=== PATIENT | female | born 1930 | race Caucasian/White ===

== ENCOUNTER 2017-08-15 12:25 | Inpatient (IN) | payer OTHER, MEDICARE ==
[2017-08-15] VITALS (8 sets, daily range): BP systolic 138–178; BP diastolic 65–79; PULSE 48–76; RESP 17–20; TEMP 98.7; O2SAT 93–100
[~2017-08-15] VITALS: Ht 144.8 cm; Wt 40.7 kg
[2017-08-15] MEDS ORDERED: IOHEXOL 350 MG/ML 10 ML VIAL (for RAD DIAG) IVCONTRAST ONE (12:26)
[2017-08-15] MEDS ORDERED: DIPHTH/TETANUS/ACEL PERTUSSIS (BOOSTER) 0.5 ML VIAL/PFS IM ONE (12:35)
[2017-08-15 12:49] LABS: I-STAT POTASSIUM 4.1 MMOL/L (3.5-4.9)
[2017-08-15 12:51] LABS: AUTOMATED NEUTROPHIL # 5.8 TH/MM3 (1.8-7.7); BASOPHIL % 0.5 % (0.0-2.0); EOSINOPHIL # 0.1 TH/MM3 (0-0.4); EOSINOPHIL % 0.8 % (0.0-4.0); HEMATOCRIT 31.9 % (35.0-46.0); HEMO FLAGS DIFF FINAL; LYMPH % 32.2 % (9.0-44.0); LYMPHOCYTE # 3.4 TH/MM3 (1.0-4.8); MEAN CORPUSCULAR HEMOGLOBIN 31.9 PG (27.0-34.0); MEAN CORPUSCULAR HGB CONC 33.2 % (32.0-36.0); MONO % 11.4 % (0.0-8.0); NEUT % 55.1 % (16.0-70.0); PLATELET COUNT 295 TH/MM3 (150-450); RED BLOOD COUNT 3.32 MIL/MM3 (4.00-5.30); RED CELL DISTRIBUTION WIDTH 12.3 % (11.6-17.2); WHITE BLOOD COUNT 10.5 TH/MM3 (4.0-11.0)
[2017-08-15 12:58] LABS: APTT (PATIENT) 25.9 SEC (24.3-30.1); PROTHROMBIN TIME - PATIENT 11.5 SEC (9.8-11.6)
--- NOTE | 2017-08-15 12:58 | RADRPT ---
EXAM DATE/TIME: 08/15/2017 12:26 [facility] COMPARISON: No previous studies available for comparison. INDICATIONS : Trauma stat. MEDICAL HISTORY : unobtainable SURGICAL HISTORY : unobtainable ENCOUNTER: Initial ACUITY: 1 day PAIN SCORE: 10/10 LOCATION: all over FINDINGS: A single view of the chest demonstrates the lungs to be symmetrically aerated without evidence of mas s, infiltrate or effusion. The cardiomediastinal contours are unremarkable. Osseous structures are intact. CONCLUSION: Negative for pneumothorax. Negative for fracture Mathew Collins MD FACR on August 15, 2017 at 12:44 Board Certified Radiologist. This report was verified electronically.
--- NOTE | 2017-08-15 13:04 | RADRPT ---
EXAM DATE/TIME: 08/15/2017 12:33 [facility] COMPARISON: No previous studies available for comparison. INDICATIONS : Trauma alert, fall today. RADIATION DOSE: 56.35 CTDIvol (mGy) MEDICAL HISTORY : Non-responsive. SURGICAL HISTORY : Non-responsive. ENCOUNTER: Initial ACUITY: 1 day PAIN SCALE: Non-responsive LOCATION: Bilateral head TECHNIQUE: Multiple contiguous axial images were obtained of the head. Using automated exposure control and adj ustment of the mA and/or kV according to patient size, radiation dose was kept as low as reasonably a chievable to obtain optimal diagnostic quality images. DICOM format image data is available electro nically for review and comparison. FINDINGS: There is minimal parenchymal and extra-axial blood noted in the left frontal and temporal regions. Th ere is slight asymmetric hygromatous prominence of the subarachnoid spaces on the left compared to th e right. No significant mass effect or brain shift. A curvilinear focus of spontaneously increased de nsity in the subependymal right lateral ventricle anterior body may be a small focus of hemorrhage or a small subependymal mass. The ventricles are nondilated. There is no drainable hemorrhagic collecti on identified. Patchy diminished attenuation and deep white matter structures is likely chronic micro vascular ischemic in etiology. There is layering fluid in the maxillary sinuses and sphenoid sinus and fluid or mucosal thickening i n the ethmoid sinuses. The calvarium is grossly intact. CONCLUSION: Patchy areas of minimal intracranial hemorrhage, mainly left hemisphere with a focus of abnormal dens ity in the right lateral ventricle which may be minimal hemorrhage or small mass. Oni Hickey MD on August 15, 2017 at 12:57 Board Certified Radiologist. This report was verified electronically.
--- NOTE | 2017-08-15 13:10 | RADRPT ---
EXAM DATE/TIME: 08/15/2017 12:26 [facility] COMPARISON: No previous studies available for comparison. INDICATIONS : Trauma stat. MEDICAL HISTORY : unobtainable SURGICAL HISTORY : unobtainable ENCOUNTER: Initial ACUITY: 1 day PAIN SCORE: 10/10 LOCATION: all over FINDINGS: A single frontal view of the pelvis demonstrates no evidence of fracture. The bony pelvic ring is in tact. Osteoarthritis involving the hip joints. Bony mineralization is normal. The soft tissues are i ntact. Injection granulomas overlie both hips. CONCLUSION: No acute disease. Chinedu Black Jr., MD on August 15, 2017 at 13:06 Board Certified Radiologist. This report was verified electronically.
--- NOTE | 2017-08-15 13:14 | RADRPT ---
EXAM DATE/TIME: 08/15/2017 12:33 [facility] COMPARISON: No previous studies available for comparison. INDICATIONS : Trauma alert, fall today. IV CONTRAST: 71 cc Omnipaque 350 (iohexol) IV ; Cumulative dose for multiple exams. RADIATION DOSE: 5.34 CTDIvol (mGy) MEDICAL HISTORY : Non-responsive. SURGICAL HISTORY : Non-responsive. ENCOUNTER: Initial ACUITY: 1 day PAIN SCALE: Non-responsive LOCATION: Bilateral chest TECHNIQUE: Volumetric scanning of the chest was performed. Using automated exposure control and adjustment of t he mA and/or kV according to patient size, radiation dose was kept as low as reasonably achievable to obtain optimal diagnostic quality images. DICOM format image data is available electronically for review and comparison. Follow-up recommendations for detected pulmonary nodules are based at a minimum on nodule size and pa tient risk factors according to Fleischner Society Guidelines. FINDINGS: Breathing motion artifact degrades the exam somewhat. LUNGS: There is no consolidation or pneumothorax. No concerning pulmonary nodule is visualized. PLEURA: There is no pleural thickening or pleural effusion. MEDIASTINUM: The heart is at the upper limits of normal in terms of size. No pericardial effusion. Coronary artery atherosclerotic calcifications. Aorta and pulmonary arteries are normal in caliber. No mediastinal h ematoma or fluid. No adenopathy. AXILLAE: Within normal limits. No lymphadenopathy. SKELETAL: Within normal limits for patient age. MISCELLANEOUS: The visualized upper abdominal organs demonstrate no acute abnormality. CONCLUSION: No acute disease. Chinedu Black Jr., MD on August 15, 2017 at 13:09 Board Certified Radiologist. This report was verified electronically.
--- NOTE | 2017-08-15 13:19 | RADRPT ---
EXAM DATE/TIME: 08/15/2017 12:38 [facility] COMPARISON: No previous studies available for comparison. INDICATIONS : Trauma alert, fall today. RADIATION DOSE: 37.22 CTDIvol (mGy) MEDICAL HISTORY : Non-responsive. SURGICAL HISTORY : Non-responsive. ENCOUNTER: Initial ACUITY: 1 day PAIN SCALE: Non-responsive LOCATION: Bilateral neck TECHNIQUE: Volumetric scanning of the cervical spine was performed. Multiplanar reconstructions in the sagittal, coronal and oblique axial planes were performed. Using automated exposure control and adjustment o f the mA and/or kV according to patient size, radiation dose was kept as low as reasonably achievable to obtain optimal diagnostic quality images. DICOM format image data is available electronically f or review and comparison. FINDINGS: VERTEBRAE: Normal vertebral body height. ALIGNMENT: No evidence of subluxation. C2-C3: The bony spinal canal is normal in size. No evidence of disc bulge or herniation. The neural forami na are bilaterally patent. C3-C4: The bony spinal canal is normal in size. No evidence of disc bulge or herniation. The neural forami na are bilaterally patent. C4-C5: The bony spinal canal is normal in size. No evidence of disc bulge or herniation. The neural forami na are bilaterally patent. C5-C6: There is disc space narrowing with a mild broad-based disc osteophyte complex. No central canal steno sis. Bony uncovertebral hypertrophy causes moderate narrowing of the right neural foramen. The left r emains patent. C6-C7: There is disc space narrowing without disc bulge or protrusion. Central canal and lateral recesses ar e patent. Bony uncovertebral hypertrophy generates moderate narrowing of the right neural foramen. Th e left remains patent. C7-T1: The bony spinal canal is normal in size. No evidence of disc bulge or herniation. The neural forami na are bilaterally patent. CONCLUSION: 1. No fracture or dislocation. 2. Degenerative changes. 3. Calcified plaque involving the carotid arteries bilaterally. Chinedu Black Jr., MD on August 15, 2017 at 13:14 Board Certified Radiologist. This report was verified electronically.
--- NOTE | 2017-08-15 13:27 | RADRPT ---
EXAM DATE/TIME: 08/15/2017 12:44 [facility] COMPARISON: No previous studies available for comparison. INDICATIONS : Trauma alert, fall today. IV CONTRAST: 71 cc Omnipaque 350 (iohexol) IV ; Cumulative dose for multiple exams. ORAL CONTRAST: No oral contrast ingested. RADIATION DOSE: 5.34 CTDIvol (mGy) ; Combined studies MEDICAL HISTORY : Non-responsive. SURGICAL HISTORY : Non-responsive. ENCOUNTER: Initial ACUITY: 1 day PAIN SCALE: Non-responsive LOCATION: Bilateral abdomen TECHNIQUE: Volumetric scanning of the abdomen and pelvis was performed. Using automated exposure control and ad justment of the mA and/or kV according to patient size, radiation dose was kept as low as reasonably achievable to obtain optimal diagnostic quality images. DICOM format image data is available electro nically for review and comparison. FINDINGS: LOWER LUNGS: See the CT of the thorax dictated separately. LIVER: Homogeneous density without lesion. There is no dilation of the biliary tree. No calcified gallston es. SPLEEN: Normal size without lesion. PANCREAS: Within normal limits. KIDNEYS: Normal in size and shape. There is no mass, stone or hydronephrosis. ADRENAL GLANDS: There is a mass involving the left adrenal gland. This measures 2.3 cm in diameter with Hounsfield un its 89. Right adrenal gland is unremarkable. VASCULAR: Diffuse calcified atherosclerotic plaque of the aorta and its major branches. No aneurysmal change. BOWEL/MESENTERY: The stomach, small bowel, and colon demonstrate no acute abnormality. There is no free intraperitone al air or fluid. Scattered colonic diverticuli without acute inflammation. ABDOMINAL WALL: Within normal limits. RETROPERITONEUM: There are scattered retroperitoneal lymph nodes observed. The majority are partially 1 cm in greatest dimension. There is an isolated dominant lymph node projecting between the inferior vena cava and ab dominal aorta just below the left renal vein. This measures 2.3 x 1.8 cm. BLADDER: No wall thickening or mass. REPRODUCTIVE: The uterus is felt to be surgically absent. There is a heterogeneous mass seen associated with the po sterior portion of the trigone of urinary bladder. This measures 1.4 x 3.9 and a 3.7 cm and appears c entrally necrotic. INGUINAL: There is no lymphadenopathy or hernia. MUSCULOSKELETAL: Within normal limits for patient age. CONCLUSION: 1. No signs of acute trauma. 2. Retroperitoneal adenopathy as well as a left adrenal gland mass. This is concerning for metastatic disease. There is a heterogeneous mass associated with the trigone of urinary bladder. This is worri some for a primary lesion. MRI of the pelvis can be utilized to further evaluate this. Chinedu Black Jr., MD on August 15, 2017 at 13:17 Board Certified Radiologist. This report was verified electronically.
--- NOTE | 2017-08-15 14:45 | PD ---
Physical Exam Date Seen by Provider: Aug 15, 2017 Time Seen by Provider: 14:44 Narrative For full history and physical examination please see previous provider's note. I was asked to repair laceration the patient's forehead. Data Data Last Documented VS Vital Signs Date Time Temp Pulse Resp B/P (MAP) Pulse Ox O2 Delivery O2 Flow Rate FiO2 08/15/17 13:05 100 Nasal Cannula 2.00 08/15/17 13:05 65 17 138/65 (89) Orders Orders I-Stat Profile (08/15/17 12:30) Complete Blood Count With Diff (08/15/17 12:30) Prothrombin Time / Inr (Pt) (08/15/17 12:30) Act Partial Throm Time (Ptt) (08/15/17 12:30) Type And Screen (08/15/17 12:30) Chest, Single Ap (08/15/17 12:30) Pelvis, Ap Only (Routine) (08/15/17 12:30) Ct Brain W/O Iv Contrast(Rout) (08/15/17 12:30) Ct Cerv Spine W/O Contrast (08/15/17 12:30) Ct Thorax/ Chest W Iv Contrast (08/15/17 12:30) Iv Access Insert/Monitor (08/15/17 12:30) Ecg Monitoring (08/15/17 12:30) Oximetry (08/15/17 12:30) Oxygen Administration (08/15/17 12:30) Ompp-Sfo-Jacnwh (Booster) Inj (Boostrix (08/15/17 12:35) Ct Abd/Pel W Iv Contrast(Rout) (08/15/17 ) Iohexol 350 Inj (Omnipaque 350 Inj) (08/15/17 12:26) Labs Laboratory Tests Test 08/15/17 12:32 White Blood Count 10.5 TH/MM3 Red Blood Count 3.32 MIL/MM3 Hemoglobin 10.6 GM/DL Bedside Hemoglobin 10.9 G/DL Hematocrit 31.9 % Bedside Hematocrit 32.0 % Mean Corpuscular Volume 96.0 FL Mean Corpuscular Hemoglobin 31.9 PG Mean Corpuscular Hemoglobin Concent 33.2 % Red Cell Distribution Width 12.3 % Platelet Count 295 TH/MM3 Mean Platelet Volume 8.1 FL Neutrophils (%) (Auto) 55.1 % Lymphocytes (%) (Auto) 32.2 % Monocytes (%) (Auto) 11.4 % Eosinophils (%) (Auto) 0.8 % Basophils (%) (Auto) 0.5 % Neutrophils # (Auto) 5.8 TH/MM3 Lymphocytes # (Auto) 3.4 TH/MM3 Monocytes # (Auto) 1.2 TH/MM3 Eosinophils # (Auto) 0.1 TH/MM3 Basophils # (Auto) 0.0 TH/MM3 CBC Comment DIFF FINAL Differential Comment Prothrombin Time 11.5 SEC Prothromb Time International Ratio 1.0 RATIO Activated Partial Thromboplast Time 25.9 SEC Bedside Sodium 138 MMOL/L Bedside Potassium 4.1 MMOL/L Bedside Chloride 101 MMOL/L Bedside Blood Urea Nitrogen 30 MG/DL Bedside Creatinine 1.0 MG/DL Bedside Glucose 129 MG/DL [facility] Medical Record Reviewed: Yes Supervised Visit with URSULA: Yes Procedures Procedure Narrative LACERATION LOCATION: Right temporal area LENGTH: 4 cm NUMBER OF STITCHES/MATHIEU: 6 stitches REPAIR: The area of the laceration was prepped with Betadine and sterilely draped. The laceration was infiltrated with 1% lidocaine. The wound was copiously irrigated and explored without evidence of foreign body, tendon injury or neurovascular injury. The wound was closed using 5-0 Prolene. This was a 1 layer repair. A sterile dressing was applied. The patient was advised to keep the dressing clean and dry. Patient tolerated the procedure well. Scripts Unable to Obtain Active Prescriptions or Reported Meds Nidia Parks Aug 15, 2017 14:45
[2017-08-15] MEDS ORDERED: ACETAMINOPHEN 325 MG TAB PO PRN (15:00)
[2017-08-15] MEDS ORDERED: RESP: ALBUTEROL 2.5 MG/3 ML NEB (PRN) INH (15:00)
[2017-08-15] MEDS ORDERED: LACTULOSE SYRUP 20 GM/30 ML CUP PO PRN (15:00)
[2017-08-15] MEDS ORDERED: MISCELLANEOUS NURSING INFORMATION XX SCH ×2 (15:00→18:30)
[2017-08-15] MEDS ORDERED: BISACODYL 10 MG SUPP RECTAL PRN (15:00)
[2017-08-15] MEDS ORDERED: SENNOSIDES 8.6 MG TAB PO PRN (15:00)
[2017-08-15] MEDS ORDERED: ONDANSETRON HCL 4 MG/2 ML VIAL IV PUSH PRN (15:00)
[2017-08-15] MEDS ORDERED: SODIUM CHLORIDE 0.9% FLUSH 10 ML FLUSH IV FLUSH PRN ×2 (15:00→18:30)
[2017-08-15] MEDS ORDERED: CHLORHEXIDINE GLUCONATE 2 % 1 PACK (2 CLOTHS) TOP PRN (15:00)
[2017-08-15] MEDS ORDERED: MAGNESIUM HYDROXIDE SUSP 30 ML CUP PO PRN (15:00)
--- NOTE | 2017-08-15 15:07 | PD.CONS ---
[facility] Service Critical Care Medicine Consult Requested By Dr. Higginbotham Reason for Consult Medical care medicine management Primary Care Physician Unknown History of Present Illness Patient states she is an 87-year-old female. She states her actual name is Eleanor Sanchez. Date of admission 08/15/2017. Date of consultation 2016. Past medical history includes hypertension and recent diagnosis of bladder mass. She was scheduled for an outpatient cystoscopy with Dr. Mustafa. She presents to [facility] status post fall. Patient received #5 of 5. 0 Prolene sutures over her right supraorbital/forehead. Patient received DPT 0.5 mg IM 1 in ED Pertinent imaging CT brain - minimal parenchymal and extraction of blood in the left frontal and temporal regions. Right greater than left hygromas. Right lateral ventricle hemorrhage versus subependymal mass. Non-dilatated ventricles. CT abdomen/pelvis - retroperitoneal lymph node enlargement around 1 cm diffuse. Left renal vein lymph node 2.2 x 1.8 c m. There is a 1.8 x 3.9 x 3.7 necrotic mass at the trigone of the bladder CT C-spine - right neural foraminal narrowing at C5/6 and C6/7. Patient is currently complaining of urinary frequency. Question UTI according to family. Also complaining of nausea with emesis noted Review of Systems ROS Limitations: Clinical Condition, Altered Mental Status Past Family Social History Allergies: Coded Allergies: Sulfa (Sulfonamide Antibiotics) (Verified Allergy, Unknown, 08/15/17) Past Medical History Hypertension Known bladder mass Past Surgical History Patient currently denies Reported Medications Blood pressure medications. Unknown per patient Active Ordered Medications Reviewed in EMR Family History Patient denies any family history of brain hemorrhages/mass/diabetes, hypertension Social History Denies any alcohol, tobacco or illicit drug use Physical Exam Vital Signs Vital Signs Date Time Temp Pulse Resp B/P (MAP) Pulse Ox O2 Delivery O2 Flow Rate FiO2 08/15/17 14:56 76 17 164/71 (102) 100 Nasal Cannula 3.00 08/15/17 13:05 100 Nasal Cannula 2.00 08/15/17 13:05 65 17 138/65 (89) 100 Nasal Cannula 3.00 08/15/17 12:30 100 4.00 08/15/17 12:30 100 Nasal Cannula 4.00 Physical Exam GENERAL: Patient states she is an 87-year-old female, currently resting in bed in c-collar in no acute distress SKIN: Warm and dry. Noted laceration right forehead #5 sutures HEAD: Contusion to right for his above. Also a 3 cm contusion above the right eyebrow without sutures EYES: Pupils equal and round about 3 mm bilaterally and reactive. No scleral icterus. No injection or drainage. ENT: No nasal bleeding or discharge. Mucous membranes pink and moist. NECK: Trachea midline. No JVD. CARDIOVASCULAR: Regular rate and rhythm. S1, S2. No S4. Without murmur RESPIRATORY: Clear to auscultation. Breath sounds equal bilaterally. GASTROINTESTINAL: Abdomen soft, non-tender, nondistended. Hepatic and splenic margins not palpable. MUSCULOSKELETAL: Extremities without significant peripheral edema. No obvious deformities. NEUROLOGICAL: Awake and alert. No obvious cranial nerve deficits. Motor grossly within normal limits. Five out of 5 muscle strength in the arms and legs. Normal speech. Laboratory Laboratory Tests Test 08/15/17 12:32 White Blood Count 10.5 Red Blood Count 3.32 Hemoglobin 10.6 Bedside Hemoglobin 10.9 Hematocrit 31.9 Bedside Hematocrit 32.0 Mean Corpuscular Volume 96.0 Mean Corpuscular Hemoglobin 31.9 Mean Corpuscular Hemoglobin Concent 33.2 Red Cell Distribution Width 12.3 Platelet Count 295 Mean Platelet Volume 8.1 Neutrophils (%) (Auto) 55.1 Lymphocytes (%) (Auto) 32.2 Monocytes (%) (Auto) 11.4 Eosinophils (%) (Auto) 0.8 Basophils (%) (Auto) 0.5 Neutrophils # (Auto) 5.8 Lymphocytes # (Auto) 3.4 Monocytes # (Auto) 1.2 Eosinophils # (Auto) 0.1 Basophils # (Auto) 0.0 CBC Comment DIFF FINAL Differential Comment Prothrombin Time 11.5 Prothromb Time International Ratio 1.0 Activated Partial Thromboplast Time 25.9 Bedside Sodium 138 Bedside Potassium 4.1 Bedside Chloride 101 Bedside Blood Urea Nitrogen 30 Bedside Creatinine 1.0 Bedside Glucose 129 Result Diagram: 08/15/[address] abdomen/pelvis - retroperitoneal lymphadenopathy. Trigone mass bladder. CT brain - minimal parenchymal extra-axial blood left frontal/temporal. Left lateral ventricle mass versus hemorrhage CT C-spine - C5/6 and C6/7 right neural foraminal narrowing Assessment and Plan Assessment and Plan Neuro/Psych: Right frontal/temporal parenchymal, extra-axial hemorrhage Possible right lateral ventricle mass versus hemorrhage MRI brain currently pending Dr. Palacios/neurosurgery consultation Keep systolic blood pressure less than 140 Neurochecks per [facility] protocol Repeat CT brain in a.m. CV: Hypertension Currently on an as needed labetalol, hydralazine and nicardipine drip to keep systolic blood pressure less than 140, diastolic blood pressure less than 90 Normal saline at 84 cc an hour while nothing by mouth Resp: Nasal cannula to maintain saturations greater than 92% Incentive spirometry while awake GI: Patient is currently nothing by mouth Famotidine for GI prophylaxis Docusate sodium/senna 1 tablet twice a day for bowel regimen : Written for straight catheterization if greater than [address] Amin otherwise Endo: Sliding-scale insulin if indicated to maintain euglycemia Renal: Creatinine currently 1.0 Monitor urine output Accurate I's and O's Heme: Bladder mass - trigone - 1.8 x 3.9 x 3.7 cm Retroperitoneal lymphadenopathy MRI abdomen/pelvis ordered Patient was planned Dr. Mustafa for cystoscopy CBC and coags currently within normal limits. No indication for transfusion of blood proximal at this time. Patient denies being on aspirin, ibuprofen or any thinners including warfarin or NOACS ID: UA pending MSK: Right forehead laceration DPT 0.5 mg IM 1 artery provided Sutured in ED with number 5. 0 Prolene x 5 stitches FEN: Replace electrolytes as clinically indicated Access - Utilize peripheral IV. Central line if indicated Prophylaxis - GI - famotidine - DVT - SCD/holding pharmacological prophylaxis light of acute hemorrhage Level II consult Code Status Full code Discussed Condition With Dr. Xavier/ED physician. Patient. Care plan discussed and all questions answered. Lucho Kolb MD Aug 15, 2017 15:07
[2017-08-15] MEDS ORDERED: LABETALOL HCL 100 MG/20 ML VIAL IV PUSH PRN (15:15)
[2017-08-15] MEDS ORDERED: niCARdipine INJ 25 MG in SODIUM CHLOR 0.9% 250 ML INJ 240 ML IV PRN (15:30)
--- NOTE | 2017-08-15 15:48 | PD ---
HPI Chief Complaint: Trauma (Alert) Time Seen by Provider: 13:11 Travel History International Travel<30 days: No Contact w/Intl Traveler<30days: No Traveled to known affect area: No History of Present Illness HPI This is an 87-year-old female brought in as a trauma alert. The patient apparently had an episode of dizziness and felt [place] striking her head. When paramedics arrived, she had a [place]ok[place] Coma Scale of 12. They called a trauma alert based on her age and altered level consciousness or decreased [place] Coma Scale. He shouldn't denies pain however has repetitive comments. She is unable to give clear history and therefore her review of systems do not appear to be valid because I'm not sure she comprehends the questions asked of her. Allergies-Medications (Allergen,Severity, Reaction): Coded Allergies: Sulfa (Sulfonamide Antibiotics) (Verified Allergy, Unknown, 08/15/17) Reported Meds & Prescriptions Reported Meds & Active Scripts Active Active Prescriptions or Reported Medications Unobtainable Review of Systems ROS Limitations: Clinical Condition (altered mental status. Unable to get accurate review of systems.) Except as stated in HPI: all other systems reviewed are Neg Physical Exam Narrative GENERAL: Well-developed well-nourished female with obvious laceration to the right lateral temporal area. She was in C-spine backboard immobilization. She was awake and answering no to every question asked. SKIN: Focused skin assessment warm/dry. HEAD: Atraumatic. Normocephalic. EYES: No scleral icterus. No injection or drainage. ENT: No nasal bleeding or discharge. Mucous membranes pink and moist. NECK: Trachea midline. C-collar immobilization.. CARDIOVASCULAR: Rate in the 70s.. Sinus rhythm. No murmur appreciated. RESPIRATORY: No accessory muscle use. Clear to auscultation. Breath sounds equal bilaterally. Decreased respiratory effort. GASTROINTESTINAL: Abdomen soft, non-tender, nondistended. Hepatic and splenic margins not palpable. MUSCULOSKELETAL: No obvious deformities. No clubbing. No cyanosis. No edema. NEUROLOGICAL: Awake and confused with repetitive questions. No obvious cranial nerve deficits. Motor grossly within normal limits. Normal speech. Data Data Last Documented VS Vital Signs Date Time Temp Pulse Resp B/P (MAP) Pulse Ox O2 Delivery O2 Flow Rate FiO2 08/15/17 14:56 76 17 164/71 (102) 100 Nasal Cannula 3.00 Orders Orders I-Stat Profile (08/15/17 12:30) Complete Blood Count With Diff (08/15/17 12:30) Prothrombin Time / Inr (Pt) (08/15/17 12:30) Act Partial Throm Time (Ptt) (08/15/17 12:30) Type And Screen (08/15/17 12:30) Chest, Single Ap (08/15/17 12:30) Pelvis, Ap Only (Routine) (08/15/17 12:30) Ct Brain W/O Iv Contrast(Rout) (08/15/17 12:30) Ct Cerv Spine W/O Contrast (08/15/17 12:30) Ct Thorax/ Chest W Iv Contrast (08/15/17 12:30) Iv Access Insert/Monitor (08/15/17 12:30) Ecg Monitoring (08/15/17 12:30) Oximetry (08/15/17 12:30) Oxygen Administration (08/15/17 12:30) Mnku-Anw-Ivkqcb (Booster) Inj (Boostrix (08/15/17 12:35) Ct Abd/Pel W Iv Contrast(Rout) (08/15/17 ) Iohexol 350 Inj (Omnipaque 350 Inj) (08/15/17 12:26) Mri Brain W/O Contrast (08/15/17 ) Mri Abdomen W/O Contrast (08/15/17 ) Admit To Inpatient (08/15/17 ) Code Status (08/15/17 14:56) Vital Signs (Adult) KATHY.Q1H (08/15/17 14:56) Activity Bed Rest (08/15/17 14:56) Elevate Head Of Bed (08/15/17 14:56) Neuro Checks . ORDERED (08/15/17 14:56) Intake + Output Q1H (08/15/17 14:56) Bedside Glucose KATHY.BGM (08/15/17 14:56) ^ Straight Catheter PRN (08/15/17 14:56) Diet Npo (08/15/17 Dinner) Sodium Chlor 0.9% 1000 Ml Inj (Ns 1000 M (08/15/17 14:56) Sodium Chloride 0.9% Flush (Ns Flush) (08/15/17 15:00) Sodium Chloride 0.9% Flush (Ns Flush) (08/15/17 21:00) Acetaminophen (Tylenol) (08/15/17 15:00) Acetamin-Hydrocod 325-5 Mg ([place] 5-325 (08/15/17 15:00) Morphine Inj (Morphine Inj) (08/15/17 15:00) Famotidine Inj (Pepcid Inj) (08/15/17 21:00) Ondansetron Inj (Zofran Inj) (08/15/17 15:00) Albuterol Neb (Albuterol Neb) (08/15/17 15:00) Complete Blood Count With Diff (08/16/17 04:00) Comprehensive Metabolic Panel (08/16/17 04:00) Creatine Kinase (Cpk) (08/15/17 14:56) Act Partial Throm Time (Ptt) (08/16/17 04:00) Prothrombin Time / Inr (Pt) (08/16/17 04:00) Magnesium (Mg) (08/16/17 04:00) Phosphorus (Po4) (08/16/17 04:00) Lactic Acid (08/16/17 04:00) Urine Culture (08/15/17 14:56) Resp Incentive Spirometry (08/15/17 ) Resp Oxygen Levi C Titrat 1-4 L (08/15/17 ) Pt Request For Service (08/15/17 14:56) Laundry Tech / Telemetry KATHY.Q8H (08/15/17 14:56) Scd Bilateral/Knee High KATHY.BID (08/15/17 14:56) ^ Initiate Protocol (08/15/17 14:56) Instruction (08/15/17 14:56) Counts Include [facility] (08/15/17 15:00) Chlorhexidine 2% Cloth (Chlorhexidine 2% (08/16/17 04:00) Chlorhexidine 2% Cloth (Chlorhexidine 2% (08/15/17 15:00) Mrsa Pcr Surveillance (08/15/17 14:56) Docusate Sodium-Senna (Eliane-Colace) (08/15/17 21:00) Magnesium Hydroxide Liq (Milk Of Magnesi (08/15/17 15:00) Sennosides (Senokot) (08/15/17 15:00) Bisacodyl Supp (Dulcolax Supp) (08/15/17 15:00) Lactulose Liq (Lactulose Liq) (08/15/17 15:00) Ct Brain W/O Iv Contrast(Rout) (08/16/17 06:00) Labetalol Inj (Trandate Inj) (08/15/17 15:15) Hydralazine Inj (Apresoline Inj) (08/15/17 15:15) Nicardipine Inj (Cardene Inj) (08/15/17 15:30) Mri Pelvis W/O Contrast (08/15/17 ) Ua Includes Microscopic (08/15/17 15:13) Labs Laboratory Tests Test 08/15/17 12:32 White Blood Count 10.5 TH/MM3 Red Blood Count 3.32 MIL/MM3 Hemoglobin 10.6 GM/DL Bedside Hemoglobin 10.9 G/DL Hematocrit 31.9 % Bedside Hematocrit 32.0 % Mean Corpuscular Volume 96.0 FL Mean Corpuscular Hemoglobin 31.9 PG Mean Corpuscular Hemoglobin Concent 33.2 % Red Cell Distribution Width 12.3 % Platelet Count 295 TH/MM3 Mean Platelet Volume 8.1 FL Neutrophils (%) (Auto) 55.1 % Lymphocytes (%) (Auto) 32.2 % Monocytes (%) (Auto) 11.4 % Eosinophils (%) (Auto) 0.8 % Basophils (%) (Auto) 0.5 % Neutrophils # (Auto) 5.8 TH/MM3 Lymphocytes # (Auto) 3.4 TH/MM3 Monocytes # (Auto) 1.2 TH/MM3 Eosinophils # (Auto) 0.1 TH/MM3 Basophils # (Auto) 0.0 TH/MM3 CBC Comment DIFF FINAL Differential Comment Prothrombin Time 11.5 SEC Prothromb Time International Ratio 1.0 RATIO Activated Partial Thromboplast Time 25.9 SEC Bedside Sodium 138 MMOL/L Bedside Potassium 4.1 MMOL/L Bedside Chloride 101 MMOL/L Bedside Blood Urea Nitrogen 30 MG/DL Bedside Creatinine 1.0 MG/DL Bedside Glucose 129 MG/DL [facility] Medical Screen Exam Complete: Yes Emergency Medical Condition: Yes Differential Diagnosis Intracranial injury versus cervical spine injury versus metabolic derangement Narrative Course 87-year-old female presents as a trauma alert. The patient reportedly had dizzy and fell for hitting her head. There is reported decreased level of consciousness on scene. The patient has a [place] Coma Scale of 13 on my examination. Patient has intraparenchymal hemorrhages. There is also question of a mass noted intracranially. The patient's abdomen pelvis CT scan shows a bladder mass and a left adrenal mass. This is possibly metastatic cancer. The patient is been discussed with Dr. Palacios, on-call neurosurgeon, Dr. Kolb, cabin service agent and Dr. Turcios, trauma surgeon. The patient be admitted to the ICU. The laceration has been repaired by YURI Villanueva. Critical Care Narrative Aggregate critical care time was 45 minutes. Time to perform other separately billable procedures was not included in the critical care time. My time did not include minutes spent treating any other patients simultaneously or on activities that did not directly contribute to the patient's treatment. The services I provided to this patient were to treat and/or prevent clinically significant deterioration that could result in: I provided critical care services requiring my management, as noted below: Chart data review, documentation time, medication orders and management, vital sign assessments/reviewing monitor data, ordering and reviewing lab tests, ordering and interpreting/reviewing x-rays and diagnostic studies, care of the patient and discussion of the patient with the admitting physicians. Diagnosis Diagnosis: Primary Impression: Traumatic intracranial hemorrhage Additional Impressions: possible intracranial mass Bladder mass Adrenal mass Admitting Physician Requests: Admit Scripts Unable to Obtain Active Prescriptions or Reported Meds Joselito Xavier MD Aug 15, 2017 15:48
[2017-08-15] MEDS: SODIUM CHLOR 0.9% 1000 ML INJ 1,000 ML IV SCH (16:46)
[2017-08-15] MEDS ORDERED: GADODIAMIDE PF 287 MG/ML 10 ML VIAL (for RAD MRI) IV PUSH ONE (17:36)
--- NOTE | 2017-08-15 18:42 | RADRPT ---
EXAM DATE/TIME: 08/15/2017 17:14 [facility] COMPARISON: CT BRAIN W/O CONTRAST, August 15, 2017, 12:33. INDICATIONS : Mass. Head pain due to fall and confusion. CONTRAST: 10 cc Omniscan (gadodiamide) IV MEDICAL HISTORY : Hypertension. SURGICAL HISTORY : Hysterectomy. ENCOUNTER: Initial ACUITY: 1 day PAIN SCORE: 7/10 LOCATION: Bilateral cranial TECHNIQUE: Multiplanar, multisequence MRI of the brain was performed both prior to and following the administrat ion of paramagnetic contrast. FINDINGS: CEREBRUM: Ventricles are somewhat prominent and out of proportion to degree of cortical atrophy. On the suscept ibility weighted images, there did appear to be multiple areas of parenchymal susceptibility artifact , particularly periventricular distribution on the right and subcortical distribution on the left. So me of these correspond to the parenchymal densities identified on CT and may represent small parenchy mal hemorrhages. In addition, there appear to be small fluid levels in the dependent portion of the v entricles with diminished signal on the susceptibility weighted images concerning for small intravent ricular hemorrhages. 9 mm subdural hygroma on the left WHITE MATTER: Moderately severe periventricular small vessel ischemic demyelination. POSTERIOR FOSSA: The cerebellum and brainstem are intact. The 4th ventricle is midline. The cerebellopontine angle is unremarkable. The cerebellar tonsils are normal in position. DIFFUSION IMAGING: No focal areas of restricted diffusion are seen. No evidence of acute infarction. EXTRACRANIAL: The visualized portions of the orbits are unremarkable. Small air-fluid levels in the maxillary antra bilaterally. POST-CONTRAST: No abnormal areas of parenchymal or dural enhancement. No evidence of blood-brain barrier breakdown. CONCLUSION: 1. MR findings concerning for scattered parenchymal hemorrhages or, possibly, diffuse axonal injury d epending on the patient's clinical condition. These are most prominent in the subcortical distributio n of the left cerebral hemisphere. 2. 9 mm subdural hygroma on the left. There may be small intraventricular hemorrhages as well. 3. Chronic changes with moderately severe periventricular small vessel ischemic demyelination. Mild v entricular prominence could represent central atrophy versus NPH in the appropriate clinical setting. Finn Aguillon MD on August 15, 2017 at 18:29 Board Certified Radiologist. This report was verified electronically.
--- NOTE | 2017-08-15 18:48 | MH ---
cc: SILVANA CHRISTIE M.D. DATE OF ADMISSION 08/15/2017 HISTORY The patient was brought in a trauma alert after a fall. By report the patient got dizzy and fell hitting her head. Her initial GCS was 3 and she was brought in as a trauma alert. On my evaluation the patient is on backboard and C-collar, awake, moaning of pain and unable to give a history. As a result all histories and review of systems unobtainable. PHYSICAL EXAMINATION HEENT: On exam she has a laceration to her right forehead approximately 2 cm. Pupils are equal and reactive. NECK: Neck is in C-collar. LUNG: Respirations clear. CARDIOVASCULAR: Regular. GASTROINTESTINAL: Soft, nondistended. MUSCULOSKELETAL: No deformities. NEUROLOGICAL: Grossly intact. BACK: No step-offs below LABORATORY DATA The patient's hemoglobin is 19, hematocrit 32. RADIOLOGIC IMAGES CT of the head revealed intracranial hemorrhage, questionable small mass. CT of the cervical spine no fractures. CT of the chest no acute disease. CT of the abdomen and pelvis no acute traumatic disease. Positive enlarged lymph node in the retroperitoneum with adrenal mass as well as mass associated with the bladder. ASSESSMENT/PLAN This is a patient status post fall with closed head injury. Of note, she does have a mass in the bladder with questionable metastatic disease to the retroperitoneum. The patient is being admitted. Will have neurosurgery and card runner see the patient. Once the patient is stable from her acute trauma can have further workup into her bladder disease. MD JUJU Cadet/DHARA /6:25 PM /6:36 PM
--- NOTE | 2017-08-15 19:36 | RADRPT ---
EXAM DATE/TIME: 08/15/2017 17:14 This report includes an Addendum and supersedes previous reports for this exam. [facility] COMPARISON: CT ABDOMEN & PELVIS W CONTRAST, August 15, 2017, 12:44. INDICATIONS : Mass. CONTRAST: 10 cc Omniscan (gadodiamide) IV MEDICAL HISTORY : Hypertension. SURGICAL HISTORY : Hysterectomy. ENCOUNTER: Initial ACUITY: 1 day PAIN SCORE: 7/10 LOCATION: abdomen. TECHNIQUE: Multiplanar, multisequence magnetic resonance imaging of the abdomen was performed without and with i ntravenous contrast. FINDINGS: LIVER: Normal size with normal signal intensity. No lesion is identified. Portal vein is within normal limi ts. BILIARY: There is no intra- or extra-hepatic biliary ductal dilatation. Gallbladder contains no stones. SPLEEN: Within normal limits. PANCREAS: Within normal limits. ADRENALS: 2.3 cm Mass lesion associated with the left adrenal gland. There is no signal drop off on the opposed phase images and therefore, findings are not characteristic of a benign adenoma. As such, imaging ch aracteristics including intense enhancement are concerning for a neoplastic process. KIDNEYS: Normal size and signal intensity. There is no hydronephrosis or mass. OTHER: Aorta is nonaneurysmal. There is no lymphadenopathy. CONCLUSION: Imaging characteristics of the 2.3 cm left adrenal mass lesion are concerning for a neoplastic p rocess. Finn Aguillon MD on August 15, 2017 at 19:30 Board Certified Radiologist. This report was verified electronically. ADDENDUM: Also noted is a 2.1 cm isolated but prominent retroperitoneal periaortic lymph node at the level of t he renal veins which was identified on prior CT. This is concerning for a metastatic foci. Finn Aguillon MD on August 16, 2017 at 16:47 Board Certified Radiologist. This report was verified electronically.
[2017-08-15] MEDS: DOCUSATE SODIUM 50 MG/SENNA 8.6 MG TAB PO SCH (20:59)
[2017-08-15] MEDS: FAMOTIDINE 20 MG/2 ML VIAL IV PUSH SCH (21:29)
[2017-08-15] MEDS: MORPHINE SULFATE 4 MG/ML INJ IV PUSH PRN (21:30)
[2017-08-15] MEDS: SODIUM CHLORIDE 0.9% FLUSH 10 ML FLUSH IV FLUSH SCH (21:30)
--- NOTE | 2017-08-15 23:36 | PD.CONS ---
History of Present Illness Service Neurosurgery Consult Requested By Gen. surgery trauma service Reason for Consult Traumatic brain injury Primary Care Physician Diagnoses: History of Present Illness The patient is a pleasant elderly lady who according to her family passed out and fell today, striking her head with positive loss of consciousness. She was initially Gokul Coma Score of 3 at the scene and brought in as a trauma alert. No seizure activity reported. No nausea or vomiting reported. She complains of headache. No complaint of neck or low back pain. No complaint of blurred vision or diplopia. Review of Systems Constitutional: DENIES: Fever Eyes: DENIES: Blurred vision, Diplopia Ears, nose, mouth, throat: DENIES: Vertigo Respiratory: DENIES: Shortness of breath Cardiovascular: DENIES: Chest pain, Palpitations Gastrointestinal: DENIES: Abdominal pain, Nausea Musculoskeletal: COMPLAINS OF: Muscle aches, DENIES: Joint pain Hematologic/lymphatic: DENIES: Bruising Neurologic: COMPLAINS OF: Headache Psychiatric: COMPLAINS OF: Confusion Past Family Social History Allergies: Coded Allergies: Sulfa (Sulfonamide Antibiotics) (Verified Allergy, Unknown, 08/15/17) Past Medical History Hypertension Her family states that she was recently hospitalized at [facility]. She has recently been diagnosed with a bladder mass and was supposed to have a cystoscopy tomorrow per Dr. Mustafa Past Surgical History No major surgeries reported Reported Medications Reported Meds & Active Scripts Active Active Prescriptions or Reported Medications Unobtainable Family History Negative for cancer, diabetes, cardiac disease Social History This with her . No alcohol or tobacco use Physical Exam Vital Signs Vital Signs Date Time Temp Pulse Resp B/P (MAP) Pulse Ox O2 Delivery O2 Flow Rate FiO2 08/15/17 22:00 53 08/15/17 20:00 98.7 48 20 178/79 (112) 100 08/15/17 20:00 54 08/15/17 19:00 98 Nasal Cannula 4.00 08/15/17 18:20 08/15/17 18:00 70 17 170/77 (108) 100 Nasal Cannula 3.00 08/15/17 17:00 72 17 165/72 (103) 100 Nasal Cannula 3.00 08/15/17 14:56 76 17 164/71 (102) 100 Nasal Cannula 3.00 08/15/17 13:05 100 Nasal Cannula 2.00 08/15/17 13:05 65 17 138/65 (89) 100 Nasal Cannula 3.00 08/15/17 12:30 100 4.00 08/15/17 12:30 100 Nasal Cannula 4.00 Physical Exam GENERAL: This is a well-nourished, well-developed patient, no apparent distress. SKIN: No abrasions, contusion, rash noted. Skin warm and dry. HEAD: Right supraorbital and lateral forehead lacerations EYES: Sclerae are clear and nonicteric ENT: No facial edema or ecchymosis. No periorbital edema. No CSF otorrhea or rhinorrhea. No palpable facial fracture or deformity. NECK: Trachea midline. No cervical spine tenderness. CARDIOVASCULAR: Regular rate and rhythm without murmurs, gallops, or rubs. RESPIRATORY: Clear to auscultation. Breath sounds equal bilaterally. No wheezes , rales, or rhonchi. GASTROINTESTINAL: Abdomen soft, non-tender, nondistended. No hepato-splenomegaly , or palpable masses. No guarding. MUSCULOSKELETAL: Extremities without cyanosis, or edema. No joint tenderness, or edema noted. No calf tenderness. Dorsalis pedis pulses 2+ bilateral NEUROLOGICAL: Mild to moderate lethargy She cannot tell me the date, month, or where she is Speech is moderately slow but clear She will say a few words and responds to questions Follow a few simple commands Diminished judgment and insight Recent and remote memory are markedly diminished No evidence of anxiety or depression Pupils are equal and reactive to accommodation. Extra-ocular movements, visual hernandez to confrontation, facial sensorimotor, tongue, palate, sternocleidomastoid testing, hearing to finger rub testing, and bilateral shoulder shrug are all intact. Sensation is intact to light touch in all extremities Strength normal major flexion and extension groups all extremities Salena's absent bilaterally No ankle clonus Plantar responses absent bilateral Fine motor movements intact upper extremities Laboratory Laboratory Tests Test 08/15/17 12:32 08/15/17 18:00 White Blood Count 10.5 Red Blood Count 3.32 Hemoglobin 10.6 Bedside Hemoglobin 10.9 Hematocrit 31.9 Bedside Hematocrit 32.0 Mean Corpuscular Volume 96.0 Mean Corpuscular Hemoglobin 31.9 Mean Corpuscular Hemoglobin Concent 33.2 Red Cell Distribution Width 12.3 Platelet Count 295 Mean Platelet Volume 8.1 Neutrophils (%) (Auto) 55.1 Lymphocytes (%) (Auto) 32.2 Monocytes (%) (Auto) 11.4 Eosinophils (%) (Auto) 0.8 Basophils (%) (Auto) 0.5 Neutrophils # (Auto) 5.8 Lymphocytes # (Auto) 3.4 Monocytes # (Auto) 1.2 Eosinophils # (Auto) 0.1 Basophils # (Auto) 0.0 CBC Comment DIFF FINAL Differential Comment Prothrombin Time 11.5 Prothromb Time International Ratio 1.0 Activated Partial Thromboplast Time 25.9 Bedside Sodium 138 Bedside Potassium 4.1 Bedside Chloride 101 Bedside Blood Urea Nitrogen 30 Bedside Creatinine 1.0 Bedside Glucose 129 Total Creatine Kinase 41 Nasal Screen MRSA (PCR) MRSA NOT DETECTED Result Diagram: 08/15/17 1232 Imaging 08/15/2017 CT scan of the head and cervical spine images are reviewed by the undersigned. I agree with findings as noted below: Pelvis X-Ray 08/15/170 Signed Impressions: Service Date/Time: Tuesday, August 15, 2017 12:26 - CONCLUSION: No acute disease. Chinedu Black Jr., MD Head CT 08/15/17 1230 Signed Impressions: Service Date/Time: Tuesday, August 15, 2017 12:33 - CONCLUSION: Patchy areas of minimal intracranial hemorrhage, mainly left hemisphere with a focus of abnormal density in the right lateral ventricle which may be minimal hemorrhage or small mass. Oni Hickey MD Chest X-Ray 08/15/17 1230 Signed Impressions: Service Date/Time: Tuesday, August 15, 2017 12:26 - CONCLUSION: Negative for pneumothorax. Negative for fracture Mathew Collins MD FACR Chest CT 08/15/17 1230 Signed Impressions: Service Date/Time: Tuesday, August 15, 2017 12:33 - CONCLUSION: No acute disease. Chinedu Black Jr., MD Cervical Spine CT 08/15/17 1230 Signed Impressions: Service Date/Time: Tuesday, August 15, 2017 12:38 - CONCLUSION: 1. No fracture or dislocation. 2. Degenerative changes. 3. Calcified plaque involving the carotid arteries bilaterally. Chinedu Black Jr., MD Abdomen/Pelvis CT 08/15/17 0000 Signed Impressions: Service Date/Time: Tuesday, August 15, 2017 12:44 - CONCLUSION: 1. No signs of acute trauma. 2. Retroperitoneal adenopathy as well as a left adrenal gland mass. This is concerning for metastatic disease. There is a heterogeneous mass associated with the trigone of urinary bladder. This is worrisome for a primary lesion. MRI of the pelvis can be utilized to further evaluate this. Chinedu Black Jr., MD Assessment and Plan Assessment and Plan Impression: 1. Traumatic brain injury. She is maintaining Glascow coma score greater than 8. No significant mass effect on CT scan 2. Forehead lacerations 3. Question of right lateral ventricular mass versus hemorrhage on CT scan. Patient has other finding suspicious for neoplasm. Plan: Findings were discussed with the patient's family in the surgical intensive care unit. A CT scan of the brain will be repeated on 08/16/2017. An MRI of the pelvis has been requested to evaluate for possible neoplasm. Mark Palacios MD Aug 15, 2017 23:36
[2017-08-16] VITALS (13 sets, daily range): BP systolic 117–142; BP diastolic 55–80; PULSE 44–80; RESP 11–32; TEMP 96.6–98.4; O2SAT 81–100
[2017-08-16] MEDS: CHLORHEXIDINE GLUCONATE 2 % 1 PACK (2 CLOTHS) TOP SCH (04:00)
[2017-08-16] MEDS: MORPHINE SULFATE 4 MG/ML INJ IV PUSH PRN (04:40)
--- NOTE | 2017-08-16 05:55 | RADRPT ---
EXAM DATE/TIME: 08/16/2017 05:41 [facility] COMPARISON: CT BRAIN W/O CONTRAST, August 15, 2017, 12:33. INDICATIONS : Trauma, fall. Follow up hemorrhage. RADIATION DOSE: 27.27 CTDIvol (mGy) MEDICAL HISTORY : Non-responsive. SURGICAL HISTORY : Non-responsive. ENCOUNTER: Initial ACUITY: 2 days PAIN SCALE: Non-responsive LOCATION: cranial TECHNIQUE: Multiple contiguous axial images were obtained of the head. Using automated exposure control and adj ustment of the mA and/or kV according to patient size, radiation dose was kept as low as reasonably a chievable to obtain optimal diagnostic quality images. DICOM format image data is available electro nically for review and comparison. FINDINGS: CEREBRUM: The ventricles aren't dilated. There is mild dependent interventricular hemorrhage seen in the adjusto writer operator ior aspect of the lateral ventricles bilaterally. Also some focal hemorrhage seen at the lateral body of the right lateral ventricle. There is a persistent left subdural collection seen over the left fr ontal, temporal and parietal lobes measuring up to 0.9 cm. Minimal midline shift in the order of 2 mm is seen. The basal cisterns are open. There is a small residual area proximal hemorrhage at the left inferior lateral parietal region. There is residual hemorrhage or tiny calcification seen in the med ial aspect of the left basal ganglia. New areas of hemorrhage are seen. There is no evidence of acute infarction. POSTERIOR FOSSA: The cerebellum and brainstem are intact. The 4th ventricle is midline. The cerebellopontine angle i s unremarkable. EXTRACRANIAL: The visualized portion of the orbits is intact. There is fluid/mucosal disease throughout the sinuses . SKULL: The calvaria is intact. No evidence of skull fracture. CONCLUSION: Persistent intraventricular, left subdural, and left parenchymal areas of hemorrhage. New areas of he morrhage are not seen. Oni Higginbotham MD on August 16, 2017 at 5:49 Board Certified Radiologist. This report was verified electronically.
[2017-08-16] MEDS: SODIUM CHLOR 0.9% 1000 ML INJ 1,000 ML IV SCH ×3 (06:42→19:25)
--- NOTE | 2017-08-16 08:39 | HHI.CCPN ---
Subjective Remarks/Hospital Course Patient states she is an 87-year-old female. She states her actual name is Eleanor Sanchez. Date of admission 08/15/2017. Date of consultation 2016. Past medical history includes hypertension and recent diagnosis of bladder mass. She was scheduled for an outpatient cystoscopy with Dr. Mustafa. She presents to [facility] status post fall. Patient received #5 of 5. 0 Prolene sutures over her right supraorbital/forehead. Patient received DPT 0.5 mg IM 1 in ED Pertinent imaging CT brain - minimal parenchymal and extraction of blood in the left frontal and temporal regions. Right greater than left hygromas. Right lateral ventricle hemorrhage versus subependymal mass. Non-dilatated ventricles. CT abdomen/pelvis - retroperitoneal lymph node enlargement around 1 cm diffuse. Left renal vein lymph node 2.2 x 1.8 c m. There is a 1.8 x 3.9 x 3.7 necrotic mass at the trigone of the bladder CT C-spine - right neural foraminal narrowing at C5/6 and C6/7. Patient is currently complaining of urinary frequency. Question UTI according to family. Also complaining of nausea with emesis noted Subjective 08/16: Patient's actual name is Moriah Sanchez. Overnight, no acute plain. Complains of having the urinate frequency. UA is pending. Head CT stable showing left subdural, parenchymal and interventricular hemorrhage with no new areas of bleeding. Neurological exam unchanged. Objective Vital Signs Date Time Temp Pulse Resp B/P (MAP) Pulse Ox O2 Delivery O2 Flow Rate FiO2 08/16/17 06:00 48 08/16/17 04:00 98.4 18 127/80 (96) 100 08/15/17 23:46 Nasal Cannula 4.00 Intake and Output 08/16/17 08/16/17 08/17/17 08:00 16:00 00:00 Intake Total 1000 ml Balance 1000 ml Result Diagram: 08/15/17 1232 Imaging Last Impressions Pelvis X-Ray 08/15/17 1230 Signed Impressions: Service Date/Time: Tuesday, August 15, 2017 12:26 - CONCLUSION: No acute disease. Chinedu Black Jr., MD Head CT 08/15/17 1230 Signed Impressions: Service Date/Time: Tuesday, August 15, 2017 12:33 - CONCLUSION: Patchy areas of minimal intracranial hemorrhage, mainly left hemisphere with a focus of abnormal density in the right lateral ventricle which may be minimal hemorrhage or small mass. Oni Hickey MD Chest X-Ray 08/15/17 1230 Signed Impressions: Service Date/Time: Tuesday, August 15, 2017 12:26 - CONCLUSION: Negative for pneumothorax. Negative for fracture Mathew Collins MD FACR Chest CT 08/15/17 1230 Signed Impressions: Service Date/Time: Tuesday, August 15, 2017 12:33 - CONCLUSION: No acute disease. Chinedu Black Jr., MD Cervical Spine CT 08/15/17 1230 Signed Impressions: Service Date/Time: Tuesday, August 15, 2017 12:38 - CONCLUSION: 1. No fracture or dislocation. 2. Degenerative changes. 3. Calcified plaque involving the carotid arteries bilaterally. Chinedu Black Jr., MD Brain MRI 08/15/17 0000 Signed Impressions: Service Date/Time: Tuesday, August 15, 2017 17:14 - CONCLUSION: 1. MR findings concerning for scattered parenchymal hemorrhages or, possibly, diffuse axonal injury depending on the patient's clinical condition. These are most prominent in the subcortical distribution of the left cerebral hemisphere. 2. 9 mm subdural hygroma on the left. There may be small intraventricular hemorrhages as well. 3. Chronic changes with moderately severe periventricular small vessel ischemic demyelination. Mild ventricular prominence could represent central atrophy versus NPH in the appropriate clinical setting. Finn Aguillon MD Abdomen/Pelvis CT 08/15/17 0000 Signed Impressions: Service Date/Time: Tuesday, August 15, 2017 12:44 - CONCLUSION: 1. No signs of acute trauma. 2. Retroperitoneal adenopathy as well as a left adrenal gland mass. This is concerning for metastatic disease. There is a heterogeneous mass associated with the trigone of urinary bladder. This is worrisome for a primary lesion. MRI of the pelvis can be utilized to further evaluate this. Chinedu Black Jr., MD Abdomen MRI 08/15/17 0000 Signed Impressions: Service Date/Time: Tuesday, August 15, 2017 17:14 - CONCLUSION: Imaging characteristics of the 2.3 cm left adrenal mass lesion are concerning for a neoplastic process. Finn Aguillon MD Objective Remarks GENERAL: Patient states she is an 87-year-old female, resting in bed in no acute distress SKIN: Warm and dry. Noted laceration right forehead #5 prolenesutures HEAD: Contusion to right for his above. Also a 3 cm contusion above the right eyebrow without sutures EYES: Pupils equal and round about 3 mm bilaterally and reactive. No scleral icterus. No injection or drainage. ENT: No nasal bleeding or discharge. Mucous membranes pink and moist. NECK: Trachea midline. No JVD. CARDIOVASCULAR: Regular rate and rhythm. S1, S2. No S4. Without murmur RESPIRATORY: Clear to auscultation. Breath sounds equal bilaterally. GASTROINTESTINAL: Abdomen soft, non-tender, nondistended. Hepatic and splenic margins not palpable. MUSCULOSKELETAL: Extremities without significant peripheral edema. No obvious deformities. NEUROLOGICAL: Awake and alert. No obvious cranial nerve deficits. Motor grossly within normal limits. Five out of 5 muscle strength in the arms and legs. Normal speech. A/P Assessment and Plan Neuro/Psych: Right frontal/temporal parenchymal, extra-axial hemorrhage Possible right lateral ventricle mass versus hemorrhage MRI brain revealed prominent ventricles, right periventricular and left subcortical small bilateral infiltrates members, 9 cm left subdural hygroma and ischemic demyelination CT brain today revealed stable bilateral infiltrates, left frontal temporoparietal subdural hematoma and left frontal hemorrhage Dr. Palacios/neurosurgery consultation Keep systolic blood pressure less than 140 Neurochecks per ISC protocol CV: Hypertension Currently on an as needed labetalol, hydralazine and nicardipine drip to keep systolic blood pressure less than 140, diastolic blood pressure less than 90 Normal saline at 84 cc an hour while nothing by mouth Resp: Nasal cannula to maintain saturations greater than 92% Incentive spirometry while awake GI: Left adrenal mass MRI abdomen revealed a 2.3 similar left adrenal mass likely metastatic cancer. Noted plans for cystoscopy for trigone mass bladder with Dr. Mustafa/urology Patient is currently nothing by mouth. Advance per primary team Famotidine for GI prophylaxis Docusate sodium/senna 1 tablet twice a day for bowel regimen : Written for straight catheterization if greater than [address] Amin otherwise Endo: Sliding-scale insulin if indicated to maintain euglycemia Renal: Creatinine currently 1.0. A.m. laboratories pending Monitor urine output Accurate I's and O's Heme: Bladder mass - trigone - 1.8 x 3.9 x 3.7 cm Retroperitoneal lymphadenopathy MRI pelvis pending today Patient was planned Dr. Mustafa for cystoscopy CBC and coags currently within normal limits. No indication for transfusion of blood proximal at this time. Patient denies being on aspirin, ibuprofen or any thinners including warfarin or NOACS ID: UA pending MSK: Right forehead laceration DPT 0.5 mg IM 1 artery provided Sutured in ED with number 5. 0 Prolene x 5 stitches FEN: Replace electrolytes as clinically indicated Access - Utilize peripheral IV. Central line if indicated Prophylaxis - GI - famotidine - DVT - SCD/holding pharmacological prophylaxis light of acute hemorrhage Level II follow-up Lucho Kolb MD Aug 16, 2017 08:39
[2017-08-16] MEDS: SODIUM CHLORIDE 0.9% FLUSH 10 ML FLUSH IV FLUSH SCH ×2 (09:00→20:45)
[2017-08-16 09:44] LABS: APTT (PATIENT) 29.2 SEC (24.3-30.1); PROTHROMBIN TIME - PATIENT 11.4 SEC (9.8-11.6)
[2017-08-16 09:58] LABS: AUTOMATED NEUTROPHIL # 11.3 TH/MM3 (1.8-7.7); BASOPHIL % 0.2 % (0.0-2.0); EOSINOPHIL % 0.1 % (0.0-4.0); HEMATOCRIT 34.8 % (35.0-46.0); LYMPH % 20.1 % (9.0-44.0); LYMPHOCYTE # 3.1 TH/MM3 (1.0-4.8); MEAN CELL VOLUME 97.8 FL (80.0-100.0); MEAN CORPUSCULAR HEMOGLOBIN 31.6 PG (27.0-34.0); MEAN CORPUSCULAR HGB CONC 32.3 % (32.0-36.0); MONO % 6.9 % (0.0-8.0); NEUT % 72.7 % (16.0-70.0); PLATELET COUNT 299 TH/MM3 (150-450); RED BLOOD COUNT 3.56 MIL/MM3 (4.00-5.30); RED CELL DISTRIBUTION WIDTH 12.6 % (11.6-17.2); WHITE BLOOD COUNT 15.6 TH/MM3 (4.0-11.0)
[2017-08-16 10:06] LABS: ALT (GPT) 11 U/L (10-53)
[2017-08-16 10:07] LABS: ALKALINE PHOSPHATASE 89 U/L (45-117); HEMO FLAGS AUTO DIFF; TOTAL BILIRUBIN ADULT 0.3 MG/DL (0.2-1.0)
[2017-08-16 10:14] LABS: ANION GAP 7 MEQ/L (5-15); AST (GOT) 25 U/L (15-37); BICARBONATE 23.9 MEQ/L (21.0-32.0); BLOOD UREA NITROGEN 22 MG/DL (7-18); CHLORIDE 105 MEQ/L (98-107); GLOMERULAR FILTRATION RATE 59 ML/MIN (>89); POTASSIUM 4.2 MEQ/L (3.5-5.1); SODIUM (NA) 136 MEQ/L (136-145)
[2017-08-16] MEDS: levETIRAcetam 500 MG TAB PO SCH ×2 (10:26→20:50)
[2017-08-16] MEDS: DOCUSATE SODIUM 50 MG/SENNA 8.6 MG TAB PO SCH ×2 (10:26→20:50)
[2017-08-16] MEDS: FAMOTIDINE 20 MG/2 ML VIAL IV PUSH SCH (10:26)
[2017-08-16 10:33] LABS: PLATELET ESTIMATE SMEAR NORMAL (NORMAL); PLATELET MORPHOLOGY NORMAL (NORMAL)
[2017-08-16 10:34] LABS: SCAN/DIFF AUTO DIFF CONFIRMED
--- NOTE | 2017-08-16 11:05 | PD.HHIRBSE ---
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 Reportedly, the patient became dizzy and fell, hitting her head. Her GCS was 3 on admission. She is referred for baseline neurobehavioral status examination per trauma protocol to assess cognitive, behavioral and emotional aspects of the injury and to provide treatment recommendations. Neuropsych Precautions: To be determined. Past Surgical/Medical History Past Surgery: Yes Major surgery in last 100 days: Unknown Hx Anesthesia Reactions: No Hx Cardiac Surgery: No Hx Chest Surgery: No Hx Abdominal Surgery: No Hx Genitourinary Surgery: No Hx Gynecologic Surgery: Yes (Hysterectomy) Hx Endocrine Surgery: No Hx Eye Surgery: No Hx Ear Surgery: No Hx Oral Surgery: No Hx of Neuro Prob: No Hx of Musculoskeletal Pro: No Hx of Cardiovascular Prob: Yes Hypertension (High Blood Press: Yes Hx of Respiratory Problem: No Hx of GI Problems: No Hx of Problems: Yes (Frequency urination, recently diagnosed with UTI ) Hx Infection: Yes (UTI ) Hx of Immuno Disor: No Hx of Endocrine Problems: No Hx of Eye Probl: No Hx of Hearing or Ear Problems: No Hx Dental Problems: No Hx Psychiatric Problems: No Hx Blood Dyscrasias: No Hx of MDRO: No Hx of Body/Medical Devices: No Blood Transfusion History Will receive Blood /Blood prod: Yes Medication Active Medications Acetaminophen (Tylenol) 650 mg Q6H PRN PO; Start 08/15/17 at 15:00 Acetaminophen/ Hydrocodone Bitart ([place] 5-325 Mg) 1 tab Q4H PRN PO; Start at 15:00 Albuterol Sulfate (Albuterol Neb) 2.5 mg Q2HR NEB PRN INH; Start 08/15/17 at 15:00 Bisacodyl (Dulcolax Supp) 10 mg DAILY PRN RECTAL; Start 08/15/17 at 15:00 Chlorhexidine Gluconate (Chlorhexidine 2% Cloth) 3 pack UNSCH PRN TOP; Start 08/15/17 at 15:00 Chlorhexidine Gluconate (Chlorhexidine 2% Cloth) 3 pack Taper DAILY@04 TOP; Start 08/16/17 at 04:00; Stop 08/12/18 at 03:59 Diphtheria/ Tetanus/Acell Pertussis (Boostrix Inj) 0.5 ml STK-MED ONCE IM; Start 08/15/17 at 12:35; Stop 08/15/17 at 12:36; Status DC Famotidine (Pepcid Inj) 20 mg Q12HR IV PUSH Last administered on 08/16/17 10: 26; Admin Dose 20 MG; Start 08/15/17 at 21:00 Gadodiamide (Omniscan Pf Inj) 10 ml STK-MED ONCE IV PUSH Last administered on 17:36; Admin Dose 10 ML; Start 08/15/17 at 17:36; Stop 08/15/17 at 17 :37; Status DC Hydralazine HCl (Apresoline Inj) 10 mg Q1HR PRN IV PUSH; Start 08/15/17 at 15: 15 Iohexol (Omnipaque 350 Inj) 71 ml STK-MED ONCE IVCONTRAST Last administered on 08/15/17 12:26; Admin Dose 71 ML; Start 08/15/17 at 12:26; Stop 08/15/17 at 12:56; Status DC Labetalol HCl (Trandate Inj) 10 mg Q1HR PRN IV PUSH; Start 08/15/17 at 15:15 Lactulose (Lactulose Liq) 30 ml DAILY PRN PO; Start 08/15/17 at 15:00 Levetriacetam (Keppra) 500 mg Q12HR PO Last administered on 08/16/17 10:26; Admin Dose 500 MG; Start 08/16/17 at 10:00 Magnesium Hydroxide (Milk Of Magnesia Liq) 30 ml Q12H PRN PO; Start 08/15/17 at 15:00 Miscellaneous Information 1 Q361D XX; Start 08/15/17 at 15:00 Miscellaneous Information 1 Q361D XX; Start 08/15/17 at 18:30; Stop 08/15/17 at 18:37; Status DC Morphine Sulfate (Morphine Inj) 2 mg Q2H PRN IV PUSH Last administered on 08/16 04:40; Admin Dose 2 MG; Start 08/15/17 at 15:00; Stop 08/16/17 at 08:27 ; Status DC Morphine Sulfate (Morphine Inj) 2 mg Q4H PRN IV PUSH; Start 08/16/17 at 09:00 Nicardipine HCl 25 mg/Sodium Chloride 250 ml @ 50 mls/hr TITRATE PRN IV; Start 08/15/17 at 15:30 Ondansetron HCl (Zofran Inj) 4 mg Q6H PRN IV PUSH Last administered on 16:46; Admin Dose 4 MG; Start 08/15/17 at 15:00 Senna/Docusate Sodium (Eliane-Colace) 1 tab BID PO Last administered on 10:26; Admin Dose 1 TAB; Start 08/15/17 at 21:00 Sennosides (Senokot) 17.2 mg Q12H PRN PO; Start 08/15/17 at 15:00 Sodium Chloride 1,000 ml @ 84 mls/hr [id number] IV Last administered on 06:42; Admin Dose 84 MLS/HR; Start 08/15/17 at 14:56 Sodium Chloride (NS Flush) 2 ml BID IV FLUSH Last administered on 08/15/17 21: 30; Admin Dose 2 ML; Start 08/15/17 at 21:00 Sodium Chloride (NS Flush) 2 ml UNSCH PRN IV FLUSH; Start 08/15/17 at 15:00 Sodium Chloride (NS Flush) 2 ml UNSCH PRN IV FLUSH; Start 08/15/17 at 18:30; Stop 08/15/17 at 18:38; Status DC Mental Status Assessment Orientation: oriented to Self, disoriented to Place, disoriented to Time, disoriented to Situation Mental Status: Impaired: Thought processing, Language/Interactions, Attention, Learning/Memory, Problem-Solving, Visuospatial/Construction, Self-regulation, Other Observation The patient is alert but oriented only to person; not oriented to place, time and circumstances surrounding the reason for hospitalization. In terms of attention skills, the patient was unable to consistently remain on task and remember basic and complex instructions. In terms of memory functioning, the patient was not able to remember any of three words after a brief period of time. The patient was unable to initiate spontaneous conversation. Speech was characterized by adequate prosody, grammar, articulation, volume and rate. Basic naming skills were not intact. Language repetition skills were not assessed. The patients comprehensions for basic one- and two-stage commands were not intact. Basic verbal abstraction and problem-solving skills were not assessed. The patient appears to posses diminished insight and awareness into their situation and within the limits of this brief evaluation, diminished judgment. Impression Compromised neurocognitive functioning. Adjustment/Coping Assessment Adjustment/Coping: Not Assessed: Depression, Anxiety, Pain, Apathy, Awareness, Insight Observation The patients thought content was free from suicidal, homicidal or paranoid ideation, and the patients thought processes were bradyphrenic. The patients mood was apathetic, and the affect was flat. LTG Status: Deferred STG Status: Deferred Team Members: Neuropsychologist Behavior Assessment Agitation: None Treatment Engagement: Minimal Observation Behaviorally, the patient demonstrated no signs of agitation, impulsivity or disinhibition. There was no remarkable evidence of a formal thought disorder or psychosis. LTG - Status: Deferred STG Status: Deferred Team Members: Neuropsychologist Diagnosis/Discharge Plan Impression This is an elderly woman s/p TBI 2T fall on 08/15/2017. On exam, she appears confused, and there may be an underlying neuropsychological process. Diagnosis: (1) Major neurocognitive disorder as late effect of traumatic brain injury without behavioral disturbance [facility] Level: V:Confused-non agitated Maximizing acute care outcome It is recommended that the patient be monitored for emergent behavioral impulsivity as the medical condition evolves. This patients neuropathological challenges may limit her rehabilitation potential going forward, and these challenges will require specialized therapeutic skills to maximize outcome. Additionally, the patients family is experiencing ongoing issues of adjustment given the traumatic nature of the injury, and they may benefit from ongoing psychological assistance. At this point in the recovery process, the patient does not have cognitive capacity as the patient is unable to understand a situation and its likely consequences, nor is she able to manipulate information rationally. Cognitive capacity will be assessed throughout the recovery process. Discharge Planning Anticipated Problems Ongoing areas of concern will include behavioral impulsivity, lack of insight and judgment, which is expected to improve with time and treatment. Presently , the patient is following some commands. Treatment Plan This clinician will continue to follow with you throughout the course of this patients acute care treatment, and I will be available to meet with the patient s family/support system to facilitate their understanding and the ongoing care of their family member. The goals of neuropsychological intervention shall be both educational and supportive to the family/support system as is deemed clinically appropriate. Discharge Needs To be determined. Thank you Thank you for the opportunity to assist in this patients care. Dallas Vogt, Ph.D., ABPP Board Certified in Clinical Neuropsychology [place] [employer] [place] Licensed Psychologist #[id number] Dallas Vogt PhD Aug 16, 2017 11:05 am
--- NOTE | 2017-08-16 11:58 | HHI.NSPN ---
(Ponce Quintana) History Chief Complaint: None (Ponce Quintana) Interval History 08/15: The patient is a pleasant elderly lady who according to her family passed out and fell today, striking her head with positive loss of consciousness. She was initially [place] Coma Score of 3 at the scene and brought in as a trauma alert. No seizure activity reported. No nausea or vomiting reported. She complains of headache. No complaint of neck or low back pain. No complaint of blurred vision or diplopia. 08/16: This morning the patient is awake and alert. She says she has no pain when asked how she is doing. She denies any other complaints. She spontaneously moves the extremities. Nursing reports that this morning she only knew her name. Nursing did say that when the patient's family came in she became brighter in her demeanor. When they left she returned to the same demeanor she had before their arrival. (Ponce Quintana) System Review Comments The ROS is negative. (Ponce Quintana) Exam Results 08/14/17 08/14/17 08/15/17 08/15/17 08/16/17 08/16/17 06:00 18:00 06:00 18:00 06:00 18:00 Intake Total 0 ml 1000 ml Balance 0 ml 1000 ml Intake Oral 0 ml IV Total 1000 ml # Voids 4 # Bowel Movements 0 Vital Signs Date Time Temp Pulse Resp B/P (MAP) Pulse Ox O2 Delivery O2 Flow Rate FiO2 08/16/17 10:15 100 Nasal Cannula 4.00 08/16/17 06:00 48 08/16/17 04:00 45 08/16/17 04:00 98.4 45 18 127/80 (96) 100 08/16/17 02:00 48 08/16/17 00:00 50 08/16/17 00:00 98.2 52 16 129/60 (83) 100 08/15/17 23:46 93 Nasal Cannula 4.00 08/15/17 22:00 53 08/15/17 20:00 98.7 48 20 178/79 (112) 100 08/15/17 20:00 54 08/15/17 19:00 98 Nasal Cannula 4.00 08/15/17 18:20 08/15/17 18:00 70 17 170/77 (108) 100 Nasal Cannula 3.00 08/15/17 17:00 72 17 165/72 (103) 100 Nasal Cannula 3.00 08/15/17 14:56 76 17 164/71 (102) 100 Nasal Cannula 3.00 08/15/17 13:05 100 Nasal Cannula 2.00 08/15/17 13:05 65 17 138/65 (89) 100 Nasal Cannula 3.00 08/15/17 12:30 100 4.00 08/15/17 12:30 100 Nasal Cannula 4.00 (Ponce Quintana) Physical Examination GENERAL: Awake & alert, readily interacts, affect appears normal, no apparent distress. HEENT: Right forehead laceration well approximated w/sutures, no drainage, erythema or streaking. Right periorbital ecchymosis. PERRLA 3 mm brisk, EOMI. No otorrhea or rhinorrhea. MMM & pink, tongue midline to protrusion. MUSCULOSKELETAL: Moves all extremities w/o difficulty, NTTP, no evident deformity or clubbing. NEUROLOGICAL: Awake & alert, orient to self and being in hospital, knows month, doesn't know year or what happened to her. Speech clear but confused, with receptive aphasia and possibly expressive aphasia. Follows some simple commands w/o difficulty, does requiring coaxing and demonstration. CN II-XII appear grossly intact. Sensation intact to light touch to all extremities. Motor strength appears to be 5/5 to all major flexion & extension muscle groups. (Ponce Quintana) Lab, Micro, Other Results This practitioner independently reviewed the CT brain completed this morning and compared it with yesterdays. I concur with the findings by the Radiologist. Recent Impressions Head CT 08/16/17 0600 Signed Impressions: Service Date/Time: Wednesday, August 16, 2017 05:41 - CONCLUSION: Persistent intraventricular, left subdural, and left parenchymal areas of hemorrhage. New areas of hemorrhage are not seen. Oni Higginbotham MD Pelvis X-Ray 08/15/17 1230 Signed Impressions: Service Date/Time: Tuesday, August 15, 2017 12:26 - CONCLUSION: No acute disease. Chinedu Black Jr., MD Head CT 08/15/17 1230 Signed Impressions: Service Date/Time: Tuesday, August 15, 2017 12:33 - CONCLUSION: Patchy areas of minimal intracranial hemorrhage, mainly left hemisphere with a focus of abnormal density in the right lateral ventricle which may be minimal hemorrhage or small mass. Oni Hickey MD Chest X-Ray 08/15/17 1230 Signed Impressions: Service Date/Time: Tuesday, August 15, 2017 12:26 - CONCLUSION: Negative for pneumothorax. Negative for fracture Mathew Collins MD FACR Chest CT 08/15/17 1230 Signed Impressions: Service Date/Time: Tuesday, August 15, 2017 12:33 - CONCLUSION: No acute disease. Chinedu Black Jr., MD Cervical Spine CT 08/15/17 1230 Signed Impressions: Service Date/Time: Tuesday, August 15, 2017 12:38 - CONCLUSION: 1. No fracture or dislocation. 2. Degenerative changes. 3. Calcified plaque involving the carotid arteries bilaterally. Chinedu Black Jr., MD Brain MRI 08/15/17 0000 Signed Impressions: Service Date/Time: Tuesday, August 15, 2017 17:14 - CONCLUSION: 1. MR findings concerning for scattered parenchymal hemorrhages or, possibly, diffuse axonal injury depending on the patient's clinical condition. These are most prominent in the subcortical distribution of the left cerebral hemisphere. 2. 9 mm subdural hygroma on the left. There may be small intraventricular hemorrhages as well. 3. Chronic changes with moderately severe periventricular small vessel ischemic demyelination. Mild ventricular prominence could represent central atrophy versus NPH in the appropriate clinical setting. Finn Aguillon MD Abdomen/Pelvis CT 08/15/17 0000 Signed Impressions: Service Date/Time: Tuesday, August 15, 2017 12:44 - CONCLUSION: 1. No signs of acute trauma. 2. Retroperitoneal adenopathy as well as a left adrenal gland mass. This is concerning for metastatic disease. There is a heterogeneous mass associated with the trigone of urinary bladder. This is worrisome for a primary lesion. MRI of the pelvis can be utilized to further evaluate this. Chinedu Black Jr., MD Abdomen MRI 08/15/17 0000 Signed Impressions: Service Date/Time: Tuesday, August 15, 2017 17:14 - CONCLUSION: Imaging characteristics of the 2.3 cm left adrenal mass lesion are concerning for a neoplastic process. Finn Aguillon MD Laboratory Tests Test 08/15/17 12:32 08/15/17 18:00 08/16/17 09:06 08/16/17 09:24 White Blood Count 10.5 TH/MM3 15.6 TH/MM3 Red Blood Count 3.32 MIL/MM3 3.56 MIL/MM3 Hemoglobin 10.6 GM/DL 11.2 GM/DL Bedside Hemoglobin 10.9 G/DL Hematocrit 31.9 % 34.8 % Bedside Hematocrit 32.0 % Mean Corpuscular Volume 96.0 FL 97.8 FL Mean Corpuscular Hemoglobin 31.9 PG 31.6 PG Mean Corpuscular Hemoglobin Concent 33.2 % 32.3 % Red Cell Distribution Width 12.3 % 12.6 % Platelet Count 295 TH/MM3 299 TH/MM3 Mean Platelet Volume 8.1 FL 8.0 FL Neutrophils (%) (Auto) 55.1 % 72.7 % Lymphocytes (%) (Auto) 32.2 % 20.1 % Monocytes (%) (Auto) 11.4 % 6.9 % Eosinophils (%) (Auto) 0.8 % 0.1 % Basophils (%) (Auto) 0.5 % 0.2 % Neutrophils # (Auto) 5.8 TH/MM3 11.3 TH/MM3 Lymphocytes # (Auto) 3.4 TH/MM3 3.1 TH/MM3 Monocytes # (Auto) 1.2 TH/MM3 1.1 TH/MM3 Eosinophils # (Auto) 0.1 TH/MM3 0.0 TH/MM3 Basophils # (Auto) 0.0 TH/MM3 0.0 TH/MM3 CBC Comment DIFF FINAL AUTO DIFF Differential Comment AUTO DIFF CONFIRMED Prothrombin Time 11.5 SEC 11.4 SEC Prothromb Time International Ratio 1.0 RATIO 1.0 RATIO Activated Partial Thromboplast Time 25.9 SEC 29.2 SEC Bedside Sodium 138 MMOL/L Bedside Potassium 4.1 MMOL/L Bedside Chloride 101 MMOL/L Bedside Blood Urea Nitrogen 30 MG/DL Bedside Creatinine 1.0 MG/DL Bedside Glucose 129 MG/DL Total Creatine Kinase 41 U/L Nasal Screen MRSA (PCR) MRSA NOT DETECTED Lactic Acid Level 2.2 mmol/L Platelet Estimate NORMAL Platelet Morphology Comment NORMAL Blood Urea Nitrogen 22 MG/DL Creatinine 0.83 MG/DL Random Glucose 111 MG/DL Total Protein 8.3 GM/DL Albumin 2.3 GM/DL Calcium Level 8.9 MG/DL Phosphorus Level 3.4 MG/DL Magnesium Level 2.0 MG/DL Alkaline Phosphatase 89 U/L Aspartate Amino Transf (AST/SGOT) 25 U/L Alanine Aminotransferase (ALT/SGPT) 11 U/L Total Bilirubin 0.3 MG/DL Sodium Level 136 MEQ/L Potassium Level 4.2 MEQ/L Chloride Level 105 MEQ/L Carbon Dioxide Level 23.9 MEQ/L Anion Gap 7 MEQ/L Estimat Glomerular Filtration Rate 59 ML/MIN (Ponce Quintana) Medical Decision Making Impression and Plan Impression: 1. Traumatic brain injury. No significant mass effect on CT scan 2. Forehead lacerations Patient with confusion and receptive, and possibly expressive, aphasia, o/w doing well. Reviewed labs & imaging for today. Leukocytosis most likely reactionary to trauma. Stable ventricular & left-sided haemorrhages on CT brain . No identified mass on MRI brain . Plan: Discussed plan of care with patient & Nursing. Primary management per Trauma & Business Analysis Specialist. Neuro checks. Stat CT brain for any worsening of neuro status. Mobilise patient w/assistance. PT/OT eval & tx. (Ponce Quintana) Attending Statement The exam, history, and the medical decision-making described in the above note were completed with the assistance of the mid-level provider. I reviewed and agree with the findings presented. I attest that I had a [id number] encounter with the patient on the same day, and personally performed and documented my assessment and findings in the medical record. The patient was examined by the undersigned on 08/16/17 with exam findings as noted above. She continues to have significant expressive speech deficit. Moderate confusion. No focal sensory or motor deficit. 08/16/17 CT scan head stable. Continue PT/OT/ST. Stable for regular floor (Mark Palacios MD) Ponce Quintana Aug 16, 2017 11:58 Mark Palacios MD Aug 18, 2017 09:13
--- NOTE | 2017-08-16 15:19 | EKG ---
Date Performed: 08/15/2017 Time Performed: 19:05:14 PTAGE: 89 years EKG: Sinus rhythm . Septal T wave changes are nonspecific Borderline ECG NO PREVIOUS TRACING DOCTOR: Nicole Villatoro Interpretating Date/Time 08/16/2017 15:18:03
[2017-08-16] MEDS ORDERED: GADODIAMIDE PF 287 MG/ML 10 ML VIAL (for RAD MRI) IV PUSH ONE (15:24)
--- NOTE | 2017-08-16 16:48 | RADRPT ---
EXAM DATE/TIME: 08/16/2017 13:56 [facility] COMPARISON: MRI ABDOMEN W & W/O CONTRAST, August 15, 2017, 17:14. CT ABDOMEN & PELVIS W CONTRAST, August 15, 2017, 12:44. INDICATIONS : Bladder mass. CONTRAST: 10 cc Omniscan (gadodiamide) IV MEDICAL HISTORY : Hypertension. Adrenal mass. SURGICAL HISTORY : Hysterectomy. ENCOUNTER: Subsequent ACUITY: 2 day PAIN SCORE: 0/10 LOCATION: pelvis. TECHNIQUE: Multiplanar, multisequence magnetic resonance imaging of the pelvis was performed. FINDINGS: REPRODUCTIVE: Patient is status post hysterectomy. There is a mass lesion involving the trigone of the urinary blad demond extending down into the vaginal canal. BLADDER: Lobulated mass lesion in the region of the trigone of the bladder measures 3.8 x 5.3 x 2.9 cm. This e xtends down into the vagina but I believe the mass originates from the bladder, slightly left paracen tral. RETROPERITONEUM: There is no lymphadenopathy. Vascular structures are within normal limits. BOWEL/MESENTERY: Visualized small and large bowel demonstrates no acute abnormality. There is no free fluid. INGUINAL: No lymphadenopathy or hernia. MUSCULOSKELETAL: Bone marrow signal is within normal limits. CONCLUSION: 1. Mass lesion measuring 3.8 x 5.2 x 2.9 cm centered left para midline in the bladder trigone and ext ending down into the vagina. I believe the mass actually originates from the trigone of the bladder b ut I cannot completely exclude a vaginal mass eroding into the base of the bladder. This may be furth er clarified with direct pelvic visualization 2. No pelvic adenopathy identified. There is a prominent retroperitoneal lymph node in the aortic waldemar in slightly more cephalad as seen on the prior CT Finn Aguillon MD on August 16, 2017 at 16:28 Board Certified Radiologist. This report was verified electronically.
--- NOTE | 2017-08-16 18:32 | HHI.CCPN ---
Subjective Brief History 86-year-old lady fell while walking her dog and sustained intracranial hemorrhage with parenchymal contusions Patient was brought to our institution as priority to trauma alert awake but somnolent and somewhat disoriented moving all 4 extremities. 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 in diameter most likely metastatic with associated enlarged lymph node probably the same 24 Hour Review/Hospital Course 08/16/17 Patient has been stable overnight and neurologically she is improved She is still repetitive with a [place] Coma Scale about 12-13 Motoric intact with no lateralization or non-symmetric weakness Repeat CT scan of the brain does not reveal any new findings As far as the remainder of the finding is concerned the patient will need the cystoscopy with bladder biopsy to determine the nature of this lesion and then appropriate oncological workup and therapy I've discussed this with patient's [id number] who is a physician in [place] We will consult urology will patient is still in the hospital Objective Vital Signs Date Time Temp Pulse Resp B/P (MAP) Pulse Ox O2 Delivery O2 Flow Rate FiO2 08/16/17 10:15 100 Nasal Cannula 4.00 08/16/17 06:00 48 08/16/17 04:00 98.4 18 127/80 (96) Intake and Output 08/16/17 08/16/17 08/17/17 08:00 16:00 00:00 Intake Total 1000 ml Balance 1000 ml Result Diagram: 08/16/17 0924 08/16/17 0924 Imaging Last [address] 08/16/17 0600 Signed Impressions: Service Date/Time: Wednesday, August 16, 2017 05:41 - CONCLUSION: Persistent intraventricular, left subdural, and left parenchymal areas of hemorrhage. New areas of hemorrhage are not seen. Oni Higginbotham MD Pelvis MRI 08/16/17 0000 Signed Impressions: Service Date/Time: Wednesday, August 16, 2017 13:56 - CONCLUSION: 1. Mass lesion measuring 3.8 x 5.2 x 2.9 cm centered left para midline in the bladder trigone and extending down into the vagina. I believe the mass actually originates from the trigone of the bladder but I cannot completely exclude a vaginal mass eroding into the base of the bladder. This may be further clarified with direct pelvic visualization 2. No pelvic adenopathy identified. 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 ATTENDANT Patient has been stable overnight and neurologically she is improved She is still repetitive with a [place] Coma Scale about 12-13 Motoric intact with no lateralization or non-symmetric weakness Repeat CT scan of the brain does not reveal any new findings Hemodynamic/Cardiac Hemodynamically intact Pulmonary/Respiratory Bilateral good breath sounds Abdomen/GI Nutrition Abdomen soft active bowel sounds no masses on abdominal exam noted Above described left adrenal mass is small and probably metastatic deposit from a primary bladder tumor but of course it could be a secondary primary somewhere else Renal/I&O Good urine output Assessment and Plan Attestation Transferred to floor tomorrow Urology consult tomorrow Critical care time 38 minutes Claude Bell MD Aug 16, 2017 18:32
[2017-08-16] MEDS ORDERED: FAMOTIDINE 20 MG/2 ML VIAL IV PUSH SCH (21:00)
[2017-08-17] VITALS (14 sets, daily range): BP systolic 129–159; BP diastolic 57–90; PULSE 42–96; RESP 12–24; TEMP 97.7–99.5; O2SAT 96–100
[2017-08-17] MEDS: CHLORHEXIDINE GLUCONATE 2 % 1 PACK (2 CLOTHS) TOP SCH (04:00)
[2017-08-17] MEDS: ACETAMINOPHEN/HYDROcodone 325 MG/5 MG TAB PO PRN ×2 (05:29→21:45)
[2017-08-17] MEDS: hydrALAZINE HCL 20 MG/ML VIAL IV PUSH PRN ×2 (05:30→13:42)
[2017-08-17] MEDS: SODIUM CHLOR 0.9% 1000 ML INJ 1,000 ML IV SCH ×2 (06:32→14:28)
[2017-08-17] MEDS: MORPHINE SULFATE 4 MG/ML INJ IV PUSH PRN ×2 (07:40→16:25)
--- NOTE | 2017-08-17 07:45 | HHI.CCPN ---
Subjective Remarks/Hospital Course Patient states she is an 87-year-old female. She states her actual name is Eleanor Sanchez. Date of admission 08/15/2017. Date of consultation 2016. Past medical history includes hypertension and recent diagnosis of bladder mass. She was scheduled for an outpatient cystoscopy with Dr. Mustafa. She presents to [facility] status post fall. Patient received #5 of 5. 0 Prolene sutures over her right supraorbital/forehead. Patient received DPT 0.5 mg IM 1 in ED Pertinent imaging CT brain - minimal parenchymal and extraction of blood in the left frontal and temporal regions. Right greater than left hygromas. Right lateral ventricle hemorrhage versus subependymal mass. Non-dilatated ventricles. CT abdomen/pelvis - retroperitoneal lymph node enlargement around 1 cm diffuse. Left renal vein lymph node 2.2 x 1.8 c m. There is a 1.8 x 3.9 x 3.7 necrotic mass at the trigone of the bladder CT C-spine - right neural foraminal narrowing at C5/6 and C6/7. Patient is currently complaining of urinary frequency. Question UTI according to family. Also complaining of nausea with emesis noted 08/16: Patient's actual name is Moriah Sanchez. Overnight, no acute plain. Complains of having the urinate frequency. UA is pending. Head CT stable showing left subdural, parenchymal and interventricular hemorrhage with no new areas of bleeding. Neurological exam unchanged. Subjective 08/17: Afebrile. Intermittently bradycardiac overnight. Chief complaint is bladder spasms/burning with urination. UA still pending. We'll straight catheter day 1. Intermittently confused. Hemodynamically stable otherwise. No new changes in neurological status Objective Vital Signs Date Time Temp Pulse Resp B/P (MAP) Pulse Ox O2 Delivery O2 Flow Rate FiO2 08/17/17 06:00 94 08/17/17 04:00 98.4 13 138/90 (106) 100 08/16/17 19:00 Nasal Cannula 2.00 Intake and Output 08/17/17 08/17/17 08/18/17 08:00 16:00 00:00 Intake Total 2022 ml Balance 2022 ml Result Diagram: 08/16/1724 08/16/17 0924 Imaging Last Impressions Head CT 08/16/17 0600 Signed Impressions: Service Date/Time: Wednesday, August 16, 2017 05:41 - CONCLUSION: Persistent intraventricular, left subdural, and left parenchymal areas of hemorrhage. New areas of hemorrhage are not seen. Oni Higginbotham MD Pelvis MRI 08/16/17 0000 Signed Impressions: Service Date/Time: Wednesday, August 16, 2017 13:56 - CONCLUSION: 1. Mass lesion measuring 3.8 x 5.2 x 2.9 cm centered left para midline in the bladder trigone and extending down into the vagina. I believe the mass actually originates from the trigone of the bladder but I cannot completely exclude a vaginal mass eroding into the base of the bladder. This may be further clarified with direct pelvic visualization 2. No pelvic adenopathy identified. There is a prominent retroperitoneal lymph node in the aortic chain slightly more cephalad as seen on the prior CT Finn Aguillon MD Pelvis X-Ray 08/15/17 1230 Signed Impressions: Service Date/Time: Tuesday, August 15, 2017 12:26 - CONCLUSION: No acute disease. Chinedu Black Jr., MD Chest X-Ray 08/15/17 1230 Signed Impressions: Service Date/Time: Tuesday, August 15, 2017 12:26 - CONCLUSION: Negative for pneumothorax. Negative for fracture Mathew Collins MD FACR Chest CT 08/15/17 1230 Signed Impressions: Service Date/Time: Tuesday, August 15, 2017 12:33 - CONCLUSION: No acute disease. Chinedu Black Jr., MD Cervical Spine CT 08/15/17 1230 Signed Impressions: Service Date/Time: Tuesday, August 15, 2017 12:38 - CONCLUSION: 1. No fracture or dislocation. 2. Degenerative changes. 3. Calcified plaque involving the carotid arteries bilaterally. Chinedu Black Jr., MD Brain MRI 08/15/17 0000 Signed Impressions: Service Date/Time: Tuesday, August 15, 2017 17:14 - CONCLUSION: 1. MR findings concerning for scattered parenchymal hemorrhages or, possibly, diffuse axonal injury depending on the patient's clinical condition. These are most prominent in the subcortical distribution of the left cerebral hemisphere. 2. 9 mm subdural hygroma on the left. There may be small intraventricular hemorrhages as well. 3. Chronic changes with moderately severe periventricular small vessel ischemic demyelination. Mild ventricular prominence could represent central atrophy versus NPH in the appropriate clinical setting. Finn Aguillon MD Abdomen/Pelvis CT 08/15/17 0000 Signed Impressions: Service Date/Time: Tuesday, August 15, 2017 12:44 - CONCLUSION: 1. No signs of acute trauma. 2. Retroperitoneal adenopathy as well as a left adrenal gland mass. This is concerning for metastatic disease. There is a heterogeneous mass associated with the trigone of urinary bladder. This is worrisome for a primary lesion. MRI of the pelvis can be utilized to further evaluate this. Chinedu Black Jr., MD Abdomen MRI 08/15/17 0000 Signed Impressions: Service Date/Time: Tuesday, August 15, 2017 17:14 - CONCLUSION: Imaging characteristics of the 2.3 cm left adrenal mass lesion are concerning for a neoplastic process. Finn Aguillon MD ADDENDUM: Also noted is a 2.1 cm isolated but prominent retroperitoneal periaortic lymph node at the level of the renal veins which was identified on prior CT. This is concerning for a metastatic foci. Finn Aguillon MD Objective Remarks GENERAL: Patient states she is an 87-year-old female, resting in bed in no acute distress SKIN: Warm and dry. Noted laceration right forehead #5 Prolene sutures HEAD: Contusion to right for his above. 3 cm contusion above the right eyebrow without sutures EYES: Pupils equal and round about 3 mm bilaterally and reactive. No scleral icterus. No injection or drainage. ENT: No nasal bleeding or discharge. Mucous membranes pink and moist. NECK: Trachea midline. No JVD. CARDIOVASCULAR: Regular rate and rhythm. S1, S2. No S4. Without murmur RESPIRATORY: Clear to auscultation. Breath sounds equal bilaterally. GASTROINTESTINAL: Abdomen soft, non-tender, nondistended. Hepatic and splenic margins not palpable. MUSCULOSKELETAL: Extremities without significant peripheral edema. No obvious deformities. NEUROLOGICAL: Awake and alert. No obvious cranial nerve deficits. Motor grossly within normal limits. Five out of 5 muscle strength in the arms and legs. Normal speech. A/P Assessment and Plan Neuro/Psych: Right frontal/temporal parenchymal, extra-axial hemorrhage Possible right lateral ventricle mass versus hemorrhage MRI brain revealed prominent ventricles, right periventricular and left subcortical small bilateral infiltrates members, 9 cm left subdural hygroma and ischemic demyelination CT brain today revealed stable bilateral infiltrates, left frontal temporoparietal subdural hematoma and left frontal hemorrhage Dr. Palacios/neurosurgery consultation Keep systolic blood pressure less than 140 Neurochecks per ISC protocol CT brain stat if any neurological change CV: Hypertension Currently on an as needed labetalol, hydralazine and nicardipine drip to keep systolic blood pressure less than 140, diastolic blood pressure less than 90 Normal saline at 84 cc an hour Resp: Nasal cannula to maintain saturations greater than 92% Incentive spirometry while awake GI: Left adrenal mass MRI abdomen revealed a 2.3 similar left adrenal mass likely metastatic cancer. Noted plans for cystoscopy for trigone mass bladder with Dr. Mustafa/urology Patient is currently nothing by mouth. Advance per primary team Famotidine for GI prophylaxis Docusate sodium/senna 1 tablet twice a day for bowel regimen : Left Midline bladder mass 3.8 x 5.2 x 2.8 cm on MRI pelvis 08/16 Written for straight catheterization if greater than [address] Amin otherwise Will need cystoscopy with urology when appropriate Endo: Sliding-scale insulin if indicated to maintain euglycemia Renal: Creatinine currently 1.0. A.m. laboratories pending Monitor urine output Accurate I's and O's Heme: Bladder mass - trigone - 1.8 x 3.9 x 3.7 cm Retroperitoneal lymphadenopathy MRI pelvis pending today Patient was planned Dr. Mustafa for cystoscopy CBC and coags currently within normal limits. No indication for transfusion of blood proximal at this time. Patient denies being on aspirin, ibuprofen or any thinners including warfarin or NOAC ID: UA pending MSK: Right forehead laceration DPT 0.5 mg IM 1 artery provided Sutured in ED with number 5. 0 Prolene x 5 stitches FEN: Replace electrolytes as clinically indicated Access - Utilize peripheral IV. Central line if indicated Prophylaxis - GI - famotidine - DVT - SCD/holding pharmacological prophylaxis light of acute hemorrhage Level II follow-up Lucho Kolb MD Aug 17, 2017 07:45
[2017-08-17] MEDS ORDERED: PILL SPLITTER OTHER PRN (08:00)
[2017-08-17] MEDS: FAMOTIDINE 20 MG TAB PO SCH ×3 (08:42→23:57)
[2017-08-17] MEDS: levETIRAcetam 500 MG TAB PO SCH ×3 (08:42→23:57)
[2017-08-17] MEDS: DOCUSATE SODIUM 50 MG/SENNA 8.6 MG TAB PO SCH ×3 (08:42→23:57)
[2017-08-17] MEDS: SODIUM CHLORIDE 0.9% FLUSH 10 ML FLUSH IV FLUSH SCH ×2 (08:42→21:00)
[2017-08-17 12:18] LABS: AUTOMATED NEUTROPHIL # 9.5 TH/MM3 (1.8-7.7); BASOPHIL % 0.2 % (0.0-2.0); EOSINOPHIL % 0.3 % (0.0-4.0); HEMATOCRIT 34.4 % (35.0-46.0); HEMO FLAGS DIFF FINAL; LYMPH % 16.7 % (9.0-44.0); LYMPHOCYTE # 2.1 TH/MM3 (1.0-4.8); MEAN CORPUSCULAR HEMOGLOBIN 31.5 PG (27.0-34.0); MEAN CORPUSCULAR HGB CONC 32.5 % (32.0-36.0); NEUT % 74.8 % (16.0-70.0); PLATELET COUNT 272 TH/MM3 (150-450); RED BLOOD COUNT 3.55 MIL/MM3 (4.00-5.30); RED CELL DISTRIBUTION WIDTH 12.4 % (11.6-17.2); WHITE BLOOD COUNT 12.7 TH/MM3 (4.0-11.0)
[2017-08-17 12:30] LABS: BICARBONATE 21.7 MEQ/L (21.0-32.0); POTASSIUM 3.5 MEQ/L (3.5-5.1)
--- NOTE | 2017-08-17 13:03 | PD.CONS ---
HPI Service Urology Consult Requested By Nga Collins NP Reason for Consult Bladder mass Primary Care Physician Non-Staff Diagnosis: History of Present Illness 87-year-old female with history bladder mass who is in the process of being worked up by her established urologist Dr. Mustafa and now admitted for traumatic brain hemorrhage. During the course of her present hospitalization the patient has been experiencing ongoing pain with urination. She reports that this has been present for the past several months. She has already been scheduled to undergo cystoscopic evaluation by Dr. Mustafa prior to present hospitalization. Patient did have a recent CT scan of the abdomen and pelvis that demonstrated a 3.9 cm bladder mass involving the trigone region as well as a 2.3 cm left adrenal mass and retroperitoneal lymphadenopathy. She presently denies gross hematuria. She denies a history of any prior urologic malignancy. Review of Systems ROS Limitations: Altered Mental Status Cardiovascular: DENIES: Chest pain Gastrointestinal: DENIES: Abdominal pain Genitourinary: COMPLAINS OF: Urgency, Dysuria Musculoskeletal: DENIES: Back pain Except as stated in HPI: all other systems reviewed are Neg Past Family Social History Past Medical History Hypertension Bladder mass Past Surgical History Denies major surgery Reported Medications Refer to EMR Allergies: Coded Allergies: Sulfa (Sulfonamide Antibiotics) (Verified Allergy, Unknown, 08/15/17) Active Ordered Medications Refer to EMR Family History Reviewed and noncontributory Social History and lives with her Denies history tobacco, alcohol or intravenous drug abuse Physical Exam Vital Signs Date Time Temp Pulse Resp B/P (MAP) Pulse Ox O2 Delivery O2 Flow Rate FiO2 08/17/17 12:00 68 08/17/17 12:00 97.7 68 13 159/64 (95) 100 08/17/17 10:00 59 08/17/17 08:00 62 08/17/17 08:00 97.7 74 24 134/62 (86) 99 08/17/17 07:00 99 Nasal Cannula 2.00 08/17/17 06:00 94 08/17/17 04:00 98.4 48 13 138/90 (106) 100 08/17/17 04:00 48 08/17/17 02:00 58 08/17/17 00:00 42 12 129/57 (81) 100 08/16/17 22:00 51 08/16/17 20:00 97.5 52 11 135/63 (87) 100 08/16/17 20:00 52 08/16/17 19:00 100 Nasal Cannula 2.00 08/16/17 18:00 46 08/16/17 16:00 96.9 48 12 117/55 (75) 100 08/16/17 16:00 48 08/16/17 14:00 62 Physical Exam GENERAL: This is a well-nourished, well-developed patient, in no apparent distress. SKIN: No rashes, ecchymoses or lesions. Cool and dry. HEAD: Atraumatic. Normocephalic. No temporal or scalp tenderness. EYES: Pupils equal round and reactive. Extraocular motions intact. No scleral icterus. No injection or drainage. ENT: Nose without bleeding, purulent drainage or septal hematoma. Throat without erythema, tonsillar hypertrophy or exudate. Uvula midline. Airway patent. NECK: Trachea midline. No JVD or lymphadenopathy. Supple, nontender, no meningeal signs.. GASTROINTESTINAL: Abdomen soft, non-tender, nondistended. No hepato-splenomegaly , or palpable masses. No guarding. GENITOURINARY: Bladder not distended, no CVA tenderness MUSCULOSKELETAL: Extremities without clubbing, cyanosis, or edema. No joint tenderness, effusion, or edema noted. No calf tenderness. Negative Homans sign bilaterally. NEUROLOGICAL: Somnolent, responsive to questioning Lab results reviewed: Yes Laboratory Tests Test 08/17/17 11:10 White Blood Count 12.7 Red Blood Count 3.55 Hemoglobin 11.2 Hematocrit 34.4 Mean Corpuscular Volume 97.0 Mean Corpuscular Hemoglobin 31.5 Mean Corpuscular Hemoglobin Concent 32.5 Red Cell Distribution Width 12.4 Platelet Count 272 Mean Platelet Volume 7.9 Neutrophils (%) (Auto) 74.8 Lymphocytes (%) (Auto) 16.7 Monocytes (%) (Auto) 8.0 Eosinophils (%) (Auto) 0.3 Basophils (%) (Auto) 0.2 Neutrophils # (Auto) 9.5 Lymphocytes # (Auto) 2.1 Monocytes # (Auto) 1.0 Eosinophils # (Auto) 0.0 Basophils # (Auto) 0.0 CBC Comment DIFF FINAL Differential Comment Blood Urea Nitrogen 13 Creatinine 0.54 Random Glucose 91 Calcium Level 8.3 Sodium Level 138 Potassium Level 3.5 Chloride Level 110 Carbon Dioxide Level 21.7 Anion Gap 6 Estimat Glomerular Filtration Rate 107 Result Diagram: 08/17/17 1110 08/17/17 1110 Personally reviewed images: Yes Imaging Last Impressions Head CT 08/16/17 0600 Signed Impressions: Service Date/Time: Wednesday, August 16, 2017 05:41 - CONCLUSION: Persistent intraventricular, left subdural, and left parenchymal areas of hemorrhage. New areas of hemorrhage are not seen. Oni Higginbotham MD Pelvis MRI 08/16/17 0000 Signed Impressions: Service Date/Time: Wednesday, August 16, 2017 13:56 - CONCLUSION: 1. Mass lesion measuring 3.8 x 5.2 x 2.9 cm centered left para midline in the bladder trigone and extending down into the vagina. I believe the mass actually originates from the trigone of the bladder but I cannot completely exclude a vaginal mass eroding into the base of the bladder. This may be further clarified with direct pelvic visualization 2. No pelvic adenopathy identified. There is a prominent retroperitoneal lymph node in the aortic chain slightly more cephalad as seen on the prior CT Finn Aguillon MD Pelvis X-Ray 08/15/17 1230 Signed Impressions: Service Date/Time: Tuesday, August 15, 2017 12:26 - CONCLUSION: No acute disease. Chinedu Black Jr., MD Chest X-Ray 08/15/17 1230 Signed Impressions: Service Date/Time: Tuesday, August 15, 2017 12:26 - CONCLUSION: Negative for pneumothorax. Negative for fracture Mathew Collins MD FACR Chest CT 08/15/17 1230 Signed Impressions: Service Date/Time: Tuesday, August 15, 2017 12:33 - CONCLUSION: No acute disease. Chinedu Black Jr., MD Cervical Spine CT 08/15/17 1230 Signed Impressions: Service Date/Time: Tuesday, August 15, 2017 12:38 - CONCLUSION: 1. No fracture or dislocation. 2. Degenerative changes. 3. Calcified plaque involving the carotid arteries bilaterally. Chinedu Black Jr., MD Brain MRI 08/15/17 0000 Signed Impressions: Service Date/Time: Tuesday, August 15, 2017 17:14 - CONCLUSION: 1. MR findings concerning for scattered parenchymal hemorrhages or, possibly, diffuse axonal injury depending on the patient's clinical condition. These are most prominent in the subcortical distribution of the left cerebral hemisphere. 2. 9 mm subdural hygroma on the left. There may be small intraventricular hemorrhages as well. 3. Chronic changes with moderately severe periventricular small vessel ischemic demyelination. Mild ventricular prominence could represent central atrophy versus NPH in the appropriate clinical setting. Finn Aguillon MD Abdomen/Pelvis CT 08/15/17 0000 Signed Impressions: Service Date/Time: Tuesday, August 15, 2017 12:44 - CONCLUSION: 1. No signs of acute trauma. 2. Retroperitoneal adenopathy as well as a left adrenal gland mass. This is concerning for metastatic disease. There is a heterogeneous mass associated with the trigone of urinary bladder. This is worrisome for a primary lesion. MRI of the pelvis can be utilized to further evaluate this. Chinedu Black Jr., MD Abdomen MRI 08/15/17 0000 Signed Impressions: Service Date/Time: Tuesday, August 15, 2017 17:14 - CONCLUSION: Imaging characteristics of the 2.3 cm left adrenal mass lesion are concerning for a neoplastic process. Finn Aguillon MD ADDENDUM: Also noted is a 2.1 cm isolated but prominent retroperitoneal periaortic lymph node at the level of the renal veins which was identified on prior CT. This is concerning for a metastatic foci. Finn Aguillon MD Assessment and Plan Assessment and Plan Urologic impression: #1 painful urination over the past several months likely related to the bladder mass noted on CT scanning; rule out primary bladder cancer #2 left adrenal mass and ventral hernia lymphadenopathy likely related to metastatic disease Recommendations: #1 discussed potential benefit of an indwelling Amin catheter to ease her voiding symptoms until her urologic workup can be completed. Patient wishes to think about this option. #2 patient advised to follow up with her established urologist Dr. Mustafa after hospital discharge for ongoing urologic workup and management. #3 no acute urologic intervention indicated during present hospitalization #4 will be available as needed Dylan Allan MD Aug 17, 2017 13:03
[2017-08-17 15:22] LABS: BACTERIA, URINE FEW /hpf; BLOOD, URINE NEG (NEG); COMMENT (UR) CULTURE INDICATED; CULTURE IF INDICATED CULTURE INDICATED; GLUCOSE,URINE NEG (NEG); KETONE, URINE 10 mg/dL (NEG); MUCUS URINE FEW /lpf (OCC); NITRITE,URINE NEG (NEG); PH, URINE 5.5 (5.0-8.5); SQUAMOUS EPITHELIAL CELL URINE 1 /hpf (0-5); URINE COLOR LIGHT-YELLOW (YELLW/STRAW)
--- NOTE | 2017-08-17 23:46 | HHI.NSPN ---
History Chief Complaint: None Exam Results Vital Signs Date Time Temp Pulse Resp B/P (MAP) Pulse Ox O2 Delivery O2 Flow Rate FiO2 08/17/17 20:30 99.5 93 17 144/70 (94) 96 08/17/17 16:44 Nasal Cannula 2.00 Intake and Output 08/17/17 08/17/17 08/18/17 08:00 16:00 00:00 Intake Total 2022 ml 1000 ml Balance 2022 ml 1000 ml Physical Examination GENERAL: Awake & alert, readily interacts, affect appears normal, no apparent distress. HEENT: Right forehead laceration well approximated w/sutures, no drainage, erythema or streaking. Right periorbital ecchymosis. PERRLA 3 mm brisk, EOMI. No otorrhea or rhinorrhea. MMM & pink, tongue midline to protrusion. MUSCULOSKELETAL: Moves all extremities w/o difficulty, NTTP, no evident deformity or clubbing. NEUROLOGICAL: Awake & alert, orient to self only. Next holida " Thanksgiving" Speech clear but confused, with receptive aphasia and possibly expressive aphasia. Follows some simple commands w/o difficulty, does requiring coaxing and demonstration. CN II-XII appear grossly intact. Sensation intact to light touch to all extremities. Motor strength appears to be 5/5 to all major flexion & extension muscle groups. Lab, Micro, Other Results Last Impressions Head CT 08/16/17 0600 Signed Impressions: Service Date/Time: Wednesday, August 16, 2017 05:41 - CONCLUSION: Persistent intraventricular, left subdural, and left parenchymal areas of hemorrhage. New areas of hemorrhage are not seen. Oni Higginbotham MD Pelvis MRI 08/16/17 0000 Signed Impressions: Service Date/Time: Wednesday, August 16, 2017 13:56 - CONCLUSION: 1. Mass lesion measuring 3.8 x 5.2 x 2.9 cm centered left para midline in the bladder trigone and extending down into the vagina. I believe the mass actually originates from the trigone of the bladder but I cannot completely exclude a vaginal mass eroding into the base of the bladder. This may be further clarified with direct pelvic visualization 2. No pelvic adenopathy identified. There is a prominent retroperitoneal lymph node in the aortic chain slightly more cephalad as seen on the prior CT Finn Aguillon MD Pelvis X-Ray 08/15/170 Signed Impressions: Service Date/Time: Tuesday, August 15, 2017 12:26 - CONCLUSION: No acute disease. Chinedu Black Jr., MD Chest X-Ray 08/15/170 Signed Impressions: Service Date/Time: Tuesday, August 15, 2017 12:26 - CONCLUSION: Negative for pneumothorax. Negative for fracture Mathew Collins MD FACR Chest CT 08/15/17 1230 Signed Impressions: Service Date/Time: Tuesday, August 15, 2017 12:33 - CONCLUSION: No acute disease. Chinedu Black Jr., MD Cervical Spine CT 08/15/170 Signed Impressions: Service Date/Time: Tuesday, August 15, 2017 12:38 - CONCLUSION: 1. No fracture or dislocation. 2. Degenerative changes. 3. Calcified plaque involving the carotid arteries bilaterally. Chinedu Black Jr., MD Brain MRI 08/15/17 0000 Signed Impressions: Service Date/Time: Tuesday, August 15, 2017 17:14 - CONCLUSION: 1. MR findings concerning for scattered parenchymal hemorrhages or, possibly, diffuse axonal injury depending on the patient's clinical condition. These are most prominent in the subcortical distribution of the left cerebral hemisphere. 2. 9 mm subdural hygroma on the left. There may be small intraventricular hemorrhages as well. 3. Chronic changes with moderately severe periventricular small vessel ischemic demyelination. Mild ventricular prominence could represent central atrophy versus NPH in the appropriate clinical setting. Finn Aguillon MD Abdomen/Pelvis CT 08/15/17 0000 Signed Impressions: Service Date/Time: Tuesday, August 15, 2017 12:44 - CONCLUSION: 1. No signs of acute trauma. 2. Retroperitoneal adenopathy as well as a left adrenal gland mass. This is concerning for metastatic disease. There is a heterogeneous mass associated with the trigone of urinary bladder. This is worrisome for a primary lesion. MRI of the pelvis can be utilized to further evaluate this. Chinedu Black Jr., MD Abdomen MRI 08/15/17 0000 Signed Impressions: Service Date/Time: Tuesday, August 15, 2017 17:14 - CONCLUSION: Imaging characteristics of the 2.3 cm left adrenal mass lesion are concerning for a neoplastic process. Finn Aguillon MD ADDENDUM: Also noted is a 2.1 cm isolated but prominent retroperitoneal periaortic lymph node at the level of the renal veins which was identified on prior CT. This is concerning for a metastatic foci. Finn Aguillon MD Medical Decision Making Impression and Plan Imp TBI. Left SDH stable on 08/16 CT Plan PT OT [facility] for floor and rehab Mark Palacios MD Aug 17, 2017 23:46
[2017-08-18] VITALS (11 sets, daily range): BP systolic 143–202; BP diastolic 72–91; PULSE 90–113; RESP 17–20; TEMP 98.1–98.4; O2SAT 95–98
[2017-08-18] MEDS: CHLORHEXIDINE GLUCONATE 2 % 1 PACK (2 CLOTHS) TOP SCH (04:00)
[2017-08-18] MEDS: MORPHINE SULFATE 4 MG/ML INJ IV PUSH PRN (04:40)
[2017-08-18] MEDS: SODIUM CHLOR 0.9% 1000 ML INJ 1,000 ML IV SCH (04:43)
[2017-08-18] MEDS ORDERED: ENALAPRILAT 1.25 MG/ML VIAL IV PUSH PRN (07:15)
[2017-08-18 07:17] LABS: AUTOMATED NEUTROPHIL # 7.3 TH/MM3 (1.8-7.7); BASOPHIL % 0.2 % (0.0-2.0); EOSINOPHIL % 0.5 % (0.0-4.0); HEMO FLAGS DIFF FINAL; LYMPH % 16.3 % (9.0-44.0); LYMPHOCYTE # 1.6 TH/MM3 (1.0-4.8); MEAN CELL VOLUME 96.3 FL (80.0-100.0); MEAN CORPUSCULAR HEMOGLOBIN 32.5 PG (27.0-34.0); MEAN CORPUSCULAR HGB CONC 33.7 % (32.0-36.0); MONO % 8.4 % (0.0-8.0); NEUT % 74.6 % (16.0-70.0); PLATELET COUNT 265 TH/MM3 (150-450); RED BLOOD COUNT 3.22 MIL/MM3 (4.00-5.30); RED CELL DISTRIBUTION WIDTH 12.3 % (11.6-17.2); WHITE BLOOD COUNT 9.8 TH/MM3 (4.0-11.0)
[2017-08-18 07:41] LABS: BICARBONATE 21.8 MEQ/L (21.0-32.0); MAGNESIUM 1.8 MG/DL (1.5-2.5); POTASSIUM 3.1 MEQ/L (3.5-5.1)
--- NOTE | 2017-08-18 08:07 | HHI.PR ---
Neuropsych Emotional Emotional: Intact: Emotional, Anxious/Fearful, Depressed/Sad, Hostile/Resentful , Irritable/Angry/Frustrate, Labile, Constricted/Blunted Behavior Behavior: Intact: Coping/Acceptance, Cooperative w/ Treatment, Motivation, Frustration Tolerance/[place] Cognitive Cognitive: Moderate: Cognitive, Attention/Concentration, Confused/Orientation, Insight/Awareness, Judgement/Problem-Solving, Memory Psychosocial Psychosocial: Unable to Asses: Psychosocial, Family/Other Adjustment, Realistic Expectation, Self-Esteem/Confidence Progress Notes/Response to Tx Contents of Sessions: Adjustment, Level of Consciousness Time with Patient: 15 minutes Premorbid psychological status Premorbid Cognitive, Emotional and Behavioral Status: Stable. The patient has high school years of education and has been retired for some time. The patient has no prior psychiatric difficulties, as described above. Substance abuse history is unremarkable. Behavioral Reactions of Patient and Family/Support System: Stable. The patient s family is experiencing ongoing issues of adjustment given the nature of the injury in light of her other medical challenges, and this aspect of recovery will require ongoing monitoring. Emotional/Behavioral Status of Patient and Family/Support System: Stable. Pertinent issues, if appropriate to this patients clinical care, are described in detail above. Maximizing acute care outcome It is recommended that the patient be monitored for emergent behavioral impulsivity as the medical condition evolves. She likely has an underlying major neurocognitive disorder due to a dementing illness, particularly in light of her brain MRI results. This patients neuropathological challenges may limit her rehabilitation potential going forward, and these challenges will require specialized therapeutic skills to maximize outcome. Additionally, the patients family is experiencing ongoing issues of adjustment given the traumatic nature of the injury, and they may benefit from ongoing psychological assistance. At this point in the recovery process, the patient does not have cognitive capacity as the patient is unable to understand a situation and its likely consequences, nor is she able to manipulate information rationally. Cognitive capacity will be assessed throughout the recovery process. Anticipated Problems Ongoing areas of concern will include behavioral impulsivity, lack of insight and judgment, which is expected to improve with time and treatment. Presently , the patient is following some commands. Treatment Plan This clinician will continue to follow with you throughout the course of this patients acute care treatment, and I will be available to meet with the patient s family/support system to facilitate their understanding and the ongoing care of their family member. The goals of neuropsychological intervention shall be both educational and supportive to the family/support system as is deemed clinically appropriate. [facility] Level: V:Confused-non agitated Impression This is an elderly woman s/p TBI 2T fall on 08/15/2017. On exam, she appears confused, and there may be an underlying neuropsychological process. Diagnosis: (1) Major neurocognitive disorder as late effect of traumatic brain injury without behavioral disturbance Progress Note Narrative Ongoing follow-up of patient seen during daily trauma rounds. This is day 3 post injury. She is neurobehaviorally stable, noted to be confused, which is likely premorbid or exacerbated by her injury, as she is believed to have an underlying major neurocognitive disorder. She is being worked up for her bladder mass. She remains [place] The plan is for her to transfer to [facility]. I spoke with and niece this morning. I will continue to follow. Dallas Vogt PhD Aug 18, 2017 8:07 am
[2017-08-18] MEDS: SODIUM CHLORIDE 0.9% FLUSH 10 ML FLUSH IV FLUSH SCH ×2 (09:00→21:31)
[2017-08-18] MEDS: DOCUSATE SODIUM 50 MG/SENNA 8.6 MG TAB PO SCH ×2 (09:05→21:27)
[2017-08-18] MEDS: levETIRAcetam 500 MG TAB PO SCH ×2 (09:06→21:28)
[2017-08-18] MEDS: FAMOTIDINE 20 MG TAB PO SCH ×2 (09:06→21:28)
[2017-08-18] MEDS: MAGNESIUM HYDROXIDE SUSP 30 ML CUP PO SCH ×2 (09:17→20:00)
--- NOTE | 2017-08-18 09:18 | HHI.NSPN ---
History Chief Complaint: None Interval History The patient is a pleasant elderly lady who according to her family passed out and fell today, striking her head with positive loss of consciousness. She was initially [place] Coma Score of 3 at the scene and brought in as a trauma alert. No definite seizures. 08/18/2017: Patient stable on regular floor. Tolerating moderate by mouth diet. No complaint of headache. Persistent expressive speech deficit, word finding deficit. Exam Results Vital Signs Date Time Temp Pulse Resp B/P (MAP) Pulse Ox O2 Delivery O2 Flow Rate FiO2 08/18/17 05:00 98.4 95 17 143/73 (96) 98 08/17/17 20:42 Room Air 08/17/17 16:44 2.00 Intake and Output 08/18/17 08/18/17 08/19/17 08:00 16:00 00:00 Intake Total 60 ml Balance 60 ml Physical Examination GENERAL: Awake & alert, readily interacts, affect appears normal, no apparent distress. Respirations: Clear to auscultation Cardiac: Regular without murmur. Abdomen: Soft, nontender HEENT: Right forehead laceration well approximated w/sutures, no drainage, erythema or streaking. Right periorbital ecchymosis. PERRLA 3 mm brisk, EOMI. No otorrhea or rhinorrhea. MMM & pink, tongue midline to protrusion. MUSCULOSKELETAL: Moves all extremities w/o difficulty, NTTP, no evident deformity or clubbing. NEUROLOGICAL: Awake and alert Mostly garbled speech today. This is mixed with occasional clear words, unable to formulate a coherent sentence. When showing a pen she is unable to tell me the name of the object, but can tell me what is used for. She cannot tell me that she is in the hospital but when given multiple choice options is able to correctly choose. Follows some simple commands w/o difficulty, does requiring coaxing and demonstration. CN II-XII appear grossly intact. Sensation intact to light touch to all extremities. Motor strength appears to be 5/5 to all major flexion & extension muscle groups. Lab, Micro, Other Results Laboratory Tests Test 08/17/17 11:10 08/17/17 14:30 08/18/17 06:30 White Blood Count 12.7 TH/MM3 9.8 TH/MM3 Red Blood Count 3.55 MIL/MM3 3.22 MIL/MM3 Hemoglobin 11.2 GM/DL 10.5 GM/DL Hematocrit 34.4 % 31.0 % Mean Corpuscular Volume 97.0 FL 96.3 FL Mean Corpuscular Hemoglobin 31.5 PG 32.5 PG Mean Corpuscular Hemoglobin Concent 32.5 % 33.7 % Red Cell Distribution Width 12.4 % 12.3 % Platelet Count 272 TH/MM3 265 TH/MM3 Mean Platelet Volume 7.9 FL 7.9 FL Neutrophils (%) (Auto) 74.8 % 74.6 % Lymphocytes (%) (Auto) 16.7 % 16.3 % Monocytes (%) (Auto) 8.0 % 8.4 % Eosinophils (%) (Auto) 0.3 % 0.5 % Basophils (%) (Auto) 0.2 % 0.2 % Neutrophils # (Auto) 9.5 TH/MM3 7.3 TH/MM3 Lymphocytes # (Auto) 2.1 TH/MM3 1.6 TH/MM3 Monocytes # (Auto) 1.0 TH/MM3 0.8 TH/MM3 Eosinophils # (Auto) 0.0 TH/MM3 0.0 TH/MM3 Basophils # (Auto) 0.0 TH/MM3 0.0 TH/MM3 CBC Comment DIFF FINAL DIFF FINAL Differential Comment Blood Urea Nitrogen 13 MG/DL 13 MG/DL Creatinine 0.54 MG/DL 0.59 MG/DL Random Glucose 91 MG/DL 80 MG/DL Calcium Level 8.3 MG/DL 8.4 MG/DL Sodium Level 138 MEQ/L 143 MEQ/L Potassium Level 3.5 MEQ/L 3.1 MEQ/L Chloride Level 110 MEQ/L 112 MEQ/L Carbon Dioxide Level 21.7 MEQ/L 21.8 MEQ/L Anion Gap 6 MEQ/L 9 MEQ/L Estimat Glomerular Filtration Rate 107 ML/MIN 97 ML/MIN Urine Color LIGHT-YELLOW Urine Turbidity CLEAR Urine pH 5.5 Urine Specific [place] 1.011 Urine Protein TRACE mg/dL Urine Glucose (UA) NEG mg/dL Urine Ketones 10 mg/dL Urine Occult Blood NEG Urine Nitrite NEG Urine Bilirubin NEG Urine Urobilinogen LESS THAN 2.0 MG/DL Urine Leukocyte Esterase MOD Urine RBC 16 /hpf Urine WBC 31 /hpf Urine Squamous Epithelial Cells 1 /hpf Urine Amorphous Sediment RARE Urine Bacteria FEW /hpf Urine Mucus FEW /lpf Microscopic Urinalysis Comment CULTURE INDICATED Phosphorus Level 2.2 MG/DL Magnesium Level 1.8 MG/DL Medical Decision Making Impression and Plan Imp TBI. Left SDH stable on 08/16 CT Persistent significant speech deficit. Severe dysarthria mixed with relatively clear speech. Significant word finding deficit. [facility] No neurosurgical intervention planned at this time. A follow-up CT scan will be checked next week. This can be done as an outpatient if she is discharged. Mark Palacios MD Aug 18, 2017 09:18
[2017-08-18] MEDS: ENOXAPARIN SODIUM 40 MG/0.4 ML SYRINGE SQ SCH (10:50)
[2017-08-18] MEDS ORDERED: Lactulose Liq PO (11:22)
[2017-08-18] MEDS ORDERED: MAGN30S PO (11:22)
[2017-08-18] MEDS ORDERED: PERI PO (11:22)
[2017-08-18] MEDS ORDERED: ENOX40P SQ (11:22)
[2017-08-18] MEDS ORDERED: LEVE500 PO (11:22)
[2017-08-18] MEDS ORDERED: HYDR-3516 PO (11:22)
[2017-08-18] MEDS ORDERED: FAMO20TA2 PO (11:22)
--- NOTE | 2017-08-18 15:40 | HHI.PR ---
Subjective Subjective Notes PTD: 3 Patient lying in bed. No distress noted. Patient states, "I have to go to the bathroom." Assisted by nurse to the restroom. Objective Vitals/I&O Vital Signs Date Time Temp Pulse Resp B/P (MAP) Pulse Ox O2 Delivery O2 Flow Rate FiO2 08/18/17 12:00 98.1 109 20 155/76 (102) 97 08/17/17 20:42 Room Air 08/17/17 16:44 2.00 08/17/17 09:19 21 Labs Laboratory Tests Test 08/18/17 06:30 White Blood Count 9.8 Red Blood Count 3.22 Hemoglobin 10.5 Hematocrit 31.0 Mean Corpuscular Volume 96.3 Mean Corpuscular Hemoglobin 32.5 Mean Corpuscular Hemoglobin Concent 33.7 Red Cell Distribution Width 12.3 Platelet Count 265 Mean Platelet Volume 7.9 Neutrophils (%) (Auto) 74.6 Lymphocytes (%) (Auto) 16.3 Monocytes (%) (Auto) 8.4 Eosinophils (%) (Auto) 0.5 Basophils (%) (Auto) 0.2 Neutrophils # (Auto) 7.3 Lymphocytes # (Auto) 1.6 Monocytes # (Auto) 0.8 Eosinophils # (Auto) 0.0 Basophils # (Auto) 0.0 CBC Comment DIFF FINAL Differential Comment Blood Urea Nitrogen 13 Creatinine 0.59 Random Glucose 80 Calcium Level 8.4 Phosphorus Level 2.2 Magnesium Level 1.8 Sodium Level 143 Potassium Level 3.1 Chloride Level 112 Carbon Dioxide Level 21.8 Anion Gap 9 Estimat Glomerular Filtration Rate 97 Date/Time Source Procedure Growth Status 08/17/17 14:30 Urine Clean Catch Urine Culture - Preliminary 10-50,000 CFU/ML MIXED GRAM POSITIVE ... Resulted Narrative Exam GENERAL: This is a 87-year-old female lying in bed. No distress noted. SKIN: Warm and dry. HEAD: Normocephalic. RIGHT temporal laceration noted with sutures in place. 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 EYES: PERRLA ENT: No nasal bleeding or discharge. Mucous membranes pink and moist. NECK: Trachea midline. No JVD. CARDIOVASCULAR: Regular rate and rhythm. RESPIRATORY: No accessory muscle use. Lungs are clear to auscultation. Breath sounds equal bilaterally. No distress or dyspnea. GASTROINTESTINAL: BS + x 4 quads. Abdomen soft, non-tender, nondistended. MUSCULOSKELETAL: Extremities without cyanosis, or edema. + peripheral pulses x 4 extremities. Warm with good capillary refill and sensation. MAEW. NEUROLOGICAL: Awake and alert, yet slightly confused. Normal speech and pattern. A/P Problem List: (1) Traumatic intracranial hemorrhage ICD Codes: S06.309A - Unspecified focal traumatic brain injury with loss of consciousness of unspecified duration, initialencounter Status: Acute (2) Adrenal mass ICD Codes: E27.9 - Disorder of adrenal gland, unspecified Status: Acute (3) Bladder mass ICD Codes: N32.89 - Other specified disorders of bladder Status: Acute (4) Major neurocognitive disorder as late effect of traumatic brain injury without behavioral disturbance ICD Codes: S06.9X9S - Unspecified intracranial injury with loss of consciousness of unspecified duration, sequela; F02.80 - Dementia in other diseases classified elsewhere without behavioral disturbance Status: Acute Assessment and Plan AMBLER: This is a 87-year-old female that sustained a fall. She became dizzy and fell forward. GCS 12. Repetitive questioning. INJURIES: RIGHT temporal area laceration (6 sutures) IPH ? intracranial mass *Bladder mass *LEFT adrenal mass *enlarged lymph node in retroperitoneum PMHx: HTN. Bladder mass - was supposed to have cystoscopy outpatient Procedures: Consults: CCM. Neurosurgery. Urology. Rehabilitation medicine. Neuropsych. Case management. Diet: Heart healthy - mechanical soft diet. Tolerating po diet. Encourage good po intake with each meal. Pulmonary: Encourage good pulmonary toileting. IS at bedside and pt encouraged to use. Rationale for use explained to patient, and verbalized understanding. PAIN Management: [place] 5 mg q 4 h. Activity: OOB. PT and OT ordered GI prophylaxis: Pepcid 10 mg BID Bowel regimen: Eliane-colace. MOM. Senna PRN. Lactulose PRN. Bisacodyl FL PRN. LBM: 08/16 DVT prophylaxis: Mechanical VTE with SCDs. Chemical management with Lovenox 40 QD SQ. DC Planning: Case management consulted for assistance with final discharge disposition. Emotional support provided to patient and family at bedside and plan of care discussed. Discussed with RN at bedside. Discussed pt condition and plan of care with collaborating trauma surgeon. Patient is hemodynamically stable and being managed on the med/surg floor. The trauma team will round each day, and evaluate plan of care on a daily basis. RIGHT temporal area laceration (6 sutures) IPH ? intracranial mass Neurosurgery consulted and assisting in management and care No intervention at this time CT for any change in neurological status Pain management as needed PT and OT ordered Encourage out of bed Patient is cleared for transfer to rehabilitation from a neurosurgery standpoint *Bladder mass Patient was preparing to obtain a cystoscopy outpatient before injury Urology consulted and assisting in management and care Conservative care at this time Patient can obtain a cystoscopy outpatient Follow-up with urology outpatient for cystoscopy Problem Qualifiers (1) Traumatic intracranial hemorrhage: Qualified Codes: S06.309A - Unspecified focal traumatic brain injury with loss of consciousness of unspecified duration, initial encounter Nga Collins Aug 18, 2017 15:40
[2017-08-18] MEDS ORDERED: cloNIDine HCL 0.1 MG TAB PO PRN (19:00)
[2017-08-19] VITALS (8 sets, daily range): BP systolic 145–177; BP diastolic 76–77; PULSE 97–110; RESP 18–20; TEMP 96.8–98; O2SAT 94–99
[2017-08-19] MEDS ORDERED: POTASSIUM CHLORIDE 25 MEQ EFFERVESCENT TAB PO ONE (07:00)
[2017-08-19] MEDS: MAGNESIUM HYDROXIDE SUSP 30 ML CUP PO SCH ×2 (08:00→22:00)
--- NOTE | 2017-08-19 08:16 | HHI.PR ---
Neuropsych Cognitive Cognitive: Mild: Cognitive, Attention/Concentration, Confused/Orientation, Insight/Awareness, Judgement/Problem-Solving, Memory Psychosocial Psychosocial: Intact: Psychosocial, Family/Other Adjustment, Realistic Expectation, Unable to Asses: Self-Esteem/Confidence Progress Notes/Response to Tx Contents of Sessions: Adjustment Time with Patient: 15 minutes Premorbid psychological status Premorbid Cognitive, Emotional and Behavioral Status: Stable. The patient has high school years of education and has been retired for some time. The patient has no prior psychiatric difficulties, as described above. Substance abuse history is unremarkable. Behavioral Reactions of Patient and Family/Support System: Stable. The patient s family is experiencing ongoing issues of adjustment given the nature of the injury in light of her other medical challenges, and this aspect of recovery will require ongoing monitoring. Emotional/Behavioral Status of Patient and Family/Support System: Stable. Pertinent issues, if appropriate to this patients clinical care, are described in detail above. Maximizing acute care outcome It is recommended that the patient be monitored for emergent behavioral impulsivity as the medical condition evolves. She likely has an underlying major neurocognitive disorder due to a dementing illness, particularly in light of her brain MRI results. This patients neuropathological challenges may limit her rehabilitation potential going forward, and these challenges will require specialized therapeutic skills to maximize outcome. Additionally, the patients family is experiencing ongoing issues of adjustment given the traumatic nature of the injury, and they may benefit from ongoing psychological assistance. At this point in the recovery process, the patient does not have cognitive capacity as the patient is unable to understand a situation and its likely consequences, nor is she able to manipulate information rationally. Cognitive capacity will be assessed throughout the recovery process. Anticipated Problems Ongoing areas of concern will include behavioral impulsivity, lack of insight and judgment, which is expected to improve with time and treatment. Presently , the patient is following some commands. Treatment Plan This clinician will continue to follow with you throughout the course of this patients acute care treatment, and I will be available to meet with the patient s family/support system to facilitate their understanding and the ongoing care of their family member. The goals of neuropsychological intervention shall be both educational and supportive to the family/support system as is deemed clinically appropriate. [facility] Level: V:Confused-non agitated Impression This is an elderly woman s/p TBI 2T fall on 08/15/2017. On exam, she appears confused, and there may be an underlying neuropsychological process. Diagnosis: (1) Major neurocognitive disorder as late effect of traumatic brain injury without behavioral disturbance Status: Acute Progress Note Narrative Ongoing follow-up of patient seen during daily trauma rounds. This is day 4 post injury. The patient appears relatively stable except for her slight confusion, which is opined to be premorbid, given her brain MRI results, clinical presentation and discussion with family members. She remains [place]. Please note that I discussed the neurobehavioral situation in detail with the patient's and niece yesterday, explaining that in all likelihood, prior to her injury she had a subclinical neurocognitive disorder (formerly known as dementia) which was made manifest by the recent head injury, and as such her recovery back to baseline will be protracted, and she should not be expected to bounce back to where she was quickly, if at all. In other words, she may have persistent neurocognitive deficits going forward in spite of all best efforts. It is expected that she will be transferred to physical rehab shortly. I will continue to follow. Dallas Vogt PhD Aug 19, 2017 8:16 am
[2017-08-19] MEDS: levETIRAcetam 500 MG TAB PO SCH ×2 (08:26→22:01)
[2017-08-19] MEDS: FAMOTIDINE 20 MG TAB PO SCH ×2 (08:26→22:02)
[2017-08-19] MEDS: DOCUSATE SODIUM 50 MG/SENNA 8.6 MG TAB PO SCH ×2 (09:00→22:02)
[2017-08-19] MEDS: SODIUM CHLORIDE 0.9% FLUSH 10 ML FLUSH IV FLUSH SCH ×2 (09:00→22:00)
[2017-08-19] MEDS: ENOXAPARIN SODIUM 40 MG/0.4 ML SYRINGE SQ SCH (11:41)
--- NOTE | 2017-08-19 12:15 | HHI.NSPN ---
History Chief Complaint: None Interval History 08/15: The patient is a pleasant elderly lady who according to her family passed out and fell today, striking her head with positive loss of consciousness. She was initially Gokul Coma Score of 3 at the scene and brought in as a trauma alert. No seizure activity reported. No nausea or vomiting reported. She complains of headache. No complaint of neck or low back pain. No complaint of blurred vision or diplopia. 08/16: This morning the patient is awake and alert. She says she has no pain when asked how she is doing. She denies any other complaints. She spontaneously moves the extremities. Nursing reports that this morning she only knew her name. Nursing did say that when the patient's family came in she became brighter in her demeanor. When they left she returned to the same demeanor she had before their arrival. 08/18/2017: Patient stable on regular floor. Tolerating moderate by mouth diet. No complaint of headache. Persistent expressive speech deficit, word finding deficit. 08/19: The patient is seen ambulating with minimal contact by Nursing. Her gait appears steady. She had no complaints when seen. She is confused and does seem to have some difficulty finding words. System Review Comments The patient had no complaints during the Review of Systems which is therefore negative. Exam Results 08/17/17 08/17/17 08/18/17 08/18/17 08/19/17 08/19/17 06:00 18:00 06:00 18:00 06:00 18:00 Intake Total 100 ml 2922 ml 120 ml 240 ml Balance 100 ml 2922 ml 120 ml 240 ml Intake Oral 100 ml 120 ml 240 ml IV Total 2922 ml # Voids 3 4 2 4 # Bowel Movements 1 2 1 Vital Signs Date Time Temp Pulse Resp B/P (MAP) Pulse Ox O2 Delivery O2 Flow Rate FiO2 08/19/17 11:47 98.0 102 20 173/76 (108) 97 08/19/17 10:00 110 08/19/17 09:45 94 08/19/17 08:33 96.8 108 20 145/76 (99) 98 08/19/17 05:55 97.9 100 18 177/77 (110) 97 08/19/17 00:16 97.9 97 18 170/77 (108) 95 08/18/17 23:00 96 08/18/17 21:26 95 08/18/17 20:53 98.1 99 18 165/72 (103) 95 08/18/17 20:00 92 08/18/17 19:30 90 08/18/17 17:45 163/77 (105) 08/18/17 16:00 98.1 113 20 202/91 (128) 97 08/18/17 12:00 98.1 109 20 155/76 (102) 97 08/18/17 08:00 98.1 108 20 193/84 (120) 96 08/18/17 05:00 98.4 95 17 143/73 (96) 98 08/18/17 00:30 98.1 97 17 143/73 (96) 98 08/17/17 20:42 98 Room Air 08/17/17 20:42 96 08/17/17 20:30 99.5 93 17 144/70 (94) 96 08/17/17 16:44 100 Nasal Cannula 2.00 08/17/17 16:44 100 Nasal Cannula 2.00 08/17/17 16:00 90 08/17/17 14:00 87 08/17/17 12:00 68 08/17/17 12:00 97.7 68 13 159/64 (95) 100 08/17/17 10:00 59 08/17/17 09:19 98 21 08/17/17 08:00 62 08/17/17 08:00 97.7 74 24 134/62 (86) 99 08/17/17 07:00 99 Nasal Cannula 2.00 08/17/17 07:00 99 Nasal Cannula 2.00 08/17/17 06:00 94 08/17/17 04:00 98.4 48 13 138/90 (106) 100 08/17/17 04:00 48 08/17/17 02:00 58 08/17/17 00:00 42 12 129/57 (81) 100 08/16/17 22:00 51 08/16/17 20:00 97.5 52 11 135/63 (87) 100 08/16/17 20:00 52 08/16/17 19:00 100 Nasal Cannula 2.00 08/16/17 18:00 46 08/16/17 16:00 96.9 48 12 117/55 (75) 100 08/16/17 16:00 48 08/16/17 14:00 62 Physical Examination GENERAL: Awake & alert, readily interacts, affect appears normal, no apparent distress. HEENT: Right forehead laceration well approximated w/sutures, no drainage, erythema or streaking. Right periorbital ecchymosis. PERRLA 3 mm brisk, EOMI. MMM & pink, tongue midline to protrusion. RESPIRATORY: CTAB w/o W/R/R, equal excursion, nonlaboured, on RA. CARDIOVASCULAR: S1S2 w/RRR w/o M/G/R, no pedal edema. GASTORINTESTINAL: Abdomen soft, nontender, positive bowel sounds. MUSCULOSKELETAL: Moves all extremities w/o difficulty, NTTP, no evident deformity or clubbing. NEUROLOGICAL: Awake & alert, oriented to self & month but confused as to year and place. Speech clear but inappropriate at times. Follows some simple commands w/o difficulty. CN II-XII appear grossly intact. Sensation intact to light touch to all extremities. Motor strength appears to be 5/5 to all major flexion & extension muscle groups. Gait steady. Lab, Micro, Other Results Laboratory Tests Test 08/17/17 11:10 08/17/17 14:30 08/18/17 06:30 White Blood Count 12.7 TH/MM3 9.8 TH/MM3 Red Blood Count 3.55 MIL/MM3 3.22 MIL/MM3 Hemoglobin 11.2 GM/DL 10.5 GM/DL Hematocrit 34.4 % 31.0 % Mean Corpuscular Volume 97.0 FL 96.3 FL Mean Corpuscular Hemoglobin 31.5 PG 32.5 PG Mean Corpuscular Hemoglobin Concent 32.5 % 33.7 % Red Cell Distribution Width 12.4 % 12.3 % Platelet Count 272 TH/MM3 265 TH/MM3 Mean Platelet Volume 7.9 FL 7.9 FL Neutrophils (%) (Auto) 74.8 % 74.6 % Lymphocytes (%) (Auto) 16.7 % 16.3 % Monocytes (%) (Auto) 8.0 % 8.4 % Eosinophils (%) (Auto) 0.3 % 0.5 % Basophils (%) (Auto) 0.2 % 0.2 % Neutrophils # (Auto) 9.5 TH/MM3 7.3 TH/MM3 Lymphocytes # (Auto) 2.1 TH/MM3 1.6 TH/MM3 Monocytes # (Auto) 1.0 TH/MM3 0.8 TH/MM3 Eosinophils # (Auto) 0.0 TH/MM3 0.0 TH/MM3 Basophils # (Auto) 0.0 TH/MM3 0.0 TH/MM3 CBC Comment DIFF FINAL DIFF FINAL Differential Comment Blood Urea Nitrogen 13 MG/DL 13 MG/DL Creatinine 0.54 MG/DL 0.59 MG/DL Random Glucose 91 MG/DL 80 MG/DL Calcium Level 8.3 MG/DL 8.4 MG/DL Sodium Level 138 MEQ/L 143 MEQ/L Potassium Level 3.5 MEQ/L 3.1 MEQ/L Chloride Level 110 MEQ/L 112 MEQ/L Carbon Dioxide Level 21.7 MEQ/L 21.8 MEQ/L Anion Gap 6 MEQ/L 9 MEQ/L Estimat Glomerular Filtration Rate 107 ML/MIN 97 ML/MIN Urine Color LIGHT-YELLOW Urine Turbidity CLEAR Urine pH 5.5 Urine Specific [place] 1.011 Urine Protein TRACE mg/dL Urine Glucose (UA) NEG mg/dL Urine Ketones 10 mg/dL Urine Occult Blood NEG Urine Nitrite NEG Urine Bilirubin NEG Urine Urobilinogen LESS THAN 2.0 MG/DL Urine Leukocyte Esterase MOD Urine RBC 16 /hpf Urine WBC 31 /hpf Urine Squamous Epithelial Cells 1 /hpf Urine Amorphous Sediment RARE Urine Bacteria FEW /hpf Urine Mucus FEW /lpf Microscopic Urinalysis Comment CULTURE INDICATED Phosphorus Level 2.2 MG/DL Magnesium Level 1.8 MG/DL Medical Decision Making Impression and Plan Impression: 1. Traumatic brain injury. No significant mass effect on CT scan 2. Forehead lacerations Patient doing well but continues with confusion and receptive aphasia. She may have some expressive aphasia. Stable ventricular & left-sided haemorrhages on CT brain . No identified mass on MRI brain . Plan: Discussed plan of care with patient & Nursing. Primary management per Trauma. Neuro checks. Stat CT brain for any worsening of neuro status. Mobilise patient w/assistance. PT/OT eval & tx. CT brain on 08/22. Ponce Quintana Aug 19, 2017 12:14
--- NOTE | 2017-08-19 13:56 | HHI.PR ---
Subjective Subjective Notes PTD: 4 Patient lying in bed. No distress noted. Patient denies pain at this time. Patient states she is eating okay. * Patient remains confused. Patient does not want to go to rehabilitation. "I want to go home." Spoke with her and friend at bedside concerning recommendation for further care at [facility]. Objective Vitals/I&O Vital Signs Date Time Temp Pulse Resp B/P (MAP) Pulse Ox O2 Delivery O2 Flow Rate FiO2 08/19/17 11:47 98.0 102 20 173/76 (108) 97 08/17/17 20:42 Room Air 08/17/17 16:44 2.00 08/17/17 09:19 21 Labs Date/Time Source Procedure Growth Status 08/17/17 14:30 Urine Clean Catch Urine Culture - Final 10-50,000 CFU/ML MIXED GRAM POSITIVE ... Complete Narrative Exam GENERAL: This is a 87-year-old female lying in bed. No distress noted. SKIN: Warm and dry. HEAD: Normocephalic. RIGHT temporal laceration noted with sutures in place. 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 EYES: PERRLA ENT: No nasal bleeding or discharge. Mucous membranes pink and moist. NECK: Trachea midline. No JVD. CARDIOVASCULAR: Regular rate and rhythm. RESPIRATORY: No accessory muscle use. Lungs are clear to auscultation. Breath sounds equal bilaterally. No distress or dyspnea. GASTROINTESTINAL: BS + x 4 quads. Abdomen soft, non-tender, nondistended. MUSCULOSKELETAL: Extremities without cyanosis, or edema. + peripheral pulses x 4 extremities. Warm with good capillary refill and sensation. MAEW. NEUROLOGICAL: Awake and alert, yet slightly confused. Normal speech and pattern. Patient observed ambulating with assist. A/P Problem List: (1) Traumatic intracranial hemorrhage ICD Codes: S06.309A - Unspecified focal traumatic brain injury with loss of consciousness of unspecified duration, initialencounter Status: Acute (2) Adrenal mass ICD Codes: E27.9 - Disorder of adrenal gland, unspecified Status: Acute (3) Bladder mass ICD Codes: N32.89 - Other specified disorders of bladder Status: Acute (4) Major neurocognitive disorder as late effect of traumatic brain injury without behavioral disturbance ICD Codes: S06.9X9S - Unspecified intracranial injury with loss of consciousness of unspecified duration, sequela; F02.80 - Dementia in other diseases classified elsewhere without behavioral disturbance Status: Acute Assessment and Plan NELSON LAGOON: This is a 87-year-old female that sustained a fall. She became dizzy and fell forward. GCS 12. Repetitive questioning. INJURIES: RIGHT temporal area laceration (6 sutures) IPH ? intracranial mass *Bladder mass *LEFT adrenal mass *enlarged lymph node in retroperitoneum PMHx: HTN. Bladder mass - was supposed to have cystoscopy outpatient Procedures: Consults: CCM. Neurosurgery. Urology. Rehabilitation medicine. Neuropsych. Case management. Diet: Heart healthy - mechanical soft diet. Tolerating po diet. Encourage good po intake with each meal. Pulmonary: Encourage good pulmonary toileting. IS at bedside and pt encouraged to use. Rationale for use explained to patient, and verbalized understanding. K = 3.1. Potassium 50 mEq x 1 dose today for replacement. PAIN Management: [place] 5 mg q 4 h. Activity: OOB. PT and OT ordered GI prophylaxis: Pepcid 10 mg BID Bowel regimen: Eliane-colace. MOM. Senna PRN. Lactulose PRN. Bisacodyl FL PRN. LBM: 08/19. DVT prophylaxis: Mechanical VTE with SCDs. Chemical management with Lovenox 40 QD SQ. DC Planning: Case management consulted for assistance with final discharge disposition. Patient is clear to transfer to [facility] once authorization is obtained. Emotional support provided to patient and family at bedside and plan of care discussed. Spoke with and friend at bedside at length concerning need for rehabilitation. Verbalized understanding and agree with the plan of care. Discussed with RN at bedside. Discussed pt condition and plan of care with collaborating trauma surgeon. Patient is hemodynamically stable and being managed on the med/surg floor. The trauma team will round each day, and evaluate plan of care on a daily basis. RIGHT temporal area laceration (6 sutures) IPH ? intracranial mass Underlying neurocognitive disorder Neurosurgery consulted and assisting in management and care No intervention at this time CT for any change in neurological status Pain management as needed PT and OT ordered Encourage out of bed Patient is cleared for transfer to rehabilitation from a neurosurgery standpoint *Bladder mass Patient was preparing to obtain a cystoscopy outpatient before injury Urology consulted and assisting in management and care Conservative care at this time Patient can obtain a cystoscopy outpatient Follow-up with urology outpatient for cystoscopy Remarks Patient seen and examined with the nurse practitioner, patient his GCS is 15 she is likely confused however, after discussion with her healthcare proxy, patient in agreement to go to rehabilitation Problem Qualifiers (1) Traumatic intracranial hemorrhage: Qualified Codes: S06.309A - Unspecified focal traumatic brain injury with loss of consciousness of unspecified duration, initial encounter Nga Collins Aug 19, 2017 13:56 Teresa Islas MD Aug 19, 2017 17:27
[2017-08-20] VITALS (12 sets, daily range): BP systolic 114–184; BP diastolic 61–87; PULSE 67–112; RESP 18–20; TEMP 97.5–98.6; O2SAT 94–98
[2017-08-20] MEDS: MAGNESIUM HYDROXIDE SUSP 30 ML CUP PO SCH ×2 (08:00→20:00)
[2017-08-20] MEDS: SODIUM CHLORIDE 0.9% FLUSH 10 ML FLUSH IV FLUSH SCH ×2 (09:00→21:00)
[2017-08-20] MEDS: FAMOTIDINE 20 MG TAB PO SCH ×2 (10:51→21:22)
[2017-08-20] MEDS: DOCUSATE SODIUM 50 MG/SENNA 8.6 MG TAB PO SCH ×2 (10:51→21:22)
[2017-08-20] MEDS: levETIRAcetam 500 MG TAB PO SCH ×2 (10:56→21:22)
[2017-08-20] MEDS: ENOXAPARIN SODIUM 40 MG/0.4 ML SYRINGE SQ SCH (11:00)
--- NOTE | 2017-08-20 11:16 | HHI.PR ---
Subjective Subjective Notes PTD: 5 Patient sitting up in bed. No distress noted. Patient states, "I'm just fine. There is nothing wrong with me." Objective Vitals/I&O Vital Signs Date Time Temp Pulse Resp B/P (MAP) Pulse Ox O2 Delivery O2 Flow Rate FiO2 08/20/17 08:36 96 21 08/20/17 07:46 97.9 81 18 128/61 (83) 08/17/17 20:42 Room Air 08/17/17 16:44 2.00 Labs Date/Time Source Procedure Growth Status 08/17/17 14:30 Urine Clean Catch Urine Culture - Final 10-50,000 CFU/ML MIXED GRAM POSITIVE ... Complete Narrative Exam GENERAL: This is a 87-year-old female lying in bed. No distress noted. SKIN: Warm and dry. HEAD: Normocephalic. RIGHT temporal healing laceration. JORGE. EYES: PERRLA. Resolving ecchymosis noted to RIGHT eye. ENT: No nasal bleeding or discharge. Mucous membranes pink and moist. NECK: Trachea midline. No JVD. CARDIOVASCULAR: Regular rate and rhythm. RESPIRATORY: No accessory muscle use. Lungs are clear to auscultation. Breath sounds equal bilaterally. No distress or dyspnea. GASTROINTESTINAL: BS + x 4 quads. Abdomen soft, non-tender, nondistended. MUSCULOSKELETAL: Extremities without cyanosis, or edema. + peripheral pulses x 4 extremities. Warm with good capillary refill and sensation. MAEW. NEUROLOGICAL: Awake and alert, yet slightly confused. Normal speech and pattern. A/P Problem List: (1) Traumatic intracranial hemorrhage ICD Codes: S06.309A - Unspecified focal traumatic brain injury with loss of consciousness of unspecified duration, initialencounter Status: Acute (2) Adrenal mass ICD Codes: E27.9 - Disorder of adrenal gland, unspecified Status: Acute (3) Bladder mass ICD Codes: N32.89 - Other specified disorders of bladder Status: Acute (4) Major neurocognitive disorder as late effect of traumatic brain injury without behavioral disturbance ICD Codes: S06.9X9S - Unspecified intracranial injury with loss of consciousness of unspecified duration, sequela; F02.80 - Dementia in other diseases classified elsewhere without behavioral disturbance Status: Acute Assessment and Plan HOH: This is a 87-year-old female that sustained a fall. She became dizzy and fell forward. GCS 12. Repetitive questioning. INJURIES: RIGHT temporal area laceration (6 sutures) IPH ? intracranial mass *Bladder mass *LEFT adrenal mass *enlarged lymph node in retroperitoneum PMHx: HTN. Bladder mass - was supposed to have cystoscopy outpatient Procedures: Consults: CCM. Neurosurgery. Urology. Hospitalist. Rehabilitation medicine. Neuropsych. Case management. Consult Hospitalist. Dr. Hayes request transfer of care to medical service at this time. Diet: Heart healthy - mechanical soft diet. Tolerating po diet. Encourage good po intake with each meal. Pulmonary: Encourage good pulmonary toileting. IS at bedside and pt encouraged to use. Rationale for use explained to patient, and verbalized understanding. PAIN Management: Nazlini 5 mg q 4 h. Activity: OOB. PT and OT ordered. GI prophylaxis: Pepcid 10 mg BID Bowel regimen: Eliane-colace. MOM. Senna PRN. Lactulose PRN. Bisacodyl CO PRN. LBM: 08/19. DVT prophylaxis: Mechanical VTE with SCDs. Chemical management with Lovenox 40 QD SQ. DC Planning: Case management consulted for assistance with final discharge disposition. Patient is clear to transfer to [facility], however her insurance denied her. Attempting SNF placement. Emotional support provided to patient and family at bedside and plan of care discussed. Spoke with the at length yesterday regarding need for placement. He agrees. Discussed with RN at bedside. Discussed pt condition and plan of care with collaborating trauma surgeon. Patient is hemodynamically stable and being managed on the med/surg floor. The trauma team will round each day, and evaluate plan of care on a daily basis. RIGHT temporal area laceration (6 sutures) IPH ? intracranial mass Underlying neurocognitive disorder Neurosurgery consulted and assisting in management and care No intervention at this time CT for any change in neurological status Pain management as needed PT and OT ordered Encourage out of bed Patient is cleared for transfer to rehabilitation from a neurosurgery standpoint *Bladder mass ?UTI Patient was preparing to obtain a cystoscopy outpatient before injury Urology consulted and assisting in management and care Conservative care at this time Patient can obtain a cystoscopy outpatient Follow-up with urology outpatient for cystoscopy Urine culture - probable contaminate. Repeat. Problem Qualifiers (1) Traumatic intracranial hemorrhage: Qualified Codes: S06.309A - Unspecified focal traumatic brain injury with loss of consciousness of unspecified duration, initial encounter Nga Collins Aug 20, 2017 11:16
--- NOTE | 2017-08-20 12:28 | HHI.NSPN ---
(Suzan Garcia) Note Status Status: Progress Note (Suzan Garcia) Interval History Interval History 08/15: The patient is a pleasant elderly lady who according to her family passed out and fell today, striking her head with positive loss of consciousness. She was initially Gokul Coma Score of 3 at the scene and brought in as a trauma alert. No seizure activity reported. No nausea or vomiting reported. She complains of headache. No complaint of neck or low back pain. No complaint of blurred vision or diplopia. 08/16: This morning the patient is awake and alert. She says she has no pain when asked how she is doing. She denies any other complaints. She spontaneously moves the extremities. Nursing reports that this morning she only knew her name. Nursing did say that when the patient's family came in she became brighter in her demeanor. When they left she returned to the same demeanor she had before their arrival. 08/18/2017: Patient stable on regular floor. Tolerating moderate by mouth diet. No complaint of headache. Persistent expressive speech deficit, word finding deficit. 08/19: The patient is seen ambulating with minimal contact by Nursing. Her gait appears steady. She had no complaints when seen. She is confused and does seem to have some difficulty finding words. 08/20: remains alert, confused. no changes clinically overnight. (Suzan Garcia) Labs, Micro, & Vital Signs Results Date Time Temp Pulse Resp B/P (MAP) Pulse Ox O2 Delivery O2 Flow Rate FiO2 08/20/17 08:36 96 21 08/20/17 07:46 97.9 81 18 128/61 (83) 94 08/20/17 06:22 97.5 88 20 114/86 (95) 96 08/20/17 04:37 68 08/20/17 04:17 80 08/20/17 04:12 100 08/20/17 00:00 98.3 112 20 184/87 (119) 96 08/19/17 17:20 99 21 08/19/17 15:52 97.5 104 20 147/76 (99) 99 Constitutional Vital Signs Date Time Temp Pulse Resp B/P (MAP) Pulse Ox O2 Delivery O2 Flow Rate FiO2 08/20/17 08:36 96 21 08/20/17 07:46 97.9 81 18 128/61 (83) 94 08/20/17 06:22 97.5 88 20 114/86 (95) 96 08/20/17 04:37 68 08/20/17 04:17 80 08/20/17 04:12 100 08/20/17 00:00 98.3 112 20 184/87 (119) 96 08/19/17 17:20 99 21 08/19/17 15:52 97.5 104 20 147/76 (99) 99 (Suzan Garcia) Physical Exam Awake, resting comfortably. Confused Right forehead laceration well approximated w/sutures healing well Right periorbital ecchymosis CN: pupils equal, facial motor symmetric Motor: moves all four extremities well (Suzan Garcia) She is alert, confused, oriented to self. Periocularechymosis Cranial nerve examination demonstrates the pupils to be equal, round, and reactive to light. Extra-ocular movements are intact with normal convergence. Facial motor function appears normal and symmetrical. Face sensation, hearing, visual hernandez, and olfaction can not be assessed properly due to the patients condition. The patient has an intact corneal reflex and a gag reflex. Sternocleidomastoid and trapezius have normal and symmetrical strength. Other cranial nerves are intact. Neck is soft and supple. Cervical spine has a normal range of motion of the cervical spine without pain. There is no tenderness to palpation to the spinous processes or paraspinal muscles. Muscle testing reveals normal bulk and tone overall without rigidity, spasticity , fasciculations, or atrophy. Muscle strength is 5/5 in all muscle groups of both upper and lower extremities. Deep tendon reflexes are 1+ and symmetrical in the biceps, triceps, and brachioradialis, bilaterally, in the upper extremities. In the lower extremities , the patellar and Achilles are 1+, bilaterally. There is a bilateral plantar flexion response. Hoffmanns sign is negative. There is no clonus or other abnormal reflexes noted. Cerebellar examination is limited due to the patient condition, but no obvious deficits are noted. (Trevin Spring MD) Medications Current Medications Current Medications Diphtheria/ Tetanus/Acell Pertussis (Boostrix Inj) 0.5 ml STK-MED ONCE IM ; Start 08/15/17 at 12:35; Stop 08/15/17 at 12:36; Status DC Iohexol (Omnipaque 350 Inj) 71 ml STK-MED ONCE IVCONTRAST Last administered on 08/15/17 12:26; Start 08/15/17 at 12:26; Stop 08/15/17 at 12:56; Status DC Sodium Chloride 1,000 ml @ 84 mls/hr [id number] IV Last administered on 04:43; Start 08/15/17 at 14:56; Stop 08/18/17 at 07:14; Status DC Sodium Chloride (NS Flush) 2 ml UNSCH PRN IV FLUSH FLUSH AFTER USING IV ACCESS ; Start 08/15/17 at 15:00 Sodium Chloride (NS Flush) 2 ml BID IV FLUSH Last administered on 08/17/17 08 :42; Start 08/15/17 at 21:00 Acetaminophen (Tylenol) 650 mg Q6H PRN PO FEVER >100F Last administered on 20:50; Start 08/15/17 at 15:00 Acetaminophen/ Hydrocodone Bitart ([place] 5-325 Mg) 1 tab Q4H PRN PO pain 3-10 Last administered on 08/17/17 05:29; Start 08/15/17 at 15:00 Morphine Sulfate (Morphine Inj) 2 mg Q2H PRN IV PUSH PAIN SCALE 6 TO 10 Last administered on 08/16/17 04:40; Start 08/15/17 at 15:00; Stop 08/16/17 at 08 :27; Status DC Famotidine (Pepcid Inj) 20 mg Q12HR IV PUSH Last administered on 08/16/17 10: 26; Start 08/15/17 at 21:00; Stop 08/16/17 at 14:57; Status DC Ondansetron HCl (Zofran Inj) 4 mg Q6H PRN IV PUSH NAUSEA OR VOMITING Last administered on 08/15/17 16:46; Start 08/15/17 at 15:00 Albuterol Sulfate (Albuterol Neb) 2.5 mg Q2HR NEB PRN INH SOB/WHEEZING; Start 08/15/17 at 15:00 Miscellaneous Information 1 Q361D XX ; Start 08/15/17 at 15:00; Stop 08/18/17 at 07:14; Status DC Chlorhexidine Gluconate (Chlorhexidine 2% Cloth) 3 pack Taper DAILY@04 TOP ; Start 08/16/17 at 04:00; Stop 08/18/17 at 07:14; Status DC Chlorhexidine Gluconate (Chlorhexidine 2% Cloth) 3 pack UNSCH PRN TOP HYGIENIC CARE; Start 08/15/17 at 15:00; Stop 08/18/17 at 07:14; Status DC Senna/Docusate Sodium (Eliane-Colace) 1 tab BID PO Last administered on 09:00; Start 08/15/17 at 21:00 Magnesium Hydroxide (Milk Of Magnesia Liq) 30 ml Q12H PRN PO Mild constipation ; Start 08/15/17 at 15:00; Stop 08/18/17 at 07:14; Status DC Sennosides (Senokot) 17.2 mg Q12H PRN PO Moderate constipation; Start at 15:00 Bisacodyl (Dulcolax Supp) 10 mg DAILY PRN RECTAL SEVERE CONSITIPATION; Start 08/15/17 at 15:00 Lactulose (Lactulose Liq) 30 ml DAILY PRN PO SEVERE CONSITIPATION; Start 08/15 at 15:00 Labetalol HCl (Trandate Inj) 10 mg Q1HR PRN IV PUSH SBP>140, DBP>80, HR>65; Start 08/15/17 at 15:15; Stop 08/18/17 at 07:14; Status DC Hydralazine HCl (Apresoline Inj) 10 mg Q1HR PRN IV PUSH SBP>140, DBP>90 Last administered on 08/17/17t 13:42; Start 08/15/17 at 15:15; Stop 08/18/17 at 07 :14; Status DC Nicardipine HCl 25 mg/Sodium Chloride 250 ml @ 50 mls/hr TITRATE PRN IV Blood pressure management; Start 08/15/17 at 15:30; Stop 08/18/17 at 07:14; Status DC Gadodiamide (Omniscan Pf Inj) 10 ml STK-MED ONCE IV PUSH Last administered on 08/15/17 17:36; Start 08/15/17 at 17:36; Stop 08/15/17 at 17:37; Status DC Sodium Chloride (NS Flush) 2 ml UNSCH PRN IV FLUSH FLUSH AFTER USING IV ACCESS ; Start 08/15/17 at 18:30; Stop 08/15/17 at 18:38; Status DC Miscellaneous Information 1 Q361D XX ; Start 08/15/17 at 18:30; Stop 08/15/17 at 18:37; Status DC Morphine Sulfate (Morphine Inj) 2 mg Q4H PRN IV PUSH breakthrough pain Last administered on 08/18/17 04:40; Start 08/16/17 at 09:00; Stop 08/18/17 at 15 :05; Status DC Levetriacetam (Keppra) 500 mg Q12HR PO Last administered on 08/21/17 11:07; Start 08/16/17 at 10:00 Famotidine (Pepcid Inj) 10 mg Q12HR IV PUSH Last administered on 08/16/17 20: 50; Start 08/16/17 at 21:00; Stop 08/17/17 at 07:42; Status DC Gadodiamide (Omniscan Pf Inj) 10 ml STK-MED ONCE IV PUSH ; Start 08/16/17 at 15 :24; Stop 08/16/17 at 15:25; Status DC Famotidine (Pepcid) 10 mg BID PO Last administered on 08/21/17 11:08; Start 08/17/17 at 09:00 Miscellaneous (Pill Splitter) 1 ea UNSCH PRN OTHER SEE LABEL COMMENTS; Start 08/17/17 at 08:00 Magnesium Hydroxide (Milk Of Magnesia Liq) 30 ml Q12H PO Last administered on 08/19/17 22:00; Start 08/18/17 at 08:00 Enalaprilat (Vasotec Inj) 1.25 mg Q8H PRN IV PUSH HTN; Start 08/18/17 at 07:15 Enoxaparin Sodium (Lovenox Inj) 40 mg Q24H SQ Last administered on 08/21/17 11 :08; Start 08/18/17 at 11:00 Clonidine (Catapres) 0.1 mg Q6H PRN PO SYSTOLIC BP GREATER THAN 175 Last administered on 08/20/17 00:53; Start 08/18/17 at 19:00 Potassium Bicarb/ Potassium Chloride (K-Lyte Cl Eff) 50 meq ONCE ONCE PO Last administered on 08/19/17 08:26; Start 08/19/17 at 07:00; Stop 08/19/17 at 07:13; Status DC Potassium Chloride (KCl) 40 meq ONCE ONCE PO Last administered on 08/21/17 11 :07; Start 08/21/17 at 08:15; Stop 08/21/17 at 08:16; Status DC Potassium Chloride (KCl) 20 meq ONCE ONCE PO Last administered on 08/21/17 15 :00; Start 08/21/17 at 15:00; Stop 08/21/17 at 15:01; Status DC (Trevin Spring MD) Medical Decision Making MDM Remarks 87 y/o female 1. Traumatic brain injury. No significant mass effect on CT scan 2. Forehead lacerations Patient doing well but continues with confusion and receptive aphasia. She may have some expressive aphasia. Stable ventricular & left-sided hemorrhages on CT brain . No identified mass on MRI brain . (Suzan Garcia) Plan Plan Remarks cont current care Primary management per Trauma serial neuro checks cont therapy (Suzan Garcia) Attending Statement As above Continue neuro checks. Pulmonary.. Continue aggressive pulmonary toilette, nasotracheal suction, and breathing treatments with nebulizers. Nutrition. NPO Renal. monitor closely urine output, BUN and creatinine Endocrine. Monitor serial Acu checks and SSI as needed in detail ID monitor for signs of infection Protonix for stress ulcer prophylaxis Zackary hose and SCDls. Lovenox The exam, history, and the medical decision-making described in the above note were completed with the assistance of the mid-level provider. I reviewed and agree with the findings presented. I attest that I had a [id number] encounter with the patient on the same day, and personally performed and documented my assessment and findings in the medical record. (Trevin Spring MD) Suzan Garcia Aug 20, 2017 12:28 Trevin Spring MD Aug 21, 2017 17:14
[2017-08-21] VITALS (9 sets, daily range): BP systolic 137–167; BP diastolic 64–79; PULSE 85–92; RESP 18–20; TEMP 96.4–98.4; O2SAT 93–98
[2017-08-21 06:27] LABS: AUTOMATED NEUTROPHIL # 6.1 TH/MM3 (1.8-7.7); BASOPHIL % 0.4 % (0.0-2.0); EOSINOPHIL # 0.1 TH/MM3 (0-0.4); EOSINOPHIL % 1.2 % (0.0-4.0); HEMATOCRIT 29.1 % (35.0-46.0); HEMO FLAGS DIFF FINAL; LYMPH % 28.4 % (9.0-44.0); LYMPHOCYTE # 2.9 TH/MM3 (1.0-4.8); MEAN CELL VOLUME 94.3 FL (80.0-100.0); MEAN CORPUSCULAR HEMOGLOBIN 31.4 PG (27.0-34.0); MEAN CORPUSCULAR HGB CONC 33.3 % (32.0-36.0); MONO % 10.2 % (0.0-8.0); NEUT % 59.8 % (16.0-70.0); PLATELET COUNT 261 TH/MM3 (150-450); RED BLOOD COUNT 3.09 MIL/MM3 (4.00-5.30); RED CELL DISTRIBUTION WIDTH 12.4 % (11.6-17.2); WHITE BLOOD COUNT 10.1 TH/MM3 (4.0-11.0)
[2017-08-21 07:00] LABS: BICARBONATE 29.2 MEQ/L (21.0-32.0); POTASSIUM 3.4 MEQ/L (3.5-5.1)
[2017-08-21] MEDS: MAGNESIUM HYDROXIDE SUSP 30 ML CUP PO SCH ×2 (08:00→20:48)
[2017-08-21] MEDS ORDERED: POTASSIUM CHLORIDE 20 MEQ CONTROLLED RELEASE TAB PO ONE ×2 (08:15→15:00)
--- NOTE | 2017-08-21 08:57 | HHI.PR ---
Subjective Remarks This is a pleasant 87 y/o Female who was admitted on 08/15/17, she has Hypertension, bladder mass recently diagnosed, scheduled for Outpatient Cystoscopy she was brought in to ER status post fall, had Right supraorbital/forehead injury status post stitches. on imaging studies found Parenchymal Hemorrhage in the frontal and temporal regions, Right greater than left Hygromas, Right ventricle Hemorrhage versus subependymal mass, on CT abdomen and Pelvis retroperitoneal lymph node enlargement around 1 cm diffuse. Left renal vein lymph node 2.2 x 1.8 c m. There is a 1.8 x 3.9 x 3.7 necrotic mass at the trigone of the bladder CT C-spine - right neural foraminal narrowing at C5/6 and C6/7, as per Neurosurgery, continue confused and receptive aphasia, some expressive aphasia, no identified mass on MRI, Seen in her bedroom in the presence of her nurse Mr. Goode, appreciated input, as per Neurosurgery, recommended CT brain for tomorrow am. after may be recommended for discharge and transfer to Rehab facility, no nausea, vomit or diarrhea. Objective Vital Signs Date Time Temp Pulse Resp B/P (MAP) Pulse Ox O2 Delivery O2 Flow Rate FiO2 08/21/17 04:00 98.4 88 19 151/68 (95) 98 08/21/17 03:49 90 08/21/17 00:00 97.7 85 20 137/64 (88) 94 08/20/17 20:00 98.3 99 20 143/69 (93) 96 08/20/17 20:00 86 08/20/17 17:00 98.6 98 20 144/64 (90) 98 08/20/17 16:00 95 08/20/17 12:00 97.6 80 18 162/68 (99) 97 I/O 08/20/17 08/20/17 08/20/17 08/21/17 08/21/17 08/21/17 07:00 15:00 23:00 07:00 15:00 23:00 # Voids 2 4 5 # Bowel Movements 2 1 Result Diagram: 08/21/17 0611 08/21/17 0611 Imaging Last Impressions Head CT 08/16/17 0600 Signed Impressions: Service Date/Time: Wednesday, August 16, 2017 05:41 - CONCLUSION: Persistent intraventricular, left subdural, and left parenchymal areas of hemorrhage. New areas of hemorrhage are not seen. Oni Higginbotham MD Pelvis MRI 08/16/17 0000 Signed Impressions: Service Date/Time: Wednesday, August 16, 2017 13:56 - CONCLUSION: 1. Mass lesion measuring 3.8 x 5.2 x 2.9 cm centered left para midline in the bladder trigone and extending down into the vagina. I believe the mass actually originates from the trigone of the bladder but I cannot completely exclude a vaginal mass eroding into the base of the bladder. This may be further clarified with direct pelvic visualization 2. No pelvic adenopathy identified. There is a prominent retroperitoneal lymph node in the aortic chain slightly more cephalad as seen on the prior CT Finn Aguillon MD Pelvis X-Ray 08/15/17 1230 Signed Impressions: Service Date/Time: Tuesday, August 15, 2017 12:26 - CONCLUSION: No acute disease. Chinedu Black Jr., MD Chest X-Ray 08/15/17 1230 Signed Impressions: Service Date/Time: Tuesday, August 15, 2017 12:26 - CONCLUSION: Negative for pneumothorax. Negative for fracture Mathew Collins MD FACR Chest CT 08/15/17 1230 Signed Impressions: Service Date/Time: Tuesday, August 15, 2017 12:33 - CONCLUSION: No acute disease. Chinedu Black Jr., MD Cervical Spine CT 08/15/17 1230 Signed Impressions: Service Date/Time: Tuesday, August 15, 2017 12:38 - CONCLUSION: 1. No fracture or dislocation. 2. Degenerative changes. 3. Calcified plaque involving the carotid arteries bilaterally. Chinedu Black Jr., MD Brain MRI 08/15/17 0000 Signed Impressions: Service Date/Time: Tuesday, August 15, 2017 17:14 - CONCLUSION: 1. MR findings concerning for scattered parenchymal hemorrhages or, possibly, diffuse axonal injury depending on the patient's clinical condition. These are most prominent in the subcortical distribution of the left cerebral hemisphere. 2. 9 mm subdural hygroma on the left. There may be small intraventricular hemorrhages as well. 3. Chronic changes with moderately severe periventricular small vessel ischemic demyelination. Mild ventricular prominence could represent central atrophy versus NPH in the appropriate clinical setting. Finn Aguillon MD Abdomen/Pelvis CT 08/15/17 0000 Signed Impressions: Service Date/Time: Tuesday, August 15, 2017 12:44 - CONCLUSION: 1. No signs of acute trauma. 2. Retroperitoneal adenopathy as well as a left adrenal gland mass. This is concerning for metastatic disease. There is a heterogeneous mass associated with the trigone of urinary bladder. This is worrisome for a primary lesion. MRI of the pelvis can be utilized to further evaluate this. Chinedu Black Jr., MD Abdomen MRI 08/15/17 0000 Signed Impressions: Service Date/Time: Tuesday, August 15, 2017 17:14 - CONCLUSION: Imaging characteristics of the 2.3 cm left adrenal mass lesion are concerning for a neoplastic process. Finn Aguillon MD ADDENDUM: Also noted is a 2.1 cm isolated but prominent retroperitoneal periaortic lymph node at the level of the renal veins which was identified on prior CT. This is concerning for a metastatic foci. Finn Aguillon MD Other Results Laboratory Tests Test 08/15/17 12:32 08/15/17 18:00 08/16/17 09:06 08/16/17 09:24 Bedside Hemoglobin 10.9 G/DL Bedside Hematocrit 32.0 % Bedside Sodium 138 MMOL/L Bedside Potassium 4.1 MMOL/L Bedside Chloride 101 MMOL/L Bedside Blood Urea Nitrogen 30 MG/DL Bedside Creatinine 1.0 MG/DL Bedside Glucose 129 MG/DL Total Creatine Kinase 41 U/L Nasal Screen MRSA (PCR) MRSA NOT DETECTED Lactic Acid Level 2.2 mmol/L Platelet Estimate NORMAL Platelet Morphology Comment NORMAL Prothrombin Time 11.4 SEC Prothromb Time International Ratio 1.0 RATIO Activated Partial Thromboplast Time 29.2 SEC Blood Urea Nitrogen 22 MG/DL Creatinine 0.83 MG/DL Random Glucose 111 MG/DL Total Protein 8.3 GM/DL Albumin 2.3 GM/DL Calcium Level 8.9 MG/DL Phosphorus Level 3.4 MG/DL Magnesium Level 2.0 MG/DL Alkaline Phosphatase 89 U/L Aspartate Amino Transf (AST/SGOT) 25 U/L Alanine Aminotransferase (ALT/SGPT) 11 U/L Total Bilirubin 0.3 MG/DL Sodium Level 136 MEQ/L Potassium Level 4.2 MEQ/L Chloride Level 105 MEQ/L Carbon Dioxide Level 23.9 MEQ/L Test 08/17/17 14:30 08/18/17 06:30 08/21/17 06:11 Urine Color LIGHT-YELLOW Urine Turbidity CLEAR Urine pH 5.5 Urine Specific [place] 1.011 Urine Protein TRACE mg/dL Urine Glucose (UA) NEG mg/dL Urine Ketones 10 mg/dL Urine Occult Blood NEG Urine Nitrite NEG Urine Bilirubin NEG Urine Urobilinogen LESS THAN 2.0 MG/DL Urine Leukocyte Esterase MOD Urine RBC 16 /hpf Urine WBC 31 /hpf Urine Squamous Epithelial Cells 1 /hpf Urine Amorphous Sediment RARE Urine Bacteria FEW /hpf Urine Mucus FEW /lpf Microscopic Urinalysis Comment CULTURE INDICATED Blood Urea Nitrogen 13 MG/DL 18 MG/DL Creatinine 0.59 MG/DL 0.65 MG/DL Random Glucose 80 MG/DL 118 MG/DL Calcium Level 8.4 MG/DL 8.6 MG/DL Phosphorus Level 2.2 MG/DL Magnesium Level 1.8 MG/DL Sodium Level 143 MEQ/L 141 MEQ/L Potassium Level 3.1 MEQ/L 3.4 MEQ/L Chloride Level 112 MEQ/L 105 MEQ/L Carbon Dioxide Level 21.8 MEQ/L 29.2 MEQ/L White Blood Count 10.1 TH/MM3 Red Blood Count 3.09 MIL/MM3 Hemoglobin 9.7 GM/DL Hematocrit 29.1 % Mean Corpuscular Volume 94.3 FL Mean Corpuscular Hemoglobin 31.4 PG Mean Corpuscular Hemoglobin Concent 33.3 % Red Cell Distribution Width 12.4 % Platelet Count 261 TH/MM3 Mean Platelet Volume 7.4 FL Neutrophils (%) (Auto) 59.8 % Lymphocytes (%) (Auto) 28.4 % Monocytes (%) (Auto) 10.2 % Eosinophils (%) (Auto) 1.2 % Basophils (%) (Auto) 0.4 % Neutrophils # (Auto) 6.1 TH/MM3 Lymphocytes # (Auto) 2.9 TH/MM3 Monocytes # (Auto) 1.0 TH/MM3 Eosinophils # (Auto) 0.1 TH/MM3 Basophils # (Auto) 0.0 TH/MM3 CBC Comment DIFF FINAL Differential Comment Anion Gap 7 MEQ/L Estimat Glomerular Filtration Rate 87 ML/MIN Objective Remarks GENERAL: No acute distress. SKIN: Warm and dry. Noted laceration right forehead #5 Prolene sutures HEAD: Contusion to right for his above. 3 cm contusion above the right eyebrow without sutures EYES: Pupils equal and round about 3 mm bilaterally and reactive. No scleral icterus. No injection or drainage. ENT: No nasal bleeding or discharge. Mucous membranes pink and moist. NECK: Trachea midline. No JVD. CARDIOVASCULAR: Regular rate and rhythm. S1, S2. No S4. Without murmur RESPIRATORY: Clear to auscultation. Breath sounds equal bilaterally. GASTROINTESTINAL: Abdomen soft, non-tender, nondistended. Hepatic and splenic margins not palpable. MUSCULOSKELETAL: Extremities without significant peripheral edema. No obvious deformities. NEUROLOGICAL: Awake and alert. No obvious cranial nerve deficits.no focal deficits. Medications and IVs Current Medications Medications (Trade) Dose Ordered Sig/Reny Route Start Time Stop Time Status Last Admin (NS Flush) 2 ml UNSCH PRN IV FLUSH 08/15/17 15:00 (NS Flush) 2 ml BID IV FLUSH 08/15/17 21:00 08/17/17 08:42 (Tylenol) 650 mg Q6H PRN PO 08/15/17 15:00 08/16/17 20:50 ([place] 5-325 Mg) 1 tab Q4H PRN PO 08/15/17 15:00 08/17/17 05:29 (Zofran Inj) 4 mg Q6H PRN IV PUSH 08/15/17 15:00 08/15/17 16:46 (Albuterol Neb) 2.5 mg Q2HR NEB PRN INH 08/15/17 15:00 (Eliane-Colace) 1 tab BID PO 08/15/17 21:00 08/20/17 21:22 (Senokot) 17.2 mg Q12H PRN PO 08/15/17 15:00 (Dulcolax Supp) 10 mg DAILY PRN RECTAL 08/15/17 15:00 (Lactulose Liq) 30 ml DAILY PRN PO 08/15/17 15:00 (Keppra) 500 mg Q12HR PO 08/16/17 10:00 08/20/17 21:22 (Pepcid) 10 mg BID PO 08/17/17 09:00 08/20/17 21:22 (Pill Splitter) 1 ea UNSCH PRN OTHER 08/17/17 08:00 (Milk Of Magnesia Liq) 30 ml Q12H PO 08/18/17 08:00 08/19/17 22:00 (Vasotec Inj) 1.25 mg Q8H PRN IV PUSH 08/18/17 07:15 (Lovenox Inj) 40 mg Q24H SQ 08/18/17 11:00 08/19/17 11:41 (Catapres) 0.1 mg Q6H PRN PO 08/18/17 19:00 08/20/17 00:53 A/P Assessment and Plan 1. Status post fall with right temporal laceration status post six Sutures 2. Bladder mass/Left adrenal mass/Enlarged Lymph node in retroperitoneal area conservative management as per Urology follow outpatient for Cystoscopy 3. Traumatic Intracranial Hemorrhage. Questioned Intracranial mass/Underlying neurocognitive disorder, Neurosurgery following. No intervention at this time, clear to transfer to Rehab facility per Neurosurgery. tomorrow will have new CT Brain and if negative probably will be recommended for discharge to Rehabilitation. GI prophylaxis with Pepcid 10 mg BID DVT prophylaxis with SCDs. Lovenox 40 mg daily. DC Planning: Case management consulted for assistance with final discharge disposition. Patient is clear to transfer to [facility], however her insurance denied her. Attempting SNF placement discussed with Patient, Nurse Mr. Goode and her Mr. Jose Sanchez, all questions answered to the best of my abilities. Discharge Planning Expected by tomorrow to Rehab Jim Sen MD Aug 21, 2017 08:57
[2017-08-21] MEDS: DOCUSATE SODIUM 50 MG/SENNA 8.6 MG TAB PO SCH ×2 (09:00→20:48)
[2017-08-21] MEDS: SODIUM CHLORIDE 0.9% FLUSH 10 ML FLUSH IV FLUSH SCH ×2 (09:00→20:48)
--- NOTE | 2017-08-21 09:21 | HHI.PR ---
Subjective Subjective Notes PTD: 6 Objective Vitals/I&O Vital Signs Date Time Temp Pulse Resp B/P (MAP) Pulse Ox O2 Delivery O2 Flow Rate FiO2 08/21/17 09:06 93 08/21/17 08:00 98.2 90 18 152/72 (98) 08/20/17 08:36 21 08/17/17 20:42 Room Air 08/17/17 16:44 2.00 Labs Laboratory Tests Test 08/21/17 06:11 White Blood Count 10.1 Red Blood Count 3.09 Hemoglobin 9.7 Hematocrit 29.1 Mean Corpuscular Volume 94.3 Mean Corpuscular Hemoglobin 31.4 Mean Corpuscular Hemoglobin Concent 33.3 Red Cell Distribution Width 12.4 Platelet Count 261 Mean Platelet Volume 7.4 Neutrophils (%) (Auto) 59.8 Lymphocytes (%) (Auto) 28.4 Monocytes (%) (Auto) 10.2 Eosinophils (%) (Auto) 1.2 Basophils (%) (Auto) 0.4 Neutrophils # (Auto) 6.1 Lymphocytes # (Auto) 2.9 Monocytes # (Auto) 1.0 Eosinophils # (Auto) 0.1 Basophils # (Auto) 0.0 CBC Comment DIFF FINAL Differential Comment Blood Urea Nitrogen 18 Creatinine 0.65 Random Glucose 118 Calcium Level 8.6 Sodium Level 141 Potassium Level 3.4 Chloride Level 105 Carbon Dioxide Level 29.2 Anion Gap 7 Estimat Glomerular Filtration Rate 87 Date/Time Source Procedure Growth Status 08/20/17 21:52 Urine Clean Catch Urine Culture Pending Received A/P Problem List: (1) Traumatic intracranial hemorrhage ICD Codes: S06.309A - Unspecified focal traumatic brain injury with loss of consciousness of unspecified duration, initialencounter Status: Acute (2) Adrenal mass ICD Codes: E27.9 - Disorder of adrenal gland, unspecified Status: Acute (3) Bladder mass ICD Codes: N32.89 - Other specified disorders of bladder Status: Acute (4) Major neurocognitive disorder as late effect of traumatic brain injury without behavioral disturbance ICD Codes: S06.9X9S - Unspecified intracranial injury with loss of consciousness of unspecified duration, sequela; F02.80 - Dementia in other diseases classified elsewhere without behavioral disturbance Status: Acute Assessment and Plan ATQASUK: This is a 87-year-old female that sustained a fall. She became dizzy and fell forward. GCS 12. Repetitive questioning. INJURIES: RIGHT temporal area laceration (6 sutures) IPH ? intracranial mass *Bladder mass *LEFT adrenal mass *enlarged lymph node in retroperitoneum PMHx: HTN. Bladder mass - was supposed to have cystoscopy outpatient Procedures: Consults: CCM. Neurosurgery. Urology. Hospitalist. Rehabilitation medicine. Neuropsych. Case management. Consult Hospitalist. Dr. Boudreaux has accepted attending status for this patient. Therefore trauma surgery will sign off at this time. Please feel free to contact us if the need arises. DC Planning: Case management consulted for assistance with final discharge disposition. Patient is clear to transfer to [facility], however her insurance denied her. Awaiting SNF placement. Discussed pt condition and plan of care with collaborating trauma surgeon. Thank you for allowing us to praticipate in her care. We wish Eleanor the best in her recovery. Problem Qualifiers (1) Traumatic intracranial hemorrhage: Qualified Codes: S06.309A - Unspecified focal traumatic brain injury with loss of consciousness of unspecified duration, initial encounter Nga Collins Aug 21, 2017 09:21
--- NOTE | 2017-08-21 11:03 | HHI.NSPN ---
(Suzan Garcia) Note Status Status: Progress Note (Suzan Garcia) Interval History Interval History 08/15: The patient is a pleasant elderly lady who according to her family passed out and fell today, striking her head with positive loss of consciousness. She was initially Gokul Coma Score of 3 at the scene and brought in as a trauma alert. No seizure activity reported. No nausea or vomiting reported. She complains of headache. No complaint of neck or low back pain. No complaint of blurred vision or diplopia. 08/16: This morning the patient is awake and alert. She says she has no pain when asked how she is doing. She denies any other complaints. She spontaneously moves the extremities. Nursing reports that this morning she only knew her name. Nursing did say that when the patient's family came in she became brighter in her demeanor. When they left she returned to the same demeanor she had before their arrival. 08/18/2017: Patient stable on regular floor. Tolerating moderate by mouth diet. No complaint of headache. Persistent expressive speech deficit, word finding deficit. 08/19: The patient is seen ambulating with minimal contact by Nursing. Her gait appears steady. She had no complaints when seen. She is confused and does seem to have some difficulty finding words. 08/20: remains alert, confused. no changes clinically overnight. 08/21: doing well, alert, awake, follows commands. denies headaches, nausea, or vomiting. (Suzan Garcia) Labs, Micro, & Vital Signs Results Date Time Temp Pulse Resp B/P (MAP) Pulse Ox O2 Delivery O2 Flow Rate FiO2 08/21/17 09:06 93 08/21/17 08:00 98.2 90 18 152/72 (98) 93 08/21/17 04:00 98.4 88 19 151/68 (95) 98 08/21/17 03:49 90 08/21/17 00:00 97.7 85 20 137/64 (88) 94 08/20/17 20:00 98.3 99 20 143/69 (93) 96 08/20/17 20:00 86 08/20/17 17:00 98.6 98 20 144/64 (90) 98 08/20/17 16:00 95 08/20/17 12:00 97.6 80 18 162/68 (99) 97 Constitutional Vital Signs Date Time Temp Pulse Resp B/P (MAP) Pulse Ox O2 Delivery O2 Flow Rate FiO2 08/21/17 09:06 93 08/21/17 08:00 98.2 90 18 152/72 (98) 93 08/21/17 04:00 98.4 88 19 151/68 (95) 98 08/21/17 03:49 90 08/21/17 00:00 97.7 85 20 137/64 (88) 94 08/20/17 20:00 98.3 99 20 143/69 (93) 96 08/20/17 20:00 86 08/20/17 17:00 98.6 98 20 144/64 (90) 98 08/20/17 16:00 95 08/20/17 12:00 97.6 80 18 162/68 (99) 97 (Suzan Garcia) Physical Exam Awake, resting comfortably. Confused Right forehead laceration well approximated w/sutures healing well Right periorbital ecchymosis CN: pupils equal, facial motor symmetric Motor: moves all four extremities well (Suzan Garcia) She is alert, confused, oriented to self. Right forehead laceration well approximated w/sutures healing well Right periorbital ecchymosis unchanged Cranial nerve examination demonstrates the pupils to be equal, round, and reactive to light. Extra-ocular movements are intact with normal convergence. Facial motor function appears normal and symmetrical. Face sensation, hearing, visual hernandez, and olfaction can not be assessed properly due to the patients condition. The patient has an intact corneal reflex and a gag reflex. Sternocleidomastoid and trapezius have normal and symmetrical strength. Other cranial nerves are intact. Neck is soft and supple. Cervical spine has a normal range of motion of the cervical spine without pain. There is no tenderness to palpation to the spinous processes or paraspinal muscles. Muscle testing reveals normal bulk and tone overall without rigidity, spasticity , fasciculations, or atrophy. Muscle strength is 5/5 in all muscle groups of both upper and lower extremities. Deep tendon reflexes are 1+ and symmetrical in the biceps, triceps, and brachioradialis, bilaterally, in the upper extremities. In the lower extremities , the patellar and Achilles are 1+, bilaterally. There is a bilateral plantar flexion response. Hoffmanns sign is negative. There is no clonus or other abnormal reflexes noted. Cerebellar examination is limited due to the patient condition, but no obvious deficits are noted. (Trevin Spring MD) Medications Current Medications Current Medications Medications (Trade) Dose Ordered Sig/Reny Route PRN Reason Start Time Stop Time Status Last Admin Dose Admin Sodium Chloride (NS Flush) 2 ml UNSCH PRN IV FLUSH FLUSH AFTER USING IV ACCESS 08/15/17 15:00 Sodium Chloride (NS Flush) 2 ml BID IV FLUSH 08/15/17 21:00 08/17/17 08:42 Acetaminophen (Tylenol) 650 mg Q6H PRN PO FEVER >100F 08/15/17 15:00 08/16/17 20:50 Acetaminophen/ Hydrocodone Bitart ([place]oe 5-325 Mg) 1 tab Q4H PRN PO pain 3-10 08/15/17 15:00 08/17/17 05:29 Ondansetron HCl (Zofran Inj) 4 mg Q6H PRN IV PUSH NAUSEA OR VOMITING 08/15/17 15:00 08/15/17 16:46 Albuterol Sulfate (Albuterol Neb) 2.5 mg Q2HR NEB PRN INH SOB/WHEEZING 08/15/17 15:00 Senna/Docusate Sodium (Eliane-Colace) 1 tab BID PO 08/15/17 21:00 08/20/17 21:22 Sennosides (Senokot) 17.2 mg Q12H PRN PO Moderate constipation 08/15/17 15:00 Bisacodyl (Dulcolax Supp) 10 mg DAILY PRN RECTAL SEVERE CONSITIPATION 08/15/17 15:00 Lactulose (Lactulose Liq) 30 ml DAILY PRN PO SEVERE CONSITIPATION 08/15/17 15:00 Levetriacetam (Keppra) 500 mg Q12HR PO 08/16/17 10:00 08/20/17 21:22 Famotidine (Pepcid) 10 mg BID PO 08/17/17 09:00 08/20/17 21:22 Miscellaneous (Pill Splitter) 1 ea UNSCH PRN OTHER SEE LABEL COMMENTS 08/17/17 08:00 Magnesium Hydroxide (Milk Of Harry Liq) 30 ml Q12H PO 08/18/17 08:00 08/19/17 22:00 Enalaprilat (Vasotec Inj) 1.25 mg Q8H PRN IV PUSH HTN 08/18/17 07:15 Enoxaparin Sodium (Lovenox Inj) 40 mg Q24H SQ 08/18/17 11:00 08/19/17 11:41 Clonidine (Catapres) 0.1 mg Q6H PRN PO SYSTOLIC BP GREATER THAN 175 08/18/17 19:00 08/20/17 00:53 (Suzan Garcia) Current Medications Current Medications Diphtheria/ Tetanus/Acell Pertussis (Boostrix Inj) 0.5 ml STK-MED ONCE IM ; Start 08/15/17 at 12:35; Stop 08/15/17 at 12:36; Status DC Iohexol (Omnipaque 350 Inj) 71 ml STK-MED ONCE IVCONTRAST Last administered on 08/15/17 12:26; Start 08/15/17 at 12:26; Stop 08/15/17 at 12:56; Status DC Sodium Chloride 1,000 ml @ 84 mls/hr [id number] IV Last administered on 04:43; Start 08/15/17 at 14:56; Stop 08/18/17 at 07:14; Status DC Sodium Chloride (NS Flush) 2 ml UNSCH PRN IV FLUSH FLUSH AFTER USING IV ACCESS ; Start 08/15/17 at 15:00 Sodium Chloride (NS Flush) 2 ml BID IV FLUSH Last administered on 08/17/17 08 :42; Start 08/15/17 at 21:00 Acetaminophen (Tylenol) 650 mg Q6H PRN PO FEVER >100F Last administered on 20:50; Start 08/15/17 at 15:00 Acetaminophen/ Hydrocodone Bitart ([place] 5-325 Mg) 1 tab Q4H PRN PO pain 3-10 Last administered on 08/17/17 05:29; Start 08/15/17 at 15:00 Morphine Sulfate (Morphine Inj) 2 mg Q2H PRN IV PUSH PAIN SCALE 6 TO 10 Last administered on 08/16/17 04:40; Start 08/15/17 at 15:00; Stop 08/16/17 at 08 :27; Status DC Famotidine (Pepcid Inj) 20 mg Q12HR IV PUSH Last administered on 08/16/17 10: 26; Start 08/15/17 at 21:00; Stop 08/16/17 at 14:57; Status DC Ondansetron HCl (Zofran Inj) 4 mg Q6H PRN IV PUSH NAUSEA OR VOMITING Last administered on 08/15/17 16:46; Start 08/15/17 at 15:00 Albuterol Sulfate (Albuterol Neb) 2.5 mg Q2HR NEB PRN INH SOB/WHEEZING; Start 08/15/17 at 15:00 Miscellaneous Information 1 Q361D XX ; Start 08/15/17 at 15:00; Stop 08/18/17 at 07:14; Status DC Chlorhexidine Gluconate (Chlorhexidine 2% Cloth) 3 pack Taper DAILY@04 TOP ; Start 08/16/17 at 04:00; Stop 08/18/17 at 07:14; Status DC Chlorhexidine Gluconate (Chlorhexidine 2% Cloth) 3 pack UNSCH PRN TOP HYGIENIC CARE; Start 08/15/17 at 15:00; Stop 08/18/17 at 07:14; Status DC Senna/Docusate Sodium (Eliane-Colace) 1 tab BID PO Last administered on 09:00; Start 08/15/17 at 21:00 Magnesium Hydroxide (Milk Of Magnesia Liq) 30 ml Q12H PRN PO Mild constipation ; Start 08/15/17 at 15:00; Stop 08/18/17 at 07:14; Status DC Sennosides (Senokot) 17.2 mg Q12H PRN PO Moderate constipation; Start at 15:00 Bisacodyl (Dulcolax Supp) 10 mg DAILY PRN RECTAL SEVERE CONSITIPATION; Start 08/15/17 at 15:00 Lactulose (Lactulose Liq) 30 ml DAILY PRN PO SEVERE CONSITIPATION; Start 08/15 at 15:00 Labetalol HCl (Trandate Inj) 10 mg Q1HR PRN IV PUSH SBP>140, DBP>80, HR>65; Start 08/15/17 at 15:15; Stop 08/18/17 at 07:14; Status DC Hydralazine HCl (Apresoline Inj) 10 mg Q1HR PRN IV PUSH SBP>140, DBP>90 Last administered on 08/17/17 13:42; Start 08/15/17 at 15:15; Stop 08/18/17 at 07 :14; Status DC Nicardipine HCl 25 mg/Sodium Chloride 250 ml @ 50 mls/hr TITRATE PRN IV Blood pressure management; Start 08/15/17 at 15:30; Stop 08/18/17 at 07:14; Status DC Gadodiamide (Omniscan Pf Inj) 10 ml STK-MED ONCE IV PUSH Last administered on 08/15/17 17:36; Start 08/15/17 at 17:36; Stop 08/15/17 at 17:37; Status DC Sodium Chloride (NS Flush) 2 ml UNSCH PRN IV FLUSH FLUSH AFTER USING IV ACCESS ; Start 08/15/17 at 18:30; Stop 08/15/17 at 18:38; Status DC Miscellaneous Information 1 Q361D XX ; Start 08/15/17 at 18:30; Stop 08/15/17 at 18:37; Status DC Morphine Sulfate (Morphine Inj) 2 mg Q4H PRN IV PUSH breakthrough pain Last administered on 08/18/17 04:40; Start 08/16/17 at 09:00; Stop 08/18/17 at 15 :05; Status DC Levetriacetam (Keppra) 500 mg Q12HR PO Last administered on 08/21/17 11:07; Start 08/16/17 at 10:00 Famotidine (Pepcid Inj) 10 mg Q12HR IV PUSH Last administered on 08/16/17 20: 50; Start 08/16/17 at 21:00; Stop 08/17/17 at 07:42; Status DC Gadodiamide (Omniscan Pf Inj) 10 ml STK-MED ONCE IV PUSH ; Start 08/16/17 at 15 :24; Stop 08/16/17 at 15:25; Status DC Famotidine (Pepcid) 10 mg BID PO Last administered on 08/21/17 11:08; Start 08/17/17 at 09:00 Miscellaneous (Pill Splitter) 1 ea UNSCH PRN OTHER SEE LABEL COMMENTS; Start 08/17/17 at 08:00 Magnesium Hydroxide (Milk Of Harry Liq) 30 ml Q12H PO Last administered on 08/19/17 22:00; Start 08/18/17 at 08:00 Enalaprilat (Vasotec Inj) 1.25 mg Q8H PRN IV PUSH HTN; Start 08/18/17 at 07:15 Enoxaparin Sodium (Lovenox Inj) 40 mg Q24H SQ Last administered on 08/21/17 11 :08; Start 08/18/17 at 11:00 Clonidine (Catapres) 0.1 mg Q6H PRN PO SYSTOLIC BP GREATER THAN 175 Last administered on 08/20/17 00:53; Start 08/18/17 at 19:00 Potassium Bicarb/ Potassium Chloride (K-Lyte Cl Eff) 50 meq ONCE ONCE PO Last administered on 08/19/17 08:26; Start 08/19/17 at 07:00; Stop 08/19/17 at 07:13; Status DC Potassium Chloride (KCl) 40 meq ONCE ONCE PO Last administered on 08/21/17 11 :07; Start 08/21/17 at 08:15; Stop 08/21/17 at 08:16; Status DC Potassium Chloride (KCl) 20 meq ONCE ONCE PO Last administered on 08/21/17 15 :00; Start 08/21/17 at 15:00; Stop 08/21/17 at 15:01; Status DC (Trevin Spring MD) Medical Decision Making MDM Remarks 87 y/o female 1. Traumatic brain injury. No significant mass effect on CT scan 2. Forehead lacerations Patient doing well but continues with confusion and receptive aphasia. She may have some expressive aphasia. Stable ventricular & left-sided hemorrhages on CT brain . No identified mass on MRI brain . stable neurological exam (Suzan Garcia) Plan Plan Remarks cont current care Primary management per Trauma serial neuro checks cont therapy and rehab efforts f/u CT Brain tomorrow am (Hill,Suzan A. PA) Attending Statement As above Continue neuro checks. Pulmonary.. Continue aggressive pulmonary toilette, nasotracheal suction, and breathing treatments with nebulizers. Nutrition. NPO Renal. monitor closely urine output, BUN and creatinine Endocrine. Monitor serial Acu checks and SSI as needed in detail ID monitor for signs of infection Protonix for stress ulcer prophylaxis Zackary hose and SCDls. Lovenox The exam, history, and the medical decision-making described in the above note were completed with the assistance of the mid-level provider. I reviewed and agree with the findings presented. I attest that I had a [id number] encounter with the patient on the same day, and personally performed and documented my assessment and findings in the medical record. (Trevin Spring MD) Suzan Garcia Aug 21, 2017 11:03 Trevin Spring MD Aug 21, 2017 19:56
[2017-08-21] MEDS: levETIRAcetam 500 MG TAB PO SCH ×2 (11:07→20:48)
[2017-08-21] MEDS: FAMOTIDINE 20 MG TAB PO SCH ×2 (11:08→20:48)
[2017-08-21] MEDS: ENOXAPARIN SODIUM 40 MG/0.4 ML SYRINGE SQ SCH (11:08)
[2017-08-22] VITALS: BP 152/72; PULSE 81; PULSE 87; RESP 18; TEMP 98; O2SAT 96
[2017-08-22 04:00] VITALS: BP 168/80; PULSE 95; RESP 18; TEMP 97.2; O2SAT 94
[2017-08-22] MEDS: MAGNESIUM HYDROXIDE SUSP 30 ML CUP PO SCH ×2 (08:00→20:00)
--- NOTE | 2017-08-22 08:07 | PD.NP.DS ---
Discharge Summary Reason for Referral: The patient is an 87 year old right handed female status post traumatic brain injury secondary to a fall sustained on 08/15/2017. Reportedly, the patient became dizzy and fell, hitting her head. Her GCS was 3 on admission. She is referred for baseline neurobehavioral status examination per trauma protocol to assess cognitive, behavioral and emotional aspects of the injury and to provide treatment recommendations. Neuropsychology followed patient within the context of the trauma team throughout her stay, and was discharged from our care. Past Medical History: Please refer to the patient's history and physical for information concerning the patient's past medical, surgical, and psychiatric histories. Education/Learning Hx: The patient completed high school years of education. There is no report of learning difficulties, grade repetitions or behavioral difficulties. 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 The patient is . The patient lives in [place], [place]. Premorbid Cognitive, Emotional and Behavioral Status: Stable. The patient has high school years of education and has been retired for some time. The patient has no prior psychiatric difficulties, as described above. Substance abuse history is unremarkable. Behavioral Reactions of Patient and Family/Support System: Stable. The patient s family is experiencing ongoing issues of adjustment given the nature of the injury in light of her other medical challenges, and this aspect of recovery will require ongoing monitoring. Emotional/Behavioral Status of Patient and Family/Support System: Stable. Pertinent issues, if appropriate to this patients clinical care, are described in detail above. Treatment Interventions: During the course of their acute care stay, this patient and their family/ support system were provided information concerning the neuropsychological aspects of the injury, education regarding course of recovery, and psychological support in the form of counseling with the person served and the family/support system as documented in the neuropsychology service progress notes, as deemed clinically appropriate. Current, Cognitive, Emotional and Behavioral Status: Tenuous. This patient has experienced a severe injury given her age, and superimposed on an underlying neurocognitive disorder, and will be adjusting to significant cognitive, emotional and behavioral challenges going forward. Impression at Discharge: The cognitive and behavioral status of this patient meets criteria for Level IV : Confused/ Non Agitated - maximal assistance]. 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 Note that this patient appears to have an underlying major neurocognitive disorder presumably due to Alzheimer's disease with a superimposed neurocognitive disorder related to her recent TBI. Status of Family/Support System Adjustment: Stable. The patients family/ support system will experience ongoing issues of adjustment given the nature of the injury, and this aspect of the patients recovery will require ongoing monitoring. Post Acute Recommendations: It is recommended that the patient continue to be monitored for behavioral impulsivity as they continue to be early in their course of recovery. This patients neuropathological challenges may limit their reintegration into work and family life going forward, and these challenges may require specialized therapeutic skills to maximize outcome. Thank you for the opportunity to assist in this patients care. Dallas Vogt, Ph.D., ABPP Board Certified in Clinical Neuropsychology [place] [employer] [place] Licensed Psychologist #[id number] Dallas Vogt PhD Aug 22, 2017 08:07
[2017-08-22 08:08] LABS: MAGNESIUM 2.1 MG/DL (1.5-2.5); POTASSIUM 3.9 MEQ/L (3.5-5.1)
[2017-08-22 08:34] VITALS: BP 176/81; PULSE 90; RESP 18; TEMP 98; O2SAT 96
[2017-08-22] MEDS: FAMOTIDINE 20 MG TAB PO SCH ×2 (08:44→22:42)
[2017-08-22] MEDS: levETIRAcetam 500 MG TAB PO SCH ×2 (08:44→22:42)
[2017-08-22] MEDS: DOCUSATE SODIUM 50 MG/SENNA 8.6 MG TAB PO SCH ×2 (09:00→22:42)
[2017-08-22] MEDS: SODIUM CHLORIDE 0.9% FLUSH 10 ML FLUSH IV FLUSH SCH ×2 (09:00→21:00)
--- NOTE | 2017-08-22 09:44 | HHI.NSPN ---
History Chief Complaint: None Interval History 08/15: The patient is a pleasant elderly lady who according to her family passed out and fell today, striking her head with positive loss of consciousness. She was initially Gokul Coma Score of 3 at the scene and brought in as a trauma alert. No seizure activity reported. No nausea or vomiting reported. She complains of headache. No complaint of neck or low back pain. No complaint of blurred vision or diplopia. 08/16: This morning the patient is awake and alert. She says she has no pain when asked how she is doing. She denies any other complaints. She spontaneously moves the extremities. Nursing reports that this morning she only knew her name. Nursing did say that when the patient's family came in she became brighter in her demeanor. When they left she returned to the same demeanor she had before their arrival. 08/18/2017: Patient stable on regular floor. Tolerating moderate by mouth diet. No complaint of headache. Persistent expressive speech deficit, word finding deficit. 08/19: The patient is seen ambulating with minimal contact by Nursing. Her gait appears steady. She had no complaints when seen. She is confused and does seem to have some difficulty finding words. 08/20: remains alert, confused. no changes clinically overnight. 08/21: doing well, alert, awake, follows commands. denies headaches, nausea, or vomiting. 08/22: This morning the patient is awake and alert when seen. She was moving from the bedside commode to the bed with standby assist. She denied any headache , dizziness, nausea, numbness, tingling, weakness or any other complaint. She remains confused when seen. System Review Comments Patient had no complaints during a ROS. Exam Results 08/20/17 08/20/17 08/21/17 08/21/17 08/22/17 08/22/17 06:00 18:00 06:00 18:00 06:00 18:00 Output Total 1 ml Balance -1 ml Output Stool Total 1 ml # Voids 6 5 6 4 # Bowel Movements 2 1 Vital Signs Date Time Temp Pulse Resp B/P (MAP) Pulse Ox O2 Delivery O2 Flow Rate FiO2 08/22/17 08:34 98.0 90 18 176/81 (112) 96 08/22/17 04:00 97.2 95 18 168/80 (109) 94 08/22/17 00:00 98.0 87 18 152/72 (98) 96 08/22/17 00:00 81 08/21/17 20:00 85 08/21/17 20:00 98.3 92 18 149/70 (96) 95 08/21/17 16:00 98.1 90 18 167/79 (108) 97 08/21/17 11:00 96.4 88 18 160/69 (99) 96 08/21/17 09:06 93 08/21/17 08:00 98.2 90 18 152/72 (98) 93 08/21/17 07:00 90 08/21/17 04:00 98.4 88 19 151/68 (95) 98 08/21/17 03:49 90 08/21/17 00:00 97.7 85 20 137/64 (88) 94 08/20/17 20:00 98.3 99 20 143/69 (93) 96 08/20/17 20:00 86 08/20/17 17:00 98.6 98 20 144/64 (90) 98 08/20/17 16:00 95 08/20/17 12:00 97.6 80 18 162/68 (99) 97 08/20/17 08:36 96 21 08/20/17 07:46 97.9 81 18 128/61 (83) 94 08/20/17 07:00 67 08/20/17 06:22 97.5 88 20 114/86 (95) 96 08/20/17 04:37 68 08/20/17 04:17 80 08/20/17 04:12 100 08/20/17 00:00 98.3 112 20 184/87 (119) 96 08/19/17 17:20 99 21 08/19/17 15:52 97.5 104 20 147/76 (99) 99 08/19/17 11:47 98.0 102 20 173/76 (108) 97 08/19/17 10:00 110 08/19/17 09:45 94 Physical Examination GENERAL: Awake & alert, readily interacts, affect appears normal, no apparent distress. HEENT: Right forehead laceration well approximated w/sutures, no drainage, erythema or streaking. Right periorbital ecchymosis resolving. PERRLA 3 mm brisk , EOMI. MMM & pink, tongue midline to protrusion. MUSCULOSKELETAL: Moves all extremities w/o difficulty, NTTP, no evident deformity or clubbing. NEUROLOGICAL: Awake & alert, oriented to self, year & being in hospital. Confused as to month , stated July. When asked the next holiday it took several attempts but she finally said [place]. When asked what hospital she was in she kept going off on a tangent. Speech clear but inappropriate at times. Follows some simple commands w/o difficulty. CN II-XII appear grossly intact. Sensation intact to light touch to all extremities. Motor strength appears to be 5/5 to all major flexion & extension muscle groups. Gait steady. Lab, Micro, Other Results Laboratory Tests Test 08/21/17 06:11 08/22/17 06:54 White Blood Count 10.1 TH/MM3 Red Blood Count 3.09 MIL/MM3 Hemoglobin 9.7 GM/DL Hematocrit 29.1 % Mean Corpuscular Volume 94.3 FL Mean Corpuscular Hemoglobin 31.4 PG Mean Corpuscular Hemoglobin Concent 33.3 % Red Cell Distribution Width 12.4 % Platelet Count 261 TH/MM3 Mean Platelet Volume 7.4 FL Neutrophils (%) (Auto) 59.8 % Lymphocytes (%) (Auto) 28.4 % Monocytes (%) (Auto) 10.2 % Eosinophils (%) (Auto) 1.2 % Basophils (%) (Auto) 0.4 % Neutrophils # (Auto) 6.1 TH/MM3 Lymphocytes # (Auto) 2.9 TH/MM3 Monocytes # (Auto) 1.0 TH/MM3 Eosinophils # (Auto) 0.1 TH/MM3 Basophils # (Auto) 0.0 TH/MM3 CBC Comment DIFF FINAL Differential Comment Blood Urea Nitrogen 18 MG/DL Creatinine 0.65 MG/DL Random Glucose 118 MG/DL Calcium Level 8.6 MG/DL Sodium Level 141 MEQ/L Potassium Level 3.4 MEQ/L 3.9 MEQ/L Chloride Level 105 MEQ/L Carbon Dioxide Level 29.2 MEQ/L Anion Gap 7 MEQ/L Estimat Glomerular Filtration Rate 87 ML/MIN Phosphorus Level 3.0 MG/DL Magnesium Level 2.1 MG/DL Medical Decision Making Impression and Plan Impression: 1. Traumatic brain injury. No significant mass effect on CT scan 2. Forehead lacerations Patient doing well but continues to be confused and demonstrates receptive & expressive aphasia. Reviewed labs for today. Stable ventricular & left-sided haemorrhages on CT brain . No identified mass on MRI brain . Physical & Occupational Therapy recommend further inpatient rehab. Plan: Discussed plan of care with patient & Nursing. Primary management per Trauma. Neuro checks. Stat CT brain for any worsening of neuro status. Mobilise patient w/assistance. PT/OT eval & tx. CT brain today. Ponce Quintana Aug 22, 2017 09:44
--- NOTE | 2017-08-22 09:47 | HHI.PR ---
Subjective Remarks in no acute distress. denies pain. not eating as much. d/w the RN. Objective Vitals Vital Signs Date Time Temp Pulse Resp B/P (MAP) Pulse Ox O2 Delivery O2 Flow Rate FiO2 08/22/17 08:34 98.0 90 18 176/81 (112) 96 08/22/17 04:00 97.2 95 18 168/80 (109) 94 08/22/17 00:00 98.0 87 18 152/72 (98) 96 08/22/17 00:00 81 08/21/17 20:00 85 08/21/17 20:00 98.3 92 18 149/70 (96) 95 08/21/17 16:00 98.1 90 18 167/79 (108) 97 08/21/17 11:00 96.4 88 18 160/69 (99) 96 I/O 08/21/17 08/21/17 08/21/17 08/22/17 08/22/17 08/22/17 07:00 15:00 23:00 07:00 15:00 23:00 Output Total 1 ml Balance -1 ml Output Stool Total 1 ml # Voids 3 3 4 Result Diagram: 08/21/17 0611 08/22/17 0654 Imaging Last Impressions Head CT 08/16/17 0600 Signed Impressions: Service Date/Time: Wednesday, August 16, 2017 05:41 - CONCLUSION: Persistent intraventricular, left subdural, and left parenchymal areas of hemorrhage. New areas of hemorrhage are not seen. Oni Higginbotham MD Pelvis MRI 08/16/17 0000 Signed Impressions: Service Date/Time: Wednesday, August 16, 2017 13:56 - CONCLUSION: 1. Mass lesion measuring 3.8 x 5.2 x 2.9 cm centered left para midline in the bladder trigone and extending down into the vagina. I believe the mass actually originates from the trigone of the bladder but I cannot completely exclude a vaginal mass eroding into the base of the bladder. This may be further clarified with direct pelvic visualization 2. No pelvic adenopathy identified. There is a prominent retroperitoneal lymph node in the aortic chain slightly more cephalad as seen on the prior CT Finn Aguillon MD Pelvis X-Ray 08/15/17 1230 Signed Impressions: Service Date/Time: Tuesday, August 15, 2017 12:26 - CONCLUSION: No acute disease. Chinedu Black Jr., MD Chest X-Ray 08/15/17 1230 Signed Impressions: Service Date/Time: Tuesday, August 15, 2017 12:26 - CONCLUSION: Negative for pneumothorax. Negative for fracture Mathew Collins MD FACR Chest CT 08/15/17 1230 Signed Impressions: Service Date/Time: Tuesday, August 15, 2017 12:33 - CONCLUSION: No acute disease. Chinedu Black Jr., MD Cervical Spine CT 08/15/17 1230 Signed Impressions: Service Date/Time: Tuesday, August 15, 2017 12:38 - CONCLUSION: 1. No fracture or dislocation. 2. Degenerative changes. 3. Calcified plaque involving the carotid arteries bilaterally. Chinedu Black Jr., MD Brain MRI 08/15/17 0000 Signed Impressions: Service Date/Time: Tuesday, August 15, 2017 17:14 - CONCLUSION: 1. MR findings concerning for scattered parenchymal hemorrhages or, possibly, diffuse axonal injury depending on the patient's clinical condition. These are most prominent in the subcortical distribution of the left cerebral hemisphere. 2. 9 mm subdural hygroma on the left. There may be small intraventricular hemorrhages as well. 3. Chronic changes with moderately severe periventricular small vessel ischemic demyelination. Mild ventricular prominence could represent central atrophy versus NPH in the appropriate clinical setting. Finn Aguillon MD Abdomen/Pelvis CT 08/15/17 0000 Signed Impressions: Service Date/Time: Tuesday, August 15, 2017 12:44 - CONCLUSION: 1. No signs of acute trauma. 2. Retroperitoneal adenopathy as well as a left adrenal gland mass. This is concerning for metastatic disease. There is a heterogeneous mass associated with the trigone of urinary bladder. This is worrisome for a primary lesion. MRI of the pelvis can be utilized to further evaluate this. Chinedu Black Jr., MD Abdomen MRI 08/15/17 0000 Signed Impressions: Service Date/Time: Tuesday, August 15, 2017 17:14 - CONCLUSION: Imaging characteristics of the 2.3 cm left adrenal mass lesion are concerning for a neoplastic process. Finn Aguillon MD ADDENDUM: Also noted is a 2.1 cm isolated but prominent retroperitoneal periaortic lymph node at the level of the renal veins which was identified on prior CT. This is concerning for a metastatic foci. Finn Aguillon MD Objective Remarks GENERAL: This is a well-nourished, well-developed patient, in no apparent distress. CARDIOVASCULAR: Regular rate and regular rhythm without murmurs, gallops, or rubs. RESPIRATORY: Clear to auscultation. Breath sounds equal bilaterally. No wheezes , rales, or rhonchi. GASTROINTESTINAL: Abdomen soft, non-tender, nondistended. Normal, active bowel sounds MUSCULOSKELETAL: Extremities without clubbing, cyanosis, or edema. NEURO: awake and alert. Medications and IVs Current Medications Diphtheria/ Tetanus/Acell Pertussis (Boostrix Inj) 0.5 ml STK-MED ONCE IM ; Start 08/15/17 at 12:35; Stop 08/15/17 at 12:36; Status DC Iohexol (Omnipaque 350 Inj) 71 ml STK-MED ONCE IVCONTRAST Last administered on 08/15/17 12:26; Start 08/15/17 at 12:26; Stop 08/15/17 at 12:56; Status DC Sodium Chloride 1,000 ml @ 84 mls/hr [id number] IV Last administered on 04:43; Start 08/15/17 at 14:56; Stop 08/18/17 at 07:14; Status DC Sodium Chloride (NS Flush) 2 ml UNSCH PRN IV FLUSH FLUSH AFTER USING IV ACCESS ; Start 08/15/17 at 15:00 Sodium Chloride (NS Flush) 2 ml BID IV FLUSH Last administered on 08/17/17 08 :42; Start 08/15/17 at 21:00 Acetaminophen (Tylenol) 650 mg Q6H PRN PO FEVER >100F Last administered on 20:50; Start 08/15/17 at 15:00 Acetaminophen/ Hydrocodone Bitart ([place]annon 5-325 Mg) 1 tab Q4H PRN PO pain 3-10 Last administered on 08/17/17 05:29; Start 08/15/17 at 15:00 Morphine Sulfate (Morphine Inj) 2 mg Q2H PRN IV PUSH PAIN SCALE 6 TO 10 Last administered on 08/16/17 04:40; Start 08/15/17 at 15:00; Stop 08/16/17 at 08 :27; Status DC Famotidine (Pepcid Inj) 20 mg Q12HR IV PUSH Last administered on 08/16/17 10: 26; Start 08/15/17 at 21:00; Stop 08/16/17 at 14:57; Status DC Ondansetron HCl (Zofran Inj) 4 mg Q6H PRN IV PUSH NAUSEA OR VOMITING Last administered on 08/15/17 16:46; Start 08/15/17 at 15:00 Albuterol Sulfate (Albuterol Neb) 2.5 mg Q2HR NEB PRN INH SOB/WHEEZING; Start 08/15/17 at 15:00 Miscellaneous Information 1 Q361D XX ; Start 08/15/17 at 15:00; Stop 08/18/17 at 07:14; Status DC Chlorhexidine Gluconate (Chlorhexidine 2% Cloth) 3 pack Taper DAILY@04 TOP ; Start 08/16/17 at 04:00; Stop 08/18/17 at 07:14; Status DC Chlorhexidine Gluconate (Chlorhexidine 2% Cloth) 3 pack UNSCH PRN TOP HYGIENIC CARE; Start 08/15/17 at 15:00; Stop 08/18/17 at 07:14; Status DC Senna/Docusate Sodium (Eliane-Colace) 1 tab BID PO Last administered on 20:48; Start 08/15/17 at 21:00 Magnesium Hydroxide (Milk Of Magnesia Liq) 30 ml Q12H PRN PO Mild constipation ; Start 08/15/17 at 15:00; Stop 08/18/17 at 07:14; Status DC Sennosides (Senokot) 17.2 mg Q12H PRN PO Moderate constipation; Start at 15:00 Bisacodyl (Dulcolax Supp) 10 mg DAILY PRN RECTAL SEVERE CONSITIPATION; Start 08/15/17 at 15:00 Lactulose (Lactulose Liq) 30 ml DAILY PRN PO SEVERE CONSITIPATION; Start 08/15 at 15:00 Labetalol HCl (Trandate Inj) 10 mg Q1HR PRN IV PUSH SBP>140, DBP>80, HR>65; Start 08/15/17 at 15:15; Stop 08/18/17 at 07:14; Status DC Hydralazine HCl (Apresoline Inj) 10 mg Q1HR PRN IV PUSH SBP>140, DBP>90 Last administered on 08/17/17 13:42; Start 08/15/17 at 15:15; Stop 08/18/17 at 07 :14; Status DC Nicardipine HCl 25 mg/Sodium Chloride 250 ml @ 50 mls/hr TITRATE PRN IV Blood pressure management; Start 08/15/17 at 15:30; Stop 08/18/17 at 07:14; Status DC Gadodiamide (Omniscan Pf Inj) 10 ml STK-MED ONCE IV PUSH Last administered on 08/15/17 17:36; Start 08/15/17 at 17:36; Stop 08/15/17 at 17:37; Status DC Sodium Chloride (NS Flush) 2 ml UNSCH PRN IV FLUSH FLUSH AFTER USING IV ACCESS ; Start 08/15/17 at 18:30; Stop 08/15/17 at 18:38; Status DC Miscellaneous Information 1 Q361D XX ; Start 08/15/17 at 18:30; Stop 08/15/17 at 18:37; Status DC Morphine Sulfate (Morphine Inj) 2 mg Q4H PRN IV PUSH breakthrough pain Last administered on 08/18/17 04:40; Start 08/16/17 at 09:00; Stop 08/18/17 at 15 :05; Status DC Levetriacetam (Keppra) 500 mg Q12HR PO Last administered on 08/22/17 08:44; Start 08/16/17 at 10:00 Famotidine (Pepcid Inj) 10 mg Q12HR IV PUSH Last administered on 08/16/17 20: 50; Start 08/16/17 at 21:00; Stop 08/17/17 at 07:42; Status DC Gadodiamide (Omniscan Pf Inj) 10 ml STK-MED ONCE IV PUSH ; Start 08/16/17 at 15 :24; Stop 08/16/17 at 15:25; Status DC Famotidine (Pepcid) 10 mg BID PO Last administered on 08/22/17 08:44; Start 08/17/17 at 09:00 Miscellaneous (Pill Splitter) 1 ea UNSCH PRN OTHER SEE LABEL COMMENTS; Start 08/17/17 at 08:00 Magnesium Hydroxide (Milk Of Harry Liq) 30 ml Q12H PO Last administered on 08/21/17 20:48; Start 08/18/17 at 08:00 Enalaprilat (Vasotec Inj) 1.25 mg Q8H PRN IV PUSH HTN; Start 08/18/17 at 07:15 Enoxaparin Sodium (Lovenox Inj) 40 mg Q24H SQ Last administered on 08/21/17 11 :08; Start 08/18/17 at 11:00 Clonidine (Catapres) 0.1 mg Q6H PRN PO SYSTOLIC BP GREATER THAN 175 Last administered on 08/20/17 00:53; Start 08/18/17 at 19:00 Potassium Bicarb/ Potassium Chloride (K-Lyte Cl Eff) 50 meq ONCE ONCE PO Last administered on 08/19/17 08:26; Start 08/19/17 at 07:00; Stop 08/19/17 at 07:13; Status DC Potassium Chloride (KCl) 40 meq ONCE ONCE PO Last administered on 08/21/17 11 :07; Start 08/21/17 at 08:15; Stop 08/21/17 at 08:16; Status DC Potassium Chloride (KCl) 20 meq ONCE ONCE PO Last administered on 08/21/17 15 :00; Start 08/21/17 at 15:00; Stop 08/21/17 at 15:01; Status DC A/P Assessment and Plan 1. Status post fall with right temporal laceration status post six Sutures 2. Bladder mass/Left adrenal mass/Enlarged Lymph node in retroperitoneal area conservative management as per Urology follow outpatient for Cystoscopy 3. Traumatic Intracranial Hemorrhage. Questioned Intracranial mass/Underlying neurocognitive disorder, Neurosurgery following. No intervention at this time- will have new CT Brain today and if negative probably will be recommended for discharge to Rehabilitation. GI prophylaxis with Pepcid 10 mg BID DVT prophylaxis with SCDs. Lovenox 40 mg daily. Discharge Planning dc planning to SNF pending CT head today and neurosurgery clearance. Arlyn Zhu MD Aug 22, 2017 09:47
[2017-08-22] MEDS: ENOXAPARIN SODIUM 40 MG/0.4 ML SYRINGE SQ SCH (11:52)
[2017-08-22 12:32] VITALS: BP 147/73; PULSE 98; RESP 18; TEMP 98.4; O2SAT 95
[2017-08-22 16:44] VITALS: BP 128/63; PULSE 108; RESP 20; TEMP 98.2; O2SAT 97
[2017-08-22] MEDS: ACETAMINOPHEN/HYDROcodone 325 MG/5 MG TAB PO PRN (18:30)
[2017-08-22 20:30] VITALS: BP 96/51; PULSE 82; RESP 17; TEMP 97.6; O2SAT 95
--- NOTE | 2017-08-22 20:37 | RADRPT ---
EXAM DATE/TIME: 08/22/2017 20:04 [facility] COMPARISON: MRI BRAIN W & W/O CONTRAST, August 15, 2017, 17:14. CT BRAIN W/O CONTRAST, August 16, 2017, 5:4 1. INDICATIONS : Cephalgia. RADIATION DOSE: 28.34 CTDIvol (mGy) MEDICAL HISTORY : Hypertension. SURGICAL HISTORY : None. ENCOUNTER: Initial ACUITY: 1 day PAIN SCALE: 5/10 LOCATION: Bilateral cranial TECHNIQUE: Multiple contiguous axial images were obtained of the head. Using automated exposure control and adj ustment of the mA and/or kV according to patient size, radiation dose was kept as low as reasonably a chievable to obtain optimal diagnostic quality images. DICOM format image data is available electro nically for review and comparison. FINDINGS: The previously noted intraventricular hemorrhage has resolved. There is a left frontoparietal and tem poral subdural collection measuring 9 mm in greatest width. There is also a right frontoparietal subd ural collection which measures 4 mm in width. These are chronic in appearance. Approximately 1 mm of subfalcine herniation to the right is noted. The ventricles are prominent bilaterally but stable. No new hemorrhage is noted. There is a small fluid level within right maxillary sinus. CONCLUSION: 1. Resolution of the previously noted intraventricular hemorrhage. 2. Stable chronic subdural hygromas bilaterally measuring 9 mm in width on the left and 4 mm in width on the right. 3. Minimal subfalcine herniation to the right measuring 1 mm. 4. Stable mildly prominent ventricles. 5. Small fluid level within right maxillary sinus. Terry Basilio MD on August 22, 2017 at 20:28 Board Certified Radiologist. This report was verified electronically.
[2017-08-23] VITALS (7 sets, daily range): BP systolic 105–155; BP diastolic 58–69; PULSE 79–93; RESP 17–20; TEMP 97.4–98.4; O2SAT 93–96
[2017-08-23] MEDS: ACETAMINOPHEN/HYDROcodone 325 MG/5 MG TAB PO PRN ×4 (04:13→19:30)
[2017-08-23] MEDS: MAGNESIUM HYDROXIDE SUSP 30 ML CUP PO SCH ×2 (08:00→20:00)
[2017-08-23] MEDS: SODIUM CHLORIDE 0.9% FLUSH 10 ML FLUSH IV FLUSH SCH ×2 (08:01→21:00)
[2017-08-23] MEDS: levETIRAcetam 500 MG TAB PO SCH ×2 (08:01→21:52)
[2017-08-23] MEDS: FAMOTIDINE 20 MG TAB PO SCH ×2 (08:01→21:52)
[2017-08-23] MEDS: DOCUSATE SODIUM 50 MG/SENNA 8.6 MG TAB PO SCH ×2 (09:00→21:52)
--- NOTE | 2017-08-23 09:16 | HHI.PR ---
Subjective Remarks in no acute distress. denies pain. d/w the RN and acute issues over night. Objective Vitals Vital Signs Date Time Temp Pulse Resp B/P (MAP) Pulse Ox O2 Delivery O2 Flow Rate FiO2 08/23/17 08:55 97.6 79 18 146/67 (93) 95 08/23/17 04:30 97.4 86 17 155/69 (97) 93 08/23/17 00:09 97.6 85 17 112/58 (76) 95 08/22/17 20:30 97.6 82 17 96/51 (66) 95 08/22/17 16:44 98.2 108 20 128/63 (84) 97 08/22/17 12:32 98.4 98 18 147/73 (97) 95 I/O 08/22/17 08/22/17 08/22/17 08/23/17 08/23/17 08/23/17 07:00 15:00 23:00 07:00 15:00 23:00 Intake Total 360 ml 120 ml Balance 360 ml 120 ml Intake Oral 360 ml 120 ml # Voids 4 9 2 # Bowel Movements 2 Result Diagram: 08/21/17 0611 08/22/17 0654 Imaging Last Impressions Head CT 08/22/17 0800 Signed Impressions: Service Date/Time: Tuesday, August 22, 2017 20:04 - CONCLUSION: 1. Resolution of the previously noted intraventricular hemorrhage. 2. Stable chronic subdural hygromas bilaterally measuring 9 mm in width on the left and 4 mm in width on the right. 3. Minimal subfalcine herniation to the right measuring 1 mm. 4. Stable mildly prominent ventricles. 5. Small fluid level within right maxillary sinus. Terry Basilio MD Pelvis MRI 08/16/17 0000 Signed Impressions: Service Date/Time: Wednesday, August 16, 2017 13:56 - CONCLUSION: 1. Mass lesion measuring 3.8 x 5.2 x 2.9 cm centered left para midline in the bladder trigone and extending down into the vagina. I believe the mass actually originates from the trigone of the bladder but I cannot completely exclude a vaginal mass eroding into the base of the bladder. This may be further clarified with direct pelvic visualization 2. No pelvic adenopathy identified. There is a prominent retroperitoneal lymph node in the aortic chain slightly more cephalad as seen on the prior CT Finn Aguillon MD Pelvis X-Ray 08/15/17 1230 Signed Impressions: Service Date/Time: Tuesday, August 15, 2017 12:26 - CONCLUSION: No acute disease. Chinedu Black Jr., MD Chest X-Ray 08/15/17 1230 Signed Impressions: Service Date/Time: Tuesday, August 15, 2017 12:26 - CONCLUSION: Negative for pneumothorax. Negative for fracture Mathew Collins MD FACR Chest CT 08/15/17 1230 Signed Impressions: Service Date/Time: Tuesday, August 15, 2017 12:33 - CONCLUSION: No acute disease. Chinedu Black Jr., MD Cervical Spine CT 08/15/17 1230 Signed Impressions: Service Date/Time: Tuesday, August 15, 2017 12:38 - CONCLUSION: 1. No fracture or dislocation. 2. Degenerative changes. 3. Calcified plaque involving the carotid arteries bilaterally. Chinedu Black Jr., MD Brain MRI 08/15/17 0000 Signed Impressions: Service Date/Time: Tuesday, August 15, 2017 17:14 - CONCLUSION: 1. MR findings concerning for scattered parenchymal hemorrhages or, possibly, diffuse axonal injury depending on the patient's clinical condition. These are most prominent in the subcortical distribution of the left cerebral hemisphere. 2. 9 mm subdural hygroma on the left. There may be small intraventricular hemorrhages as well. 3. Chronic changes with moderately severe periventricular small vessel ischemic demyelination. Mild ventricular prominence could represent central atrophy versus NPH in the appropriate clinical setting. Finn Aguillon MD Abdomen/Pelvis CT 08/15/17 0000 Signed Impressions: Service Date/Time: Tuesday, August 15, 2017 12:44 - CONCLUSION: 1. No signs of acute trauma. 2. Retroperitoneal adenopathy as well as a left adrenal gland mass. This is concerning for metastatic disease. There is a heterogeneous mass associated with the trigone of urinary bladder. This is worrisome for a primary lesion. MRI of the pelvis can be utilized to further evaluate this. Chinedu Black Jr., MD Abdomen MRI 08/15/17 0000 Signed Impressions: Service Date/Time: Tuesday, August 15, 2017 17:14 - CONCLUSION: Imaging characteristics of the 2.3 cm left adrenal mass lesion are concerning for a neoplastic process. Finn Aguillon MD ADDENDUM: Also noted is a 2.1 cm isolated but prominent retroperitoneal periaortic lymph node at the level of the renal veins which was identified on prior CT. This is concerning for a metastatic foci. Finn Aguillon MD Objective Remarks GENERAL: This is a well-nourished, well-developed patient, in no apparent distress. CARDIOVASCULAR: Regular rate and regular rhythm without murmurs, gallops, or rubs. RESPIRATORY: Clear to auscultation. Breath sounds equal bilaterally. No wheezes , rales, or rhonchi. GASTROINTESTINAL: Abdomen soft, non-tender, nondistended. Normal, active bowel sounds MUSCULOSKELETAL: Extremities without clubbing, cyanosis, or edema. NEURO: awake and alert. Medications and IVs Current Medications Diphtheria/ Tetanus/Acell Pertussis (Boostrix Inj) 0.5 ml STK-MED ONCE IM ; Start 08/15/17 at 12:35; Stop 08/15/17 at 12:36; Status DC Iohexol (Omnipaque 350 Inj) 71 ml STK-MED ONCE IVCONTRAST Last administered on 08/15/17 12:26; Start 08/15/17 at 12:26; Stop 08/15/17 at 12:56; Status DC Sodium Chloride 1,000 ml @ 84 mls/hr [id number] IV Last administered on 04:43; Start 08/15/17 at 14:56; Stop 08/18/17 at 07:14; Status DC Sodium Chloride (NS Flush) 2 ml UNSCH PRN IV FLUSH FLUSH AFTER USING IV ACCESS ; Start 08/15/17 at 15:00 Sodium Chloride (NS Flush) 2 ml BID IV FLUSH Last administered on 08/17/17 08 :42; Start 08/15/17 at 21:00 Acetaminophen (Tylenol) 650 mg Q6H PRN PO FEVER >100F Last administered on 20:50; Start 08/15/17 at 15:00 Acetaminophen/ Hydrocodone Bitart ([place]agher 5-325 Mg) 1 tab Q4H PRN PO pain 3-10 Last administered on 08/23/17 08:02; Start 08/15/17 at 15:00 Morphine Sulfate (Morphine Inj) 2 mg Q2H PRN IV PUSH PAIN SCALE 6 TO 10 Last administered on 08/16/17 04:40; Start 08/15/17 at 15:00; Stop 08/16/17 at 08 :27; Status DC Famotidine (Pepcid Inj) 20 mg Q12HR IV PUSH Last administered on 08/16/17 10: 26; Start 08/15/17 at 21:00; Stop 08/16/17 at 14:57; Status DC Ondansetron HCl (Zofran Inj) 4 mg Q6H PRN IV PUSH NAUSEA OR VOMITING Last administered on 08/15/17 16:46; Start 08/15/17 at 15:00 Albuterol Sulfate (Albuterol Neb) 2.5 mg Q2HR NEB PRN INH SOB/WHEEZING; Start 08/15/17 at 15:00 Miscellaneous Information 1 Q361D XX ; Start 08/15/17 at 15:00; Stop 08/18/17 at 07:14; Status DC Chlorhexidine Gluconate (Chlorhexidine 2% Cloth) 3 pack Taper DAILY@04 TOP ; Start 08/16/17 at 04:00; Stop 08/18/17 at 07:14; Status DC Chlorhexidine Gluconate (Chlorhexidine 2% Cloth) 3 pack UNSCH PRN TOP HYGIENIC CARE; Start 08/15/17 at 15:00; Stop 08/18/17 at 07:14; Status DC Senna/Docusate Sodium (Eliane-Colace) 1 tab BID PO Last administered on 22:42; Start 08/15/17 at 21:00 Magnesium Hydroxide (Milk Of Magnesia Liq) 30 ml Q12H PRN PO Mild constipation ; Start 08/15/17 at 15:00; Stop 08/18/17 at 07:14; Status DC Sennosides (Senokot) 17.2 mg Q12H PRN PO Moderate constipation; Start at 15:00 Bisacodyl (Dulcolax Supp) 10 mg DAILY PRN RECTAL SEVERE CONSITIPATION; Start 08/15/17 at 15:00 Lactulose (Lactulose Liq) 30 ml DAILY PRN PO SEVERE CONSITIPATION; Start 08/15 at 15:00 Labetalol HCl (Trandate Inj) 10 mg Q1HR PRN IV PUSH SBP>140, DBP>80, HR>65; Start 08/15/17 at 15:15; Stop 08/18/17 at 07:14; Status DC Hydralazine HCl (Apresoline Inj) 10 mg Q1HR PRN IV PUSH SBP>140, DBP>90 Last administered on 08/17/17 13:42; Start 08/15/17 at 15:15; Stop 08/18/17 at 07 :14; Status DC Nicardipine HCl 25 mg/Sodium Chloride 250 ml @ 50 mls/hr TITRATE PRN IV Blood pressure management; Start 08/15/17 at 15:30; Stop 08/18/17 at 07:14; Status DC Gadodiamide (Omniscan Pf Inj) 10 ml STK-MED ONCE IV PUSH Last administered on 08/15/17 17:36; Start 08/15/17 at 17:36; Stop 08/15/17 at 17:37; Status DC Sodium Chloride (NS Flush) 2 ml UNSCH PRN IV FLUSH FLUSH AFTER USING IV ACCESS ; Start 08/15/17 at 18:30; Stop 08/15/17 at 18:38; Status DC Miscellaneous Information 1 Q361D XX ; Start 08/15/17 at 18:30; Stop 08/15/17 at 18:37; Status DC Morphine Sulfate (Morphine Inj) 2 mg Q4H PRN IV PUSH breakthrough pain Last administered on 08/18/17 04:40; Start 08/16/17 at 09:00; Stop 08/18/17 at 15 :05; Status DC Levetriacetam (Keppra) 500 mg Q12HR PO Last administered on 08/23/17 08:01; Start 08/16/17 at 10:00 Famotidine (Pepcid Inj) 10 mg Q12HR IV PUSH Last administered on 08/16/17 20: 50; Start 08/16/17 at 21:00; Stop 08/17/17 at 07:42; Status DC Gadodiamide (Omniscan Pf Inj) 10 ml STK-MED ONCE IV PUSH ; Start 08/16/17 at 15 :24; Stop 08/16/17 at 15:25; Status DC Famotidine (Pepcid) 10 mg BID PO Last administered on 08/23/17 08:01; Start 08/17/17 at 09:00 Miscellaneous (Pill Splitter) 1 ea UNSCH PRN OTHER SEE LABEL COMMENTS; Start 08/17/17 at 08:00 Magnesium Hydroxide (Milk Of Harry Liq) 30 ml Q12H PO Last administered on 08/21/17 20:48; Start 08/18/17 at 08:00 Enalaprilat (Vasotec Inj) 1.25 mg Q8H PRN IV PUSH HTN; Start 08/18/17 at 07:15 Enoxaparin Sodium (Lovenox Inj) 40 mg Q24H SQ Last administered on 08/22/17 11 :52; Start 08/18/17 at 11:00 Clonidine (Catapres) 0.1 mg Q6H PRN PO SYSTOLIC BP GREATER THAN 175 Last administered on 08/20/17 00:53; Start 08/18/17 at 19:00 Potassium Bicarb/ Potassium Chloride (K-Lyte Cl Eff) 50 meq ONCE ONCE PO Last administered on 08/19/17 08:26; Start 08/19/17 at 07:00; Stop 08/19/17 at 07:13; Status DC Potassium Chloride (KCl) 40 meq ONCE ONCE PO Last administered on 08/21/17 11 :07; Start 08/21/17 at 08:15; Stop 08/21/17 at 08:16; Status DC Potassium Chloride (KCl) 20 meq ONCE ONCE PO Last administered on 08/21/17 15 :00; Start 08/21/17 at 15:00; Stop 08/21/17 at 15:01; Status DC A/P Assessment and Plan 1. Status post fall with right temporal laceration status post six Sutures 2. Bladder mass/Left adrenal mass/Enlarged Lymph node in retroperitoneal area conservative management as per Urology follow outpatient for Cystoscopy 3. Traumatic Intracranial Hemorrhage. Questioned Intracranial mass/Underlying neurocognitive disorder, Neurosurgery following. No intervention at this time- awaiting neurosurgery recommendations- GI prophylaxis with Pepcid 10 mg BID DVT prophylaxis with SCDs. Lovenox 40 mg daily. Discharge Planning dc home vs SNF- pending neurosurgery recommendations and clearance. Arlyn Zhu MD Aug 23, 2017 09:16
[2017-08-23] MEDS: ENOXAPARIN SODIUM 40 MG/0.4 ML SYRINGE SQ SCH (11:29)
--- NOTE | 2017-08-23 12:18 | HHI.NSPN ---
([place],Ponce WELCH) History Chief Complaint: None (LilianPonce WELCH) Interval History 08/15: The patient is a pleasant elderly lady who according to her family passed out and fell today, striking her head with positive loss of consciousness. She was initially Gokul Coma Score of 3 at the scene and brought in as a trauma alert. No seizure activity reported. No nausea or vomiting reported. She complains of headache. No complaint of neck or low back pain. No complaint of blurred vision or diplopia. 08/16: This morning the patient is awake and alert. She says she has no pain when asked how she is doing. She denies any other complaints. She spontaneously moves the extremities. Nursing reports that this morning she only knew her name. Nursing did say that when the patient's family came in she became brighter in her demeanor. When they left she returned to the same demeanor she had before their arrival. 08/18/2017: Patient stable on regular floor. Tolerating moderate by mouth diet. No complaint of headache. Persistent expressive speech deficit, word finding deficit. 08/19: The patient is seen ambulating with minimal contact by Nursing. Her gait appears steady. She had no complaints when seen. She is confused and does seem to have some difficulty finding words. 08/20: remains alert, confused. no changes clinically overnight. 08/21: doing well, alert, awake, follows commands. denies headaches, nausea, or vomiting. 08/22: This morning the patient is awake and alert when seen. She was moving from the bedside commode to the bed with standby assist. She denied any headache , dizziness, nausea, numbness, tingling, weakness or any other complaint. She remains confused when seen. 08/23: When seen this afternoon the patient is awake and sitting on the edge of the bed. She had no complaints whatsoever and says she is ready to go home. (LilianPonce WELCH) Exam Results 12/3/17 12/3/17 12/4/17 12/4/17 12/5/17 12/5/17 06:00 18:00 06:00 18:00 06:00 18:00 Intake Total 240 ml 120 ml 120 ml Output Total 1 ml Balance -1 ml 240 ml 120 ml 120 ml Intake Oral 240 ml 120 ml 120 ml Output Stool Total 1 ml # Voids 5 6 11 2 2 # Bowel Movements 1 2 Vital Signs Date Time Temp Pulse Resp B/P (MAP) Pulse Ox O2 Delivery O2 Flow Rate FiO2 08/23/17 08:55 97.6 79 18 146/67 (93) 95 08/23/17 04:30 97.4 86 17 155/69 (97) 93 08/23/17 00:09 97.6 85 17 112/58 (76) 95 08/22/17 20:30 97.6 82 17 96/51 (66) 95 08/22/17 16:44 98.2 108 20 128/63 (84) 97 08/22/17 12:32 98.4 98 18 147/73 (97) 95 08/22/17 08:34 98.0 90 18 176/81 (112) 96 08/22/17 04:00 97.2 95 18 168/80 (109) 94 08/22/17 00:00 98.0 87 18 152/72 (98) 96 08/22/17 00:00 81 08/21/17 20:00 85 08/21/17 20:00 98.3 92 18 149/70 (96) 95 08/21/17 16:00 98.1 90 18 167/79 (108) 97 08/21/17 11:00 96.4 88 18 160/69 (99) 96 08/21/17 09:06 93 08/21/17 08:00 98.2 90 18 152/72 (98) 93 08/21/17 07:00 90 08/21/17 04:00 98.4 88 19 151/68 (95) 98 08/21/17 03:49 90 08/21/17 00:00 97.7 85 20 137/64 (88) 94 08/20/17 20:00 98.3 99 20 143/69 (93) 96 08/20/17 20:00 86 08/20/17 17:00 98.6 98 20 144/64 (90) 98 08/20/17 16:00 95 (Ponce Quintana) Physical Examination GENERAL: Awake & alert, readily interacts, affect appears normal, no apparent distress. HEENT: Right forehead laceration well approximated w/sutures, no drainage, erythema or streaking. Right periorbital ecchymosis resolving. PERRLA 3 mm brisk , EOMI. MMM & pink, tongue midline to protrusion. MUSCULOSKELETAL: Moves all extremities w/o difficulty, NTTP, no evident deformity or clubbing. NEUROLOGICAL: AAOx3. Speech clear & appropriate. Follows some simple commands w/o difficulty. CN II-XII appear grossly intact. Sensation intact to light touch to all extremities. Motor strength appears to be 5/5 to all major flexion & extension muscle groups. (Ponce Quintana) Physical Examination She is alert, confused, oriented to self. Right forehead laceration well approximated w/sutures healing well Right periorbital ecchymosis unchanged Cranial nerve examination demonstrates the pupils to be equal, round, and reactive to light. Extra-ocular movements are intact with normal convergence. Facial motor function appears normal and symmetrical. Face sensation, hearing, visual hernandez, and olfaction can not be assessed properly due to the patients condition. The patient has an intact corneal reflex and a gag reflex. Sternocleidomastoid and trapezius have normal and symmetrical strength. Other cranial nerves are intact. Neck is soft and supple. Cervical spine has a normal range of motion of the cervical spine without pain. There is no tenderness to palpation to the spinous processes or paraspinal muscles. Muscle testing reveals normal bulk and tone overall without rigidity, spasticity , fasciculations, or atrophy. Muscle strength is 5/5 in all muscle groups of both upper and lower extremities. Deep tendon reflexes are 1+ and symmetrical in the biceps, triceps, and brachioradialis, bilaterally, in the upper extremities. In the lower extremities , the patellar and Achilles are 1+, bilaterally. There is a bilateral plantar flexion response. Hoffmanns sign is negative. There is no clonus or other abnormal reflexes noted. Cerebellar examination is limited due to the patient condition, but no obvious deficits are noted. (Trevin Spring MD) Lab, Micro, Other Results Recent Impressions Head CT 08/22/17 0800 Signed Impressions: Service Date/Time: Tuesday, August 22, 2017 20:04 - CONCLUSION: 1. Resolution of the previously noted intraventricular hemorrhage. 2. Stable chronic subdural hygromas bilaterally measuring 9 mm in width on the left and 4 mm in width on the right. 3. Minimal subfalcine herniation to the right measuring 1 mm. 4. Stable mildly prominent ventricles. 5. Small fluid level within right maxillary sinus. Terry Basilio MD Laboratory Tests Test 08/21/17 06:11 08/22/17 06:54 White Blood Count 10.1 TH/MM3 Red Blood Count 3.09 MIL/MM3 Hemoglobin 9.7 GM/DL Hematocrit 29.1 % Mean Corpuscular Volume 94.3 FL Mean Corpuscular Hemoglobin 31.4 PG Mean Corpuscular Hemoglobin Concent 33.3 % Red Cell Distribution Width 12.4 % Platelet Count 261 TH/MM3 Mean Platelet Volume 7.4 FL Neutrophils (%) (Auto) 59.8 % Lymphocytes (%) (Auto) 28.4 % Monocytes (%) (Auto) 10.2 % Eosinophils (%) (Auto) 1.2 % Basophils (%) (Auto) 0.4 % Neutrophils # (Auto) 6.1 TH/MM3 Lymphocytes # (Auto) 2.9 TH/MM3 Monocytes # (Auto) 1.0 TH/MM3 Eosinophils # (Auto) 0.1 TH/MM3 Basophils # (Auto) 0.0 TH/MM3 CBC Comment DIFF FINAL Differential Comment Blood Urea Nitrogen 18 MG/DL Creatinine 0.65 MG/DL Random Glucose 118 MG/DL Calcium Level 8.6 MG/DL Sodium Level 141 MEQ/L Potassium Level 3.4 MEQ/L 3.9 MEQ/L Chloride Level 105 MEQ/L Carbon Dioxide Level 29.2 MEQ/L Anion Gap 7 MEQ/L Estimat Glomerular Filtration Rate 87 ML/MIN Phosphorus Level 3.0 MG/DL Magnesium Level 2.1 MG/DL (Ponce Quintana) Medical Decision Making Impression and Plan Impression: 1. Traumatic brain injury. No significant mass effect on CT scan 2. Forehead lacerations Patient is doing well and continues to improve neurologically. CT brain demonstrates resolution of the IVH w/stable chronic subdural hygromas bilaterally. There is 1 mm subfalcine herniation on the right. No identified mass on MRI brain . Physical & Occupational Therapy recommend further inpatient rehab. Plan: Discussed plan of care with patient & Nursing. Primary management per Trauma. Neuro checks. Stat CT brain for any worsening of neuro status. Mobilise patient w/assistance. PT/OT eval & tx. ADDENDUM at 1714: The patient is stable neurologically and able to be discharged from NSGY's perspective with follow up in 2 weeks as an outpatient. BET (Ponce Quintana) Attending Statement As above Continue neuro checks. Pulmonary.. Continue aggressive pulmonary toilette, nasotracheal suction, and breathing treatments with nebulizers. Nutrition. NPO Renal. monitor closely urine output, BUN and creatinine Endocrine. Monitor serial Acu checks and SSI as needed in detail ID monitor for signs of infection Protonix for stress ulcer prophylaxis Zackary hose and SCDls. Lovenox The exam, history, and the medical decision-making described in the above note were completed with the assistance of the mid-level provider. I reviewed and agree with the findings presented. I attest that I had a [id number] encounter with the patient on the same day, and personally performed and documented my assessment and findings in the medical record. (Trevin Spring MD) Ponce Quintana Aug 23, 2017 12:18 Trevin Spring MD Aug 24, 2017 20:13
[2017-08-24] VITALS (9 sets, daily range): BP systolic 119–167; BP diastolic 64–85; PULSE 78–96; RESP 16–20; TEMP 97.5–99.1; O2SAT 90–96
[2017-08-24] MEDS: ACETAMINOPHEN/HYDROcodone 325 MG/5 MG TAB PO PRN ×6 (01:01→23:11)
[2017-08-24] MEDS: MAGNESIUM HYDROXIDE SUSP 30 ML CUP PO SCH ×2 (09:50→20:00)
[2017-08-24] MEDS: levETIRAcetam 500 MG TAB PO SCH ×2 (09:50→23:05)
[2017-08-24] MEDS: DOCUSATE SODIUM 50 MG/SENNA 8.6 MG TAB PO SCH ×2 (09:50→23:11)
[2017-08-24] MEDS: FAMOTIDINE 20 MG TAB PO SCH ×2 (09:50→23:11)
--- NOTE | 2017-08-24 09:52 | HHI.PR ---
Subjective Remarks in no acute distress. denies pain. no new complaints. Objective Vitals Vital Signs Date Time Temp Pulse Resp B/P (MAP) Pulse Ox O2 Delivery O2 Flow Rate FiO2 08/24/17 08:52 98.6 96 20 167/80 (109) 96 08/24/17 04:00 97.9 84 20 134/64 (87) 93 08/24/17 00:19 92 08/24/17 00:00 97.9 88 20 166/85 (112) 95 08/23/17 20:00 98.1 93 20 127/64 (85) 94 08/23/17 17:53 87 08/23/17 16:50 98.4 85 20 135/61 (85) 96 08/23/17 12:26 97.9 81 18 105/61 (76) 96 I/O 08/23/17 08/23/17 08/23/17 08/24/17 08/24/17 08/24/17 07:00 15:00 23:00 07:00 15:00 23:00 Intake Total 120 ml Balance 120 ml Intake Oral 120 ml # Voids 2 Result Diagram: 08/21/17 0611 08/22/17 0654 Imaging Last Impressions Head CT 08/22/17 0800 Signed Impressions: Service Date/Time: Tuesday, August 22, 2017 20:04 - CONCLUSION: 1. Resolution of the previously noted intraventricular hemorrhage. 2. Stable chronic subdural hygromas bilaterally measuring 9 mm in width on the left and 4 mm in width on the right. 3. Minimal subfalcine herniation to the right measuring 1 mm. 4. Stable mildly prominent ventricles. 5. Small fluid level within right maxillary sinus. Terry Basilio MD Pelvis MRI 08/16/17 0000 Signed Impressions: Service Date/Time: Wednesday, August 16, 2017 13:56 - CONCLUSION: 1. Mass lesion measuring 3.8 x 5.2 x 2.9 cm centered left para midline in the bladder trigone and extending down into the vagina. I believe the mass actually originates from the trigone of the bladder but I cannot completely exclude a vaginal mass eroding into the base of the bladder. This may be further clarified with direct pelvic visualization 2. No pelvic adenopathy identified. There is a prominent retroperitoneal lymph node in the aortic chain slightly more cephalad as seen on the prior CT Finn Aguillon MD Pelvis X-Ray 08/15/17 1230 Signed Impressions: Service Date/Time: Tuesday, August 15, 2017 12:26 - CONCLUSION: No acute disease. Chinedu Black Jr., MD Chest X-Ray 08/15/17 1230 Signed Impressions: Service Date/Time: Tuesday, August 15, 2017 12:26 - CONCLUSION: Negative for pneumothorax. Negative for fracture Mathew Collins MD FACR Chest CT 08/15/17 1230 Signed Impressions: Service Date/Time: Tuesday, August 15, 2017 12:33 - CONCLUSION: No acute disease. Chinedu Black Jr., MD Cervical Spine CT 08/15/17 1230 Signed Impressions: Service Date/Time: Tuesday, August 15, 2017 12:38 - CONCLUSION: 1. No fracture or dislocation. 2. Degenerative changes. 3. Calcified plaque involving the carotid arteries bilaterally. Chinedu Black Jr., MD Brain MRI 08/15/17 0000 Signed Impressions: Service Date/Time: Tuesday, August 15, 2017 17:14 - CONCLUSION: 1. MR findings concerning for scattered parenchymal hemorrhages or, possibly, diffuse axonal injury depending on the patient's clinical condition. These are most prominent in the subcortical distribution of the left cerebral hemisphere. 2. 9 mm subdural hygroma on the left. There may be small intraventricular hemorrhages as well. 3. Chronic changes with moderately severe periventricular small vessel ischemic demyelination. Mild ventricular prominence could represent central atrophy versus NPH in the appropriate clinical setting. Finn Aguillon MD Abdomen/Pelvis CT 08/15/17 0000 Signed Impressions: Service Date/Time: Tuesday, August 15, 2017 12:44 - CONCLUSION: 1. No signs of acute trauma. 2. Retroperitoneal adenopathy as well as a left adrenal gland mass. This is concerning for metastatic disease. There is a heterogeneous mass associated with the trigone of urinary bladder. This is worrisome for a primary lesion. MRI of the pelvis can be utilized to further evaluate this. Chinedu Black Jr., MD Abdomen MRI 08/15/17 0000 Signed Impressions: Service Date/Time: Tuesday, August 15, 2017 17:14 - CONCLUSION: Imaging characteristics of the 2.3 cm left adrenal mass lesion are concerning for a neoplastic process. Finn Aguillon MD ADDENDUM: Also noted is a 2.1 cm isolated but prominent retroperitoneal periaortic lymph node at the level of the renal veins which was identified on prior CT. This is concerning for a metastatic foci. Finn Aguillon MD Objective Remarks GENERAL: This is a well-nourished, well-developed patient, in no apparent distress. CARDIOVASCULAR: Regular rate and regular rhythm without murmurs, gallops, or rubs. RESPIRATORY: Clear to auscultation. Breath sounds equal bilaterally. No wheezes , rales, or rhonchi. GASTROINTESTINAL: Abdomen soft, non-tender, nondistended. Normal, active bowel sounds MUSCULOSKELETAL: Extremities without clubbing, cyanosis, or edema. NEURO: awake and alert. Medications and IVs Current Medications Diphtheria/ Tetanus/Acell Pertussis (Boostrix Inj) 0.5 ml STK-MED ONCE IM ; Start 08/15/17 at 12:35; Stop 08/15/17 at 12:36; Status DC Iohexol (Omnipaque 350 Inj) 71 ml STK-MED ONCE IVCONTRAST Last administered on 08/15/17 12:26; Start 08/15/17 at 12:26; Stop 08/15/17 at 12:56; Status DC Sodium Chloride 1,000 ml @ 84 mls/hr [id number] IV Last administered on 04:43; Start 08/15/17 at 14:56; Stop 08/18/17 at 07:14; Status DC Sodium Chloride (NS Flush) 2 ml UNSCH PRN IV FLUSH FLUSH AFTER USING IV ACCESS ; Start 08/15/17 at 15:00 Sodium Chloride (NS Flush) 2 ml BID IV FLUSH Last administered on 08/23/17 21: 00; Start 08/15/17 at 21:00 Acetaminophen (Tylenol) 650 mg Q6H PRN PO FEVER >100F Last administered on 20:50; Start 08/15/17 at 15:00 Acetaminophen/ Hydrocodone Bitart ([place] 5-325 Mg) 1 tab Q4H PRN PO pain 3-10 Last administered on 08/24/17 05:18; Start 08/15/17 at 15:00 Morphine Sulfate (Morphine Inj) 2 mg Q2H PRN IV PUSH PAIN SCALE 6 TO 10 Last administered on 08/16/17 04:40; Start 08/15/17 at 15:00; Stop 08/16/17 at 08 :27; Status DC Famotidine (Pepcid Inj) 20 mg Q12HR IV PUSH Last administered on 08/16/17 10: 26; Start 08/15/17 at 21:00; Stop 08/16/17 at 14:57; Status DC Ondansetron HCl (Zofran Inj) 4 mg Q6H PRN IV PUSH NAUSEA OR VOMITING Last administered on 08/15/17 16:46; Start 08/15/17 at 15:00 Albuterol Sulfate (Albuterol Neb) 2.5 mg Q2HR NEB PRN INH SOB/WHEEZING; Start 08/15/17 at 15:00 Miscellaneous Information 1 Q361D XX ; Start 08/15/17 at 15:00; Stop 08/18/17 at 07:14; Status DC Chlorhexidine Gluconate (Chlorhexidine 2% Cloth) 3 pack Taper DAILY@04 TOP ; Start 08/16/17 at 04:00; Stop 08/18/17 at 07:14; Status DC Chlorhexidine Gluconate (Chlorhexidine 2% Cloth) 3 pack UNSCH PRN TOP HYGIENIC CARE; Start 08/15/17 at 15:00; Stop 08/18/17 at 07:14; Status DC Senna/Docusate Sodium (Eliane-Colace) 1 tab BID PO Last administered on 21:52; Start 08/15/17 at 21:00 Magnesium Hydroxide (Milk Of Magnesia Liq) 30 ml Q12H PRN PO Mild constipation ; Start 08/15/17 at 15:00; Stop 08/18/17 at 07:14; Status DC Sennosides (Senokot) 17.2 mg Q12H PRN PO Moderate constipation; Start at 15:00 Bisacodyl (Dulcolax Supp) 10 mg DAILY PRN RECTAL SEVERE CONSITIPATION; Start 08/15/17 at 15:00 Lactulose (Lactulose Liq) 30 ml DAILY PRN PO SEVERE CONSITIPATION; Start 08/15 at 15:00 Labetalol HCl (Trandate Inj) 10 mg Q1HR PRN IV PUSH SBP>140, DBP>80, HR>65; Start 08/15/17 at 15:15; Stop 08/18/17 at 07:14; Status DC Hydralazine HCl (Apresoline Inj) 10 mg Q1HR PRN IV PUSH SBP>140, DBP>90 Last administered on 08/17/17 13:42; Start 08/15/17 at 15:15; Stop 08/18/17 at 07 :14; Status DC Nicardipine HCl 25 mg/Sodium Chloride 250 ml @ 50 mls/hr TITRATE PRN IV Blood pressure management; Start 08/15/17 at 15:30; Stop 08/18/17 at 07:14; Status DC Gadodiamide (Omniscan Pf Inj) 10 ml STK-MED ONCE IV PUSH Last administered on 08/15/17 17:36; Start 08/15/17 at 17:36; Stop 08/15/17 at 17:37; Status DC Sodium Chloride (NS Flush) 2 ml UNSCH PRN IV FLUSH FLUSH AFTER USING IV ACCESS ; Start 08/15/17 at 18:30; Stop 08/15/17 at 18:38; Status DC Miscellaneous Information 1 Q361D XX ; Start 08/15/17 at 18:30; Stop 08/15/17 at 18:37; Status DC Morphine Sulfate (Morphine Inj) 2 mg Q4H PRN IV PUSH breakthrough pain Last administered on 08/18/17 04:40; Start 08/16/17 at 09:00; Stop 08/18/17 at 15 :05; Status DC Levetriacetam (Keppra) 500 mg Q12HR PO Last administered on 08/23/17 21:52; Start 08/16/17 at 10:00 Famotidine (Pepcid Inj) 10 mg Q12HR IV PUSH Last administered on 08/16/17 20: 50; Start 08/16/17 at 21:00; Stop 08/17/17 at 07:42; Status DC Gadodiamide (Omniscan Pf Inj) 10 ml STK-MED ONCE IV PUSH ; Start 08/16/17 at 15 :24; Stop 08/16/17 at 15:25; Status DC Famotidine (Pepcid) 10 mg BID PO Last administered on 08/23/17 21:52; Start 08/17/17 at 09:00 Miscellaneous (Pill Splitter) 1 ea UNSCH PRN OTHER SEE LABEL COMMENTS; Start 08/17/17 at 08:00 Magnesium Hydroxide (Milk Of Harry Herrera) 30 ml Q12H PO Last administered on 08/21/17 20:48; Start 08/18/17 at 08:00 Enalaprilat (Vasotec Inj) 1.25 mg Q8H PRN IV PUSH HTN; Start 08/18/17 at 07:15 Enoxaparin Sodium (Lovenox Inj) 40 mg Q24H SQ Last administered on 08/23/17 11 :29; Start 08/18/17 at 11:00 Clonidine (Catapres) 0.1 mg Q6H PRN PO SYSTOLIC BP GREATER THAN 175 Last administered on 08/20/17 00:53; Start 08/18/17 at 19:00 Potassium Bicarb/ Potassium Chloride (K-Lyte Cl Eff) 50 meq ONCE ONCE PO Last administered on 08/19/17 08:26; Start 08/19/17 at 07:00; Stop 08/19/17 at 07:13; Status DC Potassium Chloride (KCl) 40 meq ONCE ONCE PO Last administered on 08/21/17 11 :07; Start 08/21/17 at 08:15; Stop 08/21/17 at 08:16; Status DC Potassium Chloride (KCl) 20 meq ONCE ONCE PO Last administered on 08/21/17 15 :00; Start 08/21/17 at 15:00; Stop 08/21/17 at 15:01; Status DC A/P Assessment and Plan 1. Status post fall with right temporal laceration status post six Sutures 2. Bladder mass/Left adrenal mass/Enlarged Lymph node in retroperitoneal area conservative management as per Urology follow outpatient for Cystoscopy 3. Traumatic Intracranial Hemorrhage. Questioned Intracranial mass/Underlying neurocognitive disorder, Neurosurgery following. No intervention at this time- cleared by neurosurgery for discharge. GI prophylaxis with Pepcid 10 mg BID DVT prophylaxis with SCDs. Lovenox 40 mg daily. Discharge Planning dc home vs SNF- see med list. f/u; pcp and urology. d/w the patient and case management. time spent 35 min. Arlyn Zhu MD Aug 24, 2017 09:52
--- NOTE | 2017-08-24 09:56 | HHI.DS ---
Discharge Summary Admission Date Aug 15, 2017 at 15:57 Discharge Date: Aug 24, 2017 Admitting Diagnosis traumatic intracranial hemmorhage, bladder mass, adrenal mass (1) traumativc brain injury Diagnosis: Principal Procedures none Brief History - From Admission The patient was brought in a trauma alert after a fall. By report the patient got dizzy and fell hitting her head. Her initial GCS was 3 and she was brought in as a trauma alert. CBC/BMP: 08/21/17 0611 08/22/17 0654 Significant Findings Laboratory Tests Test 08/22/17 06:54 PE at Discharge GENERAL: This is a well-nourished, well-developed patient, in no apparent distress. CARDIOVASCULAR: Regular rate and regular rhythm without murmurs, gallops, or rubs. RESPIRATORY: Clear to auscultation. Breath sounds equal bilaterally. No wheezes , rales, or rhonchi. GASTROINTESTINAL: Abdomen soft, non-tender, nondistended. Normal, active bowel sounds MUSCULOSKELETAL: Extremities without clubbing, cyanosis, or edema. NEURO: awake and alert. Hospital Course patient was admitted with traumatic brain injury. imaging studies as noted above. she had forehead laceration which was sutured. evaluated by trauma surgery and neurosurgery was also consulted and continued on conservative treatment. she was found to have a bladder mass , concerning for malignancy along with adrenal mass. urology consulted and recommended outpatient follow-up with her urologist.cleared by neurosurgery for discharge. Pt Condition on Discharge: Fair Discharge Disposition: Discharge to SNF Discharge Time: > 30 minutes Discharge Instructions DIET: Follow Instructions for: Heart Healthy Diet Activities you can perform: Regular-No Restrictions Follow up Referrals: Neurosurgery - 2 Weeks with Mark Palacios MD RIGHT temporal area laceration ( 6 sutures) IPH ? intracranial mass PCP Follow-up - 1 Week F/u RIGHT temporal area laceration (6 sutures) IPH ? intracranial mass *Bladder mass (cystoscopy outpatient) *LEFT adrenal mass * enlarged lymph node in retroperitoneum Urology - 2 Weeks with Rio Mustafa M.d. RIGHT temporal area laceration ( 6 sutures) IPH ? intracranial mass *Bladder mass (cystoscopy outpatient) *LEFT adrenal mass *enlarged lymph node in retroperitoneum New Medications: Enoxaparin Inj (Lovenox Inj) 40 Mg/0.4 Ml Syr 40 MG SQ Q24H for Prevent Blood Clot for 5 Days, INJECTION Famotidine (Famotidine) 20 Mg Tab 10 MG PO BID for Prevent Stress Ulcers for 5 Days, #5 TAB Hydrocodone/Acetaminophen (Hydrocodone-Acetamin 5-325 mg) 5 Mg-325 Mg Tablet 1 TAB PO Q4H for Pain Management for 5 Days, #30 TAB Levetiracetam (Keppra) 500 Mg Tab 500 MG PO Q12HR for Seizure Control for 5 Days, TAB Magnesium Hydroxide (Qc Milk of Magnesia) 400 Mg/5 Ml Makenzie 30 ML PO Q12H for Constipation for 5 Days, #300 ML Sennosides-Docusate Sodium (Gnp Senna Plus 8.6-50 mg) 8.6 Mg-50 Mg Tab 1 TAB PO BID for Constipation for 5 Days, #10 TAB [Lactulose Liq] () 30 ML SYRP 30 ML PO DAILY PRN for SEVERE CONSITIPATION for 5 Days, #150 ML Arlyn Zhu MD Aug 24, 2017 09:56
[2017-08-24] MEDS: SODIUM CHLORIDE 0.9% FLUSH 10 ML FLUSH IV FLUSH SCH ×2 (09:58→21:00)
[2017-08-24] MEDS: ENOXAPARIN SODIUM 40 MG/0.4 ML SYRINGE SQ SCH (11:46)
[2017-08-25] VITALS (10 sets, daily range): BP systolic 119–183; BP diastolic 62–86; PULSE 71–114; RESP 18–20; TEMP 97.3–98.6; O2SAT 88–96
[2017-08-25] MEDS: ACETAMINOPHEN/HYDROcodone 325 MG/5 MG TAB PO PRN ×2 (04:15→08:45)
[2017-08-25 05:38] LABS: BACTERIA, URINE FEW /hpf; BLOOD, URINE MOD (NEG); COMMENT (UR) CATH-CULTURE IND; CULTURE IF INDICATED CATH CULTURE IND; GLUCOSE,URINE NEG (NEG); KETONE, URINE NEG (NEG); MUCUS URINE FEW /lpf (OCC); NITRITE,URINE NEG (NEG); SQUAMOUS EPITHELIAL CELL URINE <1 /hpf (0-5); URINE COLOR YELLOW (YELLW/STRAW)
[2017-08-25] MEDS: levETIRAcetam 500 MG TAB PO SCH ×2 (08:45→09:45)
[2017-08-25] MEDS: DOCUSATE SODIUM 50 MG/SENNA 8.6 MG TAB PO SCH ×3 (08:45→20:48)
[2017-08-25] MEDS: FAMOTIDINE 20 MG TAB PO SCH ×3 (08:45→21:00)
[2017-08-25] MEDS: MAGNESIUM HYDROXIDE SUSP 30 ML CUP PO SCH ×3 (08:46→21:25)
--- NOTE | 2017-08-25 10:32 | HHI.PR ---
Subjective Remarks in no acute distress. awake but not as oriented as yesterday. afebrile. denies pain. d/w the RN. Objective Vitals Vital Signs Date Time Temp Pulse Resp B/P (MAP) Pulse Ox O2 Delivery O2 Flow Rate FiO2 08/25/17 09:26 97.5 92 18 183/86 (118) 95 08/25/17 04:00 98.6 88 18 137/63 (87) 94 08/25/17 00:30 97.6 92 18 150/70 (96) 94 08/24/17 20:56 97.5 91 16 119/67 (84) 90 08/24/17 16:05 98.7 78 20 124/67 (86) 94 08/24/17 13:56 90 08/24/17 11:50 99.1 91 20 135/65 (88) 94 I/O 08/24/17 08/24/17 08/24/17 08/25/17 08/25/17 08/25/17 07:00 15:00 23:00 07:00 15:00 23:00 Intake Total 240 ml 180 ml Balance 240 ml 180 ml Intake Oral 240 ml 180 ml # Voids 3 1 3 # Bowel Movements 1 1 1 Result Diagram: 08/21/17 0611 08/22/17 0654 Imaging Last Impressions Head CT 08/22/17 0800 Signed Impressions: Service Date/Time: Tuesday, August 22, 2017 20:04 - CONCLUSION: 1. Resolution of the previously noted intraventricular hemorrhage. 2. Stable chronic subdural hygromas bilaterally measuring 9 mm in width on the left and 4 mm in width on the right. 3. Minimal subfalcine herniation to the right measuring 1 mm. 4. Stable mildly prominent ventricles. 5. Small fluid level within right maxillary sinus. Terry Basilio MD Pelvis MRI 08/16/17 0000 Signed Impressions: Service Date/Time: Wednesday, August 16, 2017 13:56 - CONCLUSION: 1. Mass lesion measuring 3.8 x 5.2 x 2.9 cm centered left para midline in the bladder trigone and extending down into the vagina. I believe the mass actually originates from the trigone of the bladder but I cannot completely exclude a vaginal mass eroding into the base of the bladder. This may be further clarified with direct pelvic visualization 2. No pelvic adenopathy identified. There is a prominent retroperitoneal lymph node in the aortic chain slightly more cephalad as seen on the prior CT Finn Aguillon MD Pelvis X-Ray [id number]/15/[id number] Signed Impressions: Service Date/Time: Tuesday, August 15, 2017 12:26 - CONCLUSION: No acute disease. Chinedu Black Jr., MD Chest X-Ray 08/15/170 Signed Impressions: Service Date/Time: Tuesday, August 15, 2017 12:26 - CONCLUSION: Negative for pneumothorax. Negative for fracture Mathew Collins MD FACR Chest CT [id number]/[id number] Signed Impressions: Service Date/Time: Tuesday, August 15, 2017 12:33 - CONCLUSION: No acute disease. Chinedu Black Jr., MD Cervical Spine CT [id number] Signed Impressions: Service Date/Time: Tuesday, August 15, 2017 12:38 - CONCLUSION: 1. No fracture or dislocation. 2. Degenerative changes. 3. Calcified plaque involving the carotid arteries bilaterally. Chinedu Black Jr., MD Brain MRI 08/15/17 0000 Signed Impressions: Service Date/Time: Tuesday, August 15, 2017 17:14 - CONCLUSION: 1. MR findings concerning for scattered parenchymal hemorrhages or, possibly, diffuse axonal injury depending on the patient's clinical condition. These are most prominent in the subcortical distribution of the left cerebral hemisphere. 2. 9 mm subdural hygroma on the left. There may be small intraventricular hemorrhages as well. 3. Chronic changes with moderately severe periventricular small vessel ischemic demyelination. Mild ventricular prominence could represent central atrophy versus NPH in the appropriate clinical setting. Finn Aguillon MD Abdomen/Pelvis CT 08/15/17 0000 Signed Impressions: Service Date/Time: Tuesday, August 15, 2017 12:44 - CONCLUSION: 1. No signs of acute trauma. 2. Retroperitoneal adenopathy as well as a left adrenal gland mass. This is concerning for metastatic disease. There is a heterogeneous mass associated with the trigone of urinary bladder. This is worrisome for a primary lesion. MRI of the pelvis can be utilized to further evaluate this. Chinedu Black Jr., MD Abdomen MRI 08/15/17 0000 Signed Impressions: Service Date/Time: Tuesday, August 15, 2017 17:14 - CONCLUSION: Imaging characteristics of the 2.3 cm left adrenal mass lesion are concerning for a neoplastic process. Finn Aguillon MD ADDENDUM: Also noted is a 2.1 cm isolated but prominent retroperitoneal periaortic lymph node at the level of the renal veins which was identified on prior CT. This is concerning for a metastatic foci. Finn Aguillon MD Objective Remarks GENERAL: This is a well-nourished, well-developed patient, in no apparent distress. CARDIOVASCULAR: Regular rate and regular rhythm without murmurs, gallops, or rubs. RESPIRATORY: Clear to auscultation. Breath sounds equal bilaterally. No wheezes , rales, or rhonchi. GASTROINTESTINAL: Abdomen soft, non-tender, nondistended. Normal, active bowel sounds MUSCULOSKELETAL: Extremities without clubbing, cyanosis, or edema. NEURO: awake and alert. Procedures none Medications and IVs Current Medications Diphtheria/ Tetanus/Acell Pertussis (Boostrix Inj) 0.5 ml STK-MED ONCE IM ; Start 08/15/17 at 12:35; Stop 08/15/17 at 12:36; Status DC Iohexol (Omnipaque 350 Inj) 71 ml STK-MED ONCE IVCONTRAST Last administered on 08/15/17 12:26; Start 08/15/17 at 12:26; Stop 08/15/17 at 12:56; Status DC Sodium Chloride 1,000 ml @ 84 mls/hr [id number] IV Last administered on 04:43; Start 08/15/17 at 14:56; Stop 08/18/17 at 07:14; Status DC Sodium Chloride (NS Flush) 2 ml UNSCH PRN IV FLUSH FLUSH AFTER USING IV ACCESS ; Start 08/15/17 at 15:00 Sodium Chloride (NS Flush) 2 ml BID IV FLUSH Last administered on 08/17/17 08 :42; Start 08/15/17 at 21:00 Acetaminophen (Tylenol) 650 mg Q6H PRN PO FEVER >100F Last administered on 20:50; Start 08/15/17 at 15:00 Acetaminophen/ Hydrocodone Bitart ([place] 5-325 Mg) 1 tab Q4H PRN PO pain 3-10 Last administered on 08/25/17 08:45; Start 08/15/17 at 15:00 Morphine Sulfate (Morphine Inj) 2 mg Q2H PRN IV PUSH PAIN SCALE 6 TO 10 Last administered on 08/16/17 04:40; Start 08/15/17 at 15:00; Stop 08/16/17 at 08 :27; Status DC Famotidine (Pepcid Inj) 20 mg Q12HR IV PUSH Last administered on 08/16/17 10: 26; Start 08/15/17 at 21:00; Stop 08/16/17 at 14:57; Status DC Ondansetron HCl (Zofran Inj) 4 mg Q6H PRN IV PUSH NAUSEA OR VOMITING Last administered on 08/15/17 16:46; Start 08/15/17 at 15:00 Albuterol Sulfate (Albuterol Neb) 2.5 mg Q2HR NEB PRN INH SOB/WHEEZING; Start 08/15/17 at 15:00 Miscellaneous Information 1 Q361D XX ; Start 08/15/17 at 15:00; Stop 08/18/17 at 07:14; Status DC Chlorhexidine Gluconate (Chlorhexidine 2% Cloth) 3 pack Taper DAILY@04 TOP ; Start 08/16/17 at 04:00; Stop 08/18/17 at 07:14; Status DC Chlorhexidine Gluconate (Chlorhexidine 2% Cloth) 3 pack UNSCH PRN TOP HYGIENIC CARE; Start 08/15/17 at 15:00; Stop 08/18/17 at 07:14; Status DC Senna/Docusate Sodium (Eliane-Colace) 1 tab BID PO Last administered on 08:45; Start 08/15/17 at 21:00 Magnesium Hydroxide (Milk Of Magnesia Liq) 30 ml Q12H PRN PO Mild constipation ; Start 08/15/17 at 15:00; Stop 08/18/17 at 07:14; Status DC Sennosides (Senokot) 17.2 mg Q12H PRN PO Moderate constipation; Start at 15:00 Bisacodyl (Dulcolax Supp) 10 mg DAILY PRN RECTAL SEVERE CONSITIPATION; Start 08/15/17 at 15:00 Lactulose (Lactulose Liq) 30 ml DAILY PRN PO SEVERE CONSITIPATION; Start 08/15 at 15:00 Labetalol HCl (Trandate Inj) 10 mg Q1HR PRN IV PUSH SBP>140, DBP>80, HR>65; Start 08/15/17 at 15:15; Stop 08/18/17 at 07:14; Status DC Hydralazine HCl (Apresoline Inj) 10 mg Q1HR PRN IV PUSH SBP>140, DBP>90 Last administered on 08/17/17 13:42; Start 08/15/17 at 15:15; Stop 08/18/17 at 07 :14; Status DC Nicardipine HCl 25 mg/Sodium Chloride 250 ml @ 50 mls/hr TITRATE PRN IV Blood pressure management; Start 08/15/17 at 15:30; Stop 08/18/17 at 07:14; Status DC Gadodiamide (Omniscan Pf Inj) 10 ml STK-MED ONCE IV PUSH Last administered on 08/15/17 17:36; Start 08/15/17 at 17:36; Stop 08/15/17 at 17:37; Status DC Sodium Chloride (NS Flush) 2 ml UNSCH PRN IV FLUSH FLUSH AFTER USING IV ACCESS ; Start 08/15/17 at 18:30; Stop 08/15/17 at 18:38; Status DC Miscellaneous Information 1 Q361D XX ; Start 08/15/17 at 18:30; Stop 08/15/17 at 18:37; Status DC Morphine Sulfate (Morphine Inj) 2 mg Q4H PRN IV PUSH breakthrough pain Last administered on 08/18/17 04:40; Start 08/16/17 at 09:00; Stop 08/18/17 at 15 :05; Status DC Levetriacetam (Keppra) 500 mg Q12HR PO Last administered on 08/25/17 08:45; Start 08/16/17 at 10:00 Famotidine (Pepcid Inj) 10 mg Q12HR IV PUSH Last administered on 08/16/17 20: 50; Start 08/16/17 at 21:00; Stop 08/17/17 at 07:42; Status DC Gadodiamide (Omniscan Pf Inj) 10 ml STK-MED ONCE IV PUSH ; Start 08/16/17 at 15 :24; Stop 08/16/17 at 15:25; Status DC Famotidine (Pepcid) 10 mg BID PO Last administered on 08/25/17 08:45; Start 08/17/17 at 09:00 Miscellaneous (Pill Splitter) 1 ea UNSCH PRN OTHER SEE LABEL COMMENTS; Start 08/17/17 at 08:00 Magnesium Hydroxide (Milk Of Harry Liq) 30 ml Q12H PO Last administered on 08/24/17 20:00; Start 08/18/17 at 08:00 Enalaprilat (Vasotec Inj) 1.25 mg Q8H PRN IV PUSH HTN; Start 08/18/17 at 07:15 Enoxaparin Sodium (Lovenox Inj) 40 mg Q24H SQ Last administered on 08/24/17 11 :46; Start 08/18/17 at 11:00 Clonidine (Catapres) 0.1 mg Q6H PRN PO SYSTOLIC BP GREATER THAN 175 Last administered on 08/20/17 00:53; Start 08/18/17 at 19:00 Potassium Bicarb/ Potassium Chloride (K-Lyte Cl Eff) 50 meq ONCE ONCE PO Last administered on 08/19/17 08:26; Start 08/19/17 at 07:00; Stop 08/19/17 at 07:13; Status DC Potassium Chloride (KCl) 40 meq ONCE ONCE PO Last administered on 08/21/17 11 :07; Start 08/21/17 at 08:15; Stop 08/21/17 at 08:16; Status DC Potassium Chloride (KCl) 20 meq ONCE ONCE PO Last administered on 08/21/17 15 :00; Start 08/21/17 at 15:00; Stop 08/21/17 at 15:01; Status DC A/P Problem List: (1) traumapsychiatric brain injury Assessment and Plan 1. Status post fall with right temporal laceration status post six Sutures 2. Bladder mass/Left adrenal mass/Enlarged Lymph node in retroperitoneal area conservative management as per Urology follow outpatient for Cystoscopy 3. Traumatic Intracranial Hemorrhage. Questioned Intracranial mass/Underlying neurocognitive disorder. No intervention at this time- cleared by neurosurgery for discharge. 4.UTI- start on antibiotic- follow the UC. GI prophylaxis with Pepcid 10 mg BID DVT prophylaxis with SCDs. Lovenox 40 mg daily. Discharge Planning not ready for discharge today. Arlyn Zhu MD Aug 25, 2017 10:32
--- NOTE | 2017-08-25 10:37 | HHI.PR ---
Subjective Remarks in no distress. awake but not as oriented as yesterday. no fever. d/w the RN. Objective Vitals Vital Signs Date Time Temp Pulse Resp B/P (MAP) Pulse Ox O2 Delivery O2 Flow Rate FiO2 08/25/17 09:26 97.5 92 18 183/86 (118) 95 08/25/17 04:00 98.6 88 18 137/63 (87) 94 08/25/17 00:30 97.6 92 18 150/70 (96) 94 08/24/17 20:56 97.5 91 16 119/67 (84) 90 08/24/17 16:05 98.7 78 20 124/67 (86) 94 08/24/17 13:56 90 08/24/17 11:50 99.1 91 20 135/65 (88) 94 I/O 08/24/17 08/24/17 08/24/17 08/25/17 08/25/17 08/25/17 07:00 15:00 23:00 07:00 15:00 23:00 Intake Total 240 ml 180 ml Balance 240 ml 180 ml Intake Oral 240 ml 180 ml # Voids 3 1 3 # Bowel Movements 1 1 1 Result Diagram: 08/21/17 0611 08/22/17 0654 Imaging Last Impressions Head CT 08/22/17 0800 Signed Impressions: Service Date/Time: Tuesday, August 22, 2017 20:04 - CONCLUSION: 1. Resolution of the previously noted intraventricular hemorrhage. 2. Stable chronic subdural hygromas bilaterally measuring 9 mm in width on the left and 4 mm in width on the right. 3. Minimal subfalcine herniation to the right measuring 1 mm. 4. Stable mildly prominent ventricles. 5. Small fluid level within right maxillary sinus. Terry Basilio MD Pelvis MRI 08/16/17 0000 Signed Impressions: Service Date/Time: Wednesday, August 16, 2017 13:56 - CONCLUSION: 1. Mass lesion measuring 3.8 x 5.2 x 2.9 cm centered left para midline in the bladder trigone and extending down into the vagina. I believe the mass actually originates from the trigone of the bladder but I cannot completely exclude a vaginal mass eroding into the base of the bladder. This may be further clarified with direct pelvic visualization 2. No pelvic adenopathy identified. There is a prominent retroperitoneal lymph node in the aortic chain slightly more cephalad as seen on the prior CT Finn Aguillon MD Pelvis X-Ray 08/15/17 1230 Signed Impressions: Service Date/Time: Tuesday, August 15, 2017 12:26 - CONCLUSION: No acute disease. Chinedu Black Jr., MD Chest X-Ray 08/15/17 1230 Signed Impressions: Service Date/Time: Tuesday, August 15, 2017 12:26 - CONCLUSION: Negative for pneumothorax. Negative for fracture Mathew Collins MD FACR Chest CT 08/15/17 1230 Signed Impressions: Service Date/Time: Tuesday, August 15, 2017 12:33 - CONCLUSION: No acute disease. Chinedu Black Jr., MD Cervical Spine CT 08/15/17 1230 Signed Impressions: Service Date/Time: Tuesday, August 15, 2017 12:38 - CONCLUSION: 1. No fracture or dislocation. 2. Degenerative changes. 3. Calcified plaque involving the carotid arteries bilaterally. Chinedu Black Jr., MD Brain MRI 08/15/17 0000 Signed Impressions: Service Date/Time: Tuesday, August 15, 2017 17:14 - CONCLUSION: 1. MR findings concerning for scattered parenchymal hemorrhages or, possibly, diffuse axonal injury depending on the patient's clinical condition. These are most prominent in the subcortical distribution of the left cerebral hemisphere. 2. 9 mm subdural hygroma on the left. There may be small intraventricular hemorrhages as well. 3. Chronic changes with moderately severe periventricular small vessel ischemic demyelination. Mild ventricular prominence could represent central atrophy versus NPH in the appropriate clinical setting. Finn Aguillon MD Abdomen/Pelvis CT 08/15/17 0000 Signed Impressions: Service Date/Time: Tuesday, August 15, 2017 12:44 - CONCLUSION: 1. No signs of acute trauma. 2. Retroperitoneal adenopathy as well as a left adrenal gland mass. This is concerning for metastatic disease. There is a heterogeneous mass associated with the trigone of urinary bladder. This is worrisome for a primary lesion. MRI of the pelvis can be utilized to further evaluate this. Chinedu Black Jr., MD Abdomen MRI 08/15/17 0000 Signed Impressions: Service Date/Time: Tuesday, August 15, 2017 17:14 - CONCLUSION: Imaging characteristics of the 2.3 cm left adrenal mass lesion are concerning for a neoplastic process. Finn Aguillon MD ADDENDUM: Also noted is a 2.1 cm isolated but prominent retroperitoneal periaortic lymph node at the level of the renal veins which was identified on prior CT. This is concerning for a metastatic foci. Finn Aguillon MD Objective Remarks GENERAL: This is a well-nourished, well-developed patient, in no apparent distress. CARDIOVASCULAR: Regular rate and regular rhythm without murmurs, gallops, or rubs. RESPIRATORY: Clear to auscultation. Breath sounds equal bilaterally. No wheezes , rales, or rhonchi. GASTROINTESTINAL: Abdomen soft, non-tender, nondistended. Normal, active bowel sounds MUSCULOSKELETAL: Extremities without clubbing, cyanosis, or edema. NEURO: awake and alert. Procedures none Medications and IVs Current Medications Diphtheria/ Tetanus/Acell Pertussis (Boostrix Inj) 0.5 ml STK-MED ONCE IM ; Start 08/15/17 at 12:35; Stop 08/15/17 at 12:36; Status DC Iohexol (Omnipaque 350 Inj) 71 ml STK-MED ONCE IVCONTRAST Last administered on 08/15/17 12:26; Start 08/15/17 at 12:26; Stop 08/15/17 at 12:56; Status DC Sodium Chloride 1,000 ml @ 84 mls/hr [id number] IV Last administered on 04:43; Start 08/15/17 at 14:56; Stop 08/18/17 at 07:14; Status DC Sodium Chloride (NS Flush) 2 ml UNSCH PRN IV FLUSH FLUSH AFTER USING IV ACCESS ; Start 08/15/17 at 15:00 Sodium Chloride (NS Flush) 2 ml BID IV FLUSH Last administered on 08/17/17 08 :42; Start 08/15/17 at 21:00 Acetaminophen (Tylenol) 650 mg Q6H PRN PO FEVER >100F Last administered on 20:50; Start 08/15/17 at 15:00 Acetaminophen/ Hydrocodone Bitart ([place] 5-325 Mg) 1 tab Q4H PRN PO pain 3-10 Last administered on 08/25/17 08:45; Start 08/15/17 at 15:00 Morphine Sulfate (Morphine Inj) 2 mg Q2H PRN IV PUSH PAIN SCALE 6 TO 10 Last administered on 08/16/17 04:40; Start 08/15/17 at 15:00; Stop 08/16/17 at 08 :27; Status DC Famotidine (Pepcid Inj) 20 mg Q12HR IV PUSH Last administered on 08/16/17 10: 26; Start 08/15/17 at 21:00; Stop 08/16/17 at 14:57; Status DC Ondansetron HCl (Zofran Inj) 4 mg Q6H PRN IV PUSH NAUSEA OR VOMITING Last administered on 08/15/17 16:46; Start 08/15/17 at 15:00 Albuterol Sulfate (Albuterol Neb) 2.5 mg Q2HR NEB PRN INH SOB/WHEEZING; Start 08/15/17 at 15:00 Miscellaneous Information 1 Q361D XX ; Start 08/15/17 at 15:00; Stop 08/18/17 at 07:14; Status DC Chlorhexidine Gluconate (Chlorhexidine 2% Cloth) 3 pack Taper DAILY@04 TOP ; Start 08/16/17 at 04:00; Stop 08/18/17 at 07:14; Status DC Chlorhexidine Gluconate (Chlorhexidine 2% Cloth) 3 pack UNSCH PRN TOP HYGIENIC CARE; Start 08/15/17 at 15:00; Stop 08/18/17 at 07:14; Status DC Senna/Docusate Sodium (Eliane-Colace) 1 tab BID PO Last administered on 08:45; Start 08/15/17 at 21:00 Magnesium Hydroxide (Milk Of Magnesia Liq) 30 ml Q12H PRN PO Mild constipation ; Start 08/15/17 at 15:00; Stop 08/18/17 at 07:14; Status DC Sennosides (Senokot) 17.2 mg Q12H PRN PO Moderate constipation; Start at 15:00 Bisacodyl (Dulcolax Supp) 10 mg DAILY PRN RECTAL SEVERE CONSITIPATION; Start 08/15/17 at 15:00 Lactulose (Lactulose Liq) 30 ml DAILY PRN PO SEVERE CONSITIPATION; Start 08/15 at 15:00 Labetalol HCl (Trandate Inj) 10 mg Q1HR PRN IV PUSH SBP>140, DBP>80, HR>65; Start 08/15/17 at 15:15; Stop 08/18/17 at 07:14; Status DC Hydralazine HCl (Apresoline Inj) 10 mg Q1HR PRN IV PUSH SBP>140, DBP>90 Last administered on 08/17/17 13:42; Start 08/15/17 at 15:15; Stop 08/18/17 at 07 :14; Status DC Nicardipine HCl 25 mg/Sodium Chloride 250 ml @ 50 mls/hr TITRATE PRN IV Blood pressure management; Start 08/15/17 at 15:30; Stop 08/18/17 at 07:14; Status DC Gadodiamide (Omniscan Pf Inj) 10 ml STK-MED ONCE IV PUSH Last administered on 08/15/17 17:36; Start 08/15/17 at 17:36; Stop 08/15/17 at 17:37; Status DC Sodium Chloride (NS Flush) 2 ml UNSCH PRN IV FLUSH FLUSH AFTER USING IV ACCESS ; Start 08/15/17 at 18:30; Stop 08/15/17 at 18:38; Status DC Miscellaneous Information 1 Q361D XX ; Start 08/15/17 at 18:30; Stop 08/15/17 at 18:37; Status DC Morphine Sulfate (Morphine Inj) 2 mg Q4H PRN IV PUSH breakthrough pain Last administered on 08/18/17 04:40; Start 08/16/17 at 09:00; Stop 08/18/17 at 15 :05; Status DC Levetriacetam (Keppra) 500 mg Q12HR PO Last administered on 08/25/17 08:45; Start 08/16/17 at 10:00 Famotidine (Pepcid Inj) 10 mg Q12HR IV PUSH Last administered on 08/16/17 20: 50; Start 08/16/17 at 21:00; Stop 08/17/17 at 07:42; Status DC Gadodiamide (Omniscan Pf Inj) 10 ml STK-MED ONCE IV PUSH ; Start 08/16/17 at 15 :24; Stop 08/16/17 at 15:25; Status DC Famotidine (Pepcid) 10 mg BID PO Last administered on 08/25/17 08:45; Start 08/17/17 at 09:00 Miscellaneous (Pill Splitter) 1 ea UNSCH PRN OTHER SEE LABEL COMMENTS; Start 08/17/17 at 08:00 Magnesium Hydroxide (Milk Of Harry Liq) 30 ml Q12H PO Last administered on 08/24/17 20:00; Start 08/18/17 at 08:00 Enalaprilat (Vasotec Inj) 1.25 mg Q8H PRN IV PUSH HTN; Start 08/18/17 at 07:15 Enoxaparin Sodium (Lovenox Inj) 40 mg Q24H SQ Last administered on 08/24/17 11 :46; Start 08/18/17 at 11:00 Clonidine (Catapres) 0.1 mg Q6H PRN PO SYSTOLIC BP GREATER THAN 175 Last administered on 08/20/17 00:53; Start 08/18/17 at 19:00 Potassium Bicarb/ Potassium Chloride (K-Lyte Cl Eff) 50 meq ONCE ONCE PO Last administered on 08/19/17 08:26; Start 08/19/17 at 07:00; Stop 08/19/17 at 07:13; Status DC Potassium Chloride (KCl) 40 meq ONCE ONCE PO Last administered on 08/21/17 11 :07; Start 08/21/17 at 08:15; Stop 08/21/17 at 08:16; Status DC Potassium Chloride (KCl) 20 meq ONCE ONCE PO Last administered on 08/21/17 15 :00; Start 08/21/17 at 15:00; Stop 08/21/17 at 15:01; Status DC A/P Problem List: (1[facility] and Plan 1. Status post fall with right temporal laceration status post six Sutures 2. Bladder mass/Left adrenal mass/Enlarged Lymph node in retroperitoneal area conservative management as per Urology follow outpatient for Cystoscopy 3. Traumatic Intracranial Hemorrhage. Questioned Intracranial mass/Underlying neurocognitive disorder. No intervention at this time- cleared by neurosurgery for discharge. 4.UTI- start on antibiotic- follow the UC. GI prophylaxis with Pepcid 10 mg BID DVT prophylaxis with SCDs. Lovenox 40 mg daily. Discharge Planning not ready for discharge today. Arlyn Zhu MD Aug 25, 2017 10:37
[2017-08-25] MEDS ORDERED: cefTRIAXone INJ 1,000 MG in SODIUM CHLORIDE 0.9% INJ 100 ML IV SCH (11:00)
--- NOTE | 2017-08-25 11:14 | HHI.NSPN ---
(Ponce QuintanaMonisha RAEP) History Chief Complaint: Unable to obtain due to patient's clinical condition. (Ponce Quintana) Interval History 08/15: The patient is a pleasant elderly lady who according to her family passed out and fell today, striking her head with positive loss of consciousness. She was initially Gokul Coma Score of 3 at the scene and brought in as a trauma alert. No seizure activity reported. No nausea or vomiting reported. She complains of headache. No complaint of neck or low back pain. No complaint of blurred vision or diplopia. 08/16: This morning the patient is awake and alert. She says she has no pain when asked how she is doing. She denies any other complaints. She spontaneously moves the extremities. Nursing reports that this morning she only knew her name. Nursing did say that when the patient's family came in she became brighter in her demeanor. When they left she returned to the same demeanor she had before their arrival. 08/18/2017: Patient stable on regular floor. Tolerating moderate by mouth diet. No complaint of headache. Persistent expressive speech deficit, word finding deficit. 08/19: The patient is seen ambulating with minimal contact by Nursing. Her gait appears steady. She had no complaints when seen. She is confused and does seem to have some difficulty finding words. 08/20: remains alert, confused. no changes clinically overnight. 08/21: doing well, alert, awake, follows commands. denies headaches, nausea, or vomiting. 08/22: This morning the patient is awake and alert when seen. She was moving from the bedside commode to the bed with standby assist. She denied any headache , dizziness, nausea, numbness, tingling, weakness or any other complaint. She remains confused when seen. 08/23: When seen this afternoon the patient is awake and sitting on the edge of the bed. She had no complaints whatsoever and says she is ready to go home. 08/25: The patient is awake in bed this morning when seen. She is noted to be moving all extremities spontaneously to a degree. Her only verbalisation is moaning except to state the day of her . She minimally responds to commands. (Ponce Quintana) System Review Comments Unable to obtain due to patient's clinical condition. (Ponce Quintana) Exam Results 08/23/17 08/23/17 08/24/17 08/24/17 08/25/17 08/25/17 05:59 17:59 05:59 17:59 05:59 17:59 Intake Total 120 ml 120 ml 240 ml 120 ml 60 ml Balance 120 ml 120 ml 240 ml 120 ml 60 ml Intake Oral 120 ml 120 ml 240 ml 120 ml 60 ml # Voids 2 2 3 2 2 # Bowel Movements 1 1 1 Vital Signs Date Time Temp Pulse Resp B/P (MAP) Pulse Ox O2 Delivery O2 Flow Rate FiO2 08/25/17 09:26 97.5 92 18 183/86 (118) 95 08/25/17 04:00 98.6 88 18 137/63 (87) 94 08/25/17 00:30 97.6 92 18 150/70 (96) 94 08/24/17 20:56 97.5 91 16 119/67 (84) 90 08/24/17 16:05 98.7 78 20 124/67 (86) 94 08/24/17 13:56 90 08/24/17 11:50 99.1 91 20 135/65 (88) 94 08/24/17 10:18 84 08/24/17 08:52 98.6 96 20 167/80 (109) 96 08/24/17 04:00 97.9 84 20 134/64 (87) 93 08/24/17 00:19 92 08/24/17 00:00 97.9 88 20 166/85 (112) 95 08/23/17 20:00 98.1 93 20 127/64 (85) 94 08/23/17 17:53 87 08/23/17 16:50 98.4 85 20 135/61 (85) 96 08/23/17 12:26 97.9 81 18 105/61 (76) 96 08/23/17 08:55 97.6 79 18 146/67 (93) 95 08/23/17 04:30 97.4 86 17 155/69 (97) 93 08/23/17 00:09 97.6 85 17 112/58 (76) 95 08/22/17 20:30 97.6 82 17 96/51 (66) 95 08/22/17 16:44 98.2 108 20 128/63 (84) 97 08/22/17 12:32 98.4 98 18 147/73 (97) 95 (Ponce Quintana) Physical Examination GENERAL: Awake and responds to commands but doesn't really interact, affect depressed, no evident distress. HEENT: Right forehead laceration well approximated w/sutures, no drainage, erythema or streaking. Right periorbital ecchymosis resolving. PERRLA 3 mm and slightly sluggish in reaction. MUSCULOSKELETAL: Moves all extremities spontaneously, NTTP, no evident deformity or clubbing. NEUROLOGICAL: Awake but with decreased interaction & response, GCS 12 (E4 V2 M6) Moans intermittently and did state date of only. Follows a couple simple commands w/coaxing. Unable to assess sensation. 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 (Ponce Quintana) Lab, Micro, Other Results Laboratory Tests Test 08/24/17 23:00 Urine Color YELLOW Urine Turbidity HAZY Urine pH 6.0 Urine Specific [place] 1.019 Urine Protein 30 mg/dL Urine Glucose (UA) NEG mg/dL Urine Ketones NEG mg/dL Urine Occult Blood MOD Urine Nitrite NEG Urine Bilirubin NEG Urine Urobilinogen LESS THAN 2.0 MG/DL Urine Leukocyte Esterase LARGE Urine RBC 136 /hpf Urine WBC 91 /hpf Urine WBC Clumps MANY Urine Squamous Epithelial Cells <1 /hpf Urine Bacteria FEW /hpf Urine Mucus FEW /lpf Microscopic Urinalysis Comment CATH-CULTURE IND (Ponce Quintana) Medical Decision Making Impression and Plan Impression: 1. Traumatic brain injury. No significant mass effect on CT scan 2. Forehead lacerations Patient w/decreased neurological response when seen. CT brain demonstrates resolution of the IVH w/stable chronic subdural hygromas bilaterally. There is 1 mm subfalcine herniation on the right. No identified mass on MRI brain . UA from indicative of a UTI which could depress neurological/mental status. Physical & Occupational Therapy recommend further inpatient rehab. Plan: Discussed plan of care with patient & Nursing. Primary management per Hospitalist. Neuro checks. Stat CT brain for any worsening of neuro status. Mobilise patient w/assistance. PT/OT eval & tx. At this time recommend holding discharge until patient's neurological status improves. Will do a stat CT brain to r/o any new bleed. ADDENDUM on at 1307: I have independently reviewed the CT brain images completed today and compared them with the CT brain from . The images demonstrated stable subdural hydromas w/o any new findings. BET (Ponce Quintana) Attending Statement The exam, history, and the medical decision-making described in the above note were completed with the assistance of the mid-level provider. I reviewed and agree with the findings presented. I attest that I had a [id number] encounter with the patient on the same day, and personally performed and documented my assessment and findings in the medical record. (Trevin Spring MD) Ponce Quintana Aug 25, 2017 11:14 Trevin Spirng MD Aug 28, 2017 20:20
--- NOTE | 2017-08-25 12:27 | RADRPT ---
EXAM DATE/TIME: 08/25/2017 12:15 [facility] COMPARISON: CT BRAIN W/O CONTRAST, August 22, 2017, 20:04. INDICATIONS : Altered mental status RADIATION DOSE: 26.01 CTDIvol (mGy) MEDICAL HISTORY : Cardiovascular disease. Hypertension. SURGICAL HISTORY : None. ENCOUNTER: Initial ACUITY: 1 day PAIN SCALE: 0/10 LOCATION: cranial TECHNIQUE: Multiple contiguous axial images were obtained of the head. Using automated exposure control and adj ustment of the mA and/or kV according to patient size, radiation dose was kept as low as reasonably a chievable to obtain optimal diagnostic quality images. DICOM format image data is available electro nically for review and comparison. FINDINGS: CEREBRUM: Bilateral subdural fluid collections again seen of decreased density. No active hemorrhage noted. The se are unchanged measuring approximately 9 mm on the left and 4 mm on the right. Mild cerebral atroph y. There is a low attenuation is seen throughout the white matter. The ventricles are normal for age. No evidence of midline shift, mass lesion, hemorrhage or acute infarction. No extra-axial fluid co llections are seen. POSTERIOR FOSSA: The cerebellum and brainstem are intact. The 4th ventricle is midline. The cerebellopontine angle i s unremarkable. EXTRACRANIAL: The visualized portion of the orbits is intact. SKULL: The calvaria is intact. No evidence of skull fracture. CONCLUSION: 1. Bilateral subdural fluid collections likely hygromas and unchanged. 2. Cerebral atrophy and chronic ischemic small vessel vasculopathy. Ariel Coronado MD on August 25, 2017 at 12:24 Board Certified Radiologist. This report was verified electronically.
[2017-08-25] MEDS: ENOXAPARIN SODIUM 40 MG/0.4 ML SYRINGE SQ SCH (13:40)
[2017-08-25] MEDS: cefTRIAXone INJ 1,000 MG in SODIUM CHLORIDE 0.9% INJ 100 ML IV SCH (15:30)
[2017-08-25] MEDS: SODIUM CHLORIDE 0.9% FLUSH 10 ML FLUSH IV FLUSH SCH ×2 (15:37→21:24)
[2017-08-25] MEDS: MORPHINE SULFATE 4 MG/ML INJ IV PUSH PRN (16:42)
[2017-08-25] MEDS: levETIRAcetam INJ 500 MG in SODIUM CHLORIDE 0.9% INJ 100 ML IV SCH (21:24)
[2017-08-26 01:00] VITALS: BP 136/63; PULSE 97; RESP 18; TEMP 97.6; O2SAT 90
[2017-08-26] MEDS: MORPHINE SULFATE 4 MG/ML INJ IV PUSH PRN (03:27)
[2017-08-26 04:00] VITALS: BP 157/71; PULSE 91; RESP 18; TEMP 97.5; O2SAT 98
[2017-08-26 08:14] VITALS: BP 156/89; PULSE 101; RESP 20; TEMP 97.6; O2SAT 97
[2017-08-26] MEDS: DOCUSATE SODIUM 50 MG/SENNA 8.6 MG TAB PO SCH ×2 (08:58→20:41)
[2017-08-26] MEDS: FAMOTIDINE 20 MG TAB PO SCH ×2 (08:59→20:41)
[2017-08-26] MEDS: SODIUM CHLORIDE 0.9% FLUSH 10 ML FLUSH IV FLUSH SCH ×2 (09:00→20:42)
[2017-08-26] MEDS: levETIRAcetam INJ 500 MG in SODIUM CHLORIDE 0.9% INJ 100 ML IV SCH ×2 (09:00→20:41)
--- NOTE | 2017-08-26 09:45 | HHI.PR ---
Subjective Remarks in no acute distress. more alert and responsive today. no fever. Objective Vitals Vital Signs Date Time Temp Pulse Resp B/P (MAP) Pulse Ox O2 Delivery O2 Flow Rate FiO2 08/26/17 08:14 97.6 101 20 156/89 (111) 97 08/26/17 04:00 97.5 91 18 157/71 (99) 98 08/26/17 01:00 97.6 97 18 136/63 (87) 90 08/25/17 23:00 106 08/25/17 20:00 98.1 106 18 119/67 (84) 88 08/25/17 16:00 114 08/25/17 15:20 97.3 109 20 151/62 (91) 94 08/25/17 13:39 98.2 100 20 165/68 (100) 96 08/25/17 12:00 100 I/O 08/25/17 08/25/17 08/25/17 08/26/17 08/26/17 08/26/17 07:00 15:00 23:00 07:00 15:00 23:00 Intake Total 180 ml 120 ml 0 ml Balance 180 ml 120 ml 0 ml Intake Oral 180 ml 120 ml 0 ml # Voids 3 4 6 # Bowel Movements 1 1 1 Result Diagram: 08/22/17 0654 Imaging Last Impressions Head CT 08/25/17 1114 Signed Impressions: Service Date/Time: August 12:15 - CONCLUSION: 1. Bilateral subdural fluid collections likely hygromas and unchanged. 2. Cerebral atrophy and chronic ischemic small vessel vasculopathy. Ariel Coronado MD Pelvis MRI 08/16/17 0000 Signed Impressions: Service Date/Time: Wednesday, August 16, 2017 13:56 - CONCLUSION: 1. Mass lesion measuring 3.8 x 5.2 x 2.9 cm centered left para midline in the bladder trigone and extending down into the vagina. I believe the mass actually originates from the trigone of the bladder but I cannot completely exclude a vaginal mass eroding into the base of the bladder. This may be further clarified with direct pelvic visualization 2. No pelvic adenopathy identified. There is a prominent retroperitoneal lymph node in the aortic chain slightly more cephalad as seen on the prior CT Finn Aguillon MD Pelvis X-Ray 08/15/17 1230 Signed Impressions: Service Date/Time: Tuesday, August 15, 2017 12:26 - CONCLUSION: No acute disease. Chinedu Black Jr., MD Chest X-Ray 08/15/171229 Signed Impressions: Service Date/Time: Tuesday, August 15, 2017 12:26 - CONCLUSION: Negative for pneumothorax. Negative for fracture Mathew Collins MD FACR Chest CT 08/15/170 Signed Impressions: Service Date/Time: Tuesday, August 15, 2017 12:33 - CONCLUSION: No acute disease. Chinedu Black Jr., MD Cervical Spine CT 08/15/170 Signed Impressions: Service Date/Time: Tuesday, August 15, 2017 12:38 - CONCLUSION: 1. No fracture or dislocation. 2. Degenerative changes. 3. Calcified plaque involving the carotid arteries bilaterally. Chinedu Black Jr., MD Brain MRI 08/15/17 0000 Signed Impressions: Service Date/Time: Tuesday, August 15, 2017 17:14 - CONCLUSION: 1. MR findings concerning for scattered parenchymal hemorrhages or, possibly, diffuse axonal injury depending on the patient's clinical condition. These are most prominent in the subcortical distribution of the left cerebral hemisphere. 2. 9 mm subdural hygroma on the left. There may be small intraventricular hemorrhages as well. 3. Chronic changes with moderately severe periventricular small vessel ischemic demyelination. Mild ventricular prominence could represent central atrophy versus NPH in the appropriate clinical setting. Finn Aguillon MD Abdomen/Pelvis CT 08/15/17 0000 Signed Impressions: Service Date/Time: Tuesday, August 15, 2017 12:44 - CONCLUSION: 1. No signs of acute trauma. 2. Retroperitoneal adenopathy as well as a left adrenal gland mass. This is concerning for metastatic disease. There is a heterogeneous mass associated with the trigone of urinary bladder. This is worrisome for a primary lesion. MRI of the pelvis can be utilized to further evaluate this. Chinedu Black Jr., MD Abdomen MRI 08/15/17 0000 Signed Impressions: Service Date/Time: Tuesday, August 15, 2017 17:14 - CONCLUSION: Imaging characteristics of the 2.3 cm left adrenal mass lesion are concerning for a neoplastic process. Finn Aguillon MD ADDENDUM: Also noted is a 2.1 cm isolated but prominent retroperitoneal periaortic lymph node at the level of the renal veins which was identified on prior CT. This is concerning for a metastatic foci. Finn Aguillon MD Objective Remarks GENERAL: This is a well-nourished, well-developed patient, in no apparent distress. CARDIOVASCULAR: Regular rate and regular rhythm without murmurs, gallops, or rubs. RESPIRATORY: Clear to auscultation. Breath sounds equal bilaterally. No wheezes , rales, or rhonchi. GASTROINTESTINAL: Abdomen soft, non-tender, nondistended. Normal, active bowel sounds MUSCULOSKELETAL: Extremities without clubbing, cyanosis, or edema. NEURO: awake and alert. Procedures none Medications and IVs Current Medications Diphtheria/ Tetanus/Acell Pertussis (Boostrix Inj) 0.5 ml STK-MED ONCE IM ; Start 08/15/17 at 12:35; Stop 08/15/17 at 12:36; Status DC Iohexol (Omnipaque 350 Inj) 71 ml STK-MED ONCE IVCONTRAST Last administered on 08/15/17 12:26; Start 08/15/17 at 12:26; Stop 08/15/17 at 12:56; Status DC Sodium Chloride 1,000 ml @ 84 mls/hr [id number] IV Last administered on 04:43; Start 08/15/17 at 14:56; Stop 08/18/17 at 07:14; Status DC Sodium Chloride (NS Flush) 2 ml UNSCH PRN IV FLUSH FLUSH AFTER USING IV ACCESS ; Start 08/15/17 at 15:00 Sodium Chloride (NS Flush) 2 ml BID IV FLUSH Last administered on 08/26/17 09: 00; Start 08/15/17 at 21:00 Acetaminophen (Tylenol) 650 mg Q6H PRN PO FEVER >100F Last administered on 20:50; Start 08/15/17 at 15:00 Acetaminophen/ Hydrocodone Bitart ([place] 5-325 Mg) 1 tab Q4H PRN PO pain 3-10 Last administered on 08/25/17 04:15; Start 08/15/17 at 15:00 Morphine Sulfate (Morphine Inj) 2 mg Q2H PRN IV PUSH PAIN SCALE 6 TO 10 Last administered on 08/16/17 04:40; Start 08/15/17 at 15:00; Stop 08/16/17 at 08 :27; Status DC Famotidine (Pepcid Inj) 20 mg Q12HR IV PUSH Last administered on 08/16/17 10: 26; Start 08/15/17 at 21:00; Stop 08/16/17 at 14:57; Status DC Ondansetron HCl (Zofran Inj) 4 mg Q6H PRN IV PUSH NAUSEA OR VOMITING Last administered on 08/15/17 16:46; Start 08/15/17 at 15:00 Albuterol Sulfate (Albuterol Neb) 2.5 mg Q2HR NEB PRN INH SOB/WHEEZING; Start 08/15/17 at 15:00 Miscellaneous Information 1 Q361D XX ; Start 08/15/17 at 15:00; Stop 08/18/17 at 07:14; Status DC Chlorhexidine Gluconate (Chlorhexidine 2% Cloth) 3 pack Taper DAILY@04 TOP ; Start 08/16/17 at 04:00; Stop 08/18/17 at 07:14; Status DC Chlorhexidine Gluconate (Chlorhexidine 2% Cloth) 3 pack UNSCH PRN TOP HYGIENIC CARE; Start 08/15/17 at 15:00; Stop 08/18/17 at 07:14; Status DC Senna/Docusate Sodium (Eliane-Colace) 1 tab BID PO Last administered on 23:11; Start 08/15/17 at 21:00 Magnesium Hydroxide (Milk Of Magnesia Liq) 30 ml Q12H PRN PO Mild constipation ; Start 08/15/17 at 15:00; Stop 08/18/17 at 07:14; Status DC Sennosides (Senokot) 17.2 mg Q12H PRN PO Moderate constipation; Start at 15:00 Bisacodyl (Dulcolax Supp) 10 mg DAILY PRN RECTAL SEVERE CONSITIPATION; Start 08/15/17 at 15:00 Lactulose (Lactulose Liq) 30 ml DAILY PRN PO SEVERE CONSITIPATION; Start 08/15 at 15:00 Labetalol HCl (Trandate Inj) 10 mg Q1HR PRN IV PUSH SBP>140, DBP>80, HR>65; Start 08/15/17 at 15:15; Stop 08/18/17 at 07:14; Status DC Hydralazine HCl (Apresoline Inj) 10 mg Q1HR PRN IV PUSH SBP>140, DBP>90 Last administered on 08/17/17 13:42; Start 08/15/17 at 15:15; Stop 08/18/17 at 07 :14; Status DC Nicardipine HCl 25 mg/Sodium Chloride 250 ml @ 50 mls/hr TITRATE PRN IV Blood pressure management; Start 08/15/17 at 15:30; Stop 08/18/17 at 07:14; Status DC Gadodiamide (Omniscan Pf Inj) 10 ml STK-MED ONCE IV PUSH Last administered on 08/15/17 17:36; Start 08/15/17 at 17:36; Stop 08/15/17 at 17:37; Status DC Sodium Chloride (NS Flush) 2 ml UNSCH PRN IV FLUSH FLUSH AFTER USING IV ACCESS ; Start 08/15/17 at 18:30; Stop 08/15/17 at 18:38; Status DC Miscellaneous Information 1 Q361D XX ; Start 08/15/17 at 18:30; Stop 08/15/17 at 18:37; Status DC Morphine Sulfate (Morphine Inj) 2 mg Q4H PRN IV PUSH breakthrough pain Last administered on 08/18/17 04:40; Start 08/16/17 at 09:00; Stop 08/18/17 at 15 :05; Status DC Levetriacetam (Keppra) 500 mg Q12HR PO Last administered on 08/24/17 23:05; Start 08/16/17 at 10:00; Status Future Hold Famotidine (Pepcid Inj) 10 mg Q12HR IV PUSH Last administered on 08/16/17 20: 50; Start 08/16/17 at 21:00; Stop 08/17/17 at 07:42; Status DC Gadodiamide (Omniscan Pf Inj) 10 ml STK-MED ONCE IV PUSH ; Start 08/16/17 at 15 :24; Stop 08/16/17 at 15:25; Status DC Famotidine (Pepcid) 10 mg BID PO Last administered on 08/26/17 08:59; Start 08/17/17 at 09:00 Miscellaneous (Pill Splitter) 1 ea UNSCH PRN OTHER SEE LABEL COMMENTS; Start 08/17/17 at 08:00 Magnesium Hydroxide (Milk Of Magnpo Liq) 30 ml Q12H PO Last administered on 08/24/17 20:00; Start 08/18/17 at 08:00 Enalaprilat (Vasotec Inj) 1.25 mg Q8H PRN IV PUSH HTN; Start 08/18/17 at 07:15 Enoxaparin Sodium (Lovenox Inj) 40 mg Q24H SQ Last administered on 08/25/17 13 :40; Start 08/18/17 at 11:00 Clonidine (Catapres) 0.1 mg Q6H PRN PO SYSTOLIC BP GREATER THAN 175 Last administered on 08/20/17 00:53; Start 08/18/17 at 19:00 Potassium Bicarb/ Potassium Chloride (K-Lyte Cl Eff) 50 meq ONCE ONCE PO Last administered on 08/19/17 08:26; Start 08/19/17 at 07:00; Stop 08/19/17 at 07:13; Status DC Potassium Chloride (KCl) 40 meq ONCE ONCE PO Last administered on 08/21/17 11 :07; Start 08/21/17 at 08:15; Stop 08/21/17 at 08:16; Status DC Potassium Chloride (KCl) 20 meq ONCE ONCE PO Last administered on 08/21/17 15 :00; Start 08/21/17 at 15:00; Stop 08/21/17 at 15:01; Status DC Ceftriaxone Sodium 1000 mg/ Sodium Chloride 100 ml @ 200 mls/hr Q24H IV ; Start 08/25/17 at 11:00; Stop 08/25/17 at 14:15; Status DC Ceftriaxone Sodium 1000 mg/ Sodium Chloride 100 ml @ 200 mls/hr Q24H IV Last administered on 08/25/17 15:30; Start 08/25/17 at 15:00 Morphine Sulfate (Morphine Inj) 2 mg Q6HR PRN IV PUSH PAIN 3-10-SEE COMMENT Last administered on 08/26/17 03:27; Start 08/25/17 at 16:15 Levetriacetam 500 mg/Sodium Chloride 105 ml @ 420 mls/hr Q12HR IV Last administered on 08/26/17 09:00; Start 08/25/17 at 21:00 A/P Problem List[facility] 1. Status post fall with right temporal laceration status post six Sutures 2. Bladder mass/Left adrenal mass/Enlarged Lymph node in retroperitoneal area conservative management as per Urology follow outpatient for Cystoscopy 3. Traumatic Intracranial Hemorrhage. Questioned Intracranial mass/Underlying neurocognitive disorder. No intervention at this time- repeated CT head yesterday; stable- 4.UTI- started on antibiotic- follow the UC. GI prophylaxis with Pepcid 10 mg BID DVT prophylaxis with SCDs. Lovenox 40 mg daily. Discharge Planning possible discharge over the weekend if remains stable with improved mental status. Arlyn Zhu MD Aug 26, 2017 09:45
[2017-08-26 11:31] VITALS: BP 138/63; PULSE 95; RESP 20; TEMP 98; O2SAT 94
[2017-08-26] MEDS: ENOXAPARIN SODIUM 40 MG/0.4 ML SYRINGE SQ SCH (12:06)
--- NOTE | 2017-08-26 14:13 | HHI.NSPN ---
History Chief Complaint: Unable to obtain due to patient's clinical condition. Interval History 08/15: The patient is a pleasant elderly lady who according to her family passed out and fell today, striking her head with positive loss of consciousness. She was initially Gokul Coma Score of 3 at the scene and brought in as a trauma alert. No seizure activity reported. No nausea or vomiting reported. She complains of headache. No complaint of neck or low back pain. No complaint of blurred vision or diplopia. 08/16: This morning the patient is awake and alert. She says she has no pain when asked how she is doing. She denies any other complaints. She spontaneously moves the extremities. Nursing reports that this morning she only knew her name. Nursing did say that when the patient's family came in she became brighter in her demeanor. When they left she returned to the same demeanor she had before their arrival. 08/18/2017: Patient stable on regular floor. Tolerating moderate by mouth diet. No complaint of headache. Persistent expressive speech deficit, word finding deficit. 08/19: The patient is seen ambulating with minimal contact by Nursing. Her gait appears steady. She had no complaints when seen. She is confused and does seem to have some difficulty finding words. 08/20: remains alert, confused. no changes clinically overnight. 08/21: doing well, alert, awake, follows commands. denies headaches, nausea, or vomiting. 08/22: This morning the patient is awake and alert when seen. She was moving from the bedside commode to the bed with standby assist. She denied any headache , dizziness, nausea, numbness, tingling, weakness or any other complaint. She remains confused when seen. 08/23: When seen this afternoon the patient is awake and sitting on the edge of the bed. She had no complaints whatsoever and says she is ready to go home. 08/25: The patient is awake in bed this morning when seen. She is noted to be moving all extremities spontaneously to a degree. Her only verbalisation is moaning except to state the day of her . She minimally responds to commands. 08/26: Patient awake in bed. She denies any headaches. No acute events overnight. Exam Results Vital Signs Date Time Temp Pulse Resp B/P (MAP) Pulse Ox O2 Delivery O2 Flow Rate FiO2 08/26/17 11:31 98.0 95 20 138/63 (88) 94 Intake and Output 08/26/17 08/26/17 08/27/17 08:00 16:00 00:00 Intake Total 360 ml Balance 360 ml Physical Examination GEN: Patient awake and alert. Speech is clear, appropriate and non-aphasic. She is oriented to person and time. She can name her . HEENT: Normocephalic. Ecchymosis around the right eye. There is a 4 cm eschar above the right eyebrow. CV: Regular rate and rhythm PULM: Clear to auscultation bilaterally GI: soft, nondistended, normoactive bowel sounds Extremities: No edema NEURO: CNII: Pupils OS 3+/OD 3+. Unable to assess visual field CNIII/IV/: EOMI bilaterally CNVII: Face symmetric CNVIII: Hearing intact to finger rub bilaterally CNX: Uvula elevates in the midline CNXI: Shoulder shrug intact CNXII: Tongue midline Motor strength testing (L/R): Elbow flexion 5/5 Elbow extension 5/5 Wrist extension 5/5 Hand solid waste manager 5/5 Hand intrinsics 5/5 Hip flexion Knee extension Knee flexion Ankle dorsiflexion 5/5 Ankle plantarflexion 5/5 Great toe extension DTR: No clonus Sensory: Intact to light touch throughout Gait: Unable to assess Lab, Micro, Other Results Allergies Coded Allergies Type Severity Reaction Last Updated Verified Sulfa (Sulfonamide Antibiotics) Allergy Unknown 08/15/17 Yes Recent Impressions Head CT 08/25/17 1114 Signed Impressions: Service Date/Time: August 12:15 - CONCLUSION: 1. Bilateral subdural fluid collections likely hygromas and unchanged. 2. Cerebral atrophy and chronic ischemic small vessel vasculopathy. Ariel Coronado MD 08/24/17 08/24/17 08/25/17 08/25/17 08/26/17 08/26/17 06:00 18:00 06:00 18:00 06:00 18:00 Intake Total 240 ml 180 ml 120 ml 0 ml 360 ml Balance 240 ml 180 ml 120 ml 0 ml 360 ml Intake Oral 240 ml 180 ml 120 ml 0 ml 360 ml # Voids 3 4 4 6 5 # Bowel Movements 1 2 1 1 0 Laboratory Tests Test 08/24/17 23:00 Urine Color YELLOW Urine Turbidity HAZY Urine pH 6.0 Urine Specific [place] 1.019 Urine Protein 30 mg/dL Urine Glucose (UA) NEG mg/dL Urine Ketones NEG mg/dL Urine Occult Blood MOD Urine Nitrite NEG Urine Bilirubin NEG Urine Urobilinogen LESS THAN 2.0 MG/DL Urine Leukocyte Esterase LARGE Urine RBC 136 /hpf Urine WBC 91 /hpf Urine WBC Clumps MANY Urine Squamous Epithelial Cells <1 /hpf Urine Bacteria FEW /hpf Urine Mucus FEW /lpf Microscopic Urinalysis Comment CATH-CULTURE IND Orders Procedure Category Date Status Time (Hub Use Only)Inp Phy CONS 08/24/17 Transmitted Cons/Ref Bladder Scan KATHY 08/24/17 In Process 19:49 Urinalysis - C+S If LAB 08/25/17 Complete Indicated 04:37 Specimen To Be KATHY 08/25/17 In Process Collected 04:37 Urine Culture ROYER 08/24/17 In Process 23:00 Ceftriaxone Inj MED 08/25/17 Complete (Rocephin Inj) 11:00 Ct Brain W/O Iv RADCT 08/25/17 Resulted Contrast(Rout) 11:14 Vascular Access Team [facility] 08/25/17 Complete Consult/P 12:34 Vascular Poc IMGUS 08/25/17 Taken Ultrasound Ceftriaxone Inj MED 08/25/17 In Process (Rocephin Inj) 15:00 Morphine Inj MED 08/25/17 In Process (Morphine Inj) 16:15 Levetiracetam Inj MED 08/25/17 In Process (Keppra Inj) 21:00 Vital Signs Date Time Temp Pulse Resp B/P (MAP) Pulse Ox O2 Delivery O2 Flow Rate FiO2 08/26/17 11:31 98.0 95 20 138/63 (88) 94 08/26/17 08:14 97.6 101 20 156/89 (111) 97 08/26/17 04:00 97.5 91 18 157/71 (99) 98 08/26/17 01:00 97.6 97 18 136/63 (87) 90 08/25/17 23:00 106 08/25/17 20:00 98.1 106 18 119/67 (84) 88 08/25/17 16:00 114 08/25/17 15:20 97.3 109 20 151/62 (91) 94 08/25/17 13:39 98.2 100 20 165/68 (100) 96 08/25/17 12:00 100 08/25/17 09:26 97.5 92 18 183/86 (118) 95 08/25/17 08:00 71 08/25/17 04:00 98.6 88 18 137/63 (87) 94 08/25/17 00:30 97.6 92 18 150/70 (96) 94 08/24/17 20:56 97.5 91 16 119/67 (84) 90 08/24/17 16:05 98.7 78 20 124/67 (86) 94 08/24/17 13:56 90 08/24/17 11:50 99.1 91 20 135/65 (88) 94 08/24/17 10:18 84 08/24/17 08:52 98.6 96 20 167/80 (109) 96 08/24/17 04:00 97.9 84 20 134/64 (87) 93 08/24/17 00:19 92 08/24/17 00:00 97.9 88 20 166/85 (112) 95 08/23/17 20:00 98.1 93 20 127/64 (85) 94 08/23/17 17:53 87 08/23/17 16:50 98.4 85 20 135/61 (85) 96 Medical Decision Making Impression and Plan Ms Sanchez suffered a TBI from a fall. She has a small amount of intraventricular hemorrhage but has resolved. Neuro: Her neurologic function has improved. We suspect that the altered mental status is due to the recent UTI. Her head CT show stable subdural fluid collections with no acute hemorrhage. CV: Normotensive Pulm: Good O2 saturation GI/Nutrition: Mild malnutrition secondary to poor mental status. Encourage oral intake UTI: UA consistent with infection. Culture pending. Dispo: Mental status has improved. Cleared for discharge once antibiotics for UTI has been finalized. Epi Stephens MD Aug 26, 2017 14:13
[2017-08-26] MEDS: cefTRIAXone INJ 1,000 MG in SODIUM CHLORIDE 0.9% INJ 100 ML IV SCH (16:06)
[2017-08-26 16:24] VITALS: BP 183/84; PULSE 104; RESP 20; TEMP 97.9; O2SAT 95
[2017-08-26 20:00] VITALS: PULSE 90
[2017-08-26] MEDS: MAGNESIUM HYDROXIDE SUSP 30 ML CUP PO SCH (20:40)
[2017-08-27] VITALS (9 sets, daily range): BP systolic 123–157; BP diastolic 59–70; PULSE 53–101; RESP 16–18; TEMP 97–98.9; O2SAT 93–95
[2017-08-27] MEDS: MAGNESIUM HYDROXIDE SUSP 30 ML CUP PO SCH ×2 (08:00→21:01)
[2017-08-27] MEDS: DOCUSATE SODIUM 50 MG/SENNA 8.6 MG TAB PO SCH ×2 (08:55→21:01)
[2017-08-27] MEDS: FAMOTIDINE 20 MG TAB PO SCH ×2 (08:55→21:02)
[2017-08-27] MEDS: SODIUM CHLORIDE 0.9% FLUSH 10 ML FLUSH IV FLUSH SCH ×2 (08:55→21:02)
[2017-08-27] MEDS: levETIRAcetam INJ 500 MG in SODIUM CHLORIDE 0.9% INJ 100 ML IV SCH ×2 (08:56→21:01)
--- NOTE | 2017-08-27 09:18 | HHI.PR ---
Subjective Remarks in no acute distress. awake and alert. no fever. denies pain. Objective Vitals Vital Signs Date Time Temp Pulse Resp B/P (MAP) Pulse Ox O2 Delivery O2 Flow Rate FiO2 08/27/17 08:21 98.6 96 16 128/68 (88) 93 08/27/17 04:00 97.0 53 18 124/70 (88) 95 08/27/17 00:00 98.9 93 18 157/67 (97) 93 08/26/17 20:00 90 08/26/17 16:24 97.9 104 20 183/84 (117) 95 08/26/17 11:31 98.0 95 20 138/63 (88) 94 I/O 08/26/17 08/26/17 08/26/17 08/27/17 08/27/17 08/27/17 07:00 15:00 23:00 07:00 15:00 23:00 Intake Total 360 ml Balance 360 ml Intake Oral 360 ml # Voids 6 5 6 # Bowel Movements 1 0 1 Imaging Last Impressions Head CT 08/25/17 1114 Signed Impressions: Service Date/Time: August 12:15 - CONCLUSION: 1. Bilateral subdural fluid collections likely hygromas and unchanged. 2. Cerebral atrophy and chronic ischemic small vessel vasculopathy. Ariel Coronado MD Pelvis MRI 08/16/17 0000 Signed Impressions: Service Date/Time: Wednesday, August 16, 2017 13:56 - CONCLUSION: 1. Mass lesion measuring 3.8 x 5.2 x 2.9 cm centered left para midline in the bladder trigone and extending down into the vagina. I believe the mass actually originates from the trigone of the bladder but I cannot completely exclude a vaginal mass eroding into the base of the bladder. This may be further clarified with direct pelvic visualization 2. No pelvic adenopathy identified. There is a prominent retroperitoneal lymph node in the aortic chain slightly more cephalad as seen on the prior CT Finn Aguillon MD Pelvis X-Ray 08/15/17 1230 Signed Impressions: Service Date/Time: Tuesday, August 15, 2017 12:26 - CONCLUSION: No acute disease. Chinedu Black Jr., MD Chest X-Ray 08/15/17 1230 Signed Impressions: Service Date/Time: Tuesday, August 15, 2017 12:26 - CONCLUSION: Negative for pneumothorax. Negative for fracture Mathew Collins MD FACR Chest CT 08/15/17 1230 Signed Impressions: Service Date/Time: Tuesday, August 15, 2017 12:33 - CONCLUSION: No acute disease. Chinedu Black Jr., MD Cervical Spine CT 08/15/17 1230 Signed Impressions: Service Date/Time: Tuesday, August 15, 2017 12:38 - CONCLUSION: 1. No fracture or dislocation. 2. Degenerative changes. 3. Calcified plaque involving the carotid arteries bilaterally. Chinedu Black Jr., MD Brain MRI 08/15/17 0000 Signed Impressions: Service Date/Time: Tuesday, August 15, 2017 17:14 - CONCLUSION: 1. MR findings concerning for scattered parenchymal hemorrhages or, possibly, diffuse axonal injury depending on the patient's clinical condition. These are most prominent in the subcortical distribution of the left cerebral hemisphere. 2. 9 mm subdural hygroma on the left. There may be small intraventricular hemorrhages as well. 3. Chronic changes with moderately severe periventricular small vessel ischemic demyelination. Mild ventricular prominence could represent central atrophy versus NPH in the appropriate clinical setting. Finn Aguillon MD Abdomen/Pelvis CT 08/15/17 0000 Signed Impressions: Service Date/Time: Tuesday, August 15, 2017 12:44 - CONCLUSION: 1. No signs of acute trauma. 2. Retroperitoneal adenopathy as well as a left adrenal gland mass. This is concerning for metastatic disease. There is a heterogeneous mass associated with the trigone of urinary bladder. This is worrisome for a primary lesion. MRI of the pelvis can be utilized to further evaluate this. Chinedu Black Jr., MD Abdomen MRI 08/15/17 0000 Signed Impressions: Service Date/Time: Tuesday, August 15, 2017 17:14 - CONCLUSION: Imaging characteristics of the 2.3 cm left adrenal mass lesion are concerning for a neoplastic process. Finn Aguillon MD ADDENDUM: Also noted is a 2.1 cm isolated but prominent retroperitoneal periaortic lymph node at the level of the renal veins which was identified on prior CT. This is concerning for a metastatic foci. Finn Aguillon MD Objective Remarks GENERAL: This is a well-nourished, well-developed patient, in no apparent distress. CARDIOVASCULAR: Regular rate and regular rhythm without murmurs, gallops, or rubs. RESPIRATORY: Clear to auscultation. Breath sounds equal bilaterally. No wheezes , rales, or rhonchi. GASTROINTESTINAL: Abdomen soft, non-tender, nondistended. Normal, active bowel sounds MUSCULOSKELETAL: Extremities without clubbing, cyanosis, or edema. NEURO: awake and alert.mentation seems to be improving. Procedures none Medications and IVs Current Medications Diphtheria/ Tetanus/Acell Pertussis (Boostrix Inj) 0.5 ml STK-MED ONCE IM ; Start 08/15/17 at 12:35; Stop 08/15/17 at 12:36; Status DC Iohexol (Omnipaque 350 Inj) 71 ml STK-MED ONCE IVCONTRAST Last administered on 08/15/17 12:26; Start 08/15/17 at 12:26; Stop 08/15/17 at 12:56; Status DC Sodium Chloride 1,000 ml @ 84 mls/hr [id number] IV Last administered on 04:43; Start 08/15/17 at 14:56; Stop 08/18/17 at 07:14; Status DC Sodium Chloride (NS Flush) 2 ml UNSCH PRN IV FLUSH FLUSH AFTER USING IV ACCESS ; Start 08/15/17 at 15:00 Sodium Chloride (NS Flush) 2 ml BID IV FLUSH Last administered on 08/27/17 08: 55; Start 08/15/17 at 21:00 Acetaminophen (Tylenol) 650 mg Q6H PRN PO FEVER >100F Last administered on 20:50; Start 08/15/17 at 15:00 Acetaminophen/ Hydrocodone Bitart (Williams 5-325 Mg) 1 tab Q4H PRN PO pain 3-10 Last administered on 08/25/17 04:15; Start 08/15/17 at 15:00 Morphine Sulfate (Morphine Inj) 2 mg Q2H PRN IV PUSH PAIN SCALE 6 TO 10 Last administered on 08/16/17 04:40; Start 08/15/17 at 15:00; Stop 08/16/17 at 08 :27; Status DC Famotidine (Pepcid Inj) 20 mg Q12HR IV PUSH Last administered on 08/16/17 10: 26; Start 08/15/17 at 21:00; Stop 08/16/17 at 14:57; Status DC Ondansetron HCl (Zofran Inj) 4 mg Q6H PRN IV PUSH NAUSEA OR VOMITING Last administered on 08/15/17 16:46; Start 08/15/17 at 15:00 Albuterol Sulfate (Albuterol Neb) 2.5 mg Q2HR NEB PRN INH SOB/WHEEZING; Start 08/15/17 at 15:00 Miscellaneous Information 1 Q361D XX ; Start 08/15/17 at 15:00; Stop 08/18/17 at 07:14; Status DC Chlorhexidine Gluconate (Chlorhexidine 2% Cloth) 3 pack Taper DAILY@04 TOP ; Start 08/16/17 at 04:00; Stop 08/18/17 at 07:14; Status DC Chlorhexidine Gluconate (Chlorhexidine 2% Cloth) 3 pack UNSCH PRN TOP HYGIENIC CARE; Start 08/15/17 at 15:00; Stop 08/18/17 at 07:14; Status DC Senna/Docusate Sodium (Eliane-Colace) 1 tab BID PO Last administered on 08:55; Start 08/15/17 at 21:00 Magnesium Hydroxide (Milk Of Magnesia Liq) 30 ml Q12H PRN PO Mild constipation ; Start 08/15/17 at 15:00; Stop 08/18/17 at 07:14; Status DC Sennosides (Senokot) 17.2 mg Q12H PRN PO Moderate constipation; Start at 15:00 Bisacodyl (Dulcolax Supp) 10 mg DAILY PRN RECTAL SEVERE CONSITIPATION; Start 08/15/17 at 15:00 Lactulose (Lactulose Liq) 30 ml DAILY PRN PO SEVERE CONSITIPATION; Start 08/15 at 15:00 Labetalol HCl (Trandate Inj) 10 mg Q1HR PRN IV PUSH SBP>140, DBP>80, HR>65; Start 08/15/17 at 15:15; Stop 08/18/17 at 07:14; Status DC Hydralazine HCl (Apresoline Inj) 10 mg Q1HR PRN IV PUSH SBP>140, DBP>90 Last administered on 08/17/17 13:42; Start 08/15/17 at 15:15; Stop 08/18/17 at 07 :14; Status DC Nicardipine HCl 25 mg/Sodium Chloride 250 ml @ 50 mls/hr TITRATE PRN IV Blood pressure management; Start 08/15/17 at 15:30; Stop 08/18/17 at 07:14; Status DC Gadodiamide (Omniscan Pf Inj) 10 ml STK-MED ONCE IV PUSH Last administered on 08/15/17 17:36; Start 08/15/17 at 17:36; Stop 08/15/17 at 17:37; Status DC Sodium Chloride (NS Flush) 2 ml UNSCH PRN IV FLUSH FLUSH AFTER USING IV ACCESS ; Start 08/15/17 at 18:30; Stop 08/15/17 at 18:38; Status DC Miscellaneous Information 1 Q361D XX ; Start 08/15/17 at 18:30; Stop 08/15/17 at 18:37; Status DC Morphine Sulfate (Morphine Inj) 2 mg Q4H PRN IV PUSH breakthrough pain Last administered on 08/18/17 04:40; Start 08/16/17 at 09:00; Stop 08/18/17 at 15 :05; Status DC Levetriacetam (Keppra) 500 mg Q12HR PO Last administered on 08/24/17 23:05; Start 08/16/17 at 10:00; Status Future Hold Famotidine (Pepcid Inj) 10 mg Q12HR IV PUSH Last administered on 08/16/17 20: 50; Start 08/16/17 at 21:00; Stop 08/17/17 at 07:42; Status DC Gadodiamide (Omniscan Pf Inj) 10 ml STK-MED ONCE IV PUSH ; Start 08/16/17 at 15 :24; Stop 08/16/17 at 15:25; Status DC Famotidine (Pepcid) 10 mg BID PO Last administered on 08/27/17 08:55; Start 08/17/17 at 09:00 Miscellaneous (Pill Splitter) 1 ea UNSCH PRN OTHER SEE LABEL COMMENTS; Start 08/17/17 at 08:00 Magnesium Hydroxide (Milk Of Magnesia Liq) 30 ml Q12H PO Last administered on 08/26/17 20:40; Start 08/18/17 at 08:00 Enalaprilat (Vasotec Inj) 1.25 mg Q8H PRN IV PUSH HTN; Start 08/18/17 at 07:15 Enoxaparin Sodium (Lovenox Inj) 40 mg Q24H SQ Last administered on 08/26/17 12 :06; Start 08/18/17 at 11:00 Clonidine (Catapres) 0.1 mg Q6H PRN PO SYSTOLIC BP GREATER THAN 175 Last administered on 08/20/17 00:53; Start 08/18/17 at 19:00 Potassium Bicarb/ Potassium Chloride (K-Lyte Cl Eff) 50 meq ONCE ONCE PO Last administered on 08/19/17 08:26; Start 08/19/17 at 07:00; Stop 08/19/17 at 07:13; Status DC Potassium Chloride (KCl) 40 meq ONCE ONCE PO Last administered on 08/21/17 11 :07; Start 08/21/17 at 08:15; Stop 08/21/17 at 08:16; Status DC Potassium Chloride (KCl) 20 meq ONCE ONCE PO Last administered on 08/21/17 15 :00; Start 08/21/17 at 15:00; Stop 08/21/17 at 15:01; Status DC Ceftriaxone Sodium 1000 mg/ Sodium Chloride 100 ml @ 200 mls/hr Q24H IV ; Start 08/25/17 at 11:00; Stop 08/25/17 at 14:15; Status DC Ceftriaxone Sodium 1000 mg/ Sodium Chloride 100 ml @ 200 mls/hr Q24H IV Last administered on 08/26/17 16:06; Start 08/25/17 at 15:00 Morphine Sulfate (Morphine Inj) 2 mg Q6HR PRN IV PUSH PAIN 3-10-SEE COMMENT Last administered on 08/26/17 03:27; Start 08/25/17 at 16:15 Levetriacetam 500 mg/Sodium Chloride 105 ml @ 420 mls/hr Q12HR IV Last administered on 08/27/17 08:56; Start 08/25/17 at 21:00 A/P Problem List: (1) traumativc brain injury Assessment and Plan 1. Status post fall with right temporal laceration status post six Sutures 2. Bladder mass/Left adrenal mass/Enlarged Lymph node in retroperitoneal area conservative management as per Urology follow outpatient for Cystoscopy 3. Traumatic Intracranial Hemorrhage. Questioned Intracranial mass/Underlying neurocognitive disorder. No intervention at this time- repeated CT head ; stable- cleared by neurosurgery for discharge. 4.UTI- UC likely contamination ( d/w the microbiology); will continue with antibiotic empirically to finish the course of therapy. GI prophylaxis with Pepcid 10 mg BID DVT prophylaxis with SCDs. Lovenox 40 mg daily. Discharge Planning dc to SNF when arrangements made. see med list. f/u; pcp. d/w the patient and case management. time spent 35 min. Arlyn Zhu MD Aug 27, 2017 09:18
[2017-08-27] MEDS ORDERED: CIPR250T52 PO (09:22)
[2017-08-27] MEDS: ENOXAPARIN SODIUM 40 MG/0.4 ML SYRINGE SQ SCH (11:05)
--- NOTE | 2017-08-27 11:30 | HHI.NSPN ---
History Chief Complaint: Unable to obtain due to patient's clinical condition. Interval History 08/15: The patient is a pleasant elderly lady who according to her family passed out and fell today, striking her head with positive loss of consciousness. She was initially Gokul Coma Score of 3 at the scene and brought in as a trauma alert. No seizure activity reported. No nausea or vomiting reported. She complains of headache. No complaint of neck or low back pain. No complaint of blurred vision or diplopia. 08/16: This morning the patient is awake and alert. She says she has no pain when asked how she is doing. She denies any other complaints. She spontaneously moves the extremities. Nursing reports that this morning she only knew her name. Nursing did say that when the patient's family came in she became brighter in her demeanor. When they left she returned to the same demeanor she had before their arrival. 08/18/2017: Patient stable on regular floor. Tolerating moderate by mouth diet. No complaint of headache. Persistent expressive speech deficit, word finding deficit. 08/19: The patient is seen ambulating with minimal contact by Nursing. Her gait appears steady. She had no complaints when seen. She is confused and does seem to have some difficulty finding words. 08/20: remains alert, confused. no changes clinically overnight. 08/21: doing well, alert, awake, follows commands. denies headaches, nausea, or vomiting. 08/22: This morning the patient is awake and alert when seen. She was moving from the bedside commode to the bed with standby assist. She denied any headache , dizziness, nausea, numbness, tingling, weakness or any other complaint. She remains confused when seen. 08/23: When seen this afternoon the patient is awake and sitting on the edge of the bed. She had no complaints whatsoever and says she is ready to go home. 08/25: The patient is awake in bed this morning when seen. She is noted to be moving all extremities spontaneously to a degree. Her only verbalisation is moaning except to state the day of her . She minimally responds to commands. 08/26: Patient awake in bed. She denies any headaches. No acute events overnight. 08/27: No acute events overnight. Patient has no complaints. States she ate breakfast this am Exam Results Vital Signs Date Time Temp Pulse Resp B/P (MAP) Pulse Ox O2 Delivery O2 Flow Rate FiO2 08/27/17 08:21 98.6 96 16 128/68 (88) 93 Intake and Output 08/27/17 08/27/17 08/28/17 08:00 16:00 00:00 Intake Total 105 ml Balance 105 ml Physical Examination GEN: Patient awake and alert. Speech is clear, appropriate and non-aphasic. She is oriented to person and time. She can name her . HEENT: Normocephalic. Ecchymosis around the right eye. There is a 4 cm eschar above the right eyebrow. CV: Regular rate and rhythm PULM: Clear to auscultation bilaterally GI: soft, nondistended, normoactive bowel sounds Extremities: No edema NEURO: CNII: Pupils OS 3+/OD 3+. Visual field intact CNIII/IV/: EOMI bilaterally CNVII: Face symmetric CNVIII: Hearing intact to finger rub bilaterally CNX: Uvula elevates in the midline CNXI: Shoulder shrug intact CNXII: Tongue midline Motor strength testing (L/R): Elbow flexion 5/5 Elbow extension 5/5 Wrist extension 5/5 Hand dough molder hand 5/5 Hand intrinsics 5/5 Hip flexion Knee extension Knee flexion Ankle dorsiflexion 5/5 Ankle plantarflexion 5/5 Great toe extension DTR: No clonus Sensory: Intact to light touch throughout Gait: Unable to assess Lab, Micro, Other Results Allergies Coded Allergies Type Severity Reaction Last Updated Verified Sulfa (Sulfonamide Antibiotics) Allergy Unknown 08/15/17 Yes Recent Impressions Head CT 08/25/17 1114 Signed Impressions: Service Date/Time: August 12:15 - CONCLUSION: 1. Bilateral subdural fluid collections likely hygromas and unchanged. 2. Cerebral atrophy and chronic ischemic small vessel vasculopathy. Ariel Coronado MD 08/25/17 08/25/17 08/26/17 08/26/17 08/27/17 08/27/17 06:00 18:00 06:00 18:00 06:00 18:00 Intake Total 180 ml 120 ml 0 ml 360 ml 105 ml Balance 180 ml 120 ml 0 ml 360 ml 105 ml Intake Oral 180 ml 120 ml 0 ml 360 ml IV Total 105 ml # Voids 4 4 6 5 6 1 # Bowel Movements 2 1 1 0 1 1 Laboratory Tests Test 08/24/17 23:00 Urine Color YELLOW Urine Turbidity HAZY Urine pH 6.0 Urine Specific [place] 1.019 Urine Protein 30 mg/dL Urine Glucose (UA) NEG mg/dL Urine Ketones NEG mg/dL Urine Occult Blood MOD Urine Nitrite NEG Urine Bilirubin NEG Urine Urobilinogen LESS THAN 2.0 MG/DL Urine Leukocyte Esterase LARGE Urine RBC 136 /hpf Urine WBC 91 /hpf Urine WBC Clumps MANY Urine Squamous Epithelial Cells <1 /hpf Urine Bacteria FEW /hpf Urine Mucus FEW /lpf Microscopic Urinalysis Comment CATH-CULTURE IND Orders Procedure Category Date Status Time (Hub Use Only)Inp Phy CONS 08/24/17 Transmitted Cons/Ref Bladder Scan [facility] 08/24/17 In Process 19:49 Urinalysis - C+S If LAB 08/25/17 Complete Indicated 04:37 Specimen To Be [facility] 08/25/17 In Process Collected 04:37 Urine Culture [facility] 08/24/17 Complete 23:00 Ceftriaxone Inj MED 08/25/17 Complete (Rocephin Inj) 11:00 Ct Brain W/O Iv RADCT 08/25/17 Resulted Contrast(Rout) 11:14 Vascular Access Team [facility] 08/25/17 Complete Consult/P 12:34 Vascular Poc IMGUS 08/25/17 Taken Ultrasound Ceftriaxone Inj MED 08/25/17 In Process (Rocephin Inj) 15:00 Morphine Inj MED 08/25/17 In Process (Morphine Inj) 16:15 Levetiracetam Inj MED 08/25/17 In Process (Keppra Inj) 21:00 Attending Discharge DISCHARGE 08/27/17 Transmitted Order Vital Signs Date Time Temp Pulse Resp B/P (MAP) Pulse Ox O2 Delivery O2 Flow Rate FiO2 08/27/17 08:21 98.6 96 16 128/68 (88) 93 08/27/17 04:00 97.0 53 18 124/70 (88) 95 08/27/17 00:00 98.9 93 18 157/67 (97) 93 08/26/17 20:00 90 08/26/17 16:24 97.9 104 20 183/84 (117) 95 08/26/17 11:31 98.0 95 20 138/63 (88) 94 08/26/17 08:14 97.6 101 20 156/89 (111) 97 08/26/17 04:00 97.5 91 18 157/71 (99) 98 08/26/17 01:00 97.6 97 18 136/63 (87) 90 08/25/17 23:00 106 08/25/17 20:00 98.1 106 18 119/67 (84) 88 08/25/17 16:00 114 08/25/17 15:20 97.3 109 20 151/62 (91) 94 08/25/17 13:39 98.2 100 20 165/68 (100) 96 08/25/17 12:00 100 08/25/17 09:26 97.5 92 18 183/86 (118) 95 08/25/17 08:00 71 08/25/17 04:00 98.6 88 18 137/63 (87) 94 08/25/17 00:30 97.6 92 18 150/70 (96) 94 08/24/17 20:56 97.5 91 16 119/67 (84) 90 08/24/17 16:05 98.7 78 20 124/67 (86) 94 08/24/17 13:56 90 08/24/17 11:50 99.1 91 20 135/65 (88) 94 Medical Decision Making Impression and Plan Ms Sanchez suffered a TBI from a fall. She has a small amount of intraventricular hemorrhage but has resolved. Neuro: Her neurologic function has improved. We suspect that the altered mental status is due to the recent UTI. Her head CT show stable subdural fluid collections with no acute hemorrhage. 08/27 Improved MS CV: Normotensive Pulm: Good O2 saturation GI/Nutrition: Mild malnutrition secondary to poor mental status. Encourage oral intake UTI: UA consistent with infection. Culture pending. 08/27 Afebrile on Ceftriaxone DVT prophylaxis: Lovenox Dispo: Mental status has improved. Cleared for discharge once antibiotics for UTI has been finalized. Epi Stephens MD Aug 27, 2017 11:30
[2017-08-27] MEDS: cefTRIAXone INJ 1,000 MG in SODIUM CHLORIDE 0.9% INJ 100 ML IV SCH (14:48)
[2017-08-28] VITALS (9 sets, daily range): BP systolic 123–159; BP diastolic 68–82; PULSE 80–110; RESP 16–17; TEMP 97.4–98.4; O2SAT 94–98
[2017-08-28] MEDS: MAGNESIUM HYDROXIDE SUSP 30 ML CUP PO SCH (07:45)
[2017-08-28] MEDS: SODIUM CHLORIDE 0.9% FLUSH 10 ML FLUSH IV FLUSH SCH (08:49)
[2017-08-28] MEDS: FAMOTIDINE 20 MG TAB PO SCH (08:49)
[2017-08-28] MEDS: DOCUSATE SODIUM 50 MG/SENNA 8.6 MG TAB PO SCH (08:50)
[2017-08-28] MEDS: levETIRAcetam INJ 500 MG in SODIUM CHLORIDE 0.9% INJ 100 ML IV SCH (08:50)
--- NOTE | 2017-08-28 08:51 | HHI.PR ---
Subjective Remarks in no acute distress. denies pain. no fever. Objective Vitals Vital Signs Date Time Temp Pulse Resp B/P (MAP) Pulse Ox O2 Delivery O2 Flow Rate FiO2 08/28/17 08:29 97.4 91 16 153/72 (99) 96 08/28/17 05:12 81 08/28/17 05:10 92 08/28/17 04:00 98.1 99 17 123/82 (96) 97 08/28/17 03:05 110 08/28/17 00:00 98.2 98 17 159/71 (100) 94 08/27/17 20:00 98.4 99 17 125/59 (81) 93 08/27/17 16:00 98 08/27/17 15:37 97.4 93 16 123/62 (82) 94 08/27/17 12:01 97.3 99 16 141/65 (90) 95 08/27/17 12:00 101 08/27/17 09:00 92 I/O 08/27/17 08/27/17 08/27/17 08/28/17 08/28/17 08/28/17 07:00 15:00 23:00 07:00 15:00 23:00 Intake Total 165 ml 200 ml 120 ml Balance 165 ml 200 ml 120 ml Intake Oral 60 ml 120 ml IV Total 105 ml 200 ml # Voids 6 2 5 # Bowel Movements 1 1 1 Imaging Last Impressions Head CT 08/25/17 1114 Signed Impressions: Service Date/Time: August 12:15 - CONCLUSION: 1. Bilateral subdural fluid collections likely hygromas and unchanged. 2. Cerebral atrophy and chronic ischemic small vessel vasculopathy. Ariel Coronado MD Pelvis MRI 08/16/17 0000 Signed Impressions: Service Date/Time: Wednesday, August 16, 2017 13:56 - CONCLUSION: 1. Mass lesion measuring 3.8 x 5.2 x 2.9 cm centered left para midline in the bladder trigone and extending down into the vagina. I believe the mass actually originates from the trigone of the bladder but I cannot completely exclude a vaginal mass eroding into the base of the bladder. This may be further clarified with direct pelvic visualization 2. No pelvic adenopathy identified. There is a prominent retroperitoneal lymph node in the aortic chain slightly more cephalad as seen on the prior CT Finn Aguillon MD Pelvis X-Ray 08/15/17 1230 Signed Impressions: Service Date/Time: Tuesday, August 15, 2017 12:26 - CONCLUSION: No acute disease. Chinedu Black Jr., MD Chest X-Ray 08/15/17 1230 Signed Impressions: Service Date/Time: Tuesday, August 15, 2017 12:26 - CONCLUSION: Negative for pneumothorax. Negative for fracture Mathew Collins MD FACR Chest CT 08/15/17 1230 Signed Impressions: Service Date/Time: Tuesday, August 15, 2017 12:33 - CONCLUSION: No acute disease. Chinedu Black Jr., MD Cervical Spine CT 08/15/17 1230 Signed Impressions: Service Date/Time: Tuesday, August 15, 2017 12:38 - CONCLUSION: 1. No fracture or dislocation. 2. Degenerative changes. 3. Calcified plaque involving the carotid arteries bilaterally. Chinedu Black Jr., MD Brain MRI 08/15/17 0000 Signed Impressions: Service Date/Time: Tuesday, August 15, 2017 17:14 - CONCLUSION: 1. MR findings concerning for scattered parenchymal hemorrhages or, possibly, diffuse axonal injury depending on the patient's clinical condition. These are most prominent in the subcortical distribution of the left cerebral hemisphere. 2. 9 mm subdural hygroma on the left. There may be small intraventricular hemorrhages as well. 3. Chronic changes with moderately severe periventricular small vessel ischemic demyelination. Mild ventricular prominence could represent central atrophy versus NPH in the appropriate clinical setting. Finn Aguillon MD Abdomen/Pelvis CT 08/15/17 0000 Signed Impressions: Service Date/Time: Tuesday, August 15, 2017 12:44 - CONCLUSION: 1. No signs of acute trauma. 2. Retroperitoneal adenopathy as well as a left adrenal gland mass. This is concerning for metastatic disease. There is a heterogeneous mass associated with the trigone of urinary bladder. This is worrisome for a primary lesion. MRI of the pelvis can be utilized to further evaluate this. Chinedu Black Jr., MD Abdomen MRI 08/15/17 0000 Signed Impressions: Service Date/Time: Tuesday, August 15, 2017 17:14 - CONCLUSION: Imaging characteristics of the 2.3 cm left adrenal mass lesion are concerning for a neoplastic process. Finn Aguillon MD ADDENDUM: Also noted is a 2.1 cm isolated but prominent retroperitoneal periaortic lymph node at the level of the renal veins which was identified on prior CT. This is concerning for a metastatic foci. Finn Aguillon MD Objective Remarks GENERAL: This is a well-nourished, well-developed patient, in no apparent distress. CARDIOVASCULAR: Regular rate and regular rhythm without murmurs, gallops, or rubs. RESPIRATORY: Clear to auscultation. Breath sounds equal bilaterally. No wheezes , rales, or rhonchi. GASTROINTESTINAL: Abdomen soft, non-tender, nondistended. Normal, active bowel sounds MUSCULOSKELETAL: Extremities without clubbing, cyanosis, or edema. NEURO: awake and alert.mentation seems to be improving. Procedures none Medications and IVs Current Medications Diphtheria/ Tetanus/Acell Pertussis (Boostrix Inj) 0.5 ml STK-MED ONCE IM ; Start 08/15/17 at 12:35; Stop 08/15/17 at 12:36; Status DC Iohexol (Omnipaque 350 Inj) 71 ml STK-MED ONCE IVCONTRAST Last administered on 08/15/17 12:26; Start 08/15/17 at 12:26; Stop 08/15/17 at 12:56; Status DC Sodium Chloride 1,000 ml @ 84 mls/hr [id number] IV Last administered on 04:43; Start 08/15/17 at 14:56; Stop 08/18/17 at 07:14; Status DC Sodium Chloride (NS Flush) 2 ml UNSCH PRN IV FLUSH FLUSH AFTER USING IV ACCESS ; Start 08/15/17 at 15:00 Sodium Chloride (NS Flush) 2 ml BID IV FLUSH Last administered on 08/27/17 21: 02; Start 08/15/17 at 21:00 Acetaminophen (Tylenol) 650 mg Q6H PRN PO FEVER >100F Last administered on 20:50; Start 08/15/17 at 15:00 Acetaminophen/ Hydrocodone Bitart ([place] 5-325 Mg) 1 tab Q4H PRN PO pain 3-10 Last administered on 08/25/17 04:15; Start 08/15/17 at 15:00 Morphine Sulfate (Morphine Inj) 2 mg Q2H PRN IV PUSH PAIN SCALE 6 TO 10 Last administered on 08/16/17 04:40; Start 08/15/17 at 15:00; Stop 08/16/17 at 08 :27; Status DC Famotidine (Pepcid Inj) 20 mg Q12HR IV PUSH Last administered on 08/16/17 10: 26; Start 08/15/17 at 21:00; Stop 08/16/17 at 14:57; Status DC Ondansetron HCl (Zofran Inj) 4 mg Q6H PRN IV PUSH NAUSEA OR VOMITING Last administered on 08/15/17 16:46; Start 08/15/17 at 15:00 Albuterol Sulfate (Albuterol Neb) 2.5 mg Q2HR NEB PRN INH SOB/WHEEZING; Start 08/15/17 at 15:00 Miscellaneous Information 1 Q361D XX ; Start 08/15/17 at 15:00; Stop 08/18/17 at 07:14; Status DC Chlorhexidine Gluconate (Chlorhexidine 2% Cloth) 3 pack Taper DAILY@04 TOP ; Start 08/16/17 at 04:00; Stop 08/18/17 at 07:14; Status DC Chlorhexidine Gluconate (Chlorhexidine 2% Cloth) 3 pack UNSCH PRN TOP HYGIENIC CARE; Start 08/15/17 at 15:00; Stop 08/18/17 at 07:14; Status DC Senna/Docusate Sodium (Eliane-Colace) 1 tab BID PO Last administered on 21:01; Start 08/15/17 at 21:00 Magnesium Hydroxide (Milk Of Magnesia Liq) 30 ml Q12H PRN PO Mild constipation ; Start 08/15/17 at 15:00; Stop 08/18/17 at 07:14; Status DC Sennosides (Senokot) 17.2 mg Q12H PRN PO Moderate constipation; Start at 15:00 Bisacodyl (Dulcolax Supp) 10 mg DAILY PRN RECTAL SEVERE CONSITIPATION; Start 08/15/17 at 15:00 Lactulose (Lactulose Liq) 30 ml DAILY PRN PO SEVERE CONSITIPATION; Start 08/15 at 15:00 Labetalol HCl (Trandate Inj) 10 mg Q1HR PRN IV PUSH SBP>140, DBP>80, HR>65; Start 08/15/17 at 15:15; Stop 08/18/17 at 07:14; Status DC Hydralazine HCl (Apresoline Inj) 10 mg Q1HR PRN IV PUSH SBP>140, DBP>90 Last administered on 08/17/17 13:42; Start 08/15/17 at 15:15; Stop 08/18/17 at 07 :14; Status DC Nicardipine HCl 25 mg/Sodium Chloride 250 ml @ 50 mls/hr TITRATE PRN IV Blood pressure management; Start 08/15/17 at 15:30; Stop 08/18/17 at 07:14; Status DC Gadodiamide (Omniscan Pf Inj) 10 ml STK-MED ONCE IV PUSH Last administered on 08/15/17 17:36; Start 08/15/17 at 17:36; Stop 08/15/17 at 17:37; Status DC Sodium Chloride (NS Flush) 2 ml UNSCH PRN IV FLUSH FLUSH AFTER USING IV ACCESS ; Start 08/15/17 at 18:30; Stop 08/15/17 at 18:38; Status DC Miscellaneous Information 1 Q361D XX ; Start 08/15/17 at 18:30; Stop 08/15/17 at 18:37; Status DC Morphine Sulfate (Morphine Inj) 2 mg Q4H PRN IV PUSH breakthrough pain Last administered on 08/18/17 04:40; Start 08/16/17 at 09:00; Stop 08/18/17 at 15 :05; Status DC Levetriacetam (Keppra) 500 mg Q12HR PO Last administered on 08/24/17 23:05; Start 08/16/17 at 10:00; Status Future Hold Famotidine (Pepcid Inj) 10 mg Q12HR IV PUSH Last administered on 08/16/17 20: 50; Start 08/16/17 at 21:00; Stop 08/17/17 at 07:42; Status DC Gadodiamide (Omniscan Pf Inj) 10 ml STK-MED ONCE IV PUSH ; Start 08/16/17 at 15 :24; Stop 08/16/17 at 15:25; Status DC Famotidine (Pepcid) 10 mg BID PO Last administered on 08/27/17 21:02; Start 08/17/17 at 09:00 Miscellaneous (Pill Splitter) 1 ea UNSCH PRN OTHER SEE LABEL COMMENTS; Start 08/17/17 at 08:00 Magnesium Hydroxide (Milk Of Harry Liq) 30 ml Q12H PO Last administered on 08/26/17 20:40; Start 08/18/17 at 08:00 Enalaprilat (Vasotec Inj) 1.25 mg Q8H PRN IV PUSH HTN; Start 08/18/17 at 07:15 Enoxaparin Sodium (Lovenox Inj) 40 mg Q24H SQ Last administered on 08/27/17 11 :05; Start 08/18/17 at 11:00 Clonidine (Catapres) 0.1 mg Q6H PRN PO SYSTOLIC BP GREATER THAN 175 Last administered on 08/20/17 00:53; Start 08/18/17 at 19:00 Potassium Bicarb/ Potassium Chloride (K-Lyte Cl Eff) 50 meq ONCE ONCE PO Last administered on 08/19/17 08:26; Start 08/19/17 at 07:00; Stop 08/19/17 at 07:13; Status DC Potassium Chloride (KCl) 40 meq ONCE ONCE PO Last administered on 08/21/17 11 :07; Start 08/21/17 at 08:15; Stop 08/21/17 at 08:16; Status DC Potassium Chloride (KCl) 20 meq ONCE ONCE PO Last administered on 08/21/17 15 :00; Start 08/21/17 at 15:00; Stop 08/21/17 at 15:01; Status DC Ceftriaxone Sodium 1000 mg/ Sodium Chloride 100 ml @ 200 mls/hr Q24H IV ; Start 08/25/17 at 11:00; Stop 08/25/17 at 14:15; Status DC Ceftriaxone Sodium 1000 mg/ Sodium Chloride 100 ml @ 200 mls/hr Q24H IV Last administered on 08/27/17 14:48; Start 08/25/17 at 15:00 Morphine Sulfate (Morphine Inj) 2 mg Q6HR PRN IV PUSH PAIN 3-10-SEE COMMENT Last administered on 08/26/17 03:27; Start 08/25/17 at 16:15 Levetriacetam 500 mg/Sodium Chloride 105 ml @ 420 mls/hr Q12HR IV Last administered on 08/27/17t 21:01; Start 08/25/17 at 21:00 A/P Problem List: (1[facility] and Plan 1. Status post fall with right temporal laceration status post six Sutures 2. Bladder mass/Left adrenal mass/Enlarged Lymph node in retroperitoneal area conservative management as per Urology follow outpatient for Cystoscopy 3. Traumatic Intracranial Hemorrhage. Questioned Intracranial mass/Underlying neurocognitive disorder. No intervention at this time- repeated CT head ; stable- cleared by neurosurgery for discharge. 4.UTI- UC likely contamination ( d/w the microbiology); will continue with antibiotic empirically to finish the course of therapy. GI prophylaxis with Pepcid 10 mg BID DVT prophylaxis with SCDs. Lovenox 40 mg daily. Discharge Planning dc to SNF when arrangements made. see med list. f/u; pcp, urology, neurosurgery. time spent 35 min. Arlyn Zhu MD Aug 28, 2017 08:51
[2017-08-28] MEDS: ENOXAPARIN SODIUM 40 MG/0.4 ML SYRINGE SQ SCH (11:14)
--- NOTE | 2017-08-28 13:02 | HHI.NSPN ---
History Chief Complaint: Unable to obtain due to patient's clinical condition. Interval History 08/15: The patient is a pleasant elderly lady who according to her family passed out and fell today, striking her head with positive loss of consciousness. She was initially Gokul Coma Score of 3 at the scene and brought in as a trauma alert. No seizure activity reported. No nausea or vomiting reported. She complains of headache. No complaint of neck or low back pain. No complaint of blurred vision or diplopia. 08/16: This morning the patient is awake and alert. She says she has no pain when asked how she is doing. She denies any other complaints. She spontaneously moves the extremities. Nursing reports that this morning she only knew her name. Nursing did say that when the patient's family came in she became brighter in her demeanor. When they left she returned to the same demeanor she had before their arrival. 08/18/2017: Patient stable on regular floor. Tolerating moderate by mouth diet. No complaint of headache. Persistent expressive speech deficit, word finding deficit. 08/19: The patient is seen ambulating with minimal contact by Nursing. Her gait appears steady. She had no complaints when seen. She is confused and does seem to have some difficulty finding words. 08/20: remains alert, confused. no changes clinically overnight. 08/21: doing well, alert, awake, follows commands. denies headaches, nausea, or vomiting. 08/22: This morning the patient is awake and alert when seen. She was moving from the bedside commode to the bed with standby assist. She denied any headache , dizziness, nausea, numbness, tingling, weakness or any other complaint. She remains confused when seen. 08/23: When seen this afternoon the patient is awake and sitting on the edge of the bed. She had no complaints whatsoever and says she is ready to go home. 08/25: The patient is awake in bed this morning when seen. She is noted to be moving all extremities spontaneously to a degree. Her only verbalisation is moaning except to state the day of her . She minimally responds to commands. 08/26: Patient awake in bed. She denies any headaches. No acute events overnight. 08/27: No acute events overnight. Patient has no complaints. States she ate breakfast this am 08/28: Patient has no complaints. She is up in a chair Exam Results Vital Signs Date Time Temp Pulse Resp B/P (MAP) Pulse Ox O2 Delivery O2 Flow Rate FiO2 08/28/17 12:21 98.4 80 16 127/68 (87) 98 Intake and Output 08/28/17 08/28/17 08/29/17 08:00 16:00 00:00 Intake Total 120 ml 100 ml Balance 120 ml 100 ml Physical Examination GEN: Patient awake and alert. Speech is clear, appropriate and non-aphasic. She is oriented to person and time. She can name her . HEENT: Normocephalic. Ecchymosis around the right eye. There is a 4 cm eschar above the right eyebrow. CV: Regular rate and rhythm PULM: Clear to auscultation bilaterally GI: soft, nondistended, normoactive bowel sounds Extremities: No edema NEURO: CNII: Pupils OS 3+/OD 3+. Visual field intact CNIII/IV/: EOMI bilaterally CNVII: Face symmetric CNVIII: Hearing intact to finger rub bilaterally CNX: Uvula elevates in the midline CNXI: Shoulder shrug intact CNXII: Tongue midline Motor strength testing (L/R): Elbow flexion 5/5 Elbow extension 5/5 Wrist extension 5/5 Hand assembly inspector helper 5/5 Hand intrinsics 5/5 Hip flexion 5/5 Knee extension 5/5 Knee flexion 5/5 Ankle dorsiflexion 5/5 Ankle plantarflexion 5/5 DTR: No clonus Sensory: Intact to light touch throughout Gait: Unable to assess Lab, Micro, Other Results Allergies Coded Allergies Type Severity Reaction Last Updated Verified Sulfa (Sulfonamide Antibiotics) Allergy Unknown 08/15/17 Yes 08/26/17 08/26/17 08/27/17 08/27/17 08/28/17 08/28/17 06:00 18:00 06:00 18:00 06:00 18:00 Intake Total 0 ml 360 ml 265 ml 220 ml 100 ml Balance 0 ml 360 ml 265 ml 220 ml 100 ml Intake Oral 0 ml 360 ml 60 ml 120 ml IV Total 205 ml 100 ml 100 ml # Voids 6 5 6 2 5 1 # Bowel Movements 1 0 1 1 1 1 Orders Procedure Category Date Status Time Ceftriaxone Inj MED 08/25/17 In Process (Rocephin Inj) 15:00 Morphine Inj MED 08/25/17 In Process (Morphine Inj) 16:15 Levetiracetam Inj MED 08/25/17 In Process (Keppra Inj) 21:00 Attending Discharge DISCHARGE 08/27/17 Transmitted Order Vital Signs Date Time Temp Pulse Resp B/P (MAP) Pulse Ox O2 Delivery O2 Flow Rate FiO2 08/28/17 12:21 98.4 80 16 127/68 (87) 98 08/28/17 09:31 91 08/28/17 08:29 97.4 91 16 153/72 (99) 96 08/28/17 05:12 81 08/28/17 05:10 92 08/28/17 04:00 98.1 99 17 123/82 (96) 97 08/28/17 03:05 110 08/28/17 00:00 98.2 98 17 159/71 (100) 94 08/27/17 20:00 98.4 99 17 125/59 (81) 93 08/27/17 16:00 98 08/27/17 15:37 97.4 93 16 123/62 (82) 94 08/27/17 12:01 97.3 99 16 141/65 (90) 95 08/27/17 12:00 101 08/27/17 09:00 92 08/27/17 08:21 98.6 96 16 128/68 (88) 93 08/27/17 04:00 97.0 53 18 124/70 (88) 95 08/27/17 00:00 98.9 93 18 157/67 (97) 93 08/26/17 20:00 90 08/26/17 16:24 97.9 104 20 183/84 (117) 95 08/26/17 11:31 98.0 95 20 138/63 (88) 94 08/26/17 08:14 97.6 101 20 156/89 (111) 97 08/26/17 04:00 97.5 91 18 157/71 (99) 98 08/26/17 01:00 97.6 97 18 136/63 (87) 90 12/7/17 23:00 106 08/25/17 20:00 98.1 106 18 119/67 (84) 88 08/25/17 16:00 114 08/25/17 15:20 97.3 109 20 151/62 (91) 94 08/25/17 13:39 98.2 100 20 165/68 (100) 96 Medical Decision Making Impression and Plan 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 She has a small amount of intraventricular hemorrhage but has resolved. Neuro: Her neurologic function has improved. We suspect that the altered mental status is due to the recent UTI. Her head CT show stable subdural fluid collections with no acute hemorrhage. 08/27 Improved MS 08/28 neurologically stable. No focal deficits. Seizure prophylaxis: Continue Keppra. Transition to po CV: Normotensive Pulm: Good O2 saturation GI/Nutrition: Mild malnutrition secondary to poor mental status. Encourage oral intake UTI: UA consistent with infection. Culture pending. 08/27 Afebrile on Ceftriaxone 08/28 afebrile. Urine culture showed mixed bacterial bonnie DVT prophylaxis: Lovenox Dispo: Mental status has improved. Cleared for discharge once antibiotics for UTI has been finalized. Epi Stephens MD Aug 28, 2017 13:02
[2017-08-28] MEDS: cefTRIAXone INJ 1,000 MG in SODIUM CHLORIDE 0.9% INJ 100 ML IV SCH (15:56)
[2017-08-28] MEDS ORDERED: levETIRAcetam 500 MG TAB PO SCH (21:00)
== END 2017-08-28 17:11 | DRG 83 ==
LOC: NEPI 12:25 → NEDA 15:57 → EDBD 15:57 → N03A 18:13 → N05A 08-17 14:46 → N05B 08-19 20:39
PROVIDERS: ADMIT Surgery; ATTEND Internal Medicine
PROC: 0HQ1XZZ Repair Face Skin, External Approach (ICD-10-PCS; principal; 2017-08-15)
DX: S06.5X9A Traumatic subdural hemorrhage with loss of consciousness of unspecified duration, initial encounter (principal); E44.1 Mild protein-calorie malnutrition; E27.8 Other specified disorders of adrenal gland; N39.0 Urinary tract infection, site not specified; R47.01 Aphasia; Z68.1 Body mass index [BMI] 19.9 or less, adult; S06.359A Traumatic hemorrhage of left cerebrum with loss of consciousness of unspecified duration, initial encounter; F02.80 Dementia in other diseases classified elsewhere, unspecified severity, without behavioral disturbance, psychotic disturbance, mood disturbance, and anxiety; N32.89 Other specified disorders of bladder; I10 Essential (primary) hypertension; S01.81XA Laceration without foreign body of other part of head, initial encounter; R40.2431 Glasgow coma scale score 3-8, in the field [EMT or ambulance]; R59.0 Localized enlarged lymph nodes; W18.30XA Fall on same level, unspecified, initial encounter; Y93.K1 Activity, walking an animal; Z88.2 Allergy status to sulfonamides
CPT/HCPCS: 12013; 70450; 70553; 71010; 71260; 72125; 72170; 72197; 74177; 74183; 76937; 80048; 80053; 81001; 82435; 82550; 82947; 82948; 83605; 83735; 84100; 84132; 84295; 84520; 85025; 85610; 85730; 86850; 86900; 86901; 87086; 87641; 90471; 90715; 93005; 94150; 99291; A9579; G0390; J0360; J0696; J1650; J1953; J2270; J2405; J7030; Q9967

== ENCOUNTER 2017-09-06 11:24 | Inpatient (IN) | payer OTHER, MEDICARE ==
[~2017-09-06 11:24] MED LIST: CIPR250T52 PO; ENOX40P SQ; FAMO20TA2 PO; HYDR-3516 PO; LEVE500 PO; Lactulose Liq PO; MAGN30S PO; PERI PO
[2017-09-06 11:31] VITALS: BP 142/55; PULSE 100; RESP 18; TEMP 98.2; O2SAT 97
[2017-09-06 11:39] VITALS: O2SAT 99
[2017-09-06] MEDS ORDERED: SODIUM CHLORIDE 0.9% FLUSH 10 ML FLUSH IVF PRN (11:45)
--- NOTE | 2017-09-06 11:49 | PD ---
HPI Chief Complaint: Altered Mental Status Time Seen by Provider: 11:36 Travel History International Travel<30 days: No Contact w/Intl Traveler<30days: No Traveled to known affect area: No History of Present Illness HPI Patient is an 87-year-old female [facility] of altered mental status. Patient was last seen normal 24 hours prior to arrival to the emergency department. Per EMS report patient has not been communicating as normal. On arrival patient was posturing, her head deviated towards the right. Patient does withdraw from pain. She is aphasic. PFSH Past Medical History Cerebrovascular Accident: Yes (TBI on 08/15, intracranial hemorrhage) GERD: Yes Genitourinary: Yes (bladder mass, chronic UTI) Hypertension: Yes Neurologic: Yes (expressive aphasia) Past Surgical History Hysterectomy: Yes Social History Alcohol Use: No Tobacco Use: No Substance Use: No Allergies-Medications (Allergen,Severity, Reaction): Coded Allergies: Sulfa (Sulfonamide Antibiotics) (Verified Allergy, Unknown, 08/15/17) Reported Meds & Prescriptions Reported Meds & Active Scripts Active Gnp Senna Plus 8.6-50 mg (Sennosides-Docusate Sodium) 8.6 Mg-50 Mg Tab 1 Tab PO BID 5 Days Reported Keppra (Levetiracetam) 500 Mg Tab 500 Mg PO Q12HR Phenazopyridine (Phenazopyridine HCl) 100 Mg Tab 100 Mg PO DAILY Milk of Magnesia Liq (Magnesium Hydroxide) 400 Mg/5 Ml Susp 30 Ml PO Q12HR PRN Hydrocodone-Acetamin 5-325 mg (Hydrocodone/Acetaminophen) 5 Mg-325 Mg Tablet 1 Tab PO Q4HR PRN Lactulose 10 Gram/15 Ml (15 Ml) Solution 30 Ml PO DAILY PRN Dulcolax Supp (Bisacodyl) 10 Mg Supp 10 Mg RECTAL IN AM PRN Citroma Liq (Magnesium Citrate) 300 Ml Liq 296 Ml PO IN AM PRN Tylenol (Acetaminophen) 325 Mg Tab 650 Mg PO Q4H PRN Review of Systems ROS Limitations: Altered Mental Status, Poor Historian Except as stated in HPI: all other systems reviewed are Neg HENT: Positive: Neck Pain Neurologic: Positive: Focal Abnormalities, Change in Mentation Physical Exam Narrative GENERAL: Thin, alert elderly female. Does not appear to be in distress SKIN: Warm and dry. Residual bruising to right lower eye lid HEAD: Atraumatic. Normocephalic. EYES: Pupils equal and round, reactive. No scleral icterus. No injection or drainage. Gaze is deviated towards the right ENT: No nasal bleeding or discharge. Mucous membranes pink and moist. NECK: Trachea midline. No JVD. Tenderness to palpation in left paraspinal musculature and cervical region CARDIOVASCULAR: Regular rate and rhythm. RESPIRATORY: No accessory muscle use. Clear to auscultation. Breath sounds equal bilaterally. GASTROINTESTINAL: Abdomen soft, tender to palpation in pelvic region, nondistended. Hepatic and splenic margins not palpable. Positive bowel sounds MUSCULOSKELETAL: Extremities without clubbing, cyanosis, or edema. No obvious deformities. NEUROLOGICAL: Awake and alert. Posturing. 2 out of 5 muscle strength in the arms and legs. Aphasic Data Data Last Documented VS Vital Signs Date Time Temp Pulse Resp B/P (MAP) Pulse Ox O2 Delivery O2 Flow Rate FiO2 09/06/17 13:05 94 18 119/54 (75) 97 09/06/17 11:31 98.2 Orders Orders Electrocardiogram (09/06/17 11:34) Prothrombin Time / Inr (Pt) (09/06/17 11:34) Act Partial Throm Time (Ptt) (09/06/17 11:34) Complete Blood Count With Diff (09/06/17 11:34) Comprehensive Metabolic Panel (09/06/17 11:34) Creatine Kinase (Cpk) (09/06/17 11:34) Urinalysis - C+S If Indicated (09/06/17 11:34) Ct Brain W/O Iv Contrast(Rout) (09/06/17 11:34) Ecg Monitoring (09/06/17 11:34) Iv Access Insert/Monitor (09/06/17 11:34) Oximetry (09/06/17 11:34) Urinary Catheter Insert/Apply (09/06/17 11:34) Blood Glucose (09/06/17 11:34) Sodium Chloride 0.9% Flush (Ns Flush) (09/06/17 11:45) Lactic Acid (09/06/17 11:34) Ct Cerv Spine W/O Contrast (09/06/17 ) Urine Culture (09/06/17 12:03) Sodium Chlor 0.9% 1000 Ml Inj (Ns 1000 M (09/06/17 12:45) Cefepime Inj (Maxipime Inj) (09/06/17 12:45) Ct Abd/Pel W/O Iv Contrast (09/06/17 ) Sodium Chlorid 0.9% 500 Ml Inj (Ns 500 M (09/06/17 13:30) Lactic Acid (09/06/17 14:00) Vancomycin Inj (Vancomycin Inj) (09/06/17 13:26) Acetaminophen 1000 Mg/100 Ml (Ofirmev 10 (09/06/17 13:45) Admit To Inpatient (09/06/17 ) Vital Signs (Adult) Q4H (09/06/17 14:16) Activity Oob With Assistance (09/06/17 14:16) Pig Machine Supervisor / Telemetry .CONTINUOUS (09/06/17 14:16) Diet Heart Healthy (09/06/17 Dinner) Sodium Chloride 0.9% Flush (Ns Flush) (09/06/17 14:30) Sodium Chloride 0.9% Flush (Ns Flush) (09/06/17 21:00) Basic Metabolic Panel (Bmp) (09/07/17 06:00) Complete Blood Count With Diff (09/07/17 06:00) Pt Request For Service (09/06/17 14:16) Case Management Consult (09/06/17 14:16) Naloxone Inj (Narcan Inj) (09/06/17 14:30) Inpatient Certification (09/06/17 ) Admit Order (Ed Use Only) (09/06/17 14:25) Labs Laboratory Tests Test 09/06/17 12:03 09/06/17 14:00 White Blood Count 18.3 TH/MM3 Red Blood Count 3.54 MIL/MM3 Hemoglobin 10.8 GM/DL Hematocrit 34.0 % Mean Corpuscular Volume 96.2 FL Mean Corpuscular Hemoglobin 30.6 PG Mean Corpuscular Hemoglobin Concent 31.9 % Red Cell Distribution Width 13.1 % Platelet Count 283 TH/MM3 Mean Platelet Volume 8.5 FL Neutrophils (%) (Auto) 80.5 % Lymphocytes (%) (Auto) 12.6 % Monocytes (%) (Auto) 6.3 % Eosinophils (%) (Auto) 0.6 % Basophils (%) (Auto) 0.0 % Neutrophils # (Auto) 14.7 TH/MM3 Lymphocytes # (Auto) 2.3 TH/MM3 Monocytes # (Auto) 1.2 TH/MM3 Eosinophils # (Auto) 0.1 TH/MM3 Basophils # (Auto) 0.0 TH/MM3 CBC Comment DIFF FINAL Differential Comment Prothrombin Time 11.2 SEC Prothromb Time International Ratio 1.1 RATIO Activated Partial Thromboplast Time 26.0 SEC Urine Color YELLOW Urine Turbidity HAZY Urine pH 5.5 Urine Specific [place] 1.012 Urine Protein 30 mg/dL Urine Glucose (UA) NEG mg/dL Urine Ketones NEG mg/dL Urine Occult Blood LARGE Urine Nitrite NEG Urine Bilirubin NEG Urine Urobilinogen LESS THAN 2.0 MG/DL Urine Leukocyte Esterase LARGE Urine RBC 21 /hpf Urine WBC 65 /hpf Urine WBC Clumps FEW Urine Squamous Epithelial Cells 1 /hpf Urine Amorphous Sediment FEW Urine Bacteria FEW /hpf Urine Mucus FEW /lpf Microscopic Urinalysis Comment CATH-CULTURE IND Blood Urea Nitrogen 121 MG/DL Creatinine 6.69 MG/DL Random Glucose 175 MG/DL Total Protein 9.5 GM/DL Albumin 2.2 GM/DL Calcium Level 9.7 MG/DL Alkaline Phosphatase 122 U/L Aspartate Amino Transf (AST/SGOT) 18 U/L Alanine Aminotransferase (ALT/SGPT) 20 U/L Total Bilirubin 0.3 MG/DL Sodium Level 140 MEQ/L Potassium Level 5.0 MEQ/L Chloride Level 107 MEQ/L Carbon Dioxide Level 21.0 MEQ/L Anion Gap 12 MEQ/L Estimat Glomerular Filtration Rate 6 ML/MIN Lactic Acid Level 2.6 mmol/L Total Creatine Kinase 34 U/L MDM Medical Decision Making Medical Screen Exam Complete: Yes Emergency Medical Condition: Yes Medical Record Reviewed: Yes Interpretation(s) Last Impressions Head CT 09/06/17 1134 Signed Impressions: Service Date/Time: Wednesday, September 06, 2017 12:12 - CONCLUSION: Air-fluid levels in the sphenoid and right maxillary sinuses. 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 Mike Logan MD Cervical Spine CT 09/06/17 0000 Signed Impressions: Service Date/Time: Wednesday, September 06, 2017 12:14 - CONCLUSION: Normal examination except for mild chronic disc space height loss at C5-6 and C6-7 unchanged. Mike Logan MD Laboratory Tests Test 09/06/17 12:03 09/06/17 14:00 White Blood Count 18.3 TH/MM3 Red Blood Count 3.54 MIL/MM3 Hemoglobin 10.8 GM/DL Hematocrit 34.0 % Mean Corpuscular Volume 96.2 FL Mean Corpuscular Hemoglobin 30.6 PG Mean Corpuscular Hemoglobin Concent 31.9 % Red Cell Distribution Width 13.1 % Platelet Count 283 TH/MM3 Mean Platelet Volume 8.5 FL Neutrophils (%) (Auto) 80.5 % Lymphocytes (%) (Auto) 12.6 % Monocytes (%) (Auto) 6.3 % Eosinophils (%) (Auto) 0.6 % Basophils (%) (Auto) 0.0 % Neutrophils # (Auto) 14.7 TH/MM3 Lymphocytes # (Auto) 2.3 TH/MM3 Monocytes # (Auto) 1.2 TH/MM3 Eosinophils # (Auto) 0.1 TH/MM3 Basophils # (Auto) 0.0 TH/MM3 CBC Comment DIFF FINAL Differential Comment Prothrombin Time 11.2 SEC Prothromb Time International Ratio 1.1 RATIO Activated Partial Thromboplast Time 26.0 SEC Urine Color YELLOW Urine Turbidity HAZY Urine pH 5.5 Urine Specific [place] 1.012 Urine Protein 30 mg/dL Urine Glucose (UA) NEG mg/dL Urine Ketones NEG mg/dL Urine Occult Blood LARGE Urine Nitrite NEG Urine Bilirubin NEG Urine Urobilinogen LESS THAN 2.0 MG/DL Urine Leukocyte Esterase LARGE Urine RBC 21 /hpf Urine WBC 65 /hpf Urine WBC Clumps FEW Urine Squamous Epithelial Cells 1 /hpf Urine Amorphous Sediment FEW Urine Bacteria FEW /hpf Urine Mucus FEW /lpf Microscopic Urinalysis Comment CATH-CULTURE IND Blood Urea Nitrogen 121 MG/DL Creatinine 6.69 MG/DL Random Glucose 175 MG/DL Total Protein 9.5 GM/DL Albumin 2.2 GM/DL Calcium Level 9.7 MG/DL Alkaline Phosphatase 122 U/L Aspartate Amino Transf (AST/SGOT) 18 U/L Alanine Aminotransferase (ALT/SGPT) 20 U/L Total Bilirubin 0.3 MG/DL Sodium Level 140 MEQ/L Potassium Level 5.0 MEQ/L Chloride Level 107 MEQ/L Carbon Dioxide Level 21.0 MEQ/L Anion Gap 12 MEQ/L Estimat Glomerular Filtration Rate 6 ML/MIN Lactic Acid Level 2.6 mmol/L Total Creatine Kinase 34 U/L Vital Signs Date Time Temp Pulse Resp B/P (MAP) Pulse Ox O2 Delivery O2 Flow Rate FiO2 09/06/17 11:31 98.2 100 18 142/55 (84) 97 Differential Diagnosis Intracranial hemorrhage versus CVA versus UTI versus metabolic abnormality versus other Narrative Course Patient is 87-year-old female sent by the [facility] for evaluation of change in mental status. Upon review of medical records, patient had a syncopal episode with loss of consciousness on 08/15, she had a traumatic brain injury that resulted from that fall. She had been ambulatory prior to discharge from the hospital getting up and using bedside commode with cyst, she has residual expressive aphasia but appears to be able to communicate according to records. Currently patient is withdrawing from pain, she is posturing and her gaze is deviated towards the right. She is not following commands in regards to assessing extraocular movements. Patient's vital signs are stable, IV access established, patient placed on celery packer and continuous pulse oximetry. Labs and imaging ordered and pending. CT scan of the brain shows air-fluid levels in the sphenoid and right maxillary sinuses area stable subdural hygroma on the left side without significant mass hemorrhage or edema. CT of the cervical spine shows normal exam except for mild chronic disc space height loss at C5 to 6 and C6 to 7. CBC with a white count of 18.3 with left shift Chemistry resulted BUN and creatinine of 121/6.69 Lactic acid 2.6 Urinalysis is consistent with a urinary tract infection, reflex culture pending Coags are unremarkable Patient was given a total of 1.5 L of normal saline. Cefepime and Vancomycin ordered, dose adjusted for renal function. 1330 Pt reassessed, she is more alert and is grimacing and moaning. Acetaminophen 650mg IV ordered for pain control. Pt meets severe sepsis criteria, source is urinary. Repeat lactic acid pending. Paged [facility] for admit. Discussed with Dr. Castaneda who accepted admission. Admit orders placed. Sepsis Criteria SIRS Criteria (2 or more): Heart rate over 90, WBC > 35920, < 4000 or > 10% bands Sepsis Criteria (SIRS+source): Infect source susp/known Severe Sepsis (+one): Lactate >2, Acute Oliguria/Renal Failure Diagnosis Primary Impression: Severe sepsis Additional Impressions: UTI (urinary tract infection) Qualified Codes: N39.0 - Urinary tract infection, site not specified; R31.9 - Hematuria, unspecified Acute renal failure Qualified Codes: N17.9 - Acute kidney failure, unspecified Admitting Information Admitting Physician Requests: Admit Condition: Nidia Lau Sep 06, 2017 11:49
[2017-09-06] MEDS ORDERED: LACT10SO5 PO (11:55)
[2017-09-06] MEDS ORDERED: DULC10SU3 RECTAL (11:55)
[2017-09-06] MEDS ORDERED: CITRSOL4 PO (11:55)
[2017-09-06] MEDS ORDERED: PHEN-525 PO (11:55)
[2017-09-06] MEDS ORDERED: HYDR-3516 PO (11:55)
[2017-09-06] MEDS ORDERED: MILKSUS PO (11:55)
[2017-09-06] MEDS ORDERED: TYLE325T PO (11:55)
[2017-09-06] MEDS ORDERED: LEVE500 PO (11:56)
[2017-09-06 12:18] LABS: AUTOMATED NEUTROPHIL # 14.7 TH/MM3 (1.8-7.7); EOSINOPHIL # 0.1 TH/MM3 (0-0.4); EOSINOPHIL % 0.6 % (0.0-4.0); HEMO FLAGS DIFF FINAL; LYMPH % 12.6 % (9.0-44.0); LYMPHOCYTE # 2.3 TH/MM3 (1.0-4.8); MEAN CELL VOLUME 96.2 FL (80.0-100.0); MEAN CORPUSCULAR HEMOGLOBIN 30.6 PG (27.0-34.0); MEAN CORPUSCULAR HGB CONC 31.9 % (32.0-36.0); MONO % 6.3 % (0.0-8.0); NEUT % 80.5 % (16.0-70.0); PLATELET COUNT 283 TH/MM3 (150-450); RED BLOOD COUNT 3.54 MIL/MM3 (4.00-5.30); RED CELL DISTRIBUTION WIDTH 13.1 % (11.6-17.2); WHITE BLOOD COUNT 18.3 TH/MM3 (4.0-11.0)
[2017-09-06 12:24] LABS: INTERNATIONAL NORMALIZED RATIO 1.1 RATIO; PROTHROMBIN TIME - PATIENT 11.2 SEC (9.8-11.6)
[2017-09-06 12:26] LABS: BACTERIA, URINE FEW /hpf; BLOOD, URINE LARGE (NEG); COMMENT (UR) CATH-CULTURE IND; CULTURE IF INDICATED CATH CULTURE IND; GLUCOSE,URINE NEG (NEG); KETONE, URINE NEG (NEG); MUCUS URINE FEW /lpf (OCC); NITRITE,URINE NEG (NEG); PH, URINE 5.5 (5.0-8.5); SQUAMOUS EPITHELIAL CELL URINE 1 /hpf (0-5); URINE COLOR YELLOW (YELLW/STRAW)
[2017-09-06 12:32] LABS: ALT (GPT) 20 U/L (10-53); ANION GAP 12 MEQ/L (5-15); AST (GOT) 18 U/L (15-37); BLOOD UREA NITROGEN 121 MG/DL (7-18); CHLORIDE 107 MEQ/L (98-107); GLOMERULAR FILTRATION RATE 6 ML/MIN (>89); SODIUM (NA) 140 MEQ/L (136-145)
[2017-09-06 12:34] LABS: ALKALINE PHOSPHATASE 122 U/L (45-117); TOTAL BILIRUBIN ADULT 0.3 MG/DL (0.2-1.0)
[2017-09-06 12:40] LABS: CREATINE KINASE 34 U/L (26-192)
[2017-09-06] MEDS ORDERED: SODIUM CHLOR 0.9% 1000 ML INJ 1,000 ML IV ONE (12:45)
[2017-09-06] MEDS ORDERED: CEFEPIME INJ 1,000 MG in SODIUM CHLORIDE 0.9% INJ 100 ML IV ONE (12:45)
--- NOTE | 2017-09-06 12:49 | RADRPT ---
EXAM DATE/TIME: 09/06/2017 12:12 [facility] COMPARISON: CT BRAIN W/O CONTRAST, August 25, 2017, 12:15. INDICATIONS : Intercranial hemorrhage, change in mental status. RADIATION DOSE: 56.35 CTDIvol (mGy) MEDICAL HISTORY : Cerebrovascular disease. Hypertension. Cardiovascular disease SURGICAL HISTORY : Hysterectomy. ENCOUNTER: Initial ACUITY: 1 day PAIN SCALE: 0/10 LOCATION: cranial TECHNIQUE: Multiple contiguous axial images were obtained of the head. Using automated exposure control and adj ustment of the mA and/or kV according to patient size, radiation dose was kept as low as reasonably a chievable to obtain optimal diagnostic quality images. DICOM format image data is available electro nically for review and comparison. FINDINGS: CEREBRUM: There is a subdural hygroma on the left side. In the mid convexities left frontal region the hygroma measures 10 mm unchanged from the previous study. I don't see any acute hemorrhage or lesion elsewher e. The ventricles are mildly prominent for age. No evidence of mass lesion, hemorrhage or acute infa rction. There is mild shift of the septum pellucidum from left to right. POSTERIOR FOSSA: The cerebellum and brainstem are intact. The 4th ventricle is midline. The cerebellopontine angle i s unremarkable. EXTRACRANIAL: The visualized portion of the orbits is intact. Continued air fluid level right maxillary and sphenoi savanna sinus. Mild ethmoid sinus disease SKULL: The calvaria is intact. No evidence of skull fracture. CONCLUSION: Air-fluid levels in the sphenoid and right maxillary sinuses. Stable subdural hygroma on the left luisa e without significant mass, hemorrhage or edema. Mike Logan MD on September 06, 2017 at 12:45 Board Certified Radiologist. This report was verified electronically.
--- NOTE | 2017-09-06 12:58 | RADRPT ---
EXAM DATE/TIME: 09/06/2017 12:14 [facility] COMPARISON: CT CERVICAL SPINE W/O CONTRAST, August 15, 2017, 12:38. INDICATIONS : Neck pain. RADIATION DOSE: 27.64 CTDIvol (mGy) MEDICAL HISTORY : Cerebrovascular disease. Cardiovascular disease Hypertension. SURGICAL HISTORY : Hysterectomy. ENCOUNTER: Initial ACUITY: 1 day PAIN SCALE: Non-responsive LOCATION: neck TECHNIQUE: Volumetric scanning of the cervical spine was performed. Multiplanar reconstructions in the sagittal, coronal and oblique axial planes were performed. Using automated exposure control and adjustment o f the mA and/or kV according to patient size, radiation dose was kept as low as reasonably achievable to obtain optimal diagnostic quality images. DICOM format image data is available electronically f or review and comparison. FINDINGS: VERTEBRAE: Normal vertebral body height except endplate cupping of C7. ALIGNMENT: No evidence of subluxation. C2-C3: The bony spinal canal is normal in size. No evidence of disc bulge or herniation. The neural forami na are bilaterally patent. C3-C4: The bony spinal canal is normal in size. No evidence of disc bulge or herniation. The neural forami na are bilaterally patent. C4-C5: The bony spinal canal is normal in size. No evidence of disc bulge or herniation. The neural forami na are bilaterally patent. C5-C6: The bony spinal canal is normal in size. No evidence of disc bulge or herniation. The neural forami na are bilaterally patent. C6-C7: The bony spinal canal is normal in size. No evidence of disc bulge or herniation. The neural forami na are bilaterally patent. C7-T1: The bony spinal canal is normal in size. No evidence of disc bulge or herniation. The neural forami na are bilaterally patent. CONCLUSION: Normal examination except for mild chronic disc space height loss at C5-6 and C6-7 unchanged. Mike Logan MD on September 06, 2017 at 12:55 Board Certified Radiologist. This report was verified electronically.
[2017-09-06 13:05] VITALS: BP 119/54; PULSE 94; RESP 18; O2SAT 97
[2017-09-06] MEDS ORDERED: VANCOMYCIN INJ 600 MG in SODIUM CHLOR 0.9% 250 ML INJ 250 ML IV STA (13:26)
[2017-09-06] MEDS ORDERED: SODIUM CHLORID 0.9% 500 ML INJ 500 ML IV ONE (13:30)
--- NOTE | 2017-09-06 13:31 | RADRPT ---
EXAM DATE/TIME: 09/06/2017 13:02 [facility] COMPARISON: Prior study 08/15/2017. INDICATIONS : Abdominal Pain. ORAL CONTRAST: No oral contrast ingested. RADIATION DOSE: 4.53 CTDIvol (mGy) MEDICAL HISTORY : Cerebrovascular disease. Gastroesophageal reflux disease. Hepatitis A. Bladder mass. SURGICAL HISTORY : Hysterectomy. ENCOUNTER: Initial ACUITY: 1 day PAIN SCALE: 5/10 LOCATION: Abdomen. TECHNIQUE: Volumetric scanning of the abdomen and pelvis was performed. Using automated exposure control and ad justment of the mA and/or kV according to patient size, radiation dose was kept as low as reasonably achievable to obtain optimal diagnostic quality images. DICOM format image data is available electro nically for review and comparison. FINDINGS: Prior study of 08/15/2017 used for comparison. Non-contrast CT scan demonstrates there is marked perinephric stranding around the left kidney, new f rom the previous study. There is mild prominence of the left ureter proximally. 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 Right kidney and right ureter are also mildly prominent but no stone is identified. There is a Amin catheter in place. The left adrenal nodule is unchanged. Solid organs include the liver, spleen and pancreas are unrema rkable. Gallbladder is decompressed. There is dense coronary atherosclerotic disease. CONCLUSION: 1. 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 2. Right kidney is unremarkable. 3. Solid organs are unremarkable. Mike Logan MD on September 06, 2017 at 13:11 Board Certified Radiologist. This report was verified electronically.
[2017-09-06] MEDS ORDERED: ACETAMINOPHEN 1000 MG/100 ML 65 ML IV ONE (13:45)
[2017-09-06] MEDS ORDERED: NALOXONE HCL 0.4 MG/ML AMP IV PUSH PRN (14:30)
[2017-09-06] MEDS ORDERED: SODIUM CHLORIDE 0.9% FLUSH 10 ML FLUSH IV FLUSH PRN (14:30)
--- NOTE | 2017-09-06 15:06 | EKG ---
Date Performed: 09/06/2017 Time Performed: 12:40:44 PTAGE: 87 years EKG: Sinus rhythm NORMAL ECG Compared to prior electrocardiogram, rate has increased PREVIOUS TRACING : 08/15/2017 19.05 DOCTOR: Jose Mcallister Interpretating Date/Time 09/06/2017 15:05:50
[2017-09-06 16:00] VITALS: BP 124/62; PULSE 66; PULSE 83; RESP 16; TEMP 97.2; O2SAT 93
--- NOTE | 2017-09-06 16:22 | HHI.HP ---
[facility] Unknown Admission Diagnosis severe sepsis, uti Diagnoses: Travel History International Travel<30 Days: No Contact w/Intl Traveler <30 Da: No Traveled to Known Affected Are: No Past Family Social History Allergies: Coded Allergies: Sulfa (Sulfonamide Antibiotics) (Verified Allergy, Unknown, 08/15/17) Physical Exam Vital Signs Vital Signs Date Time Temp Pulse Resp B/P (MAP) Pulse Ox O2 Delivery O2 Flow Rate FiO2 09/06/17 13:05 94 18 119/54 (75) 97 09/06/17 11:39 99 09/06/17 11:31 98.2 100 18 142/55 (84) 97 Physical Exam GENERAL: This is a well-nourished, well-developed patient, in no apparent distress. SKIN: No rashes, ecchymoses or lesions. Cool and dry. HEAD: Atraumatic. Normocephalic. No temporal or scalp tenderness. EYES: Pupils equal round and reactive. Extraocular motions intact. No scleral icterus. No injection or drainage. ENT: Nose without bleeding, purulent drainage or septal hematoma. Throat without erythema, tonsillar hypertrophy or exudate. Uvula midline. Airway patent. NECK: Trachea midline. No JVD or lymphadenopathy. Supple, nontender, no meningeal signs. CARDIOVASCULAR: Regular rate and rhythm without murmurs, gallops, or rubs. RESPIRATORY: Clear to auscultation. Breath sounds equal bilaterally. No wheezes , rales, or rhonchi. GASTROINTESTINAL: Abdomen soft, non-tender, nondistended. No hepato-splenomegaly , or palpable masses. No guarding. MUSCULOSKELETAL: Extremities without clubbing, cyanosis, or edema. No joint tenderness, effusion, or edema noted. No calf tenderness. Negative Homans sign bilaterally. NEUROLOGICAL: Awake and alert. Cranial nerves II through XII intact. Motor and sensory grossly within normal limits. Five out of 5 muscle strength in all muscle groups. Normal speech. Laboratory Laboratory Tests Test 09/06/17 12:03 09/06/17 14:00 White Blood Count 18.3 Red Blood Count 3.54 Hemoglobin 10.8 Hematocrit 34.0 Mean Corpuscular Volume 96.2 Mean Corpuscular Hemoglobin 30.6 Mean Corpuscular Hemoglobin Concent 31.9 Red Cell Distribution Width 13.1 Platelet Count 283 Mean Platelet Volume 8.5 Neutrophils (%) (Auto) 80.5 Lymphocytes (%) (Auto) 12.6 Monocytes (%) (Auto) 6.3 Eosinophils (%) (Auto) 0.6 Basophils (%) (Auto) 0.0 Neutrophils # (Auto) 14.7 Lymphocytes # (Auto) 2.3 Monocytes # (Auto) 1.2 Eosinophils # (Auto) 0.1 Basophils # (Auto) 0.0 CBC Comment DIFF FINAL Differential Comment Prothrombin Time 11.2 Prothromb Time International Ratio 1.1 Activated Partial Thromboplast Time 26.0 Urine Color YELLOW Urine Turbidity HAZY Urine pH 5.5 Urine Specific [employer] 1.012 Urine Protein 30 Urine Glucose (UA) NEG Urine Ketones NEG Urine Occult Blood LARGE Urine Nitrite NEG Urine Bilirubin NEG Urine Urobilinogen LESS THAN 2.0 Urine Leukocyte Esterase LARGE Urine RBC 21 Urine WBC 65 Urine WBC Clumps FEW Urine Squamous Epithelial Cells 1 Urine Amorphous Sediment FEW Urine Bacteria FEW Urine Mucus FEW Microscopic Urinalysis Comment CATH-CULTURE IND Blood Urea Nitrogen 121 Creatinine 6.69 Random Glucose 175 Total Protein 9.5 Albumin 2.2 Calcium Level 9.7 Alkaline Phosphatase 122 Aspartate Amino Transf (AST/SGOT) 18 Alanine Aminotransferase (ALT/SGPT) 20 Total Bilirubin 0.3 Sodium Level 140 Potassium Level 5.0 Chloride Level 107 Carbon Dioxide Level 21.0 Anion Gap 12 Estimat Glomerular Filtration Rate 6 Lactic Acid Level 2.6 1.6 Total Creatine Kinase 34 Date/Time Source Procedure Growth Status 09/06/17 12:03 Urine Catheterized Urine Urine Culture Pending Received Result Diagram: 09/06/17 1203 09/06/17 1203 Caprini VTE Risk Assessment Caprini Risk Assessment Model Point Value = 1 Point Value = 2 Point Value = 3 Point Value = 5 Age 41-60 Minor surgery BMI > 25 kg/m2 Swollen legs Varicose veins or History of unexplained or recurrent spontaneous Oral contraceptives or hormone replacement Sepsis (< 1 month) Serious lung disease, including pneumonia (< 1 month) Abnormal pulmonary function Acute myocardial infarction Congestive heart failure (< 1 month) History of inflammatory bowel disease Medical patient at bed rest Age 61-74 Arthroscopic surgery Major open surgery (> 45 min) Laparoscopic surgery (> 45 min) Malignancy Confined to bed (> 72 hours) Immobilizing plaster cast Central venous access Age >= 75 History of VTE Family history of VTE Factor V Leiden Prothrombin [id number] Lupus anticoagulant Anticardiolipin antibodies Elevated serum homocysteine Heparin-induced thrombocytopenia Other congenital or acquired thrombophilia Stroke (< 1 month) Elective arthroplasty Hip, pelvis, or leg fracture Acute spinal cord injury (< 1 month) Prophylaxis Regimen Total Risk Factor Score Risk Level Prophylaxis Regimen 0-1 Low Early ambulation 2 Moderate Order ONE of the following: *Sequential Compression Device (SCD) *Heparin 5000 units SQ BID 3-4 Higher Order ONE of the following medications: *Heparin 5000 units SQ TID *Enoxaparin/Lovenox 40 mg SQ daily (WT < 150 kg, CrCl > 30 mL/min) *Enoxaparin/Lovenox 30 mg SQ daily (WT < 150 kg, CrCl > 10-29 mL/min) *Enoxaparin/Lovenox 30 mg SQ BID (WT < 150 kg, CrCl > 30 mL/min) AND/OR *Sequential Compression Device (SCD) 5 or more Highest Order ONE of the following medications: *Heparin 5000 units SQ TID (Preferred with Epidurals) *Enoxaparin/Lovenox 40 mg SQ daily (WT < 150 kg, CrCl > 30 mL/min) *Enoxaparin/Lovenox 30 mg SQ daily (WT < 150 kg, CrCl > 10-29 mL/min) *Enoxaparin/Lovenox 30 mg SQ BID (WT < 150 kg, CrCl > 30 mL/min) AND *Sequential Compression Device (SCD) Assessment and Plan Assessment and Plan ams urinary retention acute renal failure secondary to above hx of bladder CA - was dc last admission with outpatient cystoscopy, but has not had it done dehydration abnormal UA with prior neg urine cx hx of seizures hx of ICH neuro checks seizure precauations eeg will fu urine cx results for now cefepime iv fluids at 84cc/hr hx of bladder CA now with significant urine retention- will consult urology Physician Certification Order for Inpatient Services The services are ordered in accordance with Medicare regulations or non- Medicare payer requirements, as applicable. In the case of services not specified as inpatient-only, they are appropriately provided as inpatient services in accordance with the 2-midnight benchmark. days is the estimated time the patient will need to remain in the hospital, assuming treatment plan goals are met and no additional complications. Annie Castaneda MD Sep 06, 2017 16:22
--- NOTE | 2017-09-06 17:32 | RADRPT ---
EXAM DATE/TIME: 09/06/2017 17:04 [place] COMPARISON: CHEST SINGLE AP, August 15, 2017, 12:26. INDICATIONS : Evaluate for pneumoina. MEDICAL HISTORY : Cerebrovascular disease. Gastroesophageal reflux disease. Hepatitis A. Bladder mass. SURGICAL HISTORY : Hysterectomy. ENCOUNTER: Subsequent ACUITY: 1 day PAIN SCORE: 0/10 LOCATION: Bilateral chest FINDINGS: A single view of the chest demonstrates the lungs to be symmetrically aerated without evidence of mas s, infiltrate or effusion. The cardiomediastinal contours are unremarkable. Osseous structures are intact. CONCLUSION: Normal examination. Mike Logan MD on September 06, 2017 at 17:29 Board Certified Radiologist. This report was verified electronically.
[2017-09-06] MEDS: DEXT 5%-NACL 0.45% 1000 ML INJ 1,000 ML IV SCH (17:56)
[2017-09-06 20:00] VITALS: BP 147/74; PULSE 72; RESP 20; TEMP 96.6; O2SAT 97
[2017-09-06] MEDS: levETIRAcetam 500 MG TAB PO SCH (21:55)
[2017-09-06] MEDS: SODIUM CHLORIDE 0.9% FLUSH 10 ML FLUSH IV FLUSH SCH (21:56)
[2017-09-06 23:37] VITALS: PULSE 71
[2017-09-07] VITALS (7 sets, daily range): BP systolic 138–194; BP diastolic 75–81; PULSE 83–110; RESP 16–22; TEMP 96.2–100; O2SAT 95–98
[2017-09-07] MEDS: DEXT 5%-NACL 0.45% 1000 ML INJ 1,000 ML IV SCH ×4 (04:25→22:37)
[2017-09-07] MEDS ORDERED: CEFEPIME IV SCH (09:00)
[2017-09-07] MEDS ORDERED: SODIUM CHLORIDE 0.9% IV SCH (09:00)
[2017-09-07] MEDS: levETIRAcetam 500 MG TAB PO SCH ×2 (09:05→21:05)
[2017-09-07] MEDS: SODIUM CHLORIDE 0.9% FLUSH 10 ML FLUSH IV FLUSH SCH ×2 (09:06→21:05)
[2017-09-07] MEDS ORDERED: ENALAPRILAT 2.5 MG/2 ML VIAL IV PUSH PRN (09:45)
--- NOTE | 2017-09-07 10:01 | HHI.PR ---
Subjective Remarks The patient was resting comfortably in bed. She was able to mumble yes and no. She did not have any acute complaints. Discussed with nursing at the bedside , who stated that the patient's blood pressure was high and the patient needed a swallow evaluation. Objective Vitals Vital Signs Date Time Temp Pulse Resp B/P (MAP) Pulse Ox O2 Delivery O2 Flow Rate FiO2 09/07/17 08:00 97.5 93 16 194/81 (118) 96 09/07/17 04:00 96.9 95 20 176/79 (111) 98 09/07/17 00:00 96.2 83 20 151/75 (100) 98 09/06/17 23:37 71 09/06/17 20:00 96.6 72 20 147/74 (98) 97 09/06/17 16:00 97.2 83 16 124/62 (82) 93 09/06/17 16:00 66 09/06/17 13:05 94 18 119/54 (75) 97 09/06/17 11:39 99 09/06/17 11:31 98.2 100 18 142/55 (84) 97 I/O 09/06/17 09/06/17 09/06/17 09/07/17 09/07/17 09/07/17 07:00 15:00 23:00 07:00 15:00 23:00 Intake Total 450 ml 1000 ml Output Total 1500 ml 900 ml Balance -1050 ml 100 ml Intake Oral 200 ml 0 ml IV Total 250 ml 1000 ml Output Urine Total 1500 ml 900 ml # Bowel Movements 0 2 Result Diagram: 09/06/17 1203 09/06/17 1203 Imaging Last Impressions Head CT 09/06/17 1134 Signed Impressions: Service Date/Time: Wednesday, September 06, 2017 12:12 - CONCLUSION: Air-fluid levels in the sphenoid and right maxillary sinuses. 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 Mike Logan MD Chest X-Ray 09/06/17 0000 Signed Impressions: Service Date/Time: Wednesday, September 06, 2017 17:04 - CONCLUSION: Normal examination. Mike Logan MD Cervical Spine CT 09/06/17 0000 Signed Impressions: Service Date/Time: Wednesday, September 06, 2017 12:14 - CONCLUSION: Normal examination except for mild chronic disc space height loss at C5-6 and C6-7 unchanged. Mike Logan MD Abdomen/Pelvis CT 09/06/17 0000 Signed Impressions: Service Date/Time: Wednesday, September 06, 2017 13:02 - CONCLUSION: 1. 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 2. Right kidney is unremarkable. 3. Solid organs are unremarkable. Mike Logan MD Objective Remarks GENERAL: Resting comfortably. SKIN: Warm and dry. Residual bruising to right lower eye lid HEAD: Atraumatic. Normocephalic. EYES: Pupils equal and round, reactive. No scleral icterus. No injection or drainage. Gaze is deviated towards the right ENT: No nasal bleeding or discharge. Mucous membranes pink and moist. NECK: Trachea midline. No JVD. Tenderness to palpation in left paraspinal musculature and cervical region CARDIOVASCULAR: Tachycardic. RESPIRATORY: No accessory muscle use. Clear to auscultation. Breath sounds equal bilaterally. GASTROINTESTINAL: Abdomen soft, nontender, nondistended. Hepatic and splenic margins not palpable. Positive bowel sounds. MUSCULOSKELETAL: Extremities without clubbing, cyanosis, or edema. No obvious deformities. : Amin in place. NEUROLOGICAL: Awake and alert. Minimally verbal. Medications and IVs Current Medications Medications (Trade) Dose Ordered Sig/Reny Route Start Time Stop Time Status Last Admin (NS Flush) 2 ml UNSCH PRN IV FLUSH 09/06/17 14:30 (NS Flush) 2 ml BID IV FLUSH 09/06/17 21:00 09/07/17 09:06 (Narcan Inj) 0.4 mg UNSCH PRN IV PUSH 09/06/17 14:30 (Keppra) 500 mg Q12HR PO 09/06/17 21:00 09/07/17 09:05 Dextrose/Sodium Chloride 1,000 ml @ 125 mls/hr Q8H IV 09/06/17 16:30 09/07/17 05:59 Cefepime HCl 250 mg/Sodium Chloride 100 ml @ 200 mls/hr Q24H IV 09/07/17 09:00 (Vasotec Inj) 2.5 mg Q6H PRN IV PUSH 09/07/17 09:45 UNV A/P Assessment and Plan Acute renal failure Creatinine elevated over 6. Likely secondary to decreased by mouth intake and possible urinary retention. Status post Amin catheter placement. - Continue IV fluids. - Continue Amin catheter. - Avoid nephrotoxic agents. Sepsis/ UTI UA indicative of an infection. The patient presents with leukocytosis and an elevated heart rate. - Continue IV cefepime. - Follow urine and blood cultures. 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 The pt follows with urology as an outpt. - continue Amin catheter. - urology consult requested. Metabolic encephalopathy S/t acute renal failure. CT of the head showed: Air-fluid levels in the sphenoid and right maxillary sinuses; Stable subdural hygroma on the left side without significant mass, hemorrhage or edema. - treatment as above. - NPO with IVFs. - swallow eval, PT/ OT. Recent head trauma CT as above. Stable. - PT/ OT/ ST. PPx: SCDs Discharge Planning Awaiting clinical improvement in renal failure Lenny Dee DO Sep 07, 2017 10:01
[2017-09-07] MEDS: CEFEPIME IV SCH (11:30)
[2017-09-07] MEDS: SODIUM CHLORIDE 0.9% IV SCH (11:30)
[2017-09-07 12:13] LABS: AUTOMATED NEUTROPHIL # 10.2 TH/MM3 (1.8-7.7); BASOPHIL % 0.2 % (0.0-2.0); EOSINOPHIL # 0.2 TH/MM3 (0-0.4); EOSINOPHIL % 1.8 % (0.0-4.0); HEMATOCRIT 28.8 % (35.0-46.0); HEMO FLAGS DIFF FINAL; LYMPH % 13.7 % (9.0-44.0); LYMPHOCYTE # 1.8 TH/MM3 (1.0-4.8); MEAN CELL VOLUME 96.5 FL (80.0-100.0); MEAN CORPUSCULAR HEMOGLOBIN 30.6 PG (27.0-34.0); MEAN CORPUSCULAR HGB CONC 31.7 % (32.0-36.0); MONO % 7.1 % (0.0-8.0); NEUT % 77.2 % (16.0-70.0); PLATELET COUNT 261 TH/MM3 (150-450); RED BLOOD COUNT 2.99 MIL/MM3 (4.00-5.30); RED CELL DISTRIBUTION WIDTH 12.8 % (11.6-17.2); WHITE BLOOD COUNT 13.2 TH/MM3 (4.0-11.0)
[2017-09-07 12:47] LABS: BICARBONATE 19.3 MEQ/L (21.0-32.0); POTASSIUM 3.7 MEQ/L (3.5-5.1)
--- NOTE | 2017-09-07 13:17 | PD.CONS ---
HPI Service Urology Consult Requested By Dr. Dee Reason for Consult History bladder mass now with acute renal failure Primary Care Physician Unknown Diagnosis: History of Present Illness 87-year-old female who presents now with altered mental status. Patient was recently evaluated last month after she was admitted for a traumatic brain hemorrhage and a urology consult was placed regarding her known history of having a bladder mass with symptoms of frequency and dysuria. I have recommended a Amin catheter at that time but the patient declined. This patient is an established patient of Dr. Rio Mustafa and had been scheduled to undergo cystoscopic evaluation after a CT scan of the abdomen and pelvis demonstrated a 3.9 cm bladder mass involving the trigone region. Patient also has a history of a 2.3 cm left adrenal mass with retroperitoneal lymphadenopathy. Preliminary laboratory studies demonstrated market serum creatinine elevation measuring 6.69. A CT scan demonstrated changes consistent with a left sided bladder mass. There was some perinephric stranding noted on the left side. The right kidney appeared normal. A Amin catheter was placed and follow up serum creatinine levels have markedly improved with her most recent reading measuring 2.59. At the time of consultation the patient appeared to be confused but she did not appear to be in any acute distress. She did have indwelling Amin catheter draining clear yellow urine. Review of Systems ROS Limitations: Altered Mental Status Except as stated in HPI: all other systems reviewed are Neg Past Family Social History Past Medical History Hypertension Bladder mass Past Surgical History No prior history of major surgery Reported Medications Refer to EMR Allergies: Coded Allergies: Sulfa (Sulfonamide Antibiotics) (Verified Allergy, Unknown, 08/15/17) Active Ordered Medications Refer to EMR Family History Reviewed and noncontributory Social History No history tobacco, alcohol or intravenous drug abuse Physical Exam Vital Signs Date Time Temp Pulse Resp B/P (MAP) Pulse Ox O2 Delivery O2 Flow Rate FiO2 09/07/17 12:00 97.3 98 16 168/77 (107) 98 09/07/17 08:00 97.5 93 16 194/81 (118) 96 09/07/17 04:00 96.9 95 20 176/79 (111) 98 09/07/17 00:00 96.2 83 20 151/75 (100) 98 09/06/17 23:37 71 09/06/17 20:00 96.6 72 20 147/74 (98) 97 09/06/17 16:00 97.2 83 16 124/62 (82) 93 09/06/17 16:00 66 Physical Exam GENERAL: Appears stated age. Does not appear to be day distress. SKIN: No rashes, ecchymoses or lesions. Cool and dry. HEAD: Atraumatic. Normocephalic. No temporal or scalp tenderness. EYES: Pupils equal round and reactive. Extraocular motions intact. No scleral icterus. No injection or drainage. ENT: Nose without bleeding, purulent drainage or septal hematoma. Throat without erythema, tonsillar hypertrophy or exudate. Uvula midline. Airway patent. NECK: Trachea midline. No JVD or lymphadenopathy. Supple, nontender, no meningeal signs. GASTROINTESTINAL: Abdomen soft, non-tender, nondistended. No hepato-splenomegaly , or palpable masses. No guarding. GENITOURINARY: Indwelling Amin catheter draining clear yellow urine MUSCULOSKELETAL: Extremities without clubbing, cyanosis, or edema. No joint tenderness, effusion, or edema noted. No calf tenderness. Negative Homans sign bilaterally. NEUROLOGICAL: Confused Lab results reviewed: Yes Laboratory Tests Test 09/06/17 14:00 09/07/17 11:33 Lactic Acid Level 1.6 White Blood Count 13.2 Red Blood Count 2.99 Hemoglobin 9.1 Hematocrit 28.8 Mean Corpuscular Volume 96.5 Mean Corpuscular Hemoglobin 30.6 Mean Corpuscular Hemoglobin Concent 31.7 Red Cell Distribution Width 12.8 Platelet Count 261 Mean Platelet Volume 8.9 Neutrophils (%) (Auto) 77.2 Lymphocytes (%) (Auto) 13.7 Monocytes (%) (Auto) 7.1 Eosinophils (%) (Auto) 1.8 Basophils (%) (Auto) 0.2 Neutrophils # (Auto) 10.2 Lymphocytes # (Auto) 1.8 Monocytes # (Auto) 0.9 Eosinophils # (Auto) 0.2 Basophils # (Auto) 0.0 CBC Comment DIFF FINAL Differential Comment Blood Urea Nitrogen 82 Creatinine 2.59 Random Glucose 178 Calcium Level 8.0 Sodium Level 145 Potassium Level 3.7 Chloride Level 116 Carbon Dioxide Level 19.3 Anion Gap 10 Estimat Glomerular Filtration Rate 18 Date/Time Source Procedure Growth Status 09/06/17 12:03 Urine Catheterized Urine Urine Culture - Preliminary Group D Enterococcus Resulted Result Diagram: 09/07/17 1133 09/07/17 1133 Personally reviewed images: Yes Imaging Last Impressions Head CT 09/06/17 1134 Signed Impressions: Service Date/Time: Wednesday, September 06, 2017 12:12 - CONCLUSION: Air-fluid levels in the sphenoid and right maxillary sinuses. 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 Mike Logan MD Chest X-Ray 09/06/17 0000 Signed Impressions: Service Date/Time: Wednesday, September 06, 2017 17:04 - CONCLUSION: Normal examination. Mike Logan MD Cervical Spine CT 09/06/17 0000 Signed Impressions: Service Date/Time: Wednesday, September 06, 2017 12:14 - CONCLUSION: Normal examination except for mild chronic disc space height loss at C5-6 and C6-7 unchanged. Mike Logan MD Abdomen/Pelvis CT 09/06/17 0000 Signed Impressions: Service Date/Time: Wednesday, September 06, 2017 13:02 - CONCLUSION: 1. 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 2. Right kidney is unremarkable. 3. Solid organs are unremarkable. 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 Mustafa once her overall medical condition has improved #3 nothing further to add at this time Dylan Allan MD Sep 07, 2017 13:17
[2017-09-07 20:16] LABS: HEMATOCRIT 25.9 % (35.0-46.0); MEAN CORPUSCULAR HEMOGLOBIN 30.3 PG (27.0-34.0); MEAN CORPUSCULAR HGB CONC 32.2 % (32.0-36.0); PLATELET COUNT 257 TH/MM3 (150-450); RED BLOOD COUNT 2.76 MIL/MM3 (4.00-5.30); RED CELL DISTRIBUTION WIDTH 12.6 % (11.6-17.2); REVIEW FLAG FINAL; WHITE BLOOD COUNT 13.4 TH/MM3 (4.0-11.0)
[2017-09-08] VITALS (7 sets, daily range): BP systolic 122–171; BP diastolic 58–90; PULSE 96–111; RESP 15–22; TEMP 96.6–100.4; O2SAT 93–97
--- NOTE | 2017-09-08 06:01 | MG ---
cc: CAROLYNE HERNANDEZ MD Lab No: [id number] Date: 09/07/2017 Age: Sex: F Race: DATE OF 1930 INDICATIONS FOR PROCEDURE An 87-year-old with history of TBI, posturing, aphasia. FINDINGS 2-3 Hz delta activity occurring in a generalized fashion with frontal myogenic artifact, 20-60 microvolts. Asymmetric right hemispheric slowing. Desynchronized waveforms. At times some pseudo-periodic delta activity noted. Limited driving with photic stimulation, post-rhythmic incrementing up to 3-5 Hz on some occasions. Single lead EKG showing sinus rhythm. INTERPRETATION Moderate encephalopathy with slight asymmetric slowing as noted above. Clinical correlation. Carolyne Hernandez MD MG/SSB /8:29 PM /5:52 AM
[2017-09-08] MEDS: DEXT 5%-NACL 0.45% 1000 ML INJ 1,000 ML IV SCH ×3 (06:19→21:11)
[2017-09-08 08:33] LABS: HEMATOCRIT 27.2 % (35.0-46.0); MEAN CELL VOLUME 93.9 FL (80.0-100.0); MEAN CORPUSCULAR HEMOGLOBIN 31.2 PG (27.0-34.0); MEAN CORPUSCULAR HGB CONC 33.2 % (32.0-36.0); PLATELET COUNT 245 TH/MM3 (150-450); RED BLOOD COUNT 2.89 MIL/MM3 (4.00-5.30); RED CELL DISTRIBUTION WIDTH 12.4 % (11.6-17.2); REVIEW FLAG FINAL; WHITE BLOOD COUNT 12.5 TH/MM3 (4.0-11.0)
[2017-09-08 08:56] LABS: BICARBONATE 22.4 MEQ/L (21.0-32.0); MAGNESIUM 1.3 MG/DL (1.5-2.5); POTASSIUM 3.4 MEQ/L (3.5-5.1)
[2017-09-08] MEDS: SODIUM CHLORIDE 0.9% FLUSH 10 ML FLUSH IV FLUSH SCH ×2 (09:00→20:55)
[2017-09-08] MEDS: levETIRAcetam 500 MG TAB PO SCH ×2 (09:10→20:54)
--- NOTE | 2017-09-08 09:56 | PD.CONS ---
Consult Service Palliative Care Consult Requested By Dr. Garcia Primary Care Physician Unknown Reason for Consultation a. To assist with evaluation and management of symptoms including: b. To assist medical decision maker(s) with: better understanding of current medical conditions; weighing benefits/burdens of medical treatment options; making medical treatment decisions. 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 Patient hospitalization was complicated by UTIs. Patient also has bladder mass, left adrenal mass in the retroperitoneal area, enlarged lymph node managed conservatively and was supposed to be followed by urology as outpatient. Patient was discharged from the hospital to long term facility. Patient return to the hospital on 09/06/2017 for altered mental status. Patient was documented as having posturing and was deviating to the right. In the ER * Temperature is 98.2, pulse is 100%, respirations 18, blood pressure is 142/55 * WBC is 18.3, hemoglobin is 10.8, hematocrit is 34.0, platelet is 283 * Sodium was 140, potassium is 4.0, chloride is 07 on, BUN is 21, creatinine 6.69 * UA shows large amount of leukocyte esterase * Chest x-ray was normal * Cervical spine CT is normal except for this patient reduction on C5 to C6 and C6 to C7 * Abdominal CT shows some inflammatory stranding around the left kidney with left bladder wall area of thickening and questionable mass concerning for transitional cell carcinoma. Right kidney is unremarkable. * Head CT shows air-fluid level in the sphenoid and right maxillary sinus. There is a stable subdural hygroma on the left side no significant mass hemorrhage or edema. * Urine culture shows group D enterococcus. All chores 2 are pending * Patient is admitted to the hospital 09/07/2017. Urology was consulted. Feel that renal failure secondary to urinary retention and Tate catheter was placed for drainage. Comment that left adrenal mass and bilateral lymphadenopathy likely related to metastatic disease and recommend follow-up with urologist once overall medical condition improves. Patient's creatinine gradually improve from 6.69 to 2.59. Leukocytosis is gradually resolving with cefepime. Speech seen patient and recommended. Perforated and thin liquids. EEG was ordered which shows moderate encephalopathy. On my visit today, pt is lethargic an hard to arouse. Open eyes briefly, go back to sleep. could not get hx. Function/Cognitive Trajectory Multiple hospitalization. Review of Systems ROS Limitations: Clinical Condition Constitutional: COMPLAINS OF: Fatigue Genitourinary: COMPLAINS OF: Urgency (tate placed) Psychiatric: COMPLAINS OF: Confusion Past Family Social History Coded Allergies: Sulfa (Sulfonamide Antibiotics) (Verified Allergy, Unknown, 08/15/17) Past Medical History Intracranial hemorrhage status post fall Bladder mass Chronic UTI Expressive aphasia Hypertension Past Surgical History Hysterectomy Reported Medications Keppra (Levetiracetam) 500 Mg Tab 500 Mg PO Q12HR Phenazopyridine (Phenazopyridine HCl) 100 Mg Tab 100 Mg PO DAILY Milk of Magnesia Liq (Magnesium Hydroxide) 400 Mg/5 Ml Susp 30 Ml PO Q12HR PRN Hydrocodone-Acetamin 5-325 mg (Hydrocodone/Acetaminophen) 5 Mg-325 Mg Tablet 1 Tab PO Q4HR PRN Lactulose 10 Gram/15 Ml (15 Ml) Solution 30 Ml PO DAILY PRN Dulcolax Supp (Bisacodyl) 10 Mg Supp 10 Mg RECTAL IN AM PRN Citroma Liq (Magnesium Citrate) 300 Ml Liq 296 Ml PO IN AM PRN Tylenol (Acetaminophen) 325 Mg Tab 650 Mg PO Q4H PRN Current Medications Medications (Trade) Dose Ordered Sig/Reny Route Start Time Stop Time Status Last Admin (NS Flush) 2 ml UNSCH PRN IV FLUSH 09/06/17 14:30 (NS Flush) 2 ml BID IV FLUSH 09/06/17 21:00 09/07/17 21:05 (Narcan Inj) 0.4 mg UNSCH PRN IV PUSH 09/06/17 14:30 (Keppra) 500 mg Q12HR PO 09/06/17 21:00 09/08/17 09:10 Dextrose/Sodium Chloride 1,000 ml @ 125 mls/hr Q8H IV 09/06/17 16:30 09/08/17 06:19 (Vasotec Inj) 2.5 mg Q6H PRN IV PUSH 09/07/17 09:45 Cefepime HCl 250 mg/Sodium Chloride 100 ml @ 200 mls/hr Q24H IV 09/07/17 10:00 09/07/17 11:30 Family History Unable to elicit Substance Use Tobacco: No Alcohol: No Prescription med abuse: No Illicits: No Psychosocial History Jose Sacnhez Physical Exam Vital Signs Date Time Temp Pulse Resp B/P (MAP) Pulse Ox O2 Delivery O2 Flow Rate FiO2 09/08/17 08:00 96.8 102 15 171/80 (110) 97 09/08/17 04:00 98.7 96 20 166/90 (115) 95 09/08/17 00:00 108 09/08/17 00:00 96.6 108 20 138/65 (89) 97 09/07/17 20:00 100.0 110 22 138/80 (99) 95 09/07/17 20:00 106 09/07/17 16:00 97.7 97 16 166/78 (107) 96 09/07/17 12:00 97.3 98 16 168/77 (107) 98 Exam CONSTITUTIONAL/GENERAL: This is an elderly frail lady, sleeping, lethargic hard to arous.e TUBES/LINES/DRAINS:piv SKIN: No jaundice, rashes, or lesions. Ecchymoses on upper extremities. No wounds seen anteriorly. Skin temperature appropriate. Not diaphoretic. HEAD: Atraumatic. Normocephalic. EYES: Pupils equal and round and reactive. Extraocular motions intact. No scleral icterus. No injection or drainage. Fundi not examined. Echymosis on right eye. ENT: Hearing grossly normal. Nose without bleeding or purulent drainage. Throat without visible erythema, exudates, masses, or lesions. NECK: Trachea midline. Supple, nontender. No palpable thyroid enlargement or nodularity. CARDIOVASCULAR: Regular rate and rhythm without murmurs, gallops, or rubs. No JVD. Peripheral pulses symmetric. RESPIRATORY/CHEST: Symmetric, unlabored respirations. faint rhonchi GASTROINTESTINAL: Abdomen soft, non-tender, nondistended. No hepato-splenomegaly , or palpable masses. No guarding. Bowel sounds present. GENITOURINARY: Without palpable bladder distension. Tate catheter in place. MUSCULOSKELETAL: Extremities without clubbing, cyanosis, or edema. No joint tenderness or effusion noted. No calf tenderness. No mottling or clubbing. LYMPHATICS: No palpable cervical or supraclavicular adenopathy. NEUROLOGICAL: lethargic PSYCHIATRIC: No obvious anxiety/depression. no apparent hallucinations or other psychotic thought process. Diagnostic Tests Laboratory Laboratory Tests Test 09/06/17 12:03 09/06/17 14:00 09/07/17 11:33 09/07/17 19:19 White Blood Count 18.3 TH/MM3 (4.0-11.0) 13.2 TH/MM3 (4.0-11.0) 13.4 TH/MM3 (4.0-11.0) Red Blood Count 3.54 MIL/MM3 (4.00-5.30) 2.99 MIL/MM3 (4.00-5.30) 2.76 MIL/MM3 (4.00-5.30) Hemoglobin 10.8 GM/DL (11.6-15.3) 9.1 GM/DL (11.6-15.3) 8.4 GM/DL (11.6-15.3) Hematocrit 34.0 % (35.0-46.0) 28.8 % (35.0-46.0) 25.9 % (35.0-46.0) Mean Corpuscular Volume 96.2 FL (80.0-100.0) 96.5 FL (80.0-100.0) 94.0 FL (80.0-100.0) Mean Corpuscular Hemoglobin 30.6 PG (27.0-34.0) 30.6 PG (27.0-34.0) 30.3 PG (27.0-34.0) Mean Corpuscular Hemoglobin Concent 31.9 % (32.0-36.0) 31.7 % (32.0-36.0) 32.2 % (32.0-36.0) Red Cell Distribution Width 13.1 % (11.6-17.2) 12.8 % (11.6-17.2) 12.6 % (11.6-17.2) Platelet Count 283 TH/MM3 (150-450) 261 TH/MM3 (150-450) 257 TH/MM3 (150-450) Mean Platelet Volume 8.5 FL (7.0-11.0) 8.9 FL (7.0-11.0) 9.0 FL (7.0-11.0) Neutrophils (%) (Auto) 80.5 % (16.0-70.0) 77.2 % (16.0-70.0) Lymphocytes (%) (Auto) 12.6 % (9.0-44.0) 13.7 % (9.0-44.0) Monocytes (%) (Auto) 6.3 % (0.0-8.0) 7.1 % (0.0-8.0) Eosinophils (%) (Auto) 0.6 % (0.0-4.0) 1.8 % (0.0-4.0) Basophils (%) (Auto) 0.0 % (0.0-2.0) 0.2 % (0.0-2.0) Neutrophils # (Auto) 14.7 TH/MM3 (1.8-7.7) 10.2 TH/MM3 (1.8-7.7) Lymphocytes # (Auto) 2.3 TH/MM3 (1.0-4.8) 1.8 TH/MM3 (1.0-4.8) Monocytes # (Auto) 1.2 TH/MM3 (0-0.9) 0.9 TH/MM3 (0-0.9) Eosinophils # (Auto) 0.1 TH/MM3 (0-0.4) 0.2 TH/MM3 (0-0.4) Basophils # (Auto) 0.0 TH/MM3 (0-0.2) 0.0 TH/MM3 (0-0.2) CBC Comment DIFF FINAL DIFF FINAL Differential Comment Prothrombin Time 11.2 SEC (9.8-11.6) Prothromb Time International Ratio 1.1 RATIO Activated Partial Thromboplast Time 26.0 SEC (24.3-30.1) Urine Color YELLOW (YELLW/STRAW) Urine Turbidity HAZY (CLEAR) Urine pH 5.5 (5.0-8.5) Urine Specific [place] 1.012 (1.002-1.035) Urine Protein 30 mg/dL (NEG-TRACE) Urine Glucose (UA) NEG mg/dL (NEG) Urine Ketones NEG mg/dL (NEG) Urine Occult Blood LARGE (NEG) Urine Nitrite NEG (NEG) Urine Bilirubin NEG (NEG) Urine Urobilinogen LESS THAN 2.0 MG/DL (LESS Urine Leukocyte Esterase LARGE (NEG) Urine RBC 21 /hpf (0-3) Urine WBC 65 /hpf (0-5) Urine WBC Clumps FEW (NONE) Urine Squamous Epithelial Cells 1 /hpf (0-5) Urine Amorphous Sediment FEW Urine Bacteria FEW /hpf (NONE) Urine Mucus FEW /lpf (OCC) Microscopic Urinalysis Comment CATH-CULTURE IND Blood Urea Nitrogen 121 MG/DL (7-18) 82 MG/DL (7-18) Creatinine 6.69 MG/DL (0.50-1.00) 2.59 MG/DL (0.50-1.00) Random Glucose 175 MG/DL (74-106) 178 MG/DL (74-106) Total Protein 9.5 GM/DL (6.4-8.2) Albumin 2.2 GM/DL (3.4-5.0) Calcium Level 9.7 MG/DL (8.5-10.1) 8.0 MG/DL (8.5-10.1) Alkaline Phosphatase 122 U/L (45-117) Aspartate Amino Transf (AST/SGOT) 18 U/L (15-37) Alanine Aminotransferase (ALT/SGPT) 20 U/L (10-53) Total Bilirubin 0.3 MG/DL (0.2-1.0) Sodium Level 140 MEQ/L (136-145) 145 MEQ/L (136-145) Potassium Level 5.0 MEQ/L (3.5-5.1) 3.7 MEQ/L (3.5-5.1) Chloride Level 107 MEQ/L (98-107) 116 MEQ/L (98-107) Carbon Dioxide Level 21.0 MEQ/L (21.0-32.0) 19.3 MEQ/L (21.0-32.0) Anion Gap 12 MEQ/L (5-15) 10 MEQ/L (5-15) Estimat Glomerular Filtration Rate 6 ML/MIN (>89) 18 ML/MIN (>89) Lactic Acid Level 2.6 mmol/L (0.4-2.0) 1.6 mmol/L (0.4-2.0) Total Creatine Kinase 34 U/L (26-192) Test 09/08/17 07:21 White Blood Count 12.5 TH/MM3 (4.0-11.0) Red Blood Count 2.89 MIL/MM3 (4.00-5.30) Hemoglobin 9.0 GM/DL (11.6-15.3) Hematocrit 27.2 % (35.0-46.0) Mean Corpuscular Volume 93.9 FL (80.0-100.0) Mean Corpuscular Hemoglobin 31.2 PG (27.0-34.0) Mean Corpuscular Hemoglobin Concent 33.2 % (32.0-36.0) Red Cell Distribution Width 12.4 % (11.6-17.2) Platelet Count 245 TH/MM3 (150-450) Mean Platelet Volume 9.1 FL (7.0-11.0) Blood Urea Nitrogen 48 MG/DL (7-18) Creatinine 1.73 MG/DL (0.50-1.00) Random Glucose 135 MG/DL (74-106) Calcium Level 7.7 MG/DL (8.5-10.1) Magnesium Level 1.3 MG/DL (1.5-2.5) Sodium Level 140 MEQ/L (136-145) Potassium Level 3.4 MEQ/L (3.5-5.1) Chloride Level 109 MEQ/L (98-107) Carbon Dioxide Level 22.4 MEQ/L (21.0-32.0) Anion Gap 9 MEQ/L (5-15) Estimat Glomerular Filtration Rate 28 ML/MIN (>89) Result Diagram: 09/08/17 0721 09/08/17 0721 Microbiology Microbiology Date/Time Source Procedure Growth Status 09/07/17 13:45 Blood Peripheral Aerobic Blood Culture Pending Received 09/07/17 13:45 Blood Peripheral Anaerobic Blood Culture Pending Received 09/07/17 13:40 Blood Peripheral Aerobic Blood Culture Pending Received 09/07/17 13:40 Blood Peripheral Anaerobic Blood Culture Pending Received 09/06/17 12:03 Urine Catheterized Urine Urine Culture - Preliminary Group D Enterococcus Resulted Imaging Last Impressions Head CT 09/06/17 1134 Signed Impressions: Service Date/Time: Wednesday, September 06, 2017 12:12 - CONCLUSION: Air-fluid levels in the sphenoid and right maxillary sinuses. 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 Mike Logan MD Chest X-Ray 09/06/17 0000 Signed Impressions: Service Date/Time: Wednesday, September 06, 2017 17:04 - CONCLUSION: Normal examination. Mike Logan MD Cervical Spine CT 09/06/17 0000 Signed Impressions: Service Date/Time: Wednesday, September 06, 2017 12:14 - CONCLUSION: Normal examination except for mild chronic disc space height loss at C5-6 and C6-7 unchanged. Mike Logan MD Abdomen/Pelvis CT 09/06/17 0000 Signed Impressions: Service Date/Time: Wednesday, September 06, 2017 13:02 - CONCLUSION: 1. 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 2. Right kidney is unremarkable. 3. Solid organs are unremarkable. Mike Logan MD Patient/Family Conference Issues Discussed: * Palliative care role, purpose, approach * Additional medical, psychosocial, and spiritual history * Patients general health, functional status, and cognitive changes in the months leading up to the current hospitalization * Patient/family understanding of the current medical problems * Patient/family understanding of prognosis * Patients goals of care as best understood from advance directives and/or conversations and/or values * Current medical treatment options and benefits/burdens of those options * Likely scenarios comparing ongoing aggressive care with a transition to comfort measures only * Questions answered to the best of my ability * Palliative care contact information provided Assessment and Plan Disease Oriented Problem List: (1) UTI (urinary tract infection) (2) traumativc brain injury (3) Acute renal failure Symptom Scale: (1) Anxiety Pertinent Non-Medical Issues Psychosocial: Spiritual: Legal: Ethical issues impacting care: Important Contacts Franklyn Sanchez [phone] Prognosis Overall prognosis is guarded. Likely will have multiple hospitalization. Unlikely could tolerate any treatment for cancer. Is hospice appropriate if goals are comfort oriented. Code Status: No Code Thank you for the opportunity to participate in the care of Ms. Sanchez. Attestation To help prompt me to consider important information that might be impacting today's encounter and assessment, information from prior notes written by myself or my colleagues may have been "brought forward" into today's note. My signature on this note, however, is an attestation that I personally performed the exam, history, and/or decision-making noted today, and, unless otherwise indicated, the interactions with patient, family, and staff as well as the review of records all occurred today. I also attest that the listed assessment and stated plan reflect my best clinical judgment today based on the combination of historical information, prior notes, and today's exam/ interactions. When time spent is documented, it refers only to time spent today by the signer, or if indicated, combined time spent today by collaborating physician/nurse practitioner. Kuldip Sanabria MD Sep 08, 2017 09:56
[2017-09-08] MEDS: CEFEPIME IV SCH (10:16)
[2017-09-08] MEDS: SODIUM CHLORIDE 0.9% IV SCH (10:16)
[2017-09-08] MEDS: MAGNESIUM SULFATE 1 GM PREMIX 100 ML IV SCH ×2 (12:56→14:08)
[2017-09-08] MEDS ORDERED: POTASSIUM CHLORIDE 25 MEQ EFFERVESCENT TAB PO ONE (13:00)
--- NOTE | 2017-09-08 13:05 | HHI.PR ---
Subjective Remarks The patient was in bed. She was sleeping and moaning in her sleep. Discussed with nursing, who requested breathing treatments for the patient as she has been coughing. Objective Vitals Vital Signs Date Time Temp Pulse Resp B/P (MAP) Pulse Ox O2 Delivery O2 Flow Rate FiO2 09/08/17 12:00 97.0 110 15 156/75 (102) 95 09/08/17 08:00 96.8 102 15 171/80 (110) 97 09/08/17 04:00 98.7 96 20 166/90 (115) 95 09/08/17 00:00 108 09/08/17 00:00 96.6 108 20 138/65 (89) 97 09/07/17 20:00 100.0 110 22 138/80 (99) 95 09/07/17 20:00 106 09/07/17 16:00 97.7 97 16 166/78 (107) 96 I/O 09/07/17 09/07/17 09/07/17 09/08/17 09/08/17 09/08/17 07:00 15:00 23:00 07:00 15:00 23:00 Intake Total 1000 ml 2220 ml 60 ml Output Total 900 ml 1250 ml 800 ml Balance 100 ml 970 ml -740 ml Intake Oral 0 ml 120 ml 60 ml IV Total 1000 ml 2100 ml Output Urine Total 900 ml 1250 ml 800 ml # Bowel Movements 2 0 1 Result Diagram: 09/08/17 0721 09/08/17 0721 Imaging Last Impressions Head CT 09/06/17 1134 Signed Impressions: Service Date/Time: Wednesday, September 06, 2017 12:12 - CONCLUSION: Air-fluid levels in the sphenoid and right maxillary sinuses. 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 Mike Logan MD Chest X-Ray 09/06/17 0000 Signed Impressions: Service Date/Time: Wednesday, September 06, 2017 17:04 - CONCLUSION: Normal examination. Mike Logan MD Cervical Spine CT 09/06/17 0000 Signed Impressions: Service Date/Time: Wednesday, September 06, 2017 12:14 - CONCLUSION: Normal examination except for mild chronic disc space height loss at C5-6 and C6-7 unchanged. Mike Logan MD Abdomen/Pelvis CT 09/06/17 0000 Signed Impressions: Service Date/Time: Wednesday, September 06, 2017 13:02 - CONCLUSION: 1. 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 2. Right kidney is unremarkable. 3. Solid organs are unremarkable. Mike Logan MD Objective Remarks GENERAL: Sleeping. SKIN: Warm and dry. Residual bruising to right lower eye lid HEAD: Atraumatic. Normocephalic. EYES: Pupils equal and round, reactive. No scleral icterus. No injection or drainage. Gaze is deviated towards the right ENT: No nasal bleeding or discharge. Mucous membranes pink and moist. NECK: Trachea midline. No JVD. Tenderness to palpation in left paraspinal musculature and cervical region CARDIOVASCULAR: Tachycardic. RESPIRATORY: No accessory muscle use. Clear to auscultation. Breath sounds equal bilaterally. GASTROINTESTINAL: Abdomen soft, nontender, nondistended. Hepatic and splenic margins not palpable. Positive bowel sounds. MUSCULOSKELETAL: Extremities without clubbing, cyanosis, or edema. No obvious deformities. : Amin in place with brown urine. NEUROLOGICAL: Lethargic. Medications and IVs Current Medications Medications (Trade) Dose Ordered Sig/Reny Route Start Time Stop Time Status Last Admin (NS Flush) 2 ml UNSCH PRN IV FLUSH 09/06/17 14:30 (NS Flush) 2 ml BID IV FLUSH 09/06/17 21:00 09/07/17 21:05 (Narcan Inj) 0.4 mg UNSCH PRN IV PUSH 09/06/17 14:30 (Keppra) 500 mg Q12HR PO 09/06/17 21:00 09/08/17 09:10 Dextrose/Sodium Chloride 1,000 ml @ 125 mls/hr Q8H IV 09/06/17 16:30 09/08/17 06:19 (Vasotec Inj) 2.5 mg Q6H PRN IV PUSH 09/07/17 09:45 Cefepime HCl 250 mg/Sodium Chloride 100 ml @ 200 mls/hr Q24H IV 09/07/17 10:00 09/08/17 10:16 (K-Lyte Cl Eff) 50 meq ONCE ONCE PO 09/08/17 13:00 09/08/17 13:01 09/08/17 12:56 Magnesium Sulfate/ Dextrose 100 ml @ 100 mls/hr Q1H IV 09/08/17 13:00 09/08/17 14:59 09/08/17 12:56 (Duoneb Neb) 1 ampule Q6HR WHILE AWAKE NEB NEB 09/08/17 13:00 UNV A/P Assessment and Plan Acute renal failure Creatinine elevated over 6. Likely secondary to decreased by mouth intake and possible urinary retention. Status post Amin catheter placement. Creatinine improving. - Continue IV fluids. - Continue Amin catheter. - Avoid nephrotoxic agents. Sepsis/ UTI UA indicative of an infection. The patient presents with leukocytosis and an elevated heart rate. Group D enterococcus growing in urine. - Continue IV cefepime. - Follow blood cultures. 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 The pt follows with urology as an outpt. - continue Amin catheter. - urology consult noted. Reconsult as needed for hematuria. Metabolic encephalopathy S/t acute renal failure. CT of the head showed: Air-fluid levels in the sphenoid and right maxillary sinuses; Stable subdural hygroma on the left side without significant mass, hemorrhage or edema. - treatment as above. - diet per speech. - PT/ OT. Recent head trauma CT as above. Stable. - PT/ OT/ ST. Goals of care The pt is DNR. - palliative care consult requested to help establish goals of care as the pt has many chronic comorbidities. PPx: SCDs Discharge Planning Awaiting clinical improvement in renal failure, palliative consult Lenny Dee DO Sep 08, 2017 13:05
[2017-09-08] MEDS: RESP: ALBUTEROL 2.5 MG/IPRATROPIUM 0.5 MG NEB (SCH) NEB ×2 (13:19→19:50)
[2017-09-09] VITALS: BP 133/78; PULSE 100; RESP 18; TEMP 98.5; O2SAT 94
[2017-09-09] MEDS: DEXT 5%-NACL 0.45% 1000 ML INJ 1,000 ML IV SCH ×2 (02:00→13:32)
[2017-09-09 04:00] VITALS: BP 153/69; PULSE 98; RESP 18; TEMP 97.6; O2SAT 93
[2017-09-09 08:00] VITALS: BP 181/81; PULSE 105; RESP 18; TEMP 98.3; O2SAT 95
[2017-09-09] MEDS: RESP: ALBUTEROL 2.5 MG/IPRATROPIUM 0.5 MG NEB (SCH) NEB ×2 (08:00→14:00)
[2017-09-09] MEDS: SODIUM CHLORIDE 0.9% FLUSH 10 ML FLUSH IV FLUSH SCH (09:00)
[2017-09-09] MEDS: SODIUM CHLORIDE 0.9% IV SCH (09:03)
[2017-09-09] MEDS: levETIRAcetam 500 MG TAB PO SCH (09:03)
[2017-09-09] MEDS: CEFEPIME IV SCH (09:03)
[2017-09-09 12:00] VITALS: BP 148/69; PULSE 102; RESP 18; TEMP 97.2; O2SAT 92
[2017-09-09 12:13] LABS: HEMATOCRIT 28.2 % (35.0-46.0); MEAN CELL VOLUME 93.9 FL (80.0-100.0); MEAN CORPUSCULAR HEMOGLOBIN 30.9 PG (27.0-34.0); MEAN CORPUSCULAR HGB CONC 32.9 % (32.0-36.0); PLATELET COUNT 231 TH/MM3 (150-450); RED CELL DISTRIBUTION WIDTH 12.5 % (11.6-17.2); REVIEW FLAG FINAL; WHITE BLOOD COUNT 14.2 TH/MM3 (4.0-11.0)
[2017-09-09 12:30] LABS: BICARBONATE 21.1 MEQ/L (21.0-32.0); MAGNESIUM 1.8 MG/DL (1.5-2.5); POTASSIUM 3.4 MEQ/L (3.5-5.1)
--- NOTE | 2017-09-09 12:33 | HHI.PR ---
Subjective Remarks The patient's was at the bedside. He had questions about his 's condition. She was resting comfortably, not participating in the conversation. The patient's seemed interested in hospice care. Discussed with nursing. Objective Vitals Vital Signs Date Time Temp Pulse Resp B/P (MAP) Pulse Ox O2 Delivery O2 Flow Rate FiO2 09/09/17 04:00 97.6 98 18 153/69 (97) 93 09/09/17 00:00 98.5 100 18 133/78 (96) 94 09/08/17 20:07 103 09/08/17 20:00 100.4 105 18 122/58 (79) 93 09/08/17 16:00 97.8 111 22 127/63 (84) 93 I/O 09/08/17 09/08/17 09/08/17 09/09/17 09/09/17 09/09/17 07:00 15:00 23:00 07:00 15:00 23:00 Intake Total 60 ml 120 ml Output Total 800 ml 1000 ml 600 ml Balance -740 ml -880 ml -600 ml Intake Oral 60 ml 120 ml Output Urine Total 800 ml 1000 ml 600 ml # Bowel Movements 1 2 3 Result Diagram: 09/09/17 1122 09/08/17 0721 Imaging Last Impressions Head CT 09/06/17 1134 Signed Impressions: Service Date/Time: Wednesday, September 06, 2017 12:12 - CONCLUSION: Air-fluid levels in the sphenoid and right maxillary sinuses. 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 Mike Logan MD Chest X-Ray 09/06/17 0000 Signed Impressions: Service Date/Time: Wednesday, September 06, 2017 17:04 - CONCLUSION: Normal examination. Mike Logan MD Cervical Spine CT 09/06/17 0000 Signed Impressions: Service Date/Time: Wednesday, September 06, 2017 12:14 - CONCLUSION: Normal examination except for mild chronic disc space height loss at C5-6 and C6-7 unchanged. Mike Logan MD Abdomen/Pelvis CT 09/06/17 0000 Signed Impressions: Service Date/Time: Wednesday, September 06, 2017 13:02 - CONCLUSION: 1. 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 2. Right kidney is unremarkable. 3. Solid organs are unremarkable. Mike Logan MD Objective Remarks GENERAL: Resting comfortably. SKIN: Warm and dry. Residual bruising to right lower eye lid HEAD: Atraumatic. Normocephalic. EYES: Pupils equal and round, reactive. No scleral icterus. No injection or drainage. Gaze is deviated towards the right ENT: No nasal bleeding or discharge. Mucous membranes pink and moist. NECK: Trachea midline. No JVD. Tenderness to palpation in left paraspinal musculature and cervical region CARDIOVASCULAR: Tachycardic. RESPIRATORY: No accessory muscle use. Clear to auscultation. Breath sounds equal bilaterally. GASTROINTESTINAL: Abdomen soft, nontender, nondistended. Hepatic and splenic margins not palpable. Positive bowel sounds. MUSCULOSKELETAL: Extremities without clubbing, cyanosis, or edema. No obvious deformities. : Amin in place with yellow urine. NEUROLOGICAL: Awake and alert, not talking. A/P Assessment and Plan Acute renal failure Creatinine elevated over 6. Likely secondary to decreased by mouth intake and possible urinary retention. Status post Amin catheter placement. Creatinine improving. - Continue IV fluids. - Continue Amin catheter. - Avoid nephrotoxic agents. Sepsis/ UTI UA indicative of an infection. The patient presents with leukocytosis and an elevated heart rate. Enterococcus faecalis growing in urine. - Switch IV cefepime to Unasyn per sensitivities. - Follow blood cultures. 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 The pt follows with urology as an outpt. - continue Amin catheter. - urology consult noted. Outpatient follow-up. Metabolic encephalopathy S/t acute renal failure. CT of the head showed: Air-fluid levels in the sphenoid and right maxillary sinuses; Stable subdural hygroma on the left side without significant mass, hemorrhage or edema. - treatment as above. - diet per speech. Currently nothing by mouth with IV fluids. - PT/ OT. Recent head trauma CT as above. Stable. - PT/ OT/ ST. Goals of care The pt is DNR. - palliative care consult requested to help establish goals of care as the pt has many chronic comorbidities. A hospice consult has been placed. PPx: SCDs Discharge Planning Possible discharge to SNF with hospice Lenny Dee DO Sep 09, 2017 12:33
[2017-09-09 12:54] LABS: CALCIUM-PROTEIN CORRECTED 7.4 MG/DL (8.5-10.1)
[2017-09-09] MEDS ORDERED: AMPICILLIN-SULBACTAM INJ 3 GM in SODIUM CHLORIDE 0.9% INJ 100 ML IV SCH (13:00)
[2017-09-09] MEDS ORDERED: AUGM500T7 PO (14:36)
[2017-09-09] MEDS ORDERED: HYDR-3516 PO (14:36)
--- NOTE | 2017-09-09 14:41 | HHI.DCPOC ---
Discharge Care Plan Diagnosis: (1) Severe sepsis (2) UTI (urinary tract infection) (3) Acute renal failure (4) Major neurocognitive disorder as late effect of traumatic brain injury without behavioral disturbance Goals to Promote Your Health * To prevent worsening of your condition and complications * To maintain your health at the optimal level Directions to Meet Your Goals Take your medications as prescribed Follow your dietary instruction Follow activity as directed Keep your appointments as scheduled Take your immunizations and boosters as scheduled If your symptoms worsen call your PCP, if no PCP go to Urgent Care Center or Emergency Room Smoking is Dangerous to Your Health. Avoid second hand smoke Call the 24-hour hour crisis hotline for domestic abuse at Lenny Dee DO Sep 09, 2017 14:41
[2017-09-09] MEDS ORDERED: POTASSIUM CHLORIDE 10 MEQ CAP PO ONE (14:45)
--- NOTE | 2017-09-09 14:51 | HHI.DS ---
Discharge Summary Admission Date Sep 06, 2017 at 14:27 Discharge Date: Sep 09, 2017 Admitting Diagnosis severe sepsis, uti (1) Acute renal failure ICD Code: N17.9 - Acute kidney failure, unspecified Diagnosis: Principal Status: Acute (2) UTI (urinary tract infection) ICD Code: N39.0 - Urinary tract infection, site not specified Diagnosis: Principal Status: Acute (3) Severe sepsis ICD Code: A41.9 - Sepsis, unspecified organism; R65.20 - Severe sepsis without septic shock Status: Acute (4) Metabolic encephalopathy ICD Code: G93.41 - Metabolic encephalopathy Procedures None Brief History - From Admission Patient is an 87-year-old female sent by the [facility] for evaluation of altered mental status. Patient was last seen normal 24 hours prior to arrival to the emergency department. Per EMS report patient has not been communicating as normal. On arrival patient was posturing, her head deviated towards the right. Patient does withdraw from pain. She is aphasic. CBC/BMP: 09/09/17 1122 09/09/17 1122 Significant Findings Laboratory Tests Test 09/07/17 11:33 09/07/17 19:19 09/08/17 07:21 09/09/17 11:22 White Blood Count 13.2 TH/MM3 (4.0-11.0) 13.4 TH/MM3 (4.0-11.0) 12.5 TH/MM3 (4.0-11.0) 14.2 TH/MM3 (4.0-11.0) Red Blood Count 2.99 MIL/MM3 (4.00-5.30) 2.76 MIL/MM3 (4.00-5.30) 2.89 MIL/MM3 (4.00-5.30) 3.00 MIL/MM3 (4.00-5.30) Hemoglobin 9.1 GM/DL (11.6-15.3) 8.4 GM/DL (11.6-15.3) 9.0 GM/DL (11.6-15.3) 9.3 GM/DL (11.6-15.3) Hematocrit 28.8 % (35.0-46.0) 25.9 % (35.0-46.0) 27.2 % (35.0-46.0) 28.2 % (35.0-46.0) Mean Corpuscular Hemoglobin Concent 31.7 % (32.0-36.0) Neutrophils (%) (Auto) 77.2 % (16.0-70.0) Neutrophils # (Auto) 10.2 TH/MM3 (1.8-7.7) Blood Urea Nitrogen 82 MG/DL (7-18) 48 MG/DL (7-18) 31 MG/DL (7-18) Creatinine 2.59 MG/DL (0.50-1.00) 1.73 MG/DL (0.50-1.00) 1.26 MG/DL (0.50-1.00) Random Glucose 178 MG/DL (74-106) 135 MG/DL (74-106) 127 MG/DL (74-106) Calcium Level 8.0 MG/DL (8.5-10.1) 7.7 MG/DL (8.5-10.1) 7.3 MG/DL (8.5-10.1) Chloride Level 116 MEQ/L (98-107) 109 MEQ/L (98-107) Carbon Dioxide Level 19.3 MEQ/L (21.0-32.0) Estimat Glomerular Filtration Rate 18 ML/MIN (>89) 28 ML/MIN (>89) 40 ML/MIN (>89) Magnesium Level 1.3 MG/DL (1.5-2.5) Potassium Level 3.4 MEQ/L (3.5-5.1) 3.4 MEQ/L (3.5-5.1) Protein Corrected Calcium 7.4 MG/DL (8.5-10.1) Imaging Last Impressions Head CT 09/06/17 1134 Signed Impressions: Service Date/Time: Wednesday, September 06, 2017 12:12 - CONCLUSION: Air-fluid levels in the sphenoid and right maxillary sinuses. 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 Mike Logan MD Chest X-Ray 09/06/17 0000 Signed Impressions: Service Date/Time: Wednesday, September 06, 2017 17:04 - CONCLUSION: Normal examination. Mike Logan MD Cervical Spine CT 09/06/17 0000 Signed Impressions: Service Date/Time: Wednesday, September 06, 2017 12:14 - CONCLUSION: Normal examination except for mild chronic disc space height loss at C5-6 and C6-7 unchanged. Mike Logan MD Abdomen/Pelvis CT 09/06/17 0000 Signed Impressions: Service Date/Time: Wednesday, September 06, 2017 13:02 - CONCLUSION: 1. 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 2. Right kidney is unremarkable. 3. Solid organs are unremarkable. Mike Logan MD PE at Discharge GENERAL: Resting comfortably. SKIN: Warm and dry. Residual bruising to right lower eye lid HEAD: Atraumatic. Normocephalic. EYES: Pupils equal and round, reactive. No scleral icterus. No injection or drainage. Gaze is deviated towards the right ENT: No nasal bleeding or discharge. Mucous membranes pink and moist. NECK: Trachea midline. No JVD. Tenderness to palpation in left paraspinal musculature and cervical region CARDIOVASCULAR: Tachycardic. RESPIRATORY: No accessory muscle use. Clear to auscultation. Breath sounds equal bilaterally. GASTROINTESTINAL: Abdomen soft, nontender, nondistended. Hepatic and splenic margins not palpable. Positive bowel sounds. MUSCULOSKELETAL: Extremities without clubbing, cyanosis, or edema. No obvious deformities. : Amin in place with yellow urine. NEUROLOGICAL: Awake and alert, not talking. Hospital Course Acute renal failure/ Sepsis/ UTI Creatinine elevated over 6. Status post Amin catheter placement. Creatinine improved with IV fluids. UA indicative of an infection. The patient presented with leukocytosis and an elevated heart rate. Enterococcus faecalis growing in urine. We switched IV cefepime to Unasyn per sensitivities. She will be discharged on Augmentin. Blood cultures with no growth to date. Metabolic encephalopathy CT of the head showed: Air-fluid levels in the sphenoid and right maxillary sinuses; Stable subdural hygroma on the left side without significant mass, hemorrhage or edema. She was made NPO by speech therapy. She received IVFs. PT/ OT evaluated the pt. Palliative care was consulted and the family was interested in hospice. Hospice was then consulted and arrangements were made to discharge the pt back to her SNF with hospice. 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 We continued a Amin catheter. Urology was consulted. Outpatient urology follow-up was recommended. Pt Condition on Discharge: Stable Discharge Disposition: Hospice/Med Facility Discharge Time: > 30 minutes Discharge Instructions DIET: Follow Instructions for: As Tolerated, No Restrictions Activities you can perform: Weight Bearing as Anita Follow up Referrals: PCP Follow-up - 1 Week Urology - 2 Weeks New Medications: Amoxicillin-Clavulanate (Augmentin) 500-125 mg Tab 500 MG PO BID for Infection, #14 TAB 0 Refills Continued Medications: Acetaminophen (Tylenol) 325 Mg Tab 650 MG PO Q4H PRN for PAIN/TEMP 100 OR ABOVE, TAB 0 Refills Bisacodyl Supp (Dulcolax Supp) 10 Mg Supp 10 MG RECTAL IN AM PRN for IF NO RESULTS FROM MILK OF MAG, #12 SUPP 0 Refills Hydrocodone/Acetaminophen (Hydrocodone-Acetamin 5-325 mg) 5 Mg-325 Mg Tablet 1 TAB PO Q4HR PRN for SEVERE PAIN, #20 TAB (This prescription has been renewed) Lactulose (Lactulose) 10 Gram/15 Ml (15 Ml) Solution 30 ML PO DAILY PRN for CONSTIPATION Levetiracetam (Keppra) 500 Mg Tab 500 MG PO Q12HR for Control Seizures, #60 TAB 0 Refills Magnesium Citrate Liq (Citroma Liq) 300 Ml Liq 296 ML PO IN AM PRN for IF NO RESULTS FROM ENEMA, #1 BOTTLE 0 Refills Magnesium Hydroxide Liq (Milk of Magnesia Liq) 400 Mg/5 Ml Susp 30 ML PO Q12HR PRN for CONSTIPATION, #1 BOTTLE 0 Refills Phenazopyridine (Phenazopyridine) 100 Mg Tab 100 MG PO DAILY for Dysuria, TAB 0 Refills Sennosides-Docusate Sodium (Gnp Senna Plus 8.6-50 mg) 8.6 Mg-50 Mg Tab 1 TAB PO BID for Constipation for 5 Days, #10 TAB Lenny Dee DO Sep 09, 2017 14:50
[2017-09-09 16:00] VITALS: BP 155/72; PULSE 106; RESP 18; TEMP 98.1; O2SAT 93
[2017-09-09] MEDS ORDERED: CALCIUM GLUCONATE INJ 1 GM in SODIUM CHLORIDE 0.9% INJ 100 ML IV ONE (16:00)
[2017-09-09] MEDS ORDERED: levETIRAcetam INJ 500 MG in SODIUM CHLORIDE 0.9% INJ 100 ML IV SCH (21:00)
== END 2017-09-09 17:13 | DRG 871 ==
LOC: NEPE 11:24 → NEDA 14:27 → N07B 15:23
PROVIDERS: ADMIT Internal Medicine; ATTEND Hospitalist
DX: A41.9 Sepsis, unspecified organism (principal); G93.41 Metabolic encephalopathy; N17.9 Acute kidney failure, unspecified; R47.01 Aphasia; N39.0 Urinary tract infection, site not specified; E86.0 Dehydration; R65.20 Severe sepsis without septic shock; R33.9 Retention of urine, unspecified; N32.89 Other specified disorders of bladder; E27.9 Disorder of adrenal gland, unspecified; R59.0 Localized enlarged lymph nodes; B95.2 Enterococcus as the cause of diseases classified elsewhere; I10 Essential (primary) hypertension; R56.9 Unspecified convulsions; S06.5X0D Traumatic subdural hemorrhage without loss of consciousness, subsequent encounter; Z51.5 Encounter for palliative care; Z88.2 Allergy status to sulfonamides
CPT/HCPCS: 51703; 70450; 71010; 72125; 74176; 80048; 80053; 81001; 82550; 83605; 83735; 84155; 85025; 85027; 85610; 85730; 87040; 87077; 87086; 87186; 93005; 94640; 94664; 95819; 96361; 96365; J0131; J0295; J0692; J3370; J3475; J7030; J7040; J7050